=== PATIENT | female | born 1955 | race Caucasian/White ===

== ENCOUNTER 2016-09-02 09:25 | Emergency (ER) | payer BC ==
[2016-09-02] MEDS ORDERED: PANTOPRAZOLE 40MG TAB (PROTONIX) As Ordered ONE (10:04)
[2016-09-02] MEDS ORDERED: ASPIRIN 81 MG CHEW TABLET As Ordered ONE (10:04)
[2016-09-02 10:16] LABS: BASO # 0.1 K/mm3 (0.0-0.2); BASO % 1.8 % (0.0-1.0); EOS # 0.2 K/mm3 (0.0-0.50); EOS % 2.5 % (0.0-3.0); LARGE UNSTAINED CELL # 0.1 K/mm3 (0.0-0.4); LARGE UNSTAINED CELL % 1.6 % (0.0-4.0); LYMPH # 1.9 K/mm3 (1.5-4.5); LYMPH % 27.1 % (24.0-44.0); MEAN CORPUSCULAR HEMOGLOBIN 28.6 pg (27.0-33.0); MEAN CORPUSCULAR HGB CONC 31.9 g/dl (32.0-36.5); MEAN CORPUSCULAR VOLUME 89.7 fl (80.0-96.0); MONO # 0.3 K/mm3 (0.0-0.8); MONO % 4.9 % (0.0-5.0); NEUTROPHILS # 4.2 K/mm3 (1.8-7.7); NEUTROPHILS % 62.1 % (36.0-66.0); PLATELET COUNT, AUTOMATED 304 k/mm3 (150-450); RED CELL DISTRIBUTION WIDTH 13.8 % (11.5-14.5); WHITE BLOOD COUNT 6.7 K/mm3 (4.0-10.0)
[2016-09-02 10:23] LABS: ALBUMIN 3.7 GM/DL (3.2-5.2); ALBUMIN/GLOBULIN RATIO 1.23 (1.00-1.93); ALKALINE PHOSPHATASE 93 U/L (45-117); ALT/SGPT 54 U/L (12-78); ANION GAP 8 MEQ/L (8-16); AST/SGOT 19 U/L (15-37); BILIRUBIN,DIRECT < 0.1 MG/DL (0.0-0.2); BILIRUBIN,TOTAL 0.3 MG/DL (0.2-1.0); BLOOD UREA NITROGEN 13 MG/DL (7-18); CALCIUM LEVEL 8.8 MG/DL (8.8-10.2); CARBON DIOXIDE LEVEL 28 MEQ/L (21-32); CHLORIDE LEVEL 109 MEQ/L (98-107); CREATININE FOR GFR 0.81 MG/DL (0.55-1.02); GLOMERULAR FILTRATION RATE > 60.0 (>45); GLUCOSE, FASTING 229 MG/DL (80-110); POTASSIUM SERUM 4.1 MEQ/L (3.5-5.1); SODIUM LEVEL 145 MEQ/L (136-145); TOTAL PROTEIN 6.7 GM/DL (6.4-8.2)
--- NOTE | 2016-09-02 10:42 | REP ---
Clinical: Chest pain . Comparison: 12/16/2014 . Findings: The mediastinum and cardiac silhouette are stable and within normal limits for portable technique. The lung luna are clear without acute consolidation, effusion, or pneumothorax. Skeletal structures are intact. Impression: Normal portable chest x-ray Signed by Geronimo Palmer MD 09/02/2016 10:34 A
--- NOTE | 2016-09-02 13:00 | EDDOCDS ---
Physician Documentation [facility] Name: Cindy Skinner Age: 61 yrs Sex: Female : 1955 Arrival Date: 09/02/2016 Time: 09:25 Bed 14 Private MD: Amadeo Copeland Disposition: 09/02 12:43 Critical Care: Critical care not applicable. pc Disposition: 09/02/16 12:47 Discharged to Home/Self Care. Impression: Chest pain, unspecified, Gastro-esophageal reflux disease. - Condition is Stable. - Discharge Instructions: Nonspecific Chest Pain. - Prescriptions for Protonix 40 mg Oral Tablet - take 1 tablet by ORAL route once daily; 30 tablet. - Medication Reconciliation, Local Pharmacy Hours form. - Follow up: Amadeo Copeland; When: Call to arrange an appointment; Reason: Continuance of care. Follow up: Ashkan Garcia; When: Call to arrange an appointment; Reason: To establish care. - Problem is new. - Symptoms have improved. HPI: 10:02 This 61 yrs old Female presents to ER via Walkin/Carried/Asstd with pc complaints of Chest Pain. 10:02 The history is obtained from the patient. Symptoms began suddenly 8 days ago. There pc have been multiple episodes, that have been waxing and waning, lasting minutes to an hour. 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 She describes fatigue with walking up stairs but denies any SOB, diaphoresis, palpitations. She has GERD and was on a PPI for many years until 3 months ago, when she stopped in on her own to try apple cider vinegar instead. She had a stress test 3-[address] Copeladn, which was nor,mal per the EMR. At its worst, the symptoms were a 8 out of 10. In the emergency department, the symptoms are a 6 out of 10. The chest pain is described as a pressure, causing indigestion, a burning. It is located primarily in the substernal area. The pain radiates throat. The patient's known risk factors for coronary artery disease include: diabetes, hypertension, a family history of coronary artery disease. The patient has experienced similar episodes in the past, several times. The patient has not recently seen a physician. Historical: - Allergies: no known allergies; - Home Meds: 1. hydrochlorothiazide 12.5 mg Oral tab 1 tab once daily states does not take every day &#13(Last dose: 09/01/2016) 2. metformin 500 mg Oral tab 1 tab daily - PMHx: Hypertension; Diabetes - NIDDM: uncontrolled; - PSHx: Cervical Fusion; Hysterectomy; Tubal ligation; eye surgery x 3; Appendectomy; - The history from nurses notes was reviewed: and I agree with what is documented. - Social history: Smoking status: Patient states was never smoker of tobacco. No barriers to communication noted, The patient speaks fluent [place]isian, Speaks appropriately for age. - Family history: Not pertinent, Pertinent for Father has/had cardiac disorder, Brother has/had cardiac disorder. - : The pt / caregiver states he / she is not on anticoagulants. Home medication list is obtained from the patient. - Hospitalizations: : No recent hospitalization is reported. - Exposure Risk Screening:: None identified. - Immunization history:: All immunizations up-to-date. - Social history:: the patient is a non-smoker, the patient does not drink alcohol. ROS: 10:02 All systems are negative except as listed. The cardiovascular, respiratory, pc gastrointestinal and neurological components are also addressed in the HPI. Exam: 10:02 General Appearance: alert, no acute distress. pc 10:02 ENT: ear, nose and throat normal, pharynx normal. 10:02 Neck: supple, non-tender, no masses are appreciated. 10:02 Respiratory: no respiratory distress, normal breath sounds, chest non-tender. 10:02 Cardiovascular: regular pulse rate, regular heart rhythm, normal heart sounds, equal and full pulses bilaterally. 10:02 Abdomen: soft, non-tender, no organomegaly, normal bowel sounds. 10:02 Skin: skin color is normal, warm, dry. 10:02 Extremities: The extremities have a grossly normal appearance, are non-tender, without acute ROM abnormalities. 10:02 Neuro: alert, oriented to person, place and time, cranial nerves normal as tested, no motor deficits, no sensory deficits. 10:02 Psych: normal mood. Vital Signs: 09:27 BP 183 / 92; Pulse 90; Resp 16; Temp 98.3(O); Pulse Ox 98% on R/A; Weight 90.72 kg / elp 200 lbs (R); Height 5 ft. 2 in. (157.48 cm) (R); Pain 6/10; 09:40 BP 143 / 74 (auto/); pml 09:42 Pulse 76 MON; Pulse Ox 98% ; pml 09:53 Pulse 72 MON; Pulse Ox 98% ; pml 09:53 BP 155 / 75 (auto/); pml 10:08 Pulse 76 MON; Pulse Ox 98% ; pml 10:08 BP 148 / 59 (auto/); pml 10:23 Pulse 66 MON; Pulse Ox 98% ; pml 10:23 BP 160 / 69 (auto/); pml 10:38 Pulse 60 MON; Pulse Ox 98% ; pml 10:38 BP 163 / 74 (auto/); pml 10:53 Pulse 74 MON; Pulse Ox 98% ; pml 10:53 BP 150 / 69 (auto/); pml 11:08 Pulse 60 MON; Pulse Ox 98% ; pml 11:08 BP 146 / 60 (auto/); pml 11:23 Pulse 62 MON; Pulse Ox 98% ; pml 11:23 BP 136 / 63 (auto/); pml 11:38 Pulse 58 MON; Pulse Ox 97% ; pml 11:38 BP 140 / 68 (auto/); pml 11:53 BP 141 / 70 (auto/); bcj 11:53 Pulse 64 MON; Pulse Ox 98% ; bcj 12:08 BP 132 / 64 (auto/); bcj 12:08 Pulse 58 MON; Pulse Ox 98% ; bcj 12:23 BP 137 / 63 (auto/); bcj 12:23 Pulse 64 MON; Pulse Ox 99% ; bcj 12:38 BP 151 / 71 (auto/); bcj 12:38 Pulse 64 MON; Pulse Ox 98% ; bcj 12:53 Pulse 64 MON; Pulse Ox 98% ; ms18 12:53 BP 145 / 71 (auto/); Resp 18; Temp 98; Pulse Ox 99% ; Pain 0/10; ms18 09:27 Body Mass Index 36.58 (90.72 kg, 157.48 cm) elp MDM: 09:32 ECG WITH READING ER PHYS+CARDIAG ordered. EDMS 10:02 Aspirin Chewable Tablet 324 mg PO once ordered. pc 10:02 Registered Medical Transcriptionist/Pulse Ox/q 30 min VS ordered. pc 10:02 IV Saline Lock ordered. pc 10:02 Rhythm Strip to chart ordered. pc 10:02 Pantoprazole 40 mg PO once ordered. pc 10:02 Differential diagnosis: acute myocardial infarction, esophagitis, gastritis, pc gastroesophageal reflux disease (GERD), pancreatitis, unstable angina. Plan: labs, EKG, CXR. The patient was medicated with aspirin in the Emergency Department. Test interpretation: EKG. 10:03 Basic Metabolic Profile Ordered. EDMS 10:03 CBC with Diff Ordered. EDMS 10:03 Cardiac Injury Profile Ordered. EDMS 10:03 Troponin Ordered. EDMS 10:03 Liver Profile Ordered. EDMS 10:03 Lipase Ordered. EDMS 10:03 A1C Ordered. EDMS 10:03 portable chest Ordered. EDMS 10:55 Basic Metabolic Profile Reviewed. pc 10:55 CBC with Diff Reviewed. pc 10:55 A1C Reviewed. pc 10:55 Cardiac Injury Profile Reviewed. pc 10:55 Troponin Reviewed. pc 10:55 Liver Profile Reviewed. pc 10:55 Lipase Reviewed. pc 10:55 portable chest Reviewed. pc 10:56 Redraw CIP &Troponin (put time in details section) ordered. pc 10:56 Repeat EKG (put time details section) ordered. pc 10:58 Redraw CIP &Troponin (put time in details section) complete. deg 10:58 Repeat EKG (put time details section) complete. deg 10:59 CARDIAC MARKER PANEL Ordered. EDMS 11:00 ECG WITH READING ER PHYS ordered. EDMS 11:48 Financial registration complete. mm15 12:13 [facility] Payment Agreement was scanned into [employer] and attached to record. mm15 12:43 CARDIAC MARKER PANEL Reviewed. pc 12:43 Data reviewed: old medical records, vital signs, nurses notes, EKG(s), lab test pc results, all radiology studies and available results. Test interpretation: LAB - all labs as ordered have been reviewed, interpreted and considered in the overall management of the clinical presentation; X-RAY - interpreted by Radiologist and personally reviewed, 1 view chest normal. The patient has been re-examined and re-evaluated. The patient's symptoms have mildly improved after treatment. Disposition: The historical points, examination findings, and any diagnostic results supporting the provided diagnosis, were discussed with the patient or legal guardian. The need for outpatient follow up with the provider listed on their discharge instructions was discussed. They were encouraged to return to [facility], or the nearest ED, if symptoms worsen/persist, or for any other questions/concerns. 12:56 Test interpretation: EKG. EC:02 Rate is 75 beats/min. Rhythm is regular, Normal Sinus Rhythm. QRS [place] is Normal. AR pc interval is normal. QRS interval is normal. QT interval is normal. Q waves are Old in lead III. No ST changes noted. Clinical impression: Normal Sinus Rhythm and Inferior [place] - age indeterminate. No change from previous ECG in April,. 12:56 Rate is 59 beats/min. Rhythm is regular, Sinus bradycardia. QRS [place] is Normal. AR pc interval is normal. QRS interval is normal. QT interval is normal. Q waves are Old in lead III. T waves are Normal. No ST changes noted. Clinical impression: Sinus bradycardia and Inferior [place] - age indeterminate. Administered Medications: 10:06 Drug: Aspirin 324 mg [aspirin 81 mg chewable tablet (4 tabs)] Route: PO; pml 10:06 Drug: Pantoprazole 40 mg [pantoprazole 40 mg tablet,delayed release (1 tabs)] Route: PO;pml Signatures: Dispatcher [employer] EDMS Ketan Contreras MD MD pc Murray, Denise, Immigration Associate Unit deg Caro Tovar RN RN pml Mike Robison mm15 Brenda Guadarrama RN RN [id number] The chart was reviewed and I authenticate all verbal orders and agree with the evaluation and treatment provided.Attachments: 12:13 [facility] Payment Agreement [id number] MTDD
--- NOTE | 2016-09-02 13:00 | EDDOCDS ---
Nurse's Notes [facility] Name: Cindy Skinner Age: 61 yrs Sex: Female : 1955 Arrival Date: 09/02/2016 Time: 09:25 Bed 14 Private MD: Amadeo Copeland Diagnosis: Chest pain, unspecified;Gastro-esophageal reflux disease Presentation: 09/02 09:33 Presenting complaint: Patient states: chest pain all week - worse this AM - states she pml thought it was indigestion. states worsens with exertion. Aspirin was not taken prior to arrival. Adult Sepsis Screening: The patient does not have new or worsening altered mentation. Patient's respiratory rate is less than 22. Systolic blood pressure is greater than 100. Patient has a qSOFA score of 0- Negative Sepsis Screen. Suicide/Homicide risk assessment- the patient denies having any suicidal and/or homicidal ideations and does not present with any other emotional, behavioral or mental health complaints. Status: Patient is not a service engineer or dependent. Transition of care: patient was not received from another setting of care. 09:33 Acuity: KIKI Level 2 pml 09:33 Method Of Arrival: Walkin/Carried/Asstd pml 09:35 Red Flag criteria, patient assessed and taken directly to a bed. dls Triage Assessment: 09:36 General: Appears in no apparent distress, comfortable, Behavior is appropriate for age, pml cooperative. Pain: Location: anterior aspect of left upper chest and left breast Pain currently is 5 out of 10 on a pain scale. Pain began 5 days ago Is continuous. HIV screening NA for this visit Offered previously. The patient is triaged at the bedside. See Assessment in Nurses Notes section of ED record. Neurological: Level of Consciousness is awake, alert, Oriented to person, place, time. Cardiovascular: Capillary refill < 3 seconds Chest pain is described as diffuse, radiates Does not radiate. episodes are continuous began 5 days ago. Respiratory: Airway is patent Respiratory effort is even, unlabored, Respiratory pattern is regular, symmetrical, Reports shortness of breath on exertion. GI: Abdomen is non- distended obese. Derm: Skin is pink, warm & dry. 09:41 Cardiovascular: Rhythm is sinus rhythm No ectopy. pml Historical: - Allergies: no known allergies; - Home Meds: 1. hydrochlorothiazide 12.5 mg Oral tab 1 tab once daily states does not take every day &#13(Last dose: 09/01/2016) 2. metformin 500 mg Oral tab 1 tab daily - PMHx: Hypertension; Diabetes - NIDDM: uncontrolled; - PSHx: Cervical Fusion; Hysterectomy; Tubal ligation; eye surgery x 3; Appendectomy; - The history from nurses notes was reviewed: and I agree with what is documented. - Social history: Smoking status: Patient states was never smoker of tobacco. No barriers to communication noted, The patient speaks fluent Portuguese, Speaks appropriately for age. - Family history: Not pertinent, Pertinent for Father has/had cardiac disorder, Brother has/had cardiac disorder. - : The pt / caregiver states he / she is not on anticoagulants. Home medication list is obtained from the patient. - Hospitalizations: : No recent hospitalization is reported. - Exposure Risk Screening:: None identified. - Immunization history:: All immunizations up-to-date. - Social history:: the patient is a non-smoker, the patient does not drink alcohol. Screenin:47 Screening information is obtained from the patient. Fall risk: No risks identified. pml Assistance ADL's: requires no assistance with activities of daily living. Abuse/DV Screen: The patient / caregiver reports he/she is: not in a situation that causes fear, pain or injury. Nutritional screening: No deficits noted. Advance Directives: Currently, there is no health care proxy. home support is adequate. Assessment: 09:47 General: see triage note. pml 10:44 General: Appears in no apparent distress, comfortable, Behavior is appropriate for age, pml cooperative. Pain: Location: anterior aspect of left upper chest Pain currently is 3 out of 10 on a pain scale. Neurological: Level of Consciousness is awake, alert, Oriented to person, place, time. Cardiovascular: Capillary refill < 3 seconds Rhythm is sinus rhythm No ectopy. Respiratory: Airway is patent Respiratory effort is even, unlabored. Derm: Skin is pink, warm & dry. 11:45 General: resting on stretcher, no complaints, resps easy and unlabored, skin p/w/d. pml reports pain 3/10 in left chest wall. . 12:57 General: Appears in no apparent distress, comfortable, Behavior is appropriate for age, ms18 cooperative, pleasant. Pain: Denies pain. Neurological: No deficits noted. Cardiovascular: Chest pain is denied. Respiratory: Airway is patent Respiratory effort is even, unlabored. GI: Abdomen is obese. Derm: Skin is pink, warm & dry. Vital Signs: 09:27 BP 183 / 92; Pulse 90; Resp 16; Temp 98.3(O); Pulse Ox 98% on R/A; Weight 90.72 kg (R); elp Height 5 ft. 2 in. (157.48 cm) (R); Pain 6/10; 09:40 BP 143 / 74 (auto/); pml 09:42 Pulse 76 MON; Pulse Ox 98% ; pml 09:53 Pulse 72 MON; Pulse Ox 98% ; pml 09:53 BP 155 / 75 (auto/); pml 10:08 Pulse 76 MON; Pulse Ox 98% ; pml 10:08 BP 148 / 59 (auto/); pml 10:23 Pulse 66 MON; Pulse Ox 98% ; pml 10:23 BP 160 / 69 (auto/); pml 10:38 Pulse 60 MON; Pulse Ox 98% ; pml 10:38 BP 163 / 74 (auto/); pml 10:53 Pulse 74 MON; Pulse Ox 98% ; pml 10:53 BP 150 / 69 (auto/); pml 11:08 Pulse 60 MON; Pulse Ox 98% ; pml 11:08 BP 146 / 60 (auto/); pml 11:23 Pulse 62 MON; Pulse Ox 98% ; pml 11:23 BP 136 / 63 (auto/); pml 11:38 Pulse 58 MON; Pulse Ox 97% ; pml 11:38 BP 140 / 68 (auto/); pml 11:53 BP 141 / 70 (auto/); bcj 11:53 Pulse 64 MON; Pulse Ox 98% ; bcj 12:08 BP 132 / 64 (auto/); bcj 12:08 Pulse 58 MON; Pulse Ox 98% ; bcj 12:23 BP 137 / 63 (auto/); bcj 12:23 Pulse 64 MON; Pulse Ox 99% ; bcj 12:38 BP 151 / 71 (auto/); bcj 12:38 Pulse 64 MON; Pulse Ox 98% ; bcj 12:53 Pulse 64 MON; Pulse Ox 98% ; ms18 12:53 BP 145 / 71 (auto/); Resp 18; Temp 98; Pulse Ox 99% ; Pain 0/10; ms18 09:27 Body Mass Index 36.58 (90.72 kg, 157.48 cm) elp Vitals: 09:27 Log In Time: September 02, 2016 at 09:25. RN notified that patient meets Red Flag elp criteria. ED Course: 09:27 Patient visited by Augustina Diaz PCA. elp 09:27 Amadeo Copeland is Private Physician. elp 09:27 Patient moved to Waiting elp 09:28 Patient visited by Augustina Diaz PCA. elp 09:30 Patient moved to 14 dy 09:34 Triage Initiated pml 09:41 Patient visited by Caro Tovar RN. pml 09:41 EKG done. (by ED staff). Reviewed by Ketan Contreras MD. tk 09:43 Patient visited by Aidan Tinsley. tk 09:44 Ketan Contreras MD is Attending Physician. pc 09:47 The patient / caregiver is instructed regarding the plan of care and ED course. Patient pml has correct armband on for positive identification. Placed in gown. Bed in low position. Call light in reach. Side rails up X2. panel monitor on. Pulse ox on. NIBP on. 09:47 Inserted peripheral IV: 18gauge IV in right antecubital area and blood collected. pml Patient tolerated the procedure well. 09:48 Patient visited by Caro Tovar RN. pml 10:09 Patient visited by Ketan Contreras MD. pc 10:45 Patient visited by Caro Tovar RN. pml 10:49 portable chest Returned. EDMS 11:46 Patient visited by Caro Tovar RN. pml 12:02 Patient visited by Aidan Tinsley. tk 12:02 EKG done. (by ED staff). Reviewed by Ketan Contreras MD. tk 12:13 [facility] Payment Agreement was scanned into [employer] vascular solution and attached to record. mm15 12:13 CARDIAC MARKER PANEL Sent. ms18 12:24 Patient name changed from Cindy\S\A\S\Brody\S\ to Cindy\S\Xenia\S\Brody. EDMS 12:46 Amadeo Copeland is Referral Physician. pc 12:46 Ashkan Garcia is Referral Physician. pc 12:53 Property sent home with patient. :Personal belongings accompany Pt. ms18 12:53 Discontinued IV lock intact, bleeding controlled, pressure dressing applied, No ms18 redness/swelling at site. No procedures done that require assistance. 12:57 Patient visited by Brenda Guadarrama RN. ms18 Administered Medications: 10:06 Drug: Aspirin 324 mg [aspirin 81 mg chewable tablet (4 tabs)] Route: PO; pml 10:06 Drug: Pantoprazole 40 mg [pantoprazole 40 mg tablet,delayed release (1 tabs)] Route: PO;pml Order Results: Lab Order: Basic Metabolic Profile; SPEC'M 09/02/16 09:45 Test: GLUCOSE, FASTING; Value: 229; Range: 80-110; Abnormal: Above high normal; Units: MG/DL; Status: F Test: BLOOD UREA NITROGEN; Value: 13; Range: 7-18; Units: MG/DL; Status: F Test: CREATININE FOR GFR; Value: 0.81; Range: 0.55-1.02; Units: MG/DL; Status: F Test: GLOMERULAR FILTRATION RATE; Value: > 60.0; Range: >45; Status: F Test: SODIUM LEVEL; Value: 145; Range: 136-145; Units: MEQ/L; Status: F Test: POTASSIUM SERUM; Value: 4.1; Range: 3.5-5.1; Units: MEQ/L; Status: F Test: CHLORIDE LEVEL; Value: 109; Range: 98-107; Abnormal: Above high normal; Units: MEQ/L; Status: F Test: CARBON DIOXIDE LEVEL; Value: 28; Range: 21-32; Units: MEQ/L; Status: F Test: ANION GAP; Value: 8; Range: 8-16; Units: MEQ/L; Status: F Test: CALCIUM LEVEL; Value: 8.8; Range: 8.8-10.2; Units: MG/DL; Status: F Test Note: ; Units are mL/min/1.73 m2 Chronic Kidney Disease Staging per NKF: Stage I & II GFR >=60 Normal to Mildly Decreased Stage III GFR 30-59 Moderately Decreased Stage IV GFR 15-29 Severely Decreased Stage V GFR <15 Very Little GFR Left ESRD GFR <15 on SECURITY INTERN Lab Order: CBC with Diff; SPEC'M 09/02/16 09:45 Test: WHITE BLOOD COUNT; Value: 6.7; Range: 4.0-10.0; Units: K/mm3; Status: F Test: RED BLOOD COUNT; Value: 5.14; Range: 4.00-5.40; Units: M/mm3; Status: F Test: HEMOGLOBIN; Value: 14.7; Range: 12.0-16.0; Units: g/dl; Status: F Test: HEMATOCRIT; Value: 46.1; Range: 36.0-47.0; Units: %; Status: F Test: MEAN CORPUSCULAR VOLUME; Value: 89.7; Range: 80.0-96.0; Units: fl; Status: F Test: MEAN CORPUSCULAR HEMOGLOBIN; Value: 28.6; Range: 27.0-33.0; Units: pg; Status: F Test: MEAN CORPUSCULAR HGB CONC; Value: 31.9; Range: 32.0-36.5; Abnormal: Below low normal; Units: g/dl; Status: F Test: RED CELL DISTRIBUTION WIDTH; Value: 13.8; Range: 11.5-14.5; Units: %; Status: F Test: PLATELET COUNT, AUTOMATED; Value: 304; Range: 150-450; Units: k/mm3; Status: F Test: NEUTROPHILS %; Value: 62.1; Range: 36.0-66.0; Units: %; Status: F Test: LYMPH %; Value: 27.1; Range: 24.0-44.0; Units: %; Status: F Test: MONO %; Value: 4.9; Range: 0.0-5.0; Units: %; Status: F Test: EOS %; Value: 2.5; Range: 0.0-3.0; Units: %; Status: F Test: BASO %; Value: 1.8; Range: 0.0-1.0; Abnormal: Above high normal; Units: %; Status: F Test: LARGE UNSTAINED CELL %; Value: 1.6; Range: 0.0-4.0; Units: %; Status: F Test: NEUTROPHILS #; Value: 4.2; Range: 1.8-7.7; Units: K/mm3; Status: F Test: LYMPH #; Value: 1.9; Range: 1.5-4.5; Units: K/mm3; Status: F Test: MONO #; Value: 0.3; Range: 0.0-0.8; Units: K/mm3; Status: F Test: EOS #; Value: 0.2; Range: 0.0-0.50; Units: K/mm3; Status: F Test: BASO #; Value: 0.1; Range: 0.0-0.2; Units: K/mm3; Status: F Test: LARGE UNSTAINED CELL #; Value: 0.1; Range: 0.0-0.4; Units: K/mm3; Status: F Lab Order: Cardiac Injury Profile; [facility]' 09/02/16 09:45 Test: CPK CREATINE PHOSPHOKINASE; Value: 131; Range: 26-192; Units: U/L; Status: F Test: CK-MB VALUE MASS; Value: 1.5; Range: 0.0-3.6; Units: NG/ML; Status: F Test: MB/CK RELATIVE INDEX; Value: 1.14; Range: < OR =4; Status: F Test Note: ; DIAGNOSIS CRITERIA MMB ng/ml Relative Index (RI) NON-AMI < or = 5 N/A BAH ZONE > 5 < or = 4 AMI > 5 > 4 Lab Order: Troponin; [facility] 09/02/16 09:45 Test: TROPONIN I; Value: < 0.02; Range: < 0.10; Units: NG/ML; Status: F Test Note: ; Troponin I Reference Interval for [employer] LOCI: 99th Percentile= 0.00-0.045 ng/ml Risk Stratification: <= 0.10 ng/ml Decreased Risk for Adverse Clinical Events. 0.10-1.50 ng/ml Increased Risk for Adverse Clinical Events. Evaluation of additional criterion and/or repeat testing in 2-6 hours is suggested to rule out myocardial damage. >= 1.50 ng/ml Indicative of Myocardial Injury. Lab Order: Liver Profile; SPEC09/02/16 09:45 Test: AST/SGOT; Value: 19; Range: 15-37; Units: U/L; Status: F Test: ALT/SGPT; Value: 54; Range: 12-78; Units: U/L; Status: F Test: ALKALINE PHOSPHATASE; Value: 93; Range: 45-117; Units: U/L; Status: F Test: BILIRUBIN,TOTAL; Value: 0.3; Range: 0.2-1.0; Units: MG/DL; Status: F Test: BILIRUBIN,DIRECT; Value: < 0.1; Range: 0.0-0.2; Units: MG/DL; Status: F Test: TOTAL PROTEIN; Value: 6.7; Range: 6.4-8.2; Units: GM/DL; Status: F Test: ALBUMIN; Value: 3.7; Range: 3.2-5.2; Units: GM/DL; Status: F Test: ALBUMIN/GLOBULIN RATIO; Value: 1.23; Range: 1.00-1.93; Status: F Lab Order: Lipase; SPEC'M 09/02/16 09:45 Test: LIPASE; Value: 165; Range: 73-393; Units: U/L; Status: F Lab Order: A1C; SPEC' 09/02/16 09:45 Test: HEMOGLOBIN A1c; Value: 7.1; Range: 4.5-6.2; Abnormal: Above high normal; Units: %; Status: F Test: ESTIMATED AVERAGE GLUCOSE; Value: 157; Range: 60-110; Abnormal: Above high normal; Units: MG/DL; Status: F Lab Order: CARDIAC MARKER PANEL; SPEC' 09/02/16 12:09 Test: CPK CREATINE PHOSPHOKINASE; Value: 122; Range: 26-192; Units: U/L; Status: F Test: CK-MB VALUE MASS; Value: 1.5; Range: 0.0-3.6; Units: NG/ML; Status: F Test: MB/CK RELATIVE INDEX; Value: 1.22; Range: < OR =4; Status: F Test: TROPONIN I; Value: < 0.02; Range: < 0.10; Units: NG/ML; Status: F Test Note: ; DIAGNOSIS CRITERIA MMB ng/ml Relative Index (RI) NON-AMI < or = 5 N/A BAH ZONE > 5 < or = 4 AMI > 5 > 4 Radiology Order: portable chest Test: portable chest REASON FOR EXAMINATION: Chest Pain; Clinical: Chest pain .; ; Comparison: 12/16/2014 .; ; Findings:; The mediastinum and cardiac silhouette are stable and within normal limits for; portable technique. The lung luna are clear without acute consolidation,; effusion, or pneumothorax. Skeletal structures are intact.; ; Impression:; Normal portable chest x-ray; ; ; Signed by; Geronimo Palmer MD 09/02/2016 10:34 A; Outcome: 12:47 Discharge ordered by Provider. 12:53 Discharge Assessment: Patient awake, alert and oriented x 3. No cognitive and/or ms18 functional deficits noted. Patient verbalized understanding of disposition instructions. patient administered narcotics - no. The following High Risk Discharge criteria are identified: None. Discharged to home ambulatory. Condition: good Condition: stable Condition: improved. Discharge instructions given to patient, Instructed on discharge instructions, follow up and referral plans. medication usage, Demonstrated understanding of instructions, medications, Pt was receptive of discharge instructions/ teaching. Prescriptions given X 1. No special radiology studies were completed. 12:59 Patient left the ED. ms18 Signatures: Dispatcher [employer] EDMS Ketan Contreras MD MD pc Johnson, Bruce, RN RN Karen Juarez, RN RN Zhou Haddad, Caro Yepez RN,Mike Daiz RN mm15 Augustina Diaz, Brenda Johnson RN RN ms18 Aidan Tinsley MTDD
--- NOTE | 2016-09-03 12:48 | ECGEPIP ---
Stationary ECG Study [facility] - ED Test Date: 2016-09-02 Pat Name: FRANCINE AGARWAL Department: Room: - Gender: F Critical Care Physician Assistant: tk : 1955 Requested By: Ketan Salmeron Order Number: [id number] Reading MD: Gayatri Hussein Measurements Intervals [place] Rate: 75 P: 42 [place]: 176 QRS: 35 QRSD: 102 T: 30 QT: 365 QTc: 409 Interpretive Statements SINUS RHYTHM SIMILAR 05/05/12 Electronically Signed On 09-03-2016 12:48:18 EST by Gayatri Hussein
--- NOTE | 2016-09-03 12:51 | ECGEPIP ---
Stationary ECG Study 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
--- NOTE | 2016-09-04 14:00 | EDDOCDS ---
Nurse's Notes [facility] Name: Francine Skinner Age: 61 yrs Sex: Female : 1955 Arrival Date: 09/02/2016 Time: 09:25 Bed 14 Private MD: Amadeo Copeland Diagnosis: Chest pain, unspecified;Gastro-esophageal reflux disease Presentation: 09/02 09:33 Presenting complaint: Patient states: chest pain all week - worse this AM - states she pml thought it was indigestion. states worsens with exertion. Aspirin was not taken prior to arrival. Adult Sepsis Screening: The patient does not have new or worsening altered mentation. Patient's respiratory rate is less than 22. Systolic blood pressure is greater than 100. Patient has a qSOFA score of 0- Negative Sepsis Screen. Suicide/Homicide risk assessment- the patient denies having any suicidal and/or homicidal ideations and does not present with any other emotional, behavioral or mental health complaints. Status: Patient is not a service observer chief or dependent. Transition of care: patient was not received from another setting of care. 09:33 Acuity: KIKI Level 2 pml 09:33 Method Of Arrival: Walkin/Carried/Asstd pml 09:35 Red Flag criteria, patient assessed and taken directly to a bed. dls Triage Assessment: 09:36 General: Appears in no apparent distress, comfortable, Behavior is appropriate for age, pml cooperative. Pain: Location: anterior aspect of left upper chest and left breast Pain currently is 5 out of 10 on a pain scale. Pain began 5 days ago Is continuous. HIV screening NA for this visit Offered previously. The patient is triaged at the bedside. See Assessment in Nurses Notes section of ED record. Neurological: Level of Consciousness is awake, alert, Oriented to person, place, time. Cardiovascular: Capillary refill < 3 seconds Chest pain is described as diffuse, radiates Does not radiate. episodes are continuous began 5 days ago. Respiratory: Airway is patent Respiratory effort is even, unlabored, Respiratory pattern is regular, symmetrical, Reports shortness of breath on exertion. GI: Abdomen is non- distended obese. Derm: Skin is pink, warm & dry. 09:41 Cardiovascular: Rhythm is sinus rhythm No ectopy. pml Historical: - Allergies: no known allergies; - Home Meds: 1. hydrochlorothiazide 12.5 mg Oral tab 1 tab once daily states does not take every day &#13(Last dose: 09/01/2016) 2. metformin 500 mg Oral tab 1 tab daily - PMHx: Hypertension; Diabetes - NIDDM: uncontrolled; - PSHx: Cervical Fusion; Hysterectomy; Tubal ligation; eye surgery x 3; Appendectomy; - The history from nurses notes was reviewed: and I agree with what is documented. - Social history: Smoking status: Patient states was never smoker of tobacco. No barriers to communication noted, The patient speaks fluent Tanzanian, Speaks appropriately for age. - Family history: Not pertinent, Pertinent for Father has/had cardiac disorder, Brother has/had cardiac disorder. - : The pt / caregiver states he / she is not on anticoagulants. Home medication list is obtained from the patient. - Hospitalizations: : No recent hospitalization is reported. - Exposure Risk Screening:: None identified. - Immunization history:: All immunizations up-to-date. - Social history:: the patient is a non-smoker, the patient does not drink alcohol. Screenin:47 Screening information is obtained from the patient. Fall risk: No risks identified. pml Assistance ADL's: requires no assistance with activities of daily living. Abuse/DV Screen: The patient / caregiver reports he/she is: not in a situation that causes fear, pain or injury. Nutritional screening: No deficits noted. Advance Directives: Currently, there is no health care proxy. home support is adequate. Assessment: 09:47 General: see triage note. pml 10:44 General: Appears in no apparent distress, comfortable, Behavior is appropriate for age, pml cooperative. Pain: Location: anterior aspect of left upper chest Pain currently is 3 out of 10 on a pain scale. Neurological: Level of Consciousness is awake, alert, Oriented to person, place, time. Cardiovascular: Capillary refill < 3 seconds Rhythm is sinus rhythm No ectopy. Respiratory: Airway is patent Respiratory effort is even, unlabored. Derm: Skin is pink, warm & dry. 11:45 General: resting on stretcher, no complaints, resps easy and unlabored, skin p/w/d. pml reports pain 3/10 in left chest wall. . 12:57 General: Appears in no apparent distress, comfortable, Behavior is appropriate for age, ms18 cooperative, pleasant. Pain: Denies pain. Neurological: No deficits noted. Cardiovascular: Chest pain is denied. Respiratory: Airway is patent Respiratory effort is even, unlabored. GI: Abdomen is obese. Derm: Skin is pink, warm & dry. Vital Signs: 09:27 BP 183 / 92; Pulse 90; Resp 16; Temp 98.3(O); Pulse Ox 98% on R/A; Weight 90.72 kg (R); elp Height 5 ft. 2 in. (157.48 cm) (R); Pain 6/10; 09:40 BP 143 / 74 (auto/); pml 09:42 Pulse 76 MON; Pulse Ox 98% ; pml 09:53 Pulse 72 MON; Pulse Ox 98% ; pml 09:53 BP 155 / 75 (auto/); pml 10:08 Pulse 76 MON; Pulse Ox 98% ; pml 10:08 BP 148 / 59 (auto/); pml 10:23 Pulse 66 MON; Pulse Ox 98% ; pml 10:23 BP 160 / 69 (auto/); pml 10:38 Pulse 60 MON; Pulse Ox 98% ; pml 10:38 BP 163 / 74 (auto/); pml 10:53 Pulse 74 MON; Pulse Ox 98% ; pml 10:53 BP 150 / 69 (auto/); pml 11:08 Pulse 60 MON; Pulse Ox 98% ; pml 11:08 BP 146 / 60 (auto/); pml 11:23 Pulse 62 MON; Pulse Ox 98% ; pml 11:23 BP 136 / 63 (auto/); pml 11:38 Pulse 58 MON; Pulse Ox 97% ; pml 11:38 BP 140 / 68 (auto/); pml 11:53 BP 141 / 70 (auto/); bcj 11:53 Pulse 64 MON; Pulse Ox 98% ; bcj 12:08 BP 132 / 64 (auto/); bcj 12:08 Pulse 58 MON; Pulse Ox 98% ; bcj 12:23 BP 137 / 63 (auto/); bcj 12:23 Pulse 64 MON; Pulse Ox 99% ; bcj 12:38 BP 151 / 71 (auto/); bcj 12:38 Pulse 64 MON; Pulse Ox 98% ; bcj 12:53 Pulse 64 MON; Pulse Ox 98% ; ms18 12:53 BP 145 / 71 (auto/); Resp 18; Temp 98; Pulse Ox 99% ; Pain 0/10; ms18 09:27 Body Mass Index 36.58 (90.72 kg, 157.48 cm) elp Vitals: 09:27 Log In Time: September 02, 2016 at 09:25. RN notified that patient meets Red Flag elp criteria. ED Course: 09:27 Patient visited by Augustina Diaz PCA. elp 09:27 Amadeo Copeland is Private Physician. elp 09:27 Patient moved to Waiting elp 09:28 Patient visited by Augustina Diaz PCA. elp 09:30 Patient moved to 14 dy 09:34 Triage Initiated pml 09:41 Patient visited by Caro Tovar RN. pml 09:41 EKG done. (by ED staff). Reviewed by Ketan Contreras MD. tk 09:43 Patient visited by Aidan Tinsley. tk 09:44 Ketan Contreras MD is Attending Physician. pc 09:47 The patient / caregiver is instructed regarding the plan of care and ED course. Patient pml has correct armband on for positive identification. Placed in gown. Bed in low position. Call light in reach. Side rails up X2. hospital monitor on. Pulse ox on. NIBP on. 09:47 Inserted peripheral IV: 18gauge IV in right antecubital area and blood collected. pml Patient tolerated the procedure well. 09:48 Patient visited by Caro Tovar RN. pml 10:09 Patient visited by Ketan Contreras MD. pc 10:45 Patient visited by Caro Tovar RN. pml 10:49 portable chest Returned. EDMS 11:46 Patient visited by Caro Tovar RN. pml 12:02 Patient visited by Aidan Tinsley. tk 12:02 EKG done. (by ED staff). Reviewed by Ketan Contreras MD. tk 12:13 [facility] Payment Agreement was scanned into [employer] and attached to record. mm15 12:13 CARDIAC MARKER PANEL Sent. ms18 12:24 Patient name changed from Francine\S\A\S\Brody\S\ to Francine\S\Xenia\S\Brody. EDMS 12:46 Amadeo Copeland is Referral Physician. pc 12:46 Ashkan Garcia is Referral Physician. pc 12:53 Property sent home with patient. :Personal belongings accompany Pt. ms18 12:53 Discontinued IV lock intact, bleeding controlled, pressure dressing applied, No ms18 redness/swelling at site. No procedures done that require assistance. 12:57 Patient visited by Brenda Guadarrama RN. ms18 09/03 12:40 ECG/EKG was scanned into [employer] and attached to record. gb 13:09 EKG-ADULT Returned. EDMS 13:09 ECG WITH READING ER PHYS Returned. EDMS Administered Medications: 09/02 10:06 Drug: Aspirin 324 mg [aspirin 81 mg chewable tablet (4 tabs)] Route: PO; pml 10:06 Drug: Pantoprazole 40 mg [pantoprazole 40 mg tablet,delayed release (1 tabs)] Route: PO;pml Order Results: Lab Order: Basic Metabolic Profile; SPEC'M 09/02/16 09:45 Test: GLUCOSE, FASTING; Value: 229; Range: 80-110; Abnormal: Above high normal; Units: MG/DL; Status: F Test: BLOOD UREA NITROGEN; Value: 13; Range: 7-18; Units: MG/DL; Status: F Test: CREATININE FOR GFR; Value: 0.81; Range: 0.55-1.02; Units: MG/DL; Status: F Test: GLOMERULAR FILTRATION RATE; Value: > 60.0; Range: >45; Status: F Test: SODIUM LEVEL; Value: 145; Range: 136-145; Units: MEQ/L; Status: F Test: POTASSIUM SERUM; Value: 4.1; Range: 3.5-5.1; Units: MEQ/L; Status: F Test: CHLORIDE LEVEL; Value: 109; Range: 98-107; Abnormal: Above high normal; Units: MEQ/L; Status: F Test: CARBON DIOXIDE LEVEL; Value: 28; Range: 21-32; Units: MEQ/L; Status: F Test: ANION GAP; Value: 8; Range: 8-16; Units: MEQ/L; Status: F Test: CALCIUM LEVEL; Value: 8.8; Range: 8.8-10.2; Units: MG/DL; Status: F Test Note: ; Units are mL/min/1.73 m2 Chronic Kidney Disease Staging per NKF: Stage I & II GFR >=60 Normal to Mildly Decreased Stage III GFR 30-59 Moderately Decreased Stage IV GFR 15-29 Severely Decreased Stage V GFR <15 Very Little GFR Left ESRD GFR <15 on AUTOMATIC SERGING MACHINE OPERATOR Lab Order: CBC with Diff; SPEC'M 09/02/16 09:45 Test: WHITE BLOOD COUNT; Value: 6.7; Range: 4.0-10.0; Units: K/mm3; Status: F Test: RED BLOOD COUNT; Value: 5.14; Range: 4.00-5.40; Units: M/mm3; Status: F Test: HEMOGLOBIN; Value: 14.7; Range: 12.0-16.0; Units: g/dl; Status: F Test: HEMATOCRIT; Value: 46.1; Range: 36.0-47.0; Units: %; Status: F Test: MEAN CORPUSCULAR VOLUME; Value: 89.7; Range: 80.0-96.0; Units: fl; Status: F Test: MEAN CORPUSCULAR HEMOGLOBIN; Value: 28.6; Range: 27.0-33.0; Units: pg; Status: F Test: MEAN CORPUSCULAR HGB CONC; Value: 31.9; Range: 32.0-36.5; Abnormal: Below low normal; Units: g/dl; Status: F Test: RED CELL DISTRIBUTION WIDTH; Value: 13.8; Range: 11.5-14.5; Units: %; Status: F Test: PLATELET COUNT, AUTOMATED; Value: 304; Range: 150-450; Units: k/mm3; Status: F Test: NEUTROPHILS %; Value: 62.1; Range: 36.0-66.0; Units: %; Status: F Test: LYMPH %; Value: 27.1; Range: 24.0-44.0; Units: %; Status: F Test: MONO %; Value: 4.9; Range: 0.0-5.0; Units: %; Status: F Test: EOS %; Value: 2.5; Range: 0.0-3.0; Units: %; Status: F Test: BASO %; Value: 1.8; Range: 0.0-1.0; Abnormal: Above high normal; Units: %; Status: F Test: LARGE UNSTAINED CELL %; Value: 1.6; Range: 0.0-4.0; Units: %; Status: F Test: NEUTROPHILS #; Value: 4.2; Range: 1.8-7.7; Units: K/mm3; Status: F Test: LYMPH #; Value: 1.9; Range: 1.5-4.5; Units: K/mm3; Status: F Test: MONO #; Value: 0.3; Range: 0.0-0.8; Units: K/mm3; Status: F Test: EOS #; Value: 0.2; Range: 0.0-0.50; Units: K/mm3; Status: F Test: BASO #; Value: 0.1; Range: 0.0-0.2; Units: K/mm3; Status: F Test: LARGE UNSTAINED CELL #; Value: 0.1; Range: 0.0-0.4; Units: K/mm3; Status: F Lab Order: Cardiac Injury Profile; [facility]' 09/02/16 09:45 Test: CPK CREATINE PHOSPHOKINASE; Value: 131; Range: 26-192; Units: U/L; Status: F Test: CK-MB VALUE MASS; Value: 1.5; Range: 0.0-3.6; Units: NG/ML; Status: F Test: MB/CK RELATIVE INDEX; Value: 1.14; Range: < OR =4; Status: F Test Note: ; DIAGNOSIS CRITERIA MMB ng/ml Relative Index (RI) NON-AMI < or = 5 N/A BAH ZONE > 5 < or = 4 AMI > 5 > 4 Lab Order: Troponin; [facility]' 09/02/16 09:45 Test: TROPONIN I; Value: < 0.02; Range: < 0.10; Units: NG/ML; Status: F Test Note: ; Troponin I Reference Interval for [employer] LOCI: 99th Percentile= 0.00-0.045 ng/ml Risk Stratification: <= 0.10 ng/ml Decreased Risk for Adverse Clinical Events. 0.10-1.50 ng/ml Increased Risk for Adverse Clinical Events. Evaluation of additional criterion and/or repeat testing in 2-6 hours is suggested to rule out myocardial damage. >= 1.50 ng/ml Indicative of Myocardial Injury. Lab Order: Liver Profile; SPEC' 09/02/16 09:45 Test: AST/SGOT; Value: 19; Range: 15-37; Units: U/L; Status: F Test: ALT/SGPT; Value: 54; Range: 12-78; Units: U/L; Status: F Test: ALKALINE PHOSPHATASE; Value: 93; Range: 45-117; Units: U/L; Status: F Test: BILIRUBIN,TOTAL; Value: 0.3; Range: 0.2-1.0; Units: MG/DL; Status: F Test: BILIRUBIN,DIRECT; Value: < 0.1; Range: 0.0-0.2; Units: MG/DL; Status: F Test: TOTAL PROTEIN; Value: 6.7; Range: 6.4-8.2; Units: GM/DL; Status: F Test: ALBUMIN; Value: 3.7; Range: 3.2-5.2; Units: GM/DL; Status: F Test: ALBUMIN/GLOBULIN RATIO; Value: 1.23; Range: 1.00-1.93; Status: F Lab Order: Lipase; SPEC' 09/02/16 09:45 Test: LIPASE; Value: 165; Range: 73-393; Units: U/L; Status: F Lab Order: A1C; SPEC' 09/02/16 09:45 Test: HEMOGLOBIN A1c; Value: 7.1; Range: 4.5-6.2; Abnormal: Above high normal; Units: %; Status: F Test: ESTIMATED AVERAGE GLUCOSE; Value: 157; Range: 60-110; Abnormal: Above high normal; Units: MG/DL; Status: F Lab Order: CARDIAC MARKER PANEL; SPEC' 09/02/16 12:09 Test: CPK CREATINE PHOSPHOKINASE; Value: 122; Range: 26-192; Units: U/L; Status: F Test: CK-MB VALUE MASS; Value: 1.5; Range: 0.0-3.6; Units: NG/ML; Status: F Test: MB/CK RELATIVE INDEX; Value: 1.22; Range: < OR =4; Status: F Test: TROPONIN I; Value: < 0.02; Range: < 0.10; Units: NG/ML; Status: F Test Note: ; DIAGNOSIS CRITERIA MMB ng/ml Relative Index (RI) NON-AMI < or = 5 N/A BAH ZONE > 5 < or = 4 AMI > 5 > 4 Radiology Order: EKG-ADULT Test: EKG-ADULT REASON FOR EXAMINATION: Chest Pain; Stationary ECG Study; [facility] ED; ; Test Date: 2016-09-02; Pat Name: FRANCINE SKINNER Department:; Room: -; Gender: F Dynamic Balancer: tk; : 1955 Requested By: Ketan Salmeron; Order Number: [id number] Reading MD: Gayatri Hussein; Measurements; Intervals [place]; Rate: 75 P: 42; [place]: 176 QRS: 35; QRSD: 102 T: 30; QT: 365; QTc: 409; Interpretive Statements; SINUS RHYTHM; SIMILAR 05/05/12; Electronically Signed On 09-03-2016 12:48:18 EST by Gayatri Hussein; Radiology Order: portable chest Test: portable chest REASON FOR EXAMINATION: Chest Pain; Clinical: Chest pain .; ; Comparison: 12/16/2014 .; ; Findings:; The mediastinum and cardiac silhouette are stable and within normal limits for; portable technique. The lung luna are clear without acute consolidation,; effusion, or pneumothorax. Skeletal structures are intact.; ; Impression:; Normal portable chest x-ray; ; ; Signed by; Geronimo Palmer MD 09/02/2016 10:34 A; Radiology Order: ECG WITH READING ER PHYS Test: ECG WITH READING ER PHYS REASON FOR EXAMINATION: CHEST PAIN; Stationary ECG Study; [facility] ED; ; Test Date: 2016-09-02; Pat Name: FRANCINE SKINNER Department:; Room: -; Gender: F Dynamic Balancer: lizzeth; : 1955 Requested By: Ketan Salmeron; Order Number: [id number] Reading MD: Gayatri Hussein; Measurements; Intervals [place]; Rate: 59 P: 21; [place]: 186 QRS: 37; QRSD: 95 T: 29; QT: 401; QTc: 399; Interpretive Statements; SINUS BRADYCARDIA; DECREASED RATE 09/02/16; Electronically Signed On 09-03-2016 12:50:39 EST by Gayatri Hussein; Outcome: 12:47 Discharge ordered by Provider. 12:53 Discharge Assessment: Patient awake, alert and oriented x 3. No cognitive and/or ms18 functional deficits noted. Patient verbalized understanding of disposition instructions. patient administered narcotics - no. The following High Risk Discharge criteria are identified: None. Discharged to home ambulatory. Condition: good Condition: stable Condition: improved. Discharge instructions given to patient, Instructed on discharge instructions, follow up and referral plans. medication usage, Demonstrated understanding of instructions, medications, Pt was receptive of discharge instructions/ teaching. Prescriptions given X 1. No special radiology studies were completed. 12:59 Patient left the ED. ms18 Signatures: Dispatcher [employer] EDMS Ketan Contreras MD MD pc Johnson, Bruce, RN RN Karen Juarez RN RN dls Jose Antonio, Dian, Reg Reg Zhou Hutchinson, RN RN Caro ShahRN RN Mike Shetty mm15 Augustina Diaz, Brenda Johnson RN RN ms18 Aidan Tinsley Chart Complete [id number]
--- NOTE | 2016-09-04 14:00 | EDDOCDS ---
Physician Documentation [facility] Name: Cindy Skinner Age: 61 yrs Sex: Female : 1955 Arrival Date: 09/02/2016 Time: 09:25 Bed 14 Private MD: Amadeo Copeland Disposition: 09/02 12:43 Critical Care: Critical care not applicable. pc Disposition: 09/02/16 12:47 Discharged to Home/Self Care. Impression: Chest pain, unspecified, Gastro-esophageal reflux disease. - Condition is Stable. - Discharge Instructions: Nonspecific Chest Pain. - Prescriptions for Protonix 40 mg Oral Tablet - take 1 tablet by ORAL route once daily; 30 tablet. - Medication Reconciliation, Local Pharmacy Hours form. - Follow up: Amadeo Copeland; When: Call to arrange an appointment; Reason: Continuance of care. Follow up: Ashkan Garcia; When: Call to arrange an appointment; Reason: To establish care. - Problem is new. - Symptoms have improved. HPI: 10:02 This 61 yrs old Female presents to ER via Walkin/Carried/Asstd with pc complaints of Chest Pain. 10:02 The history is obtained from the patient. Symptoms began suddenly 8 days ago. There pc have been multiple episodes, that have been waxing and waning, lasting minutes to an hour. 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 She describes fatigue with walking up stairs but denies any SOB, diaphoresis, palpitations. She has GERD and was on a PPI for many years until 3 months ago, when she stopped in on her own to try apple cider vinegar instead. She had a stress test 3-[address] Copeland, which was nor,mal per the EMR. At its worst, the symptoms were a 8 out of 10. In the emergency department, the symptoms are a 6 out of 10. The chest pain is described as a pressure, causing indigestion, a burning. It is located primarily in the substernal area. The pain radiates throat. The patient's known risk factors for coronary artery disease include: diabetes, hypertension, a family history of coronary artery disease. The patient has experienced similar episodes in the past, several times. The patient has not recently seen a physician. Historical: - Allergies: no known allergies; - Home Meds: 1. hydrochlorothiazide 12.5 mg Oral tab 1 tab once daily states does not take every day &#13(Last dose: 09/01/2016) 2. metformin 500 mg Oral tab 1 tab daily - PMHx: Hypertension; Diabetes - NIDDM: uncontrolled; - PSHx: Cervical Fusion; Hysterectomy; Tubal ligation; eye surgery x 3; Appendectomy; - The history from nurses notes was reviewed: and I agree with what is documented. - Social history: Smoking status: Patient states was never smoker of tobacco. No barriers to communication noted, The patient speaks fluent Sammarinese, Speaks appropriately for age. - Family history: Not pertinent, Pertinent for Father has/had cardiac disorder, Brother has/had cardiac disorder. - : The pt / caregiver states he / she is not on anticoagulants. Home medication list is obtained from the patient. - Hospitalizations: : No recent hospitalization is reported. - Exposure Risk Screening:: None identified. - Immunization history:: All immunizations up-to-date. - Social history:: the patient is a non-smoker, the patient does not drink alcohol. ROS: 10:02 All systems are negative except as listed. The cardiovascular, respiratory, pc gastrointestinal and neurological components are also addressed in the HPI. Exam: 10:02 General Appearance: alert, no acute distress. pc 10:02 ENT: ear, nose and throat normal, pharynx normal. 10:02 Neck: supple, non-tender, no masses are appreciated. 10:02 Respiratory: no respiratory distress, normal breath sounds, chest non-tender. 10:02 Cardiovascular: regular pulse rate, regular heart rhythm, normal heart sounds, equal and full pulses bilaterally. 10:02 Abdomen: soft, non-tender, no organomegaly, normal bowel sounds. 10:02 Skin: skin color is normal, warm, dry. 10:02 Extremities: The extremities have a grossly normal appearance, are non-tender, without acute ROM abnormalities. 10:02 Neuro: alert, oriented to person, place and time, cranial nerves normal as tested, no motor deficits, no sensory deficits. 10:02 Psych: normal mood. Vital Signs: 09:27 BP 183 / 92; Pulse 90; Resp 16; Temp 98.3(O); Pulse Ox 98% on R/A; Weight 90.72 kg / elp 200 lbs (R); Height 5 ft. 2 in. (157.48 cm) (R); Pain 6/10; 09:40 BP 143 / 74 (auto/); pml 09:42 Pulse 76 MON; Pulse Ox 98% ; pml 09:53 Pulse 72 MON; Pulse Ox 98% ; pml 09:53 BP 155 / 75 (auto/); pml 10:08 Pulse 76 MON; Pulse Ox 98% ; pml 10:08 BP 148 / 59 (auto/); pml 10:23 Pulse 66 MON; Pulse Ox 98% ; pml 10:23 BP 160 / 69 (auto/); pml 10:38 Pulse 60 MON; Pulse Ox 98% ; pml 10:38 BP 163 / 74 (auto/); pml 10:53 Pulse 74 MON; Pulse Ox 98% ; pml 10:53 BP 150 / 69 (auto/); pml 11:08 Pulse 60 MON; Pulse Ox 98% ; pml 11:08 BP 146 / 60 (auto/); pml 11:23 Pulse 62 MON; Pulse Ox 98% ; pml 11:23 BP 136 / 63 (auto/); pml 11:38 Pulse 58 MON; Pulse Ox 97% ; pml 11:38 BP 140 / 68 (auto/); pml 11:53 BP 141 / 70 (auto/); bcj 11:53 Pulse 64 MON; Pulse Ox 98% ; bcj 12:08 BP 132 / 64 (auto/); bcj 12:08 Pulse 58 MON; Pulse Ox 98% ; bcj 12:23 BP 137 / 63 (auto/); bcj 12:23 Pulse 64 MON; Pulse Ox 99% ; bcj 12:38 BP 151 / 71 (auto/); bcj 12:38 Pulse 64 MON; Pulse Ox 98% ; bcj 12:53 Pulse 64 MON; Pulse Ox 98% ; ms18 12:53 BP 145 / 71 (auto/); Resp 18; Temp 98; Pulse Ox 99% ; Pain 0/10; ms18 09:27 Body Mass Index 36.58 (90.72 kg, 157.48 cm) elp MDM: 09:32 ECG WITH READING ER PHYS+CARDIAG ordered. EDMS 10:02 Aspirin Chewable Tablet 324 mg PO once ordered. 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 pc 10:02 IV Saline Lock ordered. pc 10:02 Rhythm Strip to chart ordered. pc 10:02 Pantoprazole 40 mg PO once ordered. pc 10:02 Differential diagnosis: acute myocardial infarction, esophagitis, gastritis, pc gastroesophageal reflux disease (GERD), pancreatitis, unstable angina. Plan: labs, EKG, CXR. The patient was medicated with aspirin in the Emergency Department. Test interpretation: EKG. 10:03 Basic Metabolic Profile Ordered. EDMS 10:03 CBC with Diff Ordered. EDMS 10:03 Cardiac Injury Profile Ordered. EDMS 10:03 Troponin Ordered. EDMS 10:03 Liver Profile Ordered. EDMS 10:03 Lipase Ordered. EDMS 10:03 A1C Ordered. EDMS 10:03 portable chest Ordered. EDMS 10:55 Basic Metabolic Profile Reviewed. pc 10:55 CBC with Diff Reviewed. pc 10:55 A1C Reviewed. pc 10:55 Cardiac Injury Profile Reviewed. pc 10:55 Troponin Reviewed. pc 10:55 Liver Profile Reviewed. pc 10:55 Lipase Reviewed. pc 10:55 portable chest Reviewed. pc 10:56 Redraw CIP &Troponin (put time in details section) ordered. pc 10:56 Repeat EKG (put time details section) ordered. pc 10:58 Redraw CIP &Troponin (put time in details section) complete. deg 10:58 Repeat EKG (put time details section) complete. deg 10:59 CARDIAC MARKER PANEL Ordered. EDMS 11:00 ECG WITH READING ER PHYS ordered. EDMS 11:48 Financial registration complete. mm15 12:13 [facility] Payment Agreement was scanned into [employer] and attached to record. mm15 12:43 CARDIAC MARKER PANEL Reviewed. pc 12:43 Data reviewed: old medical records, vital signs, nurses notes, EKG(s), lab test pc results, all radiology studies and available results. Test interpretation: LAB - all labs as ordered have been reviewed, interpreted and considered in the overall management of the clinical presentation; X-RAY - interpreted by Radiologist and personally reviewed, 1 view chest normal. The patient has been re-examined and re-evaluated. The patient's symptoms have mildly improved after treatment. Disposition: The historical points, examination findings, and any diagnostic results supporting the provided diagnosis, were discussed with the patient or legal guardian. The need for outpatient follow up with the provider listed on their discharge instructions was discussed. They were encouraged to return to [facility], or the nearest ED, if symptoms worsen/persist, or for any other questions/concerns. 12:56 Test interpretation: EKG. 09/03 12:40 ECG/EKG was scanned into [employer] and attached to record. EC/15 10:02 Rate is 75 beats/min. Rhythm is regular, Normal Sinus Rhythm. QRS [place] is Normal. [place] pc interval is normal. QRS interval is normal. QT interval is normal. Q waves are Old in lead III. No ST changes noted. Clinical impression: Normal Sinus Rhythm and Inferior [place] - age indeterminate. No change from previous ECG in April,. 12:56 Rate is 59 beats/min. Rhythm is regular, Sinus bradycardia. QRS [place] is Normal. [place] pc interval is normal. QRS interval is normal. QT interval is normal. Q waves are Old in lead III. T waves are Normal. No ST changes noted. Clinical impression: Sinus bradycardia and Inferior [place] - age indeterminate. Administered Medications: 10:06 Drug: Aspirin 324 mg [aspirin 81 mg chewable tablet (4 tabs)] Route: PO; pml 10:06 Drug: Pantoprazole 40 mg [pantoprazole 40 mg tablet,delayed release (1 tabs)] Route: PO;pml Signatures: Dispatcher [employer] EDMS Ketan Contreras MD MD pc Kimberly Smith, Host/Hostess Ground Unit deg Dian Brady, Reg Reg Caro Tovar RN RN pml Mike Robison mm15 Brenda Guadarrama RN RN [id number] The chart was reviewed and I authenticate all verbal orders and agree with the evaluation and treatment provided.Attachments: 12:13 [facility] Payment Agreement mm15 09/03 12:40 ECG/EKG Chart Complete MTDD
--- NOTE | 2016-09-04 14:00 | EDDOCDS ---
Physician Documentation [facility] Name: Cindy Skinner Age: 61 yrs Sex: Female : 1955 Arrival Date: 09/02/2016 Time: 09:25 Bed 14 Private MD: Amadeo Copeland Disposition: 09/02 12:43 Critical Care: Critical care not applicable. pc Disposition: 09/02/16 12:47 Discharged to Home/Self Care. Impression: Chest pain, unspecified, Gastro-esophageal reflux disease. - Condition is Stable. - Discharge Instructions: Nonspecific Chest Pain. - Prescriptions for Protonix 40 mg Oral Tablet - take 1 tablet by ORAL route once daily; 30 tablet. - Medication Reconciliation, Local Pharmacy Hours form. - Follow up: Amadeo Copeland; When: Call to arrange an appointment; Reason: Continuance of care. Follow up: Ashkan Garcia; When: Call to arrange an appointment; Reason: To establish care. - Problem is new. - Symptoms have improved. HPI: 10:02 This 61 yrs old Female presents to ER via Walkin/Carried/Asstd with pc complaints of Chest Pain. 10:02 The history is obtained from the patient. Symptoms began suddenly 8 days ago. There pc have been multiple episodes, that have been waxing and waning, lasting minutes to an hour. 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 She describes fatigue with walking up stairs but denies any SOB, diaphoresis, palpitations. She has GERD and was on a PPI for many years until 3 months ago, when she stopped in on her own to try apple cider vinegar instead. She had a stress test 3-[address] Copeland, which was nor,mal per the EMR. At its worst, the symptoms were a 8 out of 10. In the emergency department, the symptoms are a 6 out of 10. The chest pain is described as a pressure, causing indigestion, a burning. It is located primarily in the substernal area. The pain radiates throat. The patient's known risk factors for coronary artery disease include: diabetes, hypertension, a family history of coronary artery disease. The patient has experienced similar episodes in the past, several times. The patient has not recently seen a physician. Historical: - Allergies: no known allergies; - Home Meds: 1. hydrochlorothiazide 12.5 mg Oral tab 1 tab once daily states does not take every day &#13(Last dose: 09/01/2016) 2. metformin 500 mg Oral tab 1 tab daily - PMHx: Hypertension; Diabetes - NIDDM: uncontrolled; - PSHx: Cervical Fusion; Hysterectomy; Tubal ligation; eye surgery x 3; Appendectomy; - The history from nurses notes was reviewed: and I agree with what is documented. - Social history: Smoking status: Patient states was never smoker of tobacco. No barriers to communication noted, The patient speaks fluent Mozamb[place], Speaks appropriately for age. - Family history: Not pertinent, Pertinent for Father has/had cardiac disorder, Brother has/had cardiac disorder. - : The pt / caregiver states he / she is not on anticoagulants. Home medication list is obtained from the patient. - Hospitalizations: : No recent hospitalization is reported. - Exposure Risk Screening:: None identified. - Immunization history:: All immunizations up-to-date. - Social history:: the patient is a non-smoker, the patient does not drink alcohol. ROS: 10:02 All systems are negative except as listed. The cardiovascular, respiratory, pc gastrointestinal and neurological components are also addressed in the HPI. Exam: 10:02 General Appearance: alert, no acute distress. pc 10:02 ENT: ear, nose and throat normal, pharynx normal. 10:02 Neck: supple, non-tender, no masses are appreciated. 10:02 Respiratory: no respiratory distress, normal breath sounds, chest non-tender. 10:02 Cardiovascular: regular pulse rate, regular heart rhythm, normal heart sounds, equal and full pulses bilaterally. 10:02 Abdomen: soft, non-tender, no organomegaly, normal bowel sounds. 10:02 Skin: skin color is normal, warm, dry. 10:02 Extremities: The extremities have a grossly normal appearance, are non-tender, without acute ROM abnormalities. 10:02 Neuro: alert, oriented to person, place and time, cranial nerves normal as tested, no motor deficits, no sensory deficits. 10:02 Psych: normal mood. Vital Signs: 09:27 BP 183 / 92; Pulse 90; Resp 16; Temp 98.3(O); Pulse Ox 98% on R/A; Weight 90.72 kg / elp 200 lbs (R); Height 5 ft. 2 in. (157.48 cm) (R); Pain 6/10; 09:40 BP 143 / 74 (auto/); pml 09:42 Pulse 76 MON; Pulse Ox 98% ; pml 09:53 Pulse 72 MON; Pulse Ox 98% ; pml 09:53 BP 155 / 75 (auto/); pml 10:08 Pulse 76 MON; Pulse Ox 98% ; pml 10:08 BP 148 / 59 (auto/); pml 10:23 Pulse 66 MON; Pulse Ox 98% ; pml 10:23 BP 160 / 69 (auto/); pml 10:38 Pulse 60 MON; Pulse Ox 98% ; pml 10:38 BP 163 / 74 (auto/); pml 10:53 Pulse 74 MON; Pulse Ox 98% ; pml 10:53 BP 150 / 69 (auto/); pml 11:08 Pulse 60 MON; Pulse Ox 98% ; pml 11:08 BP 146 / 60 (auto/); pml 11:23 Pulse 62 MON; Pulse Ox 98% ; pml 11:23 BP 136 / 63 (auto/); pml 11:38 Pulse 58 MON; Pulse Ox 97% ; pml 11:38 BP 140 / 68 (auto/); pml 11:53 BP 141 / 70 (auto/); bcj 11:53 Pulse 64 MON; Pulse Ox 98% ; bcj 12:08 BP 132 / 64 (auto/); bcj 12:08 Pulse 58 MON; Pulse Ox 98% ; bcj 12:23 BP 137 / 63 (auto/); bcj 12:23 Pulse 64 MON; Pulse Ox 99% ; bcj 12:38 BP 151 / 71 (auto/); bcj 12:38 Pulse 64 MON; Pulse Ox 98% ; bcj 12:53 Pulse 64 MON; Pulse Ox 98% ; ms18 12:53 BP 145 / 71 (auto/); Resp 18; Temp 98; Pulse Ox 99% ; Pain 0/10; ms18 09:27 Body Mass Index 36.58 (90.72 kg, 157.48 cm) elp MDM: 09:32 ECG WITH READING ER PHYS+CARDIAG ordered. EDMS 10:02 Aspirin Chewable Tablet 324 mg PO once ordered. pc 10:02 Pharmacy Scheduler/Pulse Ox/q 30 min VS ordered. pc 10:02 IV Saline Lock ordered. pc 10:02 Rhythm Strip to chart ordered. pc 10:02 Pantoprazole 40 mg PO once ordered. pc 10:02 Differential diagnosis: acute myocardial infarction, esophagitis, gastritis, pc gastroesophageal reflux disease (GERD), pancreatitis, unstable angina. Plan: labs, EKG, CXR. The patient was medicated with aspirin in the Emergency Department. Test interpretation: EKG. 10:03 Basic Metabolic Profile Ordered. EDMS 10:03 CBC with Diff Ordered. EDMS 10:03 Cardiac Injury Profile Ordered. EDMS 10:03 Troponin Ordered. EDMS 10:03 Liver Profile Ordered. EDMS 10:03 Lipase Ordered. EDMS 10:03 A1C Ordered. EDMS 10:03 portable chest Ordered. EDMS 10:55 Basic Metabolic Profile Reviewed. pc 10:55 CBC with Diff Reviewed. pc 10:55 A1C Reviewed. pc 10:55 Cardiac Injury Profile Reviewed. pc 10:55 Troponin Reviewed. pc 10:55 Liver Profile Reviewed. pc 10:55 Lipase Reviewed. pc 10:55 portable chest Reviewed. pc 10:56 Redraw CIP &Troponin (put time in details section) ordered. pc 10:56 Repeat EKG (put time details section) ordered. pc 10:58 Redraw CIP &Troponin (put time in details section) complete. deg 10:58 Repeat EKG (put time details section) complete. deg 10:59 CARDIAC MARKER PANEL Ordered. EDMS 11:00 ECG WITH READING ER PHYS ordered. EDMS 11:48 Financial registration complete. mm15 12:13 [facility] Payment Agreement was scanned into [employer] and attached to record. mm15 12:43 CARDIAC MARKER PANEL Reviewed. pc 12:43 Data reviewed: old medical records, vital signs, nurses notes, EKG(s), lab test pc results, all radiology studies and available results. Test interpretation: LAB - all labs as ordered have been reviewed, interpreted and considered in the overall management of the clinical presentation; X-RAY - interpreted by Radiologist and personally reviewed, 1 view chest normal. The patient has been re-examined and re-evaluated. The patient's symptoms have mildly improved after treatment. Disposition: The historical points, examination findings, and any diagnostic results supporting the provided diagnosis, were discussed with the patient or legal guardian. The need for outpatient follow up with the provider listed on their discharge instructions was discussed. They were encouraged to return to [facility], or the nearest ED, if symptoms worsen/persist, or for any other questions/concerns. 12:56 Test interpretation: EKG. 09/03 12:40 ECG/EKG was scanned into [employer] and attached to record. EC/15 10:02 Rate is 75 beats/min. Rhythm is regular, Normal Sinus Rhythm. QRS [place] is Normal. [place] pc interval is normal. QRS interval is normal. QT interval is normal. Q waves are Old in lead III. No ST changes noted. Clinical impression: Normal Sinus Rhythm and Inferior [place] - age indeterminate. No change from previous ECG in April,. 12:56 Rate is 59 beats/min. Rhythm is regular, Sinus bradycardia. QRS [place] is Normal. [place] pc interval is normal. QRS interval is normal. QT interval is normal. Q waves are Old in lead III. T waves are Normal. No ST changes noted. Clinical impression: Sinus bradycardia and Inferior [place] - age indeterminate. Administered Medications: 10:06 Drug: Aspirin 324 mg [aspirin 81 mg chewable tablet (4 tabs)] Route: PO; pml 10:06 Drug: Pantoprazole 40 mg [pantoprazole 40 mg tablet,delayed release (1 tabs)] Route: PO;pml Signatures: Dispatcher [employer] EDMS Ketan Contreras MD MD pc Kimberly Smith, Underwater Photographer Unit deg Dian Brady, Reg Reg Caro Tovar RN RN pml Mike Robison mm15 Brenda Guadarrama RN RN [id number] The chart was reviewed and I authenticate all verbal orders and agree with the evaluation and treatment provided.Attachments: 12:13 [facility] Payment Agreement mm15 09/03 12:40 ECG/EKG Chart Complete MTDD
== END 2016-09-02 12:59 | disposition home or self-care (01) ==
LOC: M ED 09:25
DX: R07.9 Chest pain, unspecified (principal); K21.9 Gastro-esophageal reflux disease without esophagitis; I10 Essential (primary) hypertension; E11.65 Type 2 diabetes mellitus with hyperglycemia; Z79.84 Long term (current) use of oral hypoglycemic drugs

== ENCOUNTER → 2016-12-25 | Outpatient (CLI) | payer BC ==
--- NOTE | 2016-12-25 16:31 | REP ---
RIGHT LOWER EXTREMITY DOPPLER VENOUS ULTRASOUND: 12/25/2016. Comparison: None. Clinical history: Right lower extremity pain. Evaluate for DVT and/or Nolasco's cyst. Technique: The deep venous system of the right lower extremity is evaluated with cordova scale imaging, compression ultrasound, color imaging and duplex Doppler interrogation. Examination from the groin through the popliteal fossa into the proximal calf. Findings: There is full compressibility from the common femoral vein in the inguinal region through the popliteal vein. Color imaging confirms patency throughout the course of the deep venous system. There is respiratory variation and augmented flow at all levels. Popliteal fossa shows no evidence of a Nolasco's cyst. Impression: 1. No Doppler venous ultrasound evidence of DVT in the right lower extremity. 2. No Nolasco's cyst in the popliteal fossa. Signed by Daniel Fernandez MD 12/25/2016 04:20 P
== END ==
LOC: M RAD 11:08
PROVIDERS: ATTEND Physician Assistant
DX: M25.561 Pain in right knee (principal)

== ENCOUNTER → 2017-03-23 | Outpatient (REF) | payer BC | LOC: M LAB REF 14:18 | PROVIDERS: ATTEND Physician Assistant | DX: N39.0 Urinary tract infection, site not specified (principal) ==

== ENCOUNTER → 2017-07-30 | Outpatient (CLI) | payer BC ==
[~2017-07-30] MED LIST: ALEV220T26 PO; APPL188C PO; VITA1CAP14 PO
--- NOTE | 2017-07-31 19:49 | ECGEPIP ---
Stationary ECG Study [facility] Test Date: 2017-07-30 Pat Name: FARNCINE AGARWAL Department: Room: - Gender: F Director Erp: MAURI : 1955 Requested By: RANJEET Quintero Order Number: [id number] Reading MD: Zhou Corona Measurements Intervals [place] Rate: 79 P: 44 GA: 179 QRS: 27 QRSD: 96 T: 45 QT: 362 QTc: 416 Interpretive Statements SINUS RHYTHM, Poor R-wave progression. Decreased heart rate compared with 09/02/2016 at 1159 hours. Electronically Signed On 07-31-2017 19:48:48 EST by Zhou Corona
== END ==
LOC: M EKG 13:06
PROVIDERS: ATTEND Anesthesiology
DX: Z01.818 Encounter for other preprocedural examination (principal); I10 Essential (primary) hypertension

== ENCOUNTER → 2017-08-07 | Day surgery (SDC) | payer BC ==
[~2017-08-07] VITALS: Ht 157.5 cm; Wt 92.1 kg
[~2017-08-07] MED LIST changes: +BUPIVACAINE HCL 0.5% 30 ML VIAL As Ordered ONE; +LIDOCAINE 2% INJ 100 MG/5 ML SDV (FOR ANES.) As Ordered ONE; +LR 1,000 ML IV ONE; +LR 1,000 ML IV SCH; +METOCLOPRAMIDE INJ 10MG/2ML VIAL (J2765) As Ordered ONE; +MIDAZOLAM INJ 2 MG/2 ML VIAL (J2250) As Ordered ONE; +ONDANSETRON 4MG/2ML VIAL (J2405) IV PRN; +PERCOCET 5MG/325MG TAB As Ordered ONE; +PERCOCET 5MG/325MG TAB PO PRN; +PHENYLephrine HCL 500 MCG/5 ML (100MCG/ML) SYRINGE (J2370) As Ordered ONE; +PROPOFOL 200 MG/20 ML VIAL As Ordered ONE; +ROPIvacaine 0.5% 30 ML INJECTION (J2795 PER 1MG) As Ordered ONE; +fentaNYL 100 MCG/2 ML INJECTION (J3010) IV PRN; +fentaNYL 250 MCG/5 ML INJECTION (J3010) As Ordered ONE
[2017-08-08 00:15] VITALS: BP 133/68
--- NOTE | 2017-08-13 16:26 | RO ---
DATE OF PROCEDURE: 08/07/2017 PREPROCEDURE DIAGNOSES: 1. Right knee medial and lateral meniscus tears. 2. Right knee osteoarthritis. POSTPROCEDURE DIAGNOSES: 1. Right knee medial and lateral meniscus tears. 2. Right knee osteoarthritis. OPERATIVE PROCEDURE: Right knee arthroscopy with partial medial and lateral meniscectomy and chondroplasty. SURGEON: Nuno Coon MD BRANCH EXAMINER: None. ANESTHESIA: Spinal. IV FLUIDS: Lactated Ringers. ESTIMATED BLOOD LOSS: 5 mL. INDICATIONS: Cindy is a 61-year-old female who came to me with right knee pain localized to the joint lines. She had already failed nonoperative treatment and on exam was found to have Brisa positive for pain in both joint lines. She had mild degenerative changes on x-ray and MRI. MRI showed tears of both the medial and lateral meniscus. After discussing the risks and benefits of arthroscopic partial meniscectomy and chondroplasty including the chance that she would not improve, written informed consent was obtained. DESCRIPTION OF PROCEDURE: The patient was identified in the preoperative holding area and the right leg signed by myself. She was brought to the operating room where spinal anesthesia was induced. She was placed supine on a well-padded OR table with a Venodyne boot on the left lower extremity. She did receive sedation. A well-padded tourniquet was applied to the right thigh. Examination under anesthesia revealed range of motion from 0 to 130 degrees, grossly stable to varus and valgus stress. The right leg was then prepped and draped in a normal sterile fashion. No IV antibiotics indicated. Prior to incision a time out was performed which myself and all OR staff confirmed the patient's name, medical record number, date of and the correct side, site and procedure. The right leg was exsanguinated with Esmarch bandage and the tourniquet inflated to 250 mmHg. The knee was insufflated with 30 mL of lactated Ringers with standard anterior-lateral portals made with #11 blade, and a 30 degrees arthroscope introduced into the joint atraumatically. Diagnostic arthroscopy revealed areas of primary grade 2, but one area of grade 3 chondromalacia of the patella. No loose bodies. Trochlea had grade 1 chondromalacia. Medial compartment was entered where there was grade 1 to 2 chondromalacia in the medial femoral condyle and a complex tear in the posterior horn and body of the medial meniscus. The anterior cruciate ligament (ACL) had some frayed anterior fibers, but overall was intact. The lateral compartment was entered where there was an extensive degenerative free edged tearing of the lateral meniscus with areas of grade 2 chondromalacia. An anteromedial portal was created with an #11 blade and on probing the medial meniscus tear was unstable. I performed a partial medial meniscectomy using a combination of meniscal punches and shaver. The meniscus was trimmed back to a stable rim. I would estimate I removed approximately one-third of the medial meniscus which was the posterior horn and part of the body. On final probing the remainder of the meniscus was stable including almost half of the posterior horn. The tear extended into the root of the medial meniscus. There were a few circumferential fibers attached to the posterior horn at the end of the case. Chondroplasty performed of medial femoral condyle. ACL was probed and under good tension. The knee was brought in a figure four position where I performed a partial lateral meniscectomy with the straight and up angled meniscal punches back to a stable rim. I would estimate that I removed approximately 50% of the lateral meniscus. Chondroplasty was performed with the shaver. All meniscal fragments were removed with the shaver and the knee was irrigated and drained. Portal closed with #3-0 nylon suture and then I injected 0.50% Marcaine without epinephrine for local anesthetic. Bulky sterile dressing was applied. Tourniquet was let down with excellent reperfusion. She was then transferred to the post anesthesia care unit (PACU) in the stable condition. COMPLICATIONS: None. COUNTS: Correct times two.
== END | disposition home or self-care (01) ==
LOC: M SDC 11:23
PROVIDERS: ATTEND Orthopaedic Surgery
DX: M23.221 Derangement of posterior horn of medial meniscus due to old tear or injury, right knee (principal); M23.261 Derangement of other lateral meniscus due to old tear or injury, right knee; M94.261 Chondromalacia, right knee; M17.11 Unilateral primary osteoarthritis, right knee; I10 Essential (primary) hypertension; E11.9 Type 2 diabetes mellitus without complications; M51.26 Other intervertebral disc displacement, lumbar region; K21.9 Gastro-esophageal reflux disease without esophagitis; J45.909 Unspecified asthma, uncomplicated; R06.83 Snoring; Z90.710 Acquired absence of both cervix and uterus; Z98.51 Tubal ligation status
CPT/HCPCS: 29880; J2250; J2370; J2765; J3010

== ENCOUNTER 2017-08-28 09:21 | Outpatient (RCR) | payer BC | END 2017-09-18 | LOC: M PT 09:21 | DX: Z51.89 Encounter for other specified aftercare (principal); M54.31 Sciatica, right side | CPT/HCPCS: 97110 ==

== ENCOUNTER 2017-08-30 13:14 | Inpatient (IN) | payer BC ==
[2017-08-30 14:29] LABS: BASO # 0.1 10^3/uL (0.0-0.2); BASO % 0.4 % (0.0-1.0); EOS # 0.1 10^3/uL (0.0-0.50); EOS % 1.1 % (0.0-3.0); HEMOGLOBIN 15.3 g/dl (12.0-16.0); IMMATURE GRANULOCYTE # 0.1 10^3/uL (0-0); IMMATURE GRANULOCYTE % 0.4 % (0-0); LYMPH # 2.4 10^3/uL (1.5-4.5); LYMPH % 20.8 % (24.0-44.0); MEAN CORPUSCULAR HEMOGLOBIN 28.7 pg (27.0-33.0); MEAN CORPUSCULAR HGB CONC 33.3 g/dl (32.0-36.5); MEAN CORPUSCULAR VOLUME 86.3 fl (80.0-96.0); MONO # 0.7 10^3/uL (0.0-0.8); MONO % 6.4 % (0.0-5.0); NEUTROPHILS # 8.1 10^3/uL (1.8-7.7); NEUTROPHILS % 70.9 % (36.0-66.0); PLATELET COUNT, AUTOMATED 264 10^3/uL (150-450); RED BLOOD COUNT 5.33 10^6/uL (4.00-5.40); RED CELL DISTRIBUTION WIDTH 13.2 % (11.5-14.5); WHITE BLOOD COUNT 11.4 10^3/uL (4.0-10.0)
[2017-08-30 14:32] LABS: PARTIAL THROMBOPLASTIN TIME 24.8 SECONDS (26.8-37.9)
[2017-08-30 14:48] LABS: ALBUMIN 3.7 GM/DL (3.2-5.2); ALKALINE PHOSPHATASE 114 U/L (45-117); ALT/SGPT 32 U/L (12-78); ANION GAP 13 MEQ/L (8-16); AST/SGOT 13 U/L (7-37); BILIRUBIN,DIRECT < 0.1 MG/DL (0.0-0.2); BILIRUBIN,TOTAL 0.4 MG/DL (0.2-1.0); BLOOD UREA NITROGEN 15 MG/DL (7-18); CALCIUM LEVEL 9.2 MG/DL (8.8-10.2); CARBON DIOXIDE LEVEL 23 MEQ/L (21-32); CHLORIDE LEVEL 104 MEQ/L (98-107); CPK CREATINE PHOSPHOKINASE 63 U/L (26-192); CREATININE FOR GFR 0.75 MG/DL (0.55-1.02); GLOMERULAR FILTRATION RATE > 60.0 (>45); GLUCOSE, FASTING 301 MG/DL (80-110); LIPASE 211 U/L (73-393); POTASSIUM SERUM 3.7 MEQ/L (3.5-5.1); SODIUM LEVEL 140 MEQ/L (136-145); TOTAL PROTEIN 7.8 GM/DL (6.4-8.2); TROPONIN I 0.11 NG/ML (< 0.10)
[2017-08-30] MEDS ORDERED: ISOVUE-370 76% 100ML VIAL (Q9967) As Ordered (14:52)
[2017-08-30 14:54] LABS: CK-MB VALUE MASS 2.2 NG/ML (0.0-3.6); MB/CK RELATIVE INDEX 3.49 (< OR =4)
[2017-08-30] MEDS ORDERED: ENOXAPARIN 100MG/1ML SYRINGE (J1650) SC (16:15)
[2017-08-30] MEDS: ENOXAPARIN 100MG/1ML SYRINGE (J1650) SC (17:53)
[2017-08-30 17:54] LABS: NT-PRO BNP 1276 PG/ML (<125)
[2017-08-30 18:04] LABS: INR 1.04; PROTHROMBIN TIME 13.7 SECONDS (12.4-14.5)
[2017-08-30 18:05] LABS: PARTIAL THROMBOPLASTIN TIME 29.2 SECONDS (26.8-37.9)
[2017-08-30] MEDS ORDERED: GLUCAGON FOR INJ 1 MG VIAL (J1610) SC (18:15)
[2017-08-30] MEDS ORDERED: DEXTROSE 50% 50 ML SYRINGE IV (18:15)
[2017-08-30] MEDS ORDERED: GLUCOSE 4 GM CHEW TABLET PO (18:15)
[2017-08-30 18:55] LABS: BEDSIDE GLUCOSE 381 MG/DL (80-115)
[2017-08-30] MEDS: NS 1,000 ML IV (19:35)
[2017-08-30] MEDS: HumaLOG INSULIN (NovoLOG) PER UNIT SC (21:00)
[2017-08-30 22:01] LABS: BEDSIDE GLUCOSE 337 MG/DL (80-115)
[2017-08-31 00:44] LABS: CPK CREATINE PHOSPHOKINASE 58 U/L (26-192); TROPONIN I 0.11 NG/ML (< 0.10)
[2017-08-31 00:45] LABS: CK-MB VALUE MASS 1.7 NG/ML (0.0-3.6); MB/CK RELATIVE INDEX 2.93 (< OR =4)
[2017-08-31] MEDS: ONDANSETRON 4MG/2ML VIAL (J2405) IV (05:22)
[2017-08-31] MEDS: ENOXAPARIN 100MG/1ML SYRINGE (J1650) SC ×2 (05:22→17:07)
[2017-08-31 08:32] LABS: ANION GAP 7 MEQ/L (8-16); BLOOD UREA NITROGEN 13 MG/DL (7-18); CALCIUM LEVEL 8.2 MG/DL (8.8-10.2); CARBON DIOXIDE LEVEL 24 MEQ/L (21-32); CHLORIDE LEVEL 109 MEQ/L (98-107); CK-MB VALUE MASS 1.9 NG/ML (0.0-3.6); CPK CREATINE PHOSPHOKINASE 58 U/L (26-192); CREATININE FOR GFR 0.62 MG/DL (0.55-1.02); GLOMERULAR FILTRATION RATE > 60.0 (>45); GLUCOSE, FASTING 290 MG/DL (80-110); MAGNESIUM LEVEL 1.8 MG/DL (1.8-2.4); MB/CK RELATIVE INDEX 3.27 (< OR =4); POTASSIUM SERUM 4.1 MEQ/L (3.5-5.1); SODIUM LEVEL 140 MEQ/L (136-145); TROPONIN I 0.07 NG/ML (< 0.10)
[2017-08-31 08:53] LABS: BEDSIDE GLUCOSE 264 MG/DL (80-115)
[2017-08-31] MEDS: HumaLOG INSULIN (NovoLOG) PER UNIT SC ×4 (08:58→21:00)
[2017-08-31] MEDS ORDERED: FLEET ENEMA PR (11:00)
[2017-08-31] MEDS: MIRALAX *UNIT DOSE* 17GM PACKET PO (11:10)
[2017-08-31] MEDS: SENOKOT S TAB PO ×2 (11:10→21:34)
[2017-08-31] MEDS: MOM 30ML SUSPENSION UDC PO ×2 (11:10→21:32)
[2017-08-31 13:19] LABS: BEDSIDE GLUCOSE 308 MG/DL (80-115)
[2017-08-31 16:21] LABS: CPK CREATINE PHOSPHOKINASE 63 U/L (26-192); TROPONIN I 0.06 NG/ML (< 0.10)
[2017-08-31 16:22] LABS: CK-MB VALUE MASS 1.6 NG/ML (0.0-3.6); MB/CK RELATIVE INDEX 2.53 (< OR =4)
[2017-08-31] MEDS: WARFARIN SOD 5 MG TAB PO (17:07)
[2017-08-31 17:35] LABS: BEDSIDE GLUCOSE 233 MG/DL (80-115)
[2017-08-31 21:34] LABS: BEDSIDE GLUCOSE 300 MG/DL (80-115)
[2017-08-31] MEDS: ACETAMINOPHEN TAB 650MG DOSE (2X325MG) PO (21:34)
[2017-09-01 04:38] LABS: ANION GAP 7 MEQ/L (8-16); BLOOD UREA NITROGEN 18 MG/DL (7-18); CALCIUM LEVEL 8.9 MG/DL (8.8-10.2); CARBON DIOXIDE LEVEL 26 MEQ/L (21-32); CHLORIDE LEVEL 107 MEQ/L (98-107); CREATININE FOR GFR 0.85 MG/DL (0.55-1.02); GLOMERULAR FILTRATION RATE > 60.0 (>45); GLUCOSE, FASTING 275 MG/DL (80-110); INR 1.02; MAGNESIUM LEVEL 2.2 MG/DL (1.8-2.4); POTASSIUM SERUM 4.1 MEQ/L (3.5-5.1); PROTHROMBIN TIME 13.5 SECONDS (12.4-14.5); SODIUM LEVEL 140 MEQ/L (136-145)
[2017-09-01] MEDS: ONDANSETRON 4MG/2ML VIAL (J2405) IV (05:18)
[2017-09-01] MEDS: ENOXAPARIN 100MG/1ML SYRINGE (J1650) SC (05:21)
[2017-09-01] MEDS: ACETAMINOPHEN TAB 650MG DOSE (2X325MG) PO (05:21)
[2017-09-01] MEDS: LEVEMIR (INSULIN DETEMIR) 1 UNITS/0.01ML SC ×2 (06:33→20:30)
[2017-09-01 06:48] LABS: CHOLESTEROL LEVEL 217 MG/DL (<200); CHOLESTEROL RISK RATIO 5.564 (<5); HDL CHOLESTEROL 39 MG/DL (>40); NON-HDL-C 178 MG/DL; TRIGLYCERIDES LEVEL 190 MG/DL (<150)
[2017-09-01 07:34] LABS: ESTIMATED AVERAGE GLUCOSE 295 MG/DL (60-110); HEMOGLOBIN A1c 11.9 %
[2017-09-01] MEDS: MIRALAX *UNIT DOSE* 17GM PACKET PO (07:49)
[2017-09-01] MEDS: SENOKOT S TAB PO ×2 (07:49→20:30)
[2017-09-01 08:13] LABS: BEDSIDE GLUCOSE 287 MG/DL (80-115)
[2017-09-01] MEDS: HumaLOG INSULIN (NovoLOG) PER UNIT SC ×4 (08:15→20:30)
[2017-09-01] MEDS ORDERED: HEPARIN SOD (PORCINE) 5000 UNITS/ML VIAL IV (08:30)
[2017-09-01 08:38] LABS: BASO # 0.1 10^3/uL (0.0-0.2); BASO % 0.7 % (0.0-1.0); EOS # 0.1 10^3/uL (0.0-0.50); IMMATURE GRANULOCYTE % 0.4 % (0-0); LYMPH # 2.2 10^3/uL (1.5-4.5); LYMPH % 30.3 % (24.0-44.0); MEAN CORPUSCULAR HEMOGLOBIN 28.7 pg (27.0-33.0); MEAN CORPUSCULAR HGB CONC 32.4 g/dl (32.0-36.5); MEAN CORPUSCULAR VOLUME 88.4 fl (80.0-96.0); MONO # 0.5 10^3/uL (0.0-0.8); MONO % 6.3 % (0.0-5.0); NEUTROPHILS # 4.3 10^3/uL (1.8-7.7); NEUTROPHILS % 60.3 % (36.0-66.0); PLATELET COUNT, AUTOMATED 265 10^3/uL (150-450); RED BLOOD COUNT 4.64 10^6/uL (4.00-5.40); RED CELL DISTRIBUTION WIDTH 13.3 % (11.5-14.5); WHITE BLOOD COUNT 7.1 10^3/uL (4.0-10.0)
[2017-09-01 09:03] LABS: PARTIAL THROMBOPLASTIN TIME 41.1 SECONDS (26.8-37.9)
[2017-09-01 09:07] LABS: HEMOGLOBIN 13.3 g/dl (12.0-16.0)
[2017-09-01] MEDS: HEPARIN SOD (PORCINE) 5000 UNITS/ML VIAL IV (09:17)
[2017-09-01] MEDS: HEPARIN DRIP 25,000 UNITS in APPROPRIATE DILUENT 1 EA IV (09:18)
[2017-09-01 12:29] LABS: BEDSIDE GLUCOSE 288 MG/DL (80-115)
[2017-09-01 15:49] LABS: PARTIAL THROMBOPLASTIN TIME 190.4 SECONDS (26.8-37.9)
[2017-09-01] MEDS: WARFARIN SOD 5 MG TAB PO (17:19)
[2017-09-01 17:56] LABS: BEDSIDE GLUCOSE 174 MG/DL (80-115)
[2017-09-01 20:30] LABS: BEDSIDE GLUCOSE 310 MG/DL (80-115)
[2017-09-01 23:59] LABS: PARTIAL THROMBOPLASTIN TIME 105.7 SECONDS (26.8-37.9)
[2017-09-02 05:23] LABS: HEMATOCRIT 38.6 % (36.0-47.0); HEMOGLOBIN 12.7 g/dl (12.0-16.0); MEAN CORPUSCULAR HEMOGLOBIN 28.9 pg (27.0-33.0); MEAN CORPUSCULAR HGB CONC 32.9 g/dl (32.0-36.5); MEAN CORPUSCULAR VOLUME 87.9 fl (80.0-96.0); PLATELET COUNT, AUTOMATED 249 10^3/uL (150-450); RED BLOOD COUNT 4.39 10^6/uL (4.00-5.40); RED CELL DISTRIBUTION WIDTH 13.2 % (11.5-14.5); WHITE BLOOD COUNT 6.9 10^3/uL (4.0-10.0)
[2017-09-02 05:28] LABS: ANION GAP 7 MEQ/L (8-16); BLOOD UREA NITROGEN 13 MG/DL (7-18); CALCIUM LEVEL 8.6 MG/DL (8.8-10.2); CARBON DIOXIDE LEVEL 26 MEQ/L (21-32); CHLORIDE LEVEL 108 MEQ/L (98-107); GLOMERULAR FILTRATION RATE > 60.0 (>45); GLUCOSE, FASTING 234 MG/DL (80-110); POTASSIUM SERUM 3.7 MEQ/L (3.5-5.1); SODIUM LEVEL 141 MEQ/L (136-145)
[2017-09-02 05:31] LABS: INR 2.12; PROTHROMBIN TIME 24.5 SECONDS (12.4-14.5)
[2017-09-02 05:32] LABS: PARTIAL THROMBOPLASTIN TIME 80.9 SECONDS (26.8-37.9)
[2017-09-02] MEDS: SIMETHICONE 80 MG CHEW TAB PO (05:52)
[2017-09-02] MEDS: HEPARIN DRIP 25,000 UNITS in APPROPRIATE DILUENT 1 EA IV (05:53)
[2017-09-02] MEDS: ONDANSETRON 4MG/2ML VIAL (J2405) IV (07:49)
[2017-09-02] MEDS: LEVEMIR (INSULIN DETEMIR) 1 UNITS/0.01ML SC ×2 (07:50→20:21)
[2017-09-02] MEDS: HumaLOG INSULIN (NovoLOG) PER UNIT SC ×4 (07:50→19:48)
[2017-09-02] MEDS: SENOKOT S TAB PO ×2 (09:01→20:21)
[2017-09-02] MEDS: MIRALAX *UNIT DOSE* 17GM PACKET PO (09:01)
[2017-09-02 11:38] LABS: BEDSIDE GLUCOSE 241 MG/DL (80-115)
[2017-09-02 17:12] LABS: BEDSIDE GLUCOSE 211 MG/DL (80-115)
[2017-09-02] MEDS: WARFARIN SOD 7.5 MG TAB PO (17:54)
[2017-09-02 19:57] LABS: BEDSIDE GLUCOSE 237 MG/DL (80-115)
[2017-09-03 06:46] LABS: BEDSIDE GLUCOSE 142 MG/DL (80-115)
[2017-09-03 07:04] LABS: BEDSIDE GLUCOSE 155 MG/DL (80-115)
[2017-09-03 07:27] LABS: HEMATOCRIT 37.2 % (36.0-47.0); MEAN CORPUSCULAR HEMOGLOBIN 28.6 pg (27.0-33.0); MEAN CORPUSCULAR HGB CONC 32.3 g/dl (32.0-36.5); MEAN CORPUSCULAR VOLUME 88.6 fl (80.0-96.0); PLATELET COUNT, AUTOMATED 246 10^3/uL (150-450); RED CELL DISTRIBUTION WIDTH 13.5 % (11.5-14.5); WHITE BLOOD COUNT 5.8 10^3/uL (4.0-10.0)
[2017-09-03 07:40] LABS: INR 3.29; PROTHROMBIN TIME 35.1 SECONDS (12.4-14.5)
[2017-09-03 07:50] LABS: ANION GAP 6 MEQ/L (8-16); BLOOD UREA NITROGEN 13 MG/DL (7-18); CALCIUM LEVEL 8.8 MG/DL (8.8-10.2); CARBON DIOXIDE LEVEL 29 MEQ/L (21-32); CHLORIDE LEVEL 106 MEQ/L (98-107); CREATININE FOR GFR 0.67 MG/DL (0.55-1.02); GLOMERULAR FILTRATION RATE > 60.0 (>45); GLUCOSE, FASTING 157 MG/DL (80-110); MAGNESIUM LEVEL 1.8 MG/DL (1.8-2.4); POTASSIUM SERUM 3.8 MEQ/L (3.5-5.1); SODIUM LEVEL 141 MEQ/L (136-145)
[2017-09-03] MEDS: SENOKOT S TAB PO ×2 (08:37→20:24)
[2017-09-03] MEDS: MIRALAX *UNIT DOSE* 17GM PACKET PO (08:37)
[2017-09-03] MEDS: HumaLOG INSULIN (NovoLOG) PER UNIT SC ×4 (08:37→20:19)
[2017-09-03 11:07] LABS: DRVV SCREEN 50.4 SEC
[2017-09-03 11:19] LABS: PTT LUPUS TYPE ANTICOAG SCREEN 1.2 (0-1.2)
[2017-09-03 11:26] LABS: DRVV CONFIRM 43.4 SEC; LUPUS CONFIRM RATIO 1.2
[2017-09-03 15:21] LABS: BEDSIDE GLUCOSE 243 MG/DL (80-115)
[2017-09-03] MEDS: WARFARIN SOD 4 MG TAB PO (17:45)
[2017-09-03 20:24] LABS: BEDSIDE GLUCOSE 242 MG/DL (80-115)
[2017-09-03] MEDS: LEVEMIR (INSULIN DETEMIR) 1 UNITS/0.01ML SC (20:24)
[2017-09-03] MEDS: ACETAMINOPHEN TAB 650MG DOSE (2X325MG) PO (21:47)
[2017-09-04 06:21] LABS: HEMATOCRIT 38.5 % (36.0-47.0); HEMOGLOBIN 12.3 g/dl (12.0-16.0); MEAN CORPUSCULAR HEMOGLOBIN 28.2 pg (27.0-33.0); MEAN CORPUSCULAR HGB CONC 31.9 g/dl (32.0-36.5); MEAN CORPUSCULAR VOLUME 88.3 fl (80.0-96.0); PLATELET COUNT, AUTOMATED 269 10^3/uL (150-450); RED BLOOD COUNT 4.36 10^6/uL (4.00-5.40); RED CELL DISTRIBUTION WIDTH 13.4 % (11.5-14.5); WHITE BLOOD COUNT 4.8 10^3/uL (4.0-10.0)
[2017-09-04 06:34] LABS: ANION GAP 5 MEQ/L (8-16); BLOOD UREA NITROGEN 13 MG/DL (7-18); CALCIUM LEVEL 8.6 MG/DL (8.8-10.2); CARBON DIOXIDE LEVEL 30 MEQ/L (21-32); CHLORIDE LEVEL 105 MEQ/L (98-107); CREATININE FOR GFR 0.73 MG/DL (0.55-1.02); GLOMERULAR FILTRATION RATE > 60.0 (>45); GLUCOSE, FASTING 251 MG/DL (80-110); MAGNESIUM LEVEL 1.8 MG/DL (1.8-2.4); PROTHROMBIN TIME 38.5 SECONDS (12.4-14.5); SODIUM LEVEL 140 MEQ/L (136-145)
[2017-09-04 08:28] LABS: BEDSIDE GLUCOSE 259 MG/DL (80-115)
[2017-09-04] MEDS: MIRALAX *UNIT DOSE* 17GM PACKET PO (09:00)
[2017-09-04] MEDS: SENOKOT S TAB PO ×2 (09:04→21:35)
[2017-09-04] MEDS: HumaLOG INSULIN (NovoLOG) PER UNIT SC ×4 (09:05→21:00)
[2017-09-04 11:49] LABS: BEDSIDE GLUCOSE 156 MG/DL (80-115)
[2017-09-04 16:53] LABS: BEDSIDE GLUCOSE 256 MG/DL (80-115)
[2017-09-04] MEDS ORDERED: WARFARIN SOD 3 MG TAB PO (17:00)
[2017-09-04] MEDS: LEVEMIR (INSULIN DETEMIR) 1 UNITS/0.01ML SC (21:00)
[2017-09-04 21:02] LABS: BEDSIDE GLUCOSE 177 MG/DL (80-115)
[2017-09-05 06:17] LABS: HEMATOCRIT 37.4 % (36.0-47.0); HEMOGLOBIN 12.2 g/dl (12.0-16.0); MEAN CORPUSCULAR HEMOGLOBIN 28.4 pg (27.0-33.0); MEAN CORPUSCULAR HGB CONC 32.6 g/dl (32.0-36.5); PLATELET COUNT, AUTOMATED 297 10^3/uL (150-450); RED CELL DISTRIBUTION WIDTH 13.4 % (11.5-14.5); WHITE BLOOD COUNT 5.2 10^3/uL (4.0-10.0)
[2017-09-05 06:28] LABS: INR 3.04; PROTHROMBIN TIME 32.9 SECONDS (12.4-14.5)
[2017-09-05 06:37] LABS: ANION GAP 6 MEQ/L (8-16); BLOOD UREA NITROGEN 11 MG/DL (7-18); CALCIUM LEVEL 8.5 MG/DL (8.8-10.2); CARBON DIOXIDE LEVEL 28 MEQ/L (21-32); CHLORIDE LEVEL 107 MEQ/L (98-107); CREATININE FOR GFR 0.61 MG/DL (0.55-1.02); GLOMERULAR FILTRATION RATE > 60.0 (>45); GLUCOSE, FASTING 222 MG/DL (80-110); MAGNESIUM LEVEL 1.6 MG/DL (1.8-2.4); POTASSIUM SERUM 3.7 MEQ/L (3.5-5.1); SODIUM LEVEL 141 MEQ/L (136-145)
[2017-09-05] MEDS: MIRALAX *UNIT DOSE* 17GM PACKET PO (08:18)
[2017-09-05] MEDS: SENOKOT S TAB PO (08:19)
[2017-09-05] MEDS: HumaLOG INSULIN (NovoLOG) PER UNIT SC ×2 (08:19→12:05)
[2017-09-05] MEDS: LEVEMIR (INSULIN DETEMIR) 1 UNITS/0.01ML SC (08:20)
[2017-09-05] MEDS: INFLUENZA QUADRIVALENT PF VACCINE 0.5ML SYRINGE (90686) IM (08:21)
[2017-09-05 13:36] LABS: BEDSIDE GLUCOSE 223 MG/DL (80-115)
[2017-09-06 00:07] LABS: ANTI THROMBIN 3 ANTIGEN IMMUNO 94 % (72-124); ANTI THROMBIN 3 FUNCT ACTIVITY 111 % (75-135); CARDIOLIPIN IGA ANTIBODY <9 APL U/mL (0-11); CARDIOLIPIN IGG ANTIBODY <9 GPL U/mL (0-14); CARDIOLIPIN IGM ANTIBODY 9 MPL U/mL (0-12); PROTEIN C FUNCTIONAL ACTIVITY 159 % (73-180); PROTEIN S FUNCTIONAL ACTIVITY 96 % (63-140)
[2017-09-06 00:07] LABS: PHOSPHOLIPIDS LEVEL 275 mg/dL (150-250)
== END 2017-09-05 13:14 | disposition home or self-care (01) | DRG 134 ==
LOC: M MSPAV 09-02 13:29 → M ED 13:14 → M ED INP 18:03 → M ICU 23:21
DX: I26.99 Other pulmonary embolism without acute cor pulmonale (principal); D68.52 Prothrombin gene mutation; E11.9 Type 2 diabetes mellitus without complications; E66.9 Obesity, unspecified; E78.5 Hyperlipidemia, unspecified; R91.1 Solitary pulmonary nodule; Z79.4 Long term (current) use of insulin; Z79.899 Other long term (current) drug therapy; K59.00 Constipation, unspecified

== ENCOUNTER → 2017-08-30 | Outpatient (CLI) | payer BC ==
[2017-08-30 11:40] LABS: BASO # 0.1 10^3/uL (0.0-0.2); BASO % 0.6 % (0.0-1.0); EOS # 0.1 10^3/uL (0.0-0.50); EOS % 1.7 % (0.0-3.0); HEMATOCRIT 45.4 % (36.0-47.0); HEMOGLOBIN 15.2 g/dl (12.0-16.0); IMMATURE GRANULOCYTE % 0.4 % (0-0); LYMPH % 23.5 % (24.0-44.0); MEAN CORPUSCULAR HGB CONC 33.5 g/dl (32.0-36.5); MEAN CORPUSCULAR VOLUME 86.5 fl (80.0-96.0); MONO # 0.6 10^3/uL (0.0-0.8); NEUTROPHILS # 5.6 10^3/uL (1.8-7.7); NEUTROPHILS % 66.8 % (36.0-66.0); PLATELET COUNT, AUTOMATED 284 10^3/uL (150-450); RED BLOOD COUNT 5.25 10^6/uL (4.00-5.40); RED CELL DISTRIBUTION WIDTH 13.2 % (11.5-14.5); WHITE BLOOD COUNT 8.4 10^3/uL (4.0-10.0)
[2017-08-30 11:53] LABS: D-DIMER QUANT 3162.8 ng/ml (<500)
[2017-08-30 12:23] LABS: ALBUMIN 3.7 GM/DL (3.2-5.2); ALBUMIN/GLOBULIN RATIO 1.16 (1.00-1.93); ALKALINE PHOSPHATASE 110 U/L (45-117); ALT/SGPT 30 U/L (12-78); ANION GAP 10 MEQ/L (8-16); AST/SGOT 12 U/L (7-37); BILIRUBIN,TOTAL 0.4 MG/DL (0.2-1.0); BLOOD UREA NITROGEN 16 MG/DL (7-18); CALCIUM LEVEL 9.2 MG/DL (8.8-10.2); CARBON DIOXIDE LEVEL 25 MEQ/L (21-32); CHLORIDE LEVEL 104 MEQ/L (98-107); CREATININE FOR GFR 0.76 MG/DL (0.55-1.02); FREE T4 1.24 NG/DL (0.76-1.46); GLOMERULAR FILTRATION RATE > 60.0 (>45); GLUCOSE, FASTING 358 MG/DL (80-110); POTASSIUM SERUM 4.3 MEQ/L (3.5-5.1); SODIUM LEVEL 139 MEQ/L (136-145); TOTAL PROTEIN 6.9 GM/DL (6.4-8.2)
== END ==
LOC: M WUC 10:25
DX: R06.02 Shortness of breath (principal)
CPT/HCPCS: 84443

== ENCOUNTER → 2017-09-07 | Outpatient (CLI) | payer BC ==
[2017-09-07 11:49] LABS: INR 2.36; PROTHROMBIN TIME 26.7 SECONDS (12.4-14.5)
== END ==
LOC: M LAB 11:18
DX: Z51.81 Encounter for therapeutic drug level monitoring (principal); Z79.01 Long term (current) use of anticoagulants
CPT/HCPCS: 85610

== ENCOUNTER 2017-10-21 11:41 | Outpatient (RCR) | payer MEDICAID | END 2017-11-16 | LOC: M PT 11:41 | DX: Z51.89 Encounter for other specified aftercare (principal); Z98.890 Other specified postprocedural states ==

== ENCOUNTER → 2017-11-07 | Outpatient (REF) | payer MEDICAID ==
[2017-11-07 12:00] LABS: HEMATOCRIT 43.4 % (36.0-47.0); HEMOGLOBIN 13.9 g/dl (12.0-16.0); MEAN CORPUSCULAR HEMOGLOBIN 28.5 pg (27.0-33.0); MEAN CORPUSCULAR VOLUME 88.9 fl (80.0-96.0); PLATELET COUNT, AUTOMATED 352 10^3/uL (150-450); RED BLOOD COUNT 4.88 10^6/uL (4.00-5.40); RED CELL DISTRIBUTION WIDTH 13.7 % (11.5-14.5); WHITE BLOOD COUNT 5.1 10^3/uL (4.0-10.0)
[2017-11-07 12:18] LABS: INR 1.78; PROTHROMBIN TIME 21.3 SECONDS (12.4-14.5)
[2017-11-07 12:43] LABS: ALBUMIN 3.8 GM/DL (3.2-5.2); ALBUMIN/GLOBULIN RATIO 1.19 (1.00-1.93); ALKALINE PHOSPHATASE 84 U/L (45-117); ALT/SGPT 50 U/L (12-78); ANION GAP 8 MEQ/L (8-16); AST/SGOT 24 U/L (7-37); BILIRUBIN,TOTAL 0.2 MG/DL (0.2-1.0); BLOOD UREA NITROGEN 14 MG/DL (7-18); CALCIUM LEVEL 9.3 MG/DL (8.8-10.2); CARBON DIOXIDE LEVEL 29 MEQ/L (21-32); CHLORIDE LEVEL 105 MEQ/L (98-107); CHOLESTEROL LEVEL 258 MG/DL (<200); CHOLESTEROL RISK RATIO 5.265 (<5); CREATININE FOR GFR 0.76 MG/DL (0.55-1.30); GLOMERULAR FILTRATION RATE > 60.0 (>45); GLUCOSE, FASTING 141 MG/DL (70-100); HDL CHOLESTEROL 49 MG/DL (>40); LDL CHOLESTEROL 184.4 MG/DL (<100); NON-HDL-C 209 MG/DL; POTASSIUM SERUM 4.3 MEQ/L (3.5-5.1); SODIUM LEVEL 142 MEQ/L (136-145); TRIGLYCERIDES LEVEL 123 MG/DL (<150)
[2017-11-07 12:59] LABS: MAU/CREAT RATIO 107.2 MCG/MG (0.0-30.0)
[2017-11-07 14:41] LABS: ESTIMATED AVERAGE GLUCOSE 189 MG/DL (60-110); HEMOGLOBIN A1c 8.2 %
== END ==
LOC: M SFHCPLAZ 09:04
DX: E11.9 Type 2 diabetes mellitus without complications (principal); E78.00 Pure hypercholesterolemia, unspecified; Z86.711 Personal history of pulmonary embolism
CPT/HCPCS: 80053

== ENCOUNTER 2017-11-19 12:12 | Outpatient (RCR) | payer OTHER, MEDICAID | END 2017-12-16 | LOC: M PT 12:12 | DX: Z51.89 Encounter for other specified aftercare (principal); Z98.890 Other specified postprocedural states | CPT/HCPCS: 97110 ==

== ENCOUNTER → 2018-01-16 | Outpatient (CLI) | payer OTHER | LOC: M SLEEP 19:37 | DX: G47.33 Obstructive sleep apnea (adult) (pediatric) (principal); G47.61 Periodic limb movement disorder | CPT/HCPCS: 95810 ==

== ENCOUNTER → 2018-01-29 | Outpatient (REF) | payer OTHER ==
[2018-01-29 12:10] LABS: APPEARANCE, URINE CLOUDY (CLEAR); BACTERIA, URINE AUTO 2+ (NEGATIVE); BILIRUBIN, URINE AUTO NEGATIVE (NEGATIVE); BLOOD, URINE BLOOD 3+ (NEGATIVE); CALCIUM OXALATE CRYSTALS SMALL; COLOR, URINE YELLOW (YELLOW); GLUCOSE, URINE (UA) AUTO NEGATIVE (NEGATIVE); KETONE, URINE AUTO 1+ mg/dL (NEGATIVE); LEUKOCYTE ESTERASE, URINE AUTO 3+ (NEGATIVE); MUCUS, URINE SMALL (NEGATIVE); NITRITE, URINE AUTO NEGATIVE (NEGATIVE); PROTEIN, URINE AUTO 2+ mg/dL (NEGATIVE); RBC, URINE AUTO TNTC /HPF (0-3); SPECIFIC GRAVITY URINE AUTO 1.016 (1.002-1.035); SQUAMOUS EPITHELIAL CELL UR AU 1 /HPF (0-6); UROBILINOGEN, URINE AUTO 0.2 mg/dL (0.0-2.0); WBC, URINE AUTO TNTC /HPF (0-3)
== END ==
LOC: M SFHCPLAZ 08:47
DX: R31.9 Hematuria, unspecified (principal)

== ENCOUNTER → 2018-02-10 | Outpatient (REF) | payer OTHER ==
[2018-02-10 14:11] LABS: APPEARANCE, URINE CLOUDY (CLEAR); BACTERIA, URINE AUTO 1+ (NEGATIVE); BILIRUBIN, URINE AUTO NEGATIVE (NEGATIVE); BLOOD, URINE BLOOD 3+ (NEGATIVE); COLOR, URINE YELLOW (YELLOW); GLUCOSE, URINE (UA) AUTO NEGATIVE (NEGATIVE); KETONE, URINE AUTO TRACE mg/dL (NEGATIVE); LEUKOCYTE ESTERASE, URINE AUTO 3+ (NEGATIVE); MUCUS, URINE SMALL (NEGATIVE); NITRITE, URINE AUTO NEGATIVE (NEGATIVE); PROTEIN, URINE AUTO 1+ mg/dL (NEGATIVE); RBC, URINE AUTO 44 /HPF (0-3); SPECIFIC GRAVITY URINE AUTO 1.014 (1.002-1.035); SQUAMOUS EPITHELIAL CELL UR AU 1 /HPF (0-6); UROBILINOGEN, URINE AUTO 0.2 mg/dL (0.0-2.0); WBC, URINE AUTO TNTC /HPF (0-3)
== END ==
LOC: M SMT 12:48
DX: R31.0 Gross hematuria (principal)
CPT/HCPCS: 81001

== ENCOUNTER → 2018-02-10 | Outpatient (CLI) | payer OTHER | LOC: M RAD 08:07 | DX: N39.0 Urinary tract infection, site not specified (principal); R31.0 Gross hematuria | CPT/HCPCS: 74176 ==

== ENCOUNTER → 2018-02-26 | Outpatient (CLI) | payer OTHER ==
[2018-02-26 10:48] LABS: HEMATOCRIT 43.5 % (36.0-47.0); HEMOGLOBIN 14.2 g/dl (12.0-15.5); MEAN CORPUSCULAR HGB CONC 32.6 g/dl (32.0-36.5); PLATELET COUNT, AUTOMATED 335 10^3/uL (150-450); RED BLOOD COUNT 4.89 10^6/uL (4.00-5.40)
[2018-02-26 11:01] LABS: INR 0.92; PROTHROMBIN TIME 12.4 SECONDS (12.1-14.4)
[2018-02-26 11:02] LABS: PARTIAL THROMBOPLASTIN TIME 29.6 SECONDS (25.4-37.6)
[2018-02-26 11:22] LABS: ANION GAP 7 MEQ/L (8-16); BLOOD UREA NITROGEN 21 MG/DL (7-18); CALCIUM LEVEL 9.9 MG/DL (8.8-10.2); CARBON DIOXIDE LEVEL 29 MEQ/L (21-32); CHLORIDE LEVEL 105 MEQ/L (98-107); CREATININE FOR GFR 0.68 MG/DL (0.55-1.30); GLOMERULAR FILTRATION RATE > 60.0 (>45); GLUCOSE, FASTING 106 MG/DL (70-100); SODIUM LEVEL 141 MEQ/L (136-145)
== END ==
LOC: M LAB 10:10
DX: Z01.818 Encounter for other preprocedural examination (principal); N13.2 Hydronephrosis with renal and ureteral calculous obstruction
CPT/HCPCS: 71046

== ENCOUNTER → 2018-02-28 | Outpatient (REF) | payer OTHER ==
[2018-02-28 12:46] LABS: ALBUMIN 3.8 GM/DL (3.2-5.2); ALBUMIN/GLOBULIN RATIO 1.19 (1.00-1.93); ALKALINE PHOSPHATASE 92 U/L (45-117); ALT/SGPT 42 U/L (12-78); ANION GAP 8 MEQ/L (8-16); AST/SGOT 13 U/L (7-37); BILIRUBIN,TOTAL 0.3 MG/DL (0.2-1.0); BLOOD UREA NITROGEN 19 MG/DL (7-18); CALCIUM LEVEL 8.9 MG/DL (8.8-10.2); CARBON DIOXIDE LEVEL 28 MEQ/L (21-32); CHLORIDE LEVEL 107 MEQ/L (98-107); CHOLESTEROL LEVEL 213 MG/DL (<200); CHOLESTEROL RISK RATIO 4.346 (<5); CREATININE FOR GFR 0.74 MG/DL (0.55-1.30); GLOMERULAR FILTRATION RATE > 60.0 (>45); GLUCOSE, FASTING 124 MG/DL (70-100); HDL CHOLESTEROL 49 MG/DL (>40); NON-HDL-C 164 MG/DL; POTASSIUM SERUM 4.4 MEQ/L (3.5-5.1); SODIUM LEVEL 143 MEQ/L (136-145); TRIGLYCERIDES LEVEL 75 MG/DL (<150)
[2018-02-28 13:07] LABS: ESTIMATED AVERAGE GLUCOSE 131 MG/DL (60-110); HEMOGLOBIN A1c 6.2 %
[2018-02-28 15:24] LABS: CREATININE, URINE 96.8 MG/DL; MAU/CREAT RATIO 134.2 MCG/MG (0.0-30.0)
== END ==
LOC: M SFHCPLAZ 08:38
DX: I10 Essential (primary) hypertension (principal); E11.9 Type 2 diabetes mellitus without complications; E78.00 Pure hypercholesterolemia, unspecified

== ENCOUNTER → 2018-03-04 | Outpatient (REF) | payer OTHER ==
[2018-03-04 18:55] LABS: AMORPHOUS SEDIMENT SMALL (NEGATIVE); APPEARANCE, URINE TURBID (CLEAR); BACTERIA, URINE AUTO 3+ (NEGATIVE); BILIRUBIN, URINE AUTO NEGATIVE (NEGATIVE); BLOOD, URINE BLOOD 3+ (NEGATIVE); COLOR, URINE YELLOW (YELLOW); GLUCOSE, URINE (UA) AUTO NEGATIVE (NEGATIVE); KETONE, URINE AUTO 1+ mg/dL (NEGATIVE); LEUKOCYTE ESTERASE, URINE AUTO 3+ (NEGATIVE); MUCUS, URINE MODERATE (NEGATIVE); NITRITE, URINE AUTO NEGATIVE (NEGATIVE); PROTEIN, URINE AUTO 2+ mg/dL (NEGATIVE); RBC, URINE AUTO 118 /HPF (0-3); SQUAMOUS EPITHELIAL CELL UR AU 2 /HPF (0-6); UROBILINOGEN, URINE AUTO 0.2 mg/dL (0.0-2.0); WBC, URINE AUTO TNTC /HPF (0-3)
== END ==
LOC: M SMT 17:08
DX: N39.0 Urinary tract infection, site not specified (principal)

== ENCOUNTER 2018-03-10 10:31 | Day surgery (SDC) | payer OTHER ==
[~2018-03-10 10:31] MED LIST changes: -ALEV220T26 PO; -APPL188C PO; -BUPIVACAINE HCL 0.5% 30 ML VIAL As Ordered ONE; +LIDOCAINE 1% MDV 20ML VIAL SQ; -LIDOCAINE 2% INJ 100 MG/5 ML SDV (FOR ANES.) As Ordered ONE; +LR 1,000 ML IV; -LR 1,000 ML IV ONE; -LR 1,000 ML IV SCH; -METOCLOPRAMIDE INJ 10MG/2ML VIAL (J2765) As Ordered ONE; -MIDAZOLAM INJ 2 MG/2 ML VIAL (J2250) As Ordered ONE; -ONDANSETRON 4MG/2ML VIAL (J2405) IV PRN; -PERCOCET 5MG/325MG TAB As Ordered ONE; -PERCOCET 5MG/325MG TAB PO PRN; -PHENYLephrine HCL 500 MCG/5 ML (100MCG/ML) SYRINGE (J2370) As Ordered ONE; -PROPOFOL 200 MG/20 ML VIAL As Ordered ONE; -ROPIvacaine 0.5% 30 ML INJECTION (J2795 PER 1MG) As Ordered ONE; -VITA1CAP14 PO; -fentaNYL 100 MCG/2 ML INJECTION (J3010) IV PRN; -fentaNYL 250 MCG/5 ML INJECTION (J3010) As Ordered ONE
[2018-03-10] MEDS ORDERED: PROPOFOL 200 MG/20 ML VIAL As Ordered (11:22)
[2018-03-10] MEDS ORDERED: LIDOCAINE 2% INJ 100 MG/5 ML SDV (FOR ANES.) As Ordered (11:22)
[2018-03-10] MEDS ORDERED: fentaNYL 100 MCG/2 ML INJECTION (J3010) As Ordered ×2 (11:23→15:20)
[2018-03-10] MEDS ORDERED: MIDAZOLAM INJ 2 MG/2 ML VIAL (J2250) As Ordered (11:23)
[2018-03-10 11:36] LABS: BEDSIDE GLUCOSE 110 MG/DL (80-115)
[2018-03-10] MEDS ORDERED: ONDANSETRON 4MG/2ML VIAL (J2405) As Ordered ×2 (11:50→14:10)
[2018-03-10] MEDS: GENTAMICIN 80 MG in APPROPRIATE DILUENT 1 EA IV (13:22)
[2018-03-10] MEDS ORDERED: ePHEDrine SULFATE 25 MG/5 ML(5MG/ML) SYRINGE As Ordered (14:10)
[2018-03-10] MEDS ORDERED: PHENYLephrine HCL 500 MCG/5 ML (100MCG/ML) SYRINGE (J2370) As Ordered (14:10)
[2018-03-10] MEDS ORDERED: dexameTHASONE 4 MG/ML 1ML VIAL (J1100) As Ordered (14:10)
[2018-03-10] MEDS: CONRAY-60 60% 50ML VIAL (Q9961) As Ordered (14:21)
[2018-03-10] MEDS: LR 1,000 ML IV (16:15)
[2018-03-10] MEDS: PERCOCET 5MG/325MG TAB PO (16:45)
[2018-03-10] MEDS ORDERED: PERCOCET 5MG/325MG TAB PO (16:45)
[2018-03-10] MEDS: HYDROMORPHONE HCL 0.5 MG/ 0.5 ML SYRINGE (J1170 PER 1) IV (16:45)
[2018-03-10] MEDS: ONDANSETRON 4MG/2ML VIAL (J2405) IV (16:45)
[2018-03-10] MEDS: fentaNYL 100 MCG/2 ML INJECTION (J3010) IV ×4 (16:55→17:10)
[2018-03-10] MEDS ORDERED: KETOROLAC 30 MG/ML VIAL (J1885) As Ordered ×2 (17:08→21:30)
[2018-03-10] MEDS ORDERED: METOCLOPRAMIDE INJ 10MG/2ML VIAL (J2765) As Ordered (17:08)
[2018-03-10] MEDS: METOCLOPRAMIDE INJ 10MG/2ML VIAL (J2765) IV (17:10)
[2018-03-10] MEDS: KETOROLAC 30 MG/ML VIAL (J1885) IV ×2 (17:10→21:37)
[2018-03-10 17:44] LABS: BEDSIDE GLUCOSE 223 MG/DL (80-115)
[2018-03-10] MEDS: HumaLOG INSULIN (NovoLOG) PER UNIT SC (17:45)
[2018-03-10] MEDS ORDERED: HumaLOG INSULIN (NovoLOG) PER UNIT As Ordered (17:46)
[2018-03-10] MEDS: oxyBUTYnin 5 MG TAB PO ×2 (20:13→20:17)
[2018-03-10] MEDS ORDERED: MORPHINE 4 MG/ML 1ML VIAL/SYRINGE (J2270) IV (21:30)
[2018-03-10] MEDS ORDERED: ceFAZolin 1GM INJ (J0690 PER 500MG) IM (21:30)
[2018-03-11] MEDS ORDERED: ceFAZolin 1GM INJ (J0690 PER 500MG) IM
[2018-03-11] MEDS: PERCOCET 5MG/325MG TAB PO ×2 (00:55→07:54)
[2018-03-11] MEDS: ceFAZolin SOD 1 GM in D5W MINI-BAG PLUS 50 ML IV ×2 (01:40→09:59)
[2018-03-11] MEDS: KETOROLAC 30 MG/ML VIAL (J1885) IV ×2 (03:35→11:00)
[2018-03-11] MEDS: ONDANSETRON 4MG/2ML VIAL (J2405) IV (09:19)
[2018-03-11] MEDS: oxyBUTYnin 5 MG TAB PO (10:09)
[2018-03-11] MEDS: ASPIRIN 81 MG ENTERIC TAB PO (10:09)
[2018-03-11 12:18] LABS: BEDSIDE GLUCOSE 143 MG/DL (80-115)
== END 2018-03-11 14:45 | disposition home or self-care (01) ==
LOC: M SDC 10:31 → M PED 03-11 00:20 → M SDC 03-11 14:45
DX: N20.0 Calculus of kidney (principal); N39.0 Urinary tract infection, site not specified; I10 Essential (primary) hypertension; E11.9 Type 2 diabetes mellitus without complications; G47.30 Sleep apnea, unspecified; Z79.82 Long term (current) use of aspirin; K21.9 Gastro-esophageal reflux disease without esophagitis; Z86.711 Personal history of pulmonary embolism; J45.909 Unspecified asthma, uncomplicated; Z79.899 Other long term (current) drug therapy
CPT/HCPCS: 52356

== ENCOUNTER → 2018-03-14 | Outpatient (CLI) | payer OTHER ==
[2018-03-14 13:21] LABS: HEMATOCRIT 46.9 % (36.0-47.0); HEMOGLOBIN 15.1 g/dl (12.0-15.5); MEAN CORPUSCULAR HEMOGLOBIN 28.7 pg (27.0-33.0); MEAN CORPUSCULAR HGB CONC 32.2 g/dl (32.0-36.5); PLATELET COUNT, AUTOMATED 327 10^3/uL (150-450); RED BLOOD COUNT 5.27 10^6/uL (4.00-5.40); RED CELL DISTRIBUTION WIDTH 13.7 % (11.5-14.5)
[2018-03-14 14:02] LABS: ANION GAP 9 MEQ/L (8-16); BLOOD UREA NITROGEN 19 MG/DL (7-18); CALCIUM LEVEL 9.7 MG/DL (8.8-10.2); CARBON DIOXIDE LEVEL 30 MEQ/L (21-32); CHLORIDE LEVEL 101 MEQ/L (98-107); CREATININE FOR GFR 0.85 MG/DL (0.55-1.30); GLOMERULAR FILTRATION RATE > 60.0 (>45); GLUCOSE, FASTING 124 MG/DL (70-100); POTASSIUM SERUM 4.6 MEQ/L (3.5-5.1); SODIUM LEVEL 140 MEQ/L (136-145)
== END ==
LOC: M SMT 11:39
DX: Z01.818 Encounter for other preprocedural examination (principal); N20.0 Calculus of kidney
CPT/HCPCS: 80048

== ENCOUNTER 2018-03-20 06:20 | Day surgery (SDC) | payer OTHER ==
[2018-03-20 07:30] LABS: BEDSIDE GLUCOSE 117 MG/DL (80-115)
[2018-03-20] MEDS: LR 1,000 ML IV (07:44)
[2018-03-20] MEDS: NS 1,000 ML IV (08:36)
[2018-03-20] MEDS ORDERED: fentaNYL 100 MCG/2 ML INJECTION (J3010) As Ordered (08:42)
[2018-03-20] MEDS ORDERED: MIDAZOLAM INJ 2 MG/2 ML VIAL (J2250) As Ordered (08:42)
[2018-03-20] MEDS ORDERED: NS 1,000 ML IV (08:45)
[2018-03-20] MEDS: GENTAMICIN 80 MG in APPROPRIATE DILUENT 1 EA IV (09:10)
[2018-03-20] MEDS: PIPERACILLIN/TAZOBACTAM SOD 3.375 GM in D5W MINI-BAG PLUS 50 ML IV (09:10)
[2018-03-20] MEDS ORDERED: LIDOCAINE 2% INJ 100 MG/5 ML SDV (FOR ANES.) As Ordered (09:37)
[2018-03-20] MEDS ORDERED: PROPOFOL 200 MG/20 ML VIAL As Ordered (09:37)
[2018-03-20] MEDS ORDERED: PERCOCET 5MG/325MG TAB As Ordered (10:13)
[2018-03-20] MEDS: PERCOCET 5MG/325MG TAB PO (10:18)
== END 2018-03-20 11:45 | disposition home or self-care (01) ==
LOC: M SDC 06:20
DX: N20.0 Calculus of kidney (principal); I10 Essential (primary) hypertension; E11.9 Type 2 diabetes mellitus without complications; K21.9 Gastro-esophageal reflux disease without esophagitis; M12.9 Arthropathy, unspecified; M51.9 Unspecified thoracic, thoracolumbar and lumbosacral intervertebral disc disorder; E78.00 Pure hypercholesterolemia, unspecified; R91.1 Solitary pulmonary nodule; R29.898 Other symptoms and signs involving the musculoskeletal system; H35.30 Unspecified macular degeneration; R51 Headache; J45.909 Unspecified asthma, uncomplicated; R06.09 Other forms of dyspnea; R06.83 Snoring; G47.30 Sleep apnea, unspecified; Z79.899 Other long term (current) drug therapy; Z79.82 Long term (current) use of aspirin; Z90.710 Acquired absence of both cervix and uterus; Z86.711 Personal history of pulmonary embolism; Z96.1 Presence of intraocular lens; Z98.51 Tubal ligation status
CPT/HCPCS: 50590

== ENCOUNTER → 2018-03-26 | Outpatient (CLI) | payer OTHER | LOC: M SMT 15:11 | DX: N20.0 Calculus of kidney (principal); Z96.0 Presence of urogenital implants | CPT/HCPCS: 74018 ==

== ENCOUNTER → 2018-06-03 | Outpatient (CLI) | payer OTHER ==
[~2018-06-03] MED LIST changes: -LIDOCAINE 1% MDV 20ML VIAL SQ; -LR 1,000 ML IV; +METHACHOLINE KIT (J7674) INH
== END ==
LOC: M CARPUL 08:22
DX: R06.00 Dyspnea, unspecified (principal)
CPT/HCPCS: J7674

== ENCOUNTER → 2018-09-04 | Outpatient (REF) | payer OTHER ==
[~2018-09-04] MED LIST changes: +ALEV220T26 PO; +APPL188C PO; +ASPI81TA85 PO; +BACT400T PO; +BAYEKIT XX; +BAYEMIS XX; +BD P31MI3 XX; +CONTMIS XX; +COUM1TAB17 PO; +COUM1TAB19 PO; +COUM2.5T17 PO; +CRES5TAB PO; +D 50CAP PO; +DITR5TAB PO; +GLIP5TAB8 PO; +LEVE1INJ5 SC; +LEVO500T3 PO; +METF500T13 PO; -METHACHOLINE KIT (J7674) INH; +OXYC1TAB23 PO; +PANT40TA3 PO; +VITA1CAP14 PO
[2018-09-04 10:26] LABS: HEMATOCRIT 44.7 % (36.0-47.0); HEMOGLOBIN 14.3 g/dl (12.0-15.5); MEAN CORPUSCULAR HEMOGLOBIN 28.4 pg (27.0-33.0); MEAN CORPUSCULAR VOLUME 88.7 fl (80.0-96.0); PLATELET COUNT, AUTOMATED 317 10^3/uL (150-450); RED BLOOD COUNT 5.04 10^6/uL (4.00-5.40); WHITE BLOOD COUNT 5.3 10^3/uL (4.0-10.0)
[2018-09-04 10:29] LABS: ALT/SGPT 31 U/L (12-78); BILIRUBIN,TOTAL 0.2 MG/DL (0.2-1.0); BLOOD UREA NITROGEN 24 MG/DL (7-18); CALCIUM LEVEL 9.5 MG/DL (8.8-10.2); CARBON DIOXIDE LEVEL 28 MEQ/L (21-32); CHLORIDE LEVEL 105 MEQ/L (98-107); CHOLESTEROL LEVEL 221 MG/DL (<200); CHOLESTEROL RISK RATIO 3.946 (<5); CREATININE FOR GFR 0.79 MG/DL (0.55-1.30); GLOMERULAR FILTRATION RATE > 60.0 (>45); GLUCOSE, FASTING 132 MG/DL (70-100); HDL CHOLESTEROL 56 MG/DL (>40); LDL CHOLESTEROL 151 MG/DL (<100); NON-HDL-C 165 MG/DL; POTASSIUM SERUM 4.7 MEQ/L (3.5-5.1); SODIUM LEVEL 140 MEQ/L (136-145); TOTAL PROTEIN 6.9 GM/DL (6.4-8.2); TRIGLYCERIDES LEVEL 70 MG/DL (<150)
[2018-09-04 10:46] LABS: MALB URINE SIEMENS 9.5 MG/L; MAU/CREAT RATIO 9.1 MCG/MG (0.0-30.0)
[2018-09-04 11:09] LABS: HEMOGLOBIN A1c 6.4 %
== END ==
LOC: M SFHCPLAZ 07:46
PROVIDERS: ATTEND Internal Medicine
DX: R06.09 Other forms of dyspnea (principal); E11.9 Type 2 diabetes mellitus without complications; E78.00 Pure hypercholesterolemia, unspecified

== ENCOUNTER → 2018-10-27 | Outpatient (CLI) | payer OTHER ==
--- NOTE | 2018-10-28 02:31 | REP ---
Clinical: Kidney stones. Technique: Single supine view of the abdomen and pelvis. Comparison: 03/26/2018 Findings: Multiple calcifications overlie the lower pole of the left kidney which seemed to measure up to approximately 11 mm. Further evaluation of the urinary tract system is limited due to technique and bowel gas. No evidence for bowel obstruction. No organomegaly. Skeletal structures are intact. Impression: 1. Multiple left intrarenal calculi suggested similar to prior examination. Electronically Signed by Geronimo Palmer MD 10/28/2018 02:22 A
== END ==
LOC: M SMT 11:05
PROVIDERS: ATTEND Urology
DX: N20.0 Calculus of kidney (principal)

== ENCOUNTER → 2019-05-15 | Outpatient (CLI) | payer OTHER ==
[~2019-05-15] MED LIST changes: +BAYE1MIS XX; -BAYEKIT XX
--- NOTE | 2019-05-15 10:26 | REP ---
KUB ABDOMEN AND PELVIS: KUB film of abdomen and pelvis performed and compared to prior study of 10/27/2018. There are two dominant calcifications overlying the lower pole of the left kidney which were present on the prior study and are unchanged. The larger measures 11 mm in maximum diameter, the other is slightly inferolateral to that and measures 8 mm maximally. On the prior study a calculus just superior to these two calculi was seen, but it is not currently visualized. Two or three vague tiny calculi just lateral to this appears significantly smaller when compared to the prior study. There is a calcification overlying the mid left kidney which measures about 5 mm maximally. No calcifications are seen overlying the right renal shadow. The bowel gas pattern is normal. There are degenerative changes of the spine and hips. IMPRESSION: Left renal calculi as above. Electronically Signed by Davian Arenas MD 05/15/2019 04:39 P
[2019-05-15 13:27] LABS: APPEARANCE, URINE CLOUDY (CLEAR); BACTERIA, URINE AUTO NEGATIVE (NEGATIVE); BILIRUBIN, URINE AUTO NEGATIVE (NEGATIVE); BLOOD, URINE BLOOD 1+ (NEGATIVE); COLOR, URINE YELLOW (YELLOW); GLUCOSE, URINE (UA) AUTO NEGATIVE (NEGATIVE); KETONE, URINE AUTO 1+ mg/dL (NEGATIVE); LEUKOCYTE ESTERASE, URINE AUTO NEGATIVE (NEGATIVE); MUCUS, URINE SMALL (NEGATIVE); NITRITE, URINE AUTO NEGATIVE (NEGATIVE); PROTEIN, URINE AUTO NEGATIVE (NEGATIVE); RBC, URINE AUTO 1 /HPF (0-3); SPECIFIC GRAVITY URINE AUTO 1.025 (1.002-1.035); SQUAMOUS EPITHELIAL CELL UR AU 4 /HPF (0-6); UROBILINOGEN, URINE AUTO 0.2 mg/dL (0.0-2.0); WBC, URINE AUTO 4 /HPF (0-3)
== END ==
LOC: M SMT 09:30
PROVIDERS: ATTEND Nurse Practitioner Women's Health
DX: N20.0 Calculus of kidney (principal)

== ENCOUNTER → 2019-05-20 | Outpatient (REF) | payer OTHER ==
[2019-05-20 19:30] LABS: APPEARANCE, URINE TURBID (CLEAR); BACTERIA, URINE AUTO NEGATIVE (NEGATIVE); BILIRUBIN, URINE AUTO NEGATIVE (NEGATIVE); BLOOD, URINE BLOOD 1+ (NEGATIVE); COLOR, URINE YELLOW (YELLOW); GLUCOSE, URINE (UA) AUTO NEGATIVE (NEGATIVE); KETONE, URINE AUTO NEGATIVE (NEGATIVE); LEUKOCYTE ESTERASE, URINE AUTO NEGATIVE (NEGATIVE); NITRITE, URINE AUTO NEGATIVE (NEGATIVE); PROTEIN, URINE AUTO NEGATIVE (NEGATIVE); RBC, URINE AUTO 0 /HPF (0-3); SPECIFIC GRAVITY URINE AUTO 1.027 (1.002-1.035); SQUAMOUS EPITHELIAL CELL UR AU 0 /HPF (0-6); UROBILINOGEN, URINE AUTO 0.2 mg/dL (0.0-2.0); WBC, URINE AUTO 0 /HPF (0-3)
== END ==
LOC: M SMT 17:07
PROVIDERS: ATTEND Nurse Practitioner Women's Health
DX: R30.0 Dysuria (principal)

== ENCOUNTER → 2019-07-13 | Outpatient (CLI) | payer OTHER ==
--- NOTE | 2019-07-13 10:06 | REPMRS ---
Patient History The patient states she has not had a clinical breast exam in over a year. Patient is postmenopausal. Family history of endometrial cancer under age 50 in maternal grandmother, unknown cancer in father. 3D TOMOSYNTHESIS WAS PERFORMED. The Elaine Arriaza lifetime risk for breast cancer is 4.2%. Digital Mammo Screening Bilat: July 13, 2019 - Exam #: [id number] Bilateral CC and MLO view(s) were taken. Technologist: Leelee Blanchard, Technologist Prior study comparison: May 25, 2007, bilateral screening mammogram performed at [facility]. October 02, 2005, bilateral screening mammogram performed at [facility]. FINDINGS: There are scattered fibroglandular densities. There has been no change in the appearance of the mammogram from the prior studies. There is a mild amount of residual fibroglandular tissue which is fairly symmetric. There is no interval development of dominant mass, architectural distortion, or clustered microcalcification suggestive of malignancy. Assessment: BI-RADS/ACR category 1 mammogram. Negative Mammogram. Recommendation Routine screening mammogram in 1 year (for women over age 40). This mammogram was interpreted with the aid of an FDA-approved computer-aided dectection system. Electronically Signed By: Davian Arenas MD 07/13/19 [id number]
== END ==
LOC: M RAD 08:50
PROVIDERS: ATTEND Internal Medicine
DX: Z12.31 Encounter for screening mammogram for malignant neoplasm of breast (principal); Z78.0 Asymptomatic menopausal state

== ENCOUNTER → 2019-07-15 | Outpatient (REF) | payer OTHER | LOC: M SFHCPLAZ 09:05 | PROVIDERS: ATTEND Internal Medicine | DX: Z53.9 Procedure and treatment not carried out, unspecified reason (principal) ==

== ENCOUNTER → 2019-07-15 | Outpatient (CLI) | payer OTHER ==
[2019-07-15 12:54] LABS: HEMATOCRIT 44.9 % (36.0-47.0); HEMOGLOBIN 14.7 g/dl (12.0-15.5); MEAN CORPUSCULAR HEMOGLOBIN 29.6 pg (27.0-33.0); MEAN CORPUSCULAR HGB CONC 32.7 g/dl (32.0-36.5); MEAN CORPUSCULAR VOLUME 90.3 fl (80.0-96.0); PLATELET COUNT, AUTOMATED 299 10^3/uL (150-450); RED BLOOD COUNT 4.97 10^6/uL (4.00-5.40); WHITE BLOOD COUNT 5.8 10^3/uL (4.0-10.0)
--- NOTE | 2019-07-15 13:01 | REP ---
Right lower extremity Duplex Doppler venous ultrasound: Real time compression and duplex Doppler interrogation of the right lower extremity deep venous system is performed. The right common femoral, superficial femoral and popliteal veins are fully compressible with transducer pressure and demonstrate normal spontaneous and phasic flow, without evidence of deep venous thrombosis. Impression: No evidence of deep venous thrombosis of the right lower extremity femoral popliteal venous system. A somewhat complex popliteal cyst is seen medially, 4.5 x 1.3 x 2.7 cm. Electronically Signed by Davian Arenas MD 07/15/2019 12:52 P
[2019-07-15 13:32] LABS: ALT/SGPT 48 U/L (12-78); BILIRUBIN,TOTAL 0.3 MG/DL (0.2-1.0); BLOOD UREA NITROGEN 14 MG/DL (7-18); CALCIUM LEVEL 9.6 MG/DL (8.8-10.2); CARBON DIOXIDE LEVEL 27 MEQ/L (21-32); CHLORIDE LEVEL 105 MEQ/L (98-107); CHOLESTEROL LEVEL 255 MG/DL (<200); CHOLESTEROL RISK RATIO 4.722 (<5); CREATININE FOR GFR 0.75 MG/DL (0.55-1.30); GLOMERULAR FILTRATION RATE > 60.0 (>45); GLUCOSE, FASTING 175 MG/DL (70-100); HDL CHOLESTEROL 54 MG/DL (>40); LDL CHOLESTEROL 166 MG/DL (<100); MAGNESIUM LEVEL 1.8 MG/DL (1.8-2.4); NON-HDL-C 201 MG/DL; POTASSIUM SERUM 4.4 MEQ/L (3.5-5.1); SODIUM LEVEL 138 MEQ/L (136-145); TOTAL PROTEIN 7.2 GM/DL (6.4-8.2); TRIGLYCERIDES LEVEL 173 MG/DL (<150)
[2019-07-15 13:41] LABS: HEMOGLOBIN A1c 7.6 %
== END ==
LOC: M RAD 11:38
PROVIDERS: ATTEND Internal Medicine
DX: E11.9 Type 2 diabetes mellitus without complications (principal); I10 Essential (primary) hypertension; G47.33 Obstructive sleep apnea (adult) (pediatric); E78.00 Pure hypercholesterolemia, unspecified; M79.89 Other specified soft tissue disorders

== ENCOUNTER → 2019-07-22 | Outpatient (REF) | payer OTHER | LOC: M SFHCPLAZ 16:26 | PROVIDERS: ATTEND Internal Medicine | DX: R30.0 Dysuria (principal) ==

== ENCOUNTER 2019-08-27 17:14 | Inpatient (IN) | payer OTHER ==
[~2019-08-27] VITALS: Ht 157.5 cm; Wt 94.5 kg
[2019-08-27] MEDS ORDERED: TAMS1CAP17 PO (17:41)
[2019-08-27] MEDS ORDERED: ALBU8.5H INH (17:41)
[2019-08-27 18:03] LABS: VENOUS BASE EXCESS -2.7 (-2.0-2.0); VENOUS HCO3 22.8 MEQ/L (23.0-27.0); VENOUS O2 SATURATION 52.6 % (60.0-80.0); VENOUS PARTIAL PRESSURE CO2 42.1 mmHg (38.0-50.0); VENOUS PARTIAL PRESSURE O2 28.9 mmHg (30.0-50.0); VENOUS PH 7.351 UNITS (7.330-7.430); VENOUS STANDARD HCO3 21.1 MEQ/L; VENOUS TOTAL CO2 24.1 MEQ/L (24.0-28.0)
[2019-08-27 18:05] LABS: BASO % 0.6 % (0.0-1.0); EOS # 0.1 10^3/uL (0.0-0.5); EOS % 1.9 % (0.0-3.0); HEMATOCRIT 47.7 % (36.0-47.0); HEMOGLOBIN 15.2 g/dl (12.0-15.5); LYMPH # 2.6 10^3/uL (1.5-5.0); LYMPH % 35.4 % (24.0-44.0); MEAN CORPUSCULAR HEMOGLOBIN 28.7 pg (27.0-33.0); MEAN CORPUSCULAR HGB CONC 31.9 g/dl (32.0-36.5); MEAN CORPUSCULAR VOLUME 90.2 fl (80.0-96.0); MONO # 0.5 10^3/uL (0.0-0.8); MONO % 7.2 % (0.0-5.0); NEUTROPHILS % 54.8 % (36.0-66.0); PLATELET COUNT, AUTOMATED 241 10^3/uL (150-450); RED BLOOD COUNT 5.29 10^6/uL (4.00-5.40); WHITE BLOOD COUNT 7.2 10^3/uL (4.0-10.0)
--- NOTE | 2019-08-27 18:08 | REP ---
Portable chest x-ray: Single view. History: Dyspnea and cough. Comparison study: February 26, 2018. Findings: EKG monitoring electrodes overlie the chest. The heart is not felt to be enlarged. Pulmonary vasculature is not increased. The lungs are well inflated and clear. The pleural angles are sharp. There are degenerative changes in the thoracic spine. Impression: Negative portable chest x-ray. Electronically Signed by Marcio Fleming MD 08/27/2019 05:59 P
[2019-08-27 18:41] LABS: ALT/SGPT 122 U/L (12-78); BILIRUBIN,DIRECT 0.1 MG/DL (0.0-0.2); BILIRUBIN,TOTAL 0.3 MG/DL (0.2-1.0); BLOOD UREA NITROGEN 14 MG/DL (7-18); CALCIUM LEVEL 9.6 MG/DL (8.8-10.2); CARBON DIOXIDE LEVEL 28 MEQ/L (21-32); CHLORIDE LEVEL 106 MEQ/L (98-107); CK-MB VALUE MASS 4.6 NG/ML (<3.6); CPK CREATINE PHOSPHOKINASE 102 U/L (26-192); CREATININE FOR GFR 0.94 MG/DL (0.55-1.30); GLOMERULAR FILTRATION RATE > 60.0 (>45); GLUCOSE, FASTING 248 MG/DL (70-100); MB/CK RELATIVE INDEX 4.51 (< OR =4); NT-PRO BNP 1807 PG/ML (<125); POTASSIUM SERUM 3.9 MEQ/L (3.5-5.1); SODIUM LEVEL 141 MEQ/L (136-145); TOTAL PROTEIN 7.5 GM/DL (6.4-8.2); TROPONIN I 0.06 NG/ML (< 0.10)
[2019-08-27] MEDS ORDERED: ISOVUE-370 76% 100ML VIAL (Q9967) As Ordered ONE (18:48)
--- NOTE | 2019-08-27 19:16 | REPVR ---
PROCEDURE INFORMATION: Exam: CT Angiography Chest With Contrast Exam date and time: 08/27/2019 7:01 PM Age: 64 years old Clinical indication: Shortness of breath; Additional info: SOB h/o pe TECHNIQUE: Imaging protocol: Computed tomographic angiography of the chest with intravenous contrast. 3D rendering: MIP and/or 3D reconstructed images were created by the technologist. Radiation optimization: All CT scans at this facility use at least one of these dose optimization techniques: automated exposure control; mA and/or kV adjustment per patient size (includes targeted exams where dose is matched to clinical indication); or iterative reconstruction. Contrast material: ISOVUE 370; Contrast volume: 100 ml; Contrast route: IV; COMPARISON: CT ANGIO CHEST 11/21/2017 6:35 PM FINDINGS: Pulmonary arteries: Multiple bilateral pulmonary emboli. Aorta: There is no aortic dissection or aneurysm. Lungs: Left upper lobe parenchymal opacity. Differential diagnosis includes pneumonitis or a mass. Follow-up after treatment suggested in order to document resolution and exclude possibility of a mass. Pleural space: Unremarkable. No pneumothorax. No pleural effusion. Heart: Abnormal RV LV ratio consistent with right heart strain. Lymph nodes: Unremarkable. No enlarged lymph nodes. Bones/joints: The spine demonstrates mild degenerative changes. Dextroscoliosis. Soft tissues: Unremarkable. IMPRESSION: 1. Left upper lobe parenchymal opacity. Differential diagnosis includes pneumonitis or a mass. Follow-up after treatment suggested in order to document resolution and exclude possibility of a mass. 2. Multiple bilateral pulmonary emboli. 3. Abnormal RV LV ratio consistent with right heart strain. 4. There is no aortic dissection or aneurysm. A critical call has been made to speak with the ordering physician/practitioner. This report will be amended once consultation has occurred. Electronically signed by: Richar Lima On 08/27/2019 19:15:45 PM
--- NOTE | 2019-08-27 19:25 | HPEPDOC ---
[facility] Medical History & Physical Date of Admission Aug 27, 2019 Date of Service: Aug 27, 2019 Primary Care Physician: Amadeo Copeland Attending Physician: GRACIELA ANNA MD History and Physical TIME OF SERVICE: 8:15 PM CHIEF COMPLAINT: Shortness of breath HISTORY OF PRESENT ILLNESS: This is a 64 old female who presents with shortness of breath since August 14. On Donnell fourth shortness of breath got worse. She went to an urgent care center was diagnosed with otitis media and sent home with antibiotics. Today she presented with complaints of right-sided pleuritic chest pain was worse with exertion, associated with shortness of breath even with just talking. Per discussion with ER provider-based on CT a she was diagnosed with bilateral PEs. The patient is fairly anxious because one of her siblings as a result of PEs. REVIEW OF SYSTEMS: 12 point review of systems negative except as listed in HPI PAST MEDICAL/ SURGICAL HISTORY: History of PE after knee surgery Asthma/methacholine challenge test done in 2017 was positive. Chronic hypertension. Diabetes Dyslipidemia Macular Degeneration History of nephrolithiasis. Status post appendectomy. Status post tubal ligation. Status post cervical disc surgery. Status post total abdominal hysterectomy. Status post knee arthroscopy. Status post uteroscopy with kidney stones extraction. SOCIAL HISTORY: She traveled to [place] in June. She doesn't smoke FAMILY HISTORY: Mother of ME. He also had hypertension, CAD, and Hodgkin's Mother of COPD Brother had an ME. He was also diabetic and hypertensive. One of her sisters has hypertension and diabetes. Another sister had a gastric bypass One of her brothers of a PE at 63. He was also diabetic. Daughter has SLE ALLERGIES: Please see below. HOME MEDICATIONS: Please see below. PHYSICAL EXAMINATION: VITAL SIGNS: Please see below. GEN: well-nourished / well developed/ NAD INTEGUMENT: not flushed/ not jaundice HEENT: NCAT CVS: RRR/NMRG LUNGS: She is not able to speak full sentences without stopping to take a breath /uses accessory muscles/ expiratory wheezing ABDOMEN: Contour ( obese) MSK/EXTREMITIES: range of motion intact in all 4 extremities NEURO: CN 2-12 are grossly intact / speech is not dysarthric PSYCH: alert and oriented to person place and time/ able to understand and follow all commands LABORATORY DATA: See below. IMAGING: Chest x-ray was unremarkable. CTA chest " IMPRESSION: 1. Left upper lobe parenchymal opacity. Differential diagnosis includes pneumonitis or a mass. Follow-up after treatment suggested in order to document resolution and exclude possibility of a mass. 2. Multiple bilateral pulmonary emboli. 3. Abnormal RV LV ratio consistent with right heart strain. 4. There is no aortic dissection or aneurysm. MICROBIOLOGY: Please see below. ASSESSMENT: Ms. Skinner is a 64-year-old female with a history of provoked PE, asthma, hypertension, diabetes, dyslipidemia, was admitted for management of bilateral PEs, Acute Asthma and evaluation of a left upper lobe opacity. PLAN: 1. Acute hypoxemia secondary to bilateral PE It is unlikely that that she has a massive PE because she is not hypotensive and her troponin is not elevated. It is possible that she has a submassive PE because her BNP is elevated and CT of the chest shows right heart strain PLAN: admit to PCU / f/u Echo if RV dysfunction is noted the day time team may consult IR to discuss weather thrombolysis is indicated / continuos pulse oximetry / start xarelto / f/u coag panel ordered by ER Attending 2. Acute Asthma Exacerbation likely 2/2 PE Plan: oxygen / continuos pulse ox / mag sulfate / prednisone w PPI / scheduled d uonebs w levalbuterol PRN 3. Left upper lobe opacity Per CT due to pneumonitis versus mass. It is unlikely that this represents pneumonia because she does not have a fever or elevated WBC count Plan: The daytime team can consult the pulmonary service for additional recommendations 4. Chronic hypertension. Plan: Tamsulosin / add amlodipine 5 Diabetes A1c was 7.6 in June Plan: diabetic diet / f/u accuchecks / hypoglycemia protocol / sliding scale insulin / hold oral anti-glycemic DVT PROPHYLAXIS: Not needed because she is AC for PE DISPOSITION: Home after more than 2 midnight's stay Vital Signs Vital Signs Date Time Temp Pulse Resp B/P (MAP) Pulse Ox O2 Delivery O2 Flow Rate FiO2 08/27/19 18:00 103 153/77 (102) 95 08/27/19 17:41 Room Air 08/27/19 17:14 97.6 20 Laboratory Data Labs 24H Laboratory Tests 2 08/27/19 17:33: Immature Granulocyte % (Auto) 0.1, Neutrophils (%) (Auto) 54.8, Lymphocytes (%) (Auto) 35.4, Monocytes (%) (Auto) 7.2H, Eosinophils (%) (Auto) 1.9, Basophils (%) (Auto) 0.6, Neutrophils # (Auto) 4.0, Lymphocytes # (Auto) 2.6, Monocytes # (Auto) 0.5, Eosinophils # (Auto) 0.1, Basophils # (Auto) 0.0, Nucleated Red Blood Cells % (auto) 0.0, Blood Gas Bicarbonate Standard 21.1, Venous Blood pH 7.351, Venous Blood Partial Pressure CO2 42.1, Venous Blood Partial Pressure O2 28.9L, Venous Blood Total Carbon Dioxide 24.1, Venous Blood HCO3 22.8L, Venous Blood Oxygen Saturation 52.6L, Venous Blood Base Excess -2.7L, Anion Gap 7L, Glomerular Filtration Rate > 60.0, Lactic Acid Level 2.3*H, Calcium Level 9.6, Total Bilirubin 0.3, Direct Bilirubin 0.1, Aspartate Amino Transf (AST/SGOT) 71H, Alanine Aminotransferase (ALT/SGPT) 122H, Alkaline Phosphatase 112, Total Creatine Kinase 102, Creatine Kinase MB 4.6H, Creatine Kinase MB Relative Index 4.51H, Troponin I 0.06, EJ-Nih-T-Type Natriuretic Peptide 1807H, Total Protein 7.5, Albumin 4.0, Albumin/Globulin Ratio 1.14, Thyroid Stimulating Hormone (TSH) 2.480 CBC/BMP Laboratory Tests 08/27/19 17:33 Microbiology Microbiology 08/27/19 Respiratory Virus Panel (PCR) ([place]) - Final, Complete 08/27/19 Blood Culture, Received Pending Home Medications Scheduled Ascorbic Acid (Vitamin C) 500 Mg Tablet, 500 MG PO DAILY Cholecalciferol (Vitamin D3) (Vitamin D3) 1,000 Unit Tablet, 1,000 UNIT PO DAILY Cyanocobalamin (Vitamin B-12) (Vitamin B-12) 1,000 Mcg Tablet, 1,000 MCG PO DAILY Scheduled PRN Acetaminophen (Tylenol Extra Strength) 500 Mg Tablet, 500 MG PO QID PRN for PAIN Albuterol Sulfate (Albuterol Sulfate Hfa) 8.5 Gm Hfa.aer.ad, 2 PUFF INH QID PRN for SHORTNESS OF BREATH Aspirin (Aspirin) 325 Mg Tablet, 325 MG PO DAILY PRN for PAIN STATES SHE TOOK 325MG AND TWO 81MG TABLETS 08/26/18 Oxycodone HCl/Acetaminophen (Oxycodone-Acetaminophen 5-325) 1 Tab Tab, 1 TAB PO Q6H PRN for PAIN TAKES WHEN SHE HAS KIDNEY STONES Tamsulosin Hcl (Tamsulosin HCl) 0.4 Mg Capsule, 0.4 MG PO DAILY PRN for KIDNEY STONES Allergies Coded Allergies: No Known Allergies (Verified , 03/06/18) A-FIB/CHADSVASC A-FIB History Current/History of A-Fib/PAF?: No Current PO Anticoag Therapy: No GRACIELA ANNA MD Aug 27, 2019 19:25
[2019-08-27] MEDS ORDERED: MAALOX 30 ML SUSP *UDC PO PRN (19:30)
[2019-08-27] MEDS ORDERED: RIVAROXABAN 15 MG TAB (XARELTO) PO ONE (19:30)
[2019-08-27] MEDS ORDERED: MOM 30ML SUSPENSION UDC PO PRN (19:30)
[2019-08-27] MEDS ORDERED: CYAN100050 PO (19:38)
[2019-08-27] MEDS ORDERED: ACET-897 PO (19:38)
[2019-08-27] MEDS ORDERED: ASPI325T57 PO (19:38)
[2019-08-27] MEDS ORDERED: C 50TAB PO (19:38)
[2019-08-27] MEDS ORDERED: VITA100066 PO (19:38)
--- NOTE | 2019-08-27 19:39 | ECGEPIP ---
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
[2019-08-27] MEDS ORDERED: GLUCOSE 4 GM CHEW TABLET PO PRN (19:45)
[2019-08-27] MEDS ORDERED: GLUCAGON FOR INJ 1 MG VIAL (J1610) SC PRN (19:45)
[2019-08-27] MEDS ORDERED: DEXTROSE 50% 50 ML SYRINGE IV PRN (19:45)
[2019-08-27 20:00] VITALS: BP 133/95
[2019-08-27 20:48] LABS: INR 1.04; PROTHROMBIN TIME 13.3 SECONDS (11.8-14.0)
[2019-08-27 20:49] LABS: PARTIAL THROMBOPLASTIN TIME 30.4 SECONDS (25.0-38.4)
[2019-08-27] MEDS ORDERED: methylPREDNISolone INJ 125 MG/2 ML VIAL (J2930) IV STA (20:55)
[2019-08-27] MEDS ORDERED: LEVALBUTEROL 1.25 MG/0.5 ML CONCENTRATE NEB INH PRN (21:00)
[2019-08-27] MEDS ORDERED: MAG SULF 1GM/100ML (MAG RUN) 1 GM in IV 1 EA IV ONE (21:00)
[2019-08-27] MEDS: HumaLOG INSULIN (NovoLOG) PER UNIT SC SCH (21:00)
[2019-08-27] MEDS ORDERED: ASPIRIN 325 MG TAB PO PRN (21:00)
[2019-08-27] MEDS ORDERED: TAMSULOSIN 0.4 MG CAP PO PRN (21:00)
[2019-08-27 21:07] LABS: C REACTIVE PROTEIN QUANTITATIV 2.17 MG/DL (0.00-0.30); CK-MB VALUE MASS 4.8 NG/ML (<3.6); MB/CK RELATIVE INDEX 4.66 (< OR =4); TROPONIN I 0.06 NG/ML (< 0.10)
[2019-08-27] MEDS: DOCUSATE SODIUM 100 MG CAP PO SCH (21:24)
[2019-08-27 22:00] VITALS: O2SAT 95
[2019-08-27 23:00] VITALS: O2SAT 93
[2019-08-27] MEDS: ACETAMINOPHEN TAB 650MG DOSE (2X325MG) PO PRN (23:42)
[2019-08-27 23:59] VITALS: BP 132/78
[2019-08-28] VITALS (17 sets, daily range): BP systolic 131–152; BP diastolic 72–98; O2SAT 90–97
[2019-08-28] MEDS: IPRATROPIUM 0.5MG/ALBUTEROL 2.5MG INH SOL UD 3ML (DUONEB)(J7620) NEB SCH ×4 (02:00→20:00)
[2019-08-28] MEDS: PERCOCET 5MG/325MG TAB PO PRN ×2 (02:21→14:27)
[2019-08-28 05:38] LABS: HEMATOCRIT 45.9 % (36.0-47.0); HEMOGLOBIN 14.5 g/dl (12.0-15.5); MEAN CORPUSCULAR HEMOGLOBIN 28.3 pg (27.0-33.0); MEAN CORPUSCULAR HGB CONC 31.6 g/dl (32.0-36.5); MEAN CORPUSCULAR VOLUME 89.6 fl (80.0-96.0); PLATELET COUNT, AUTOMATED 239 10^3/uL (150-450); RED BLOOD COUNT 5.12 10^6/uL (4.00-5.40); WHITE BLOOD COUNT 6.5 10^3/uL (4.0-10.0)
[2019-08-28 06:08] LABS: CALCIUM LEVEL 9.2 MG/DL (8.8-10.2); CREATININE FOR GFR 1.04 MG/DL (0.55-1.30); GLOMERULAR FILTRATION RATE 56.8 (>45); POTASSIUM SERUM 4.7 MEQ/L (3.5-5.1)
[2019-08-28] MEDS: HumaLOG INSULIN (NovoLOG) PER UNIT SC SCH ×4 (07:30→21:02)
[2019-08-28] MEDS ORDERED: HumaLOG INSULIN (NovoLOG) PER UNIT SC ONE (07:45)
[2019-08-28] MEDS ORDERED: LEVEMIR (INSULIN DETEMIR) 1 UNITS/0.01ML SC ONE (08:00)
[2019-08-28] MEDS: predniSONE 20 MG TAB PO SCH (08:24)
[2019-08-28] MEDS: VITAMIN D 1,000 INTERNATIONAL UNITS TABLET PO SCH (08:24)
[2019-08-28] MEDS: DOCUSATE SODIUM 100 MG CAP PO SCH ×2 (08:24→21:02)
[2019-08-28] MEDS: PANTOPRAZOLE 40MG TAB (PROTONIX) PO SCH (08:25)
[2019-08-28] MEDS: RIVAROXABAN 15 MG TAB (XARELTO) PO SCH ×2 (08:25→17:01)
[2019-08-28 08:27] LABS: CK-MB VALUE MASS 4.2 NG/ML (<3.6); MB/CK RELATIVE INDEX 3.72 (< OR =4); TROPONIN I 0.02 NG/ML (< 0.10)
[2019-08-28 10:18] LABS: HEMOGLOBIN A1c 8.7 %
--- NOTE | 2019-08-28 10:49 | REP ---
Duplex extremity venous ultrasound: Bilateral lower extremities. History: Pulmonary emboli. Rule out DVT. Findings: The deep veins are anechoic and fully compressible from the groin to the popliteal fossa in the left and right lower extremity. Color flow imaging is homogeneous. Spectral Doppler interrogation demonstrates intact respiratory variation in flow and normal manual augmentation of flow. There is no evidence of deep vein thrombosis. The previously noted Nolasco's cyst in the right popliteal soft tissues is not visible today. Impression: Negative bilateral lower extremity duplex venous ultrasound. No evidence of deep vein thrombosis. Electronically Signed by Marcio Fleming MD 08/28/2019 10:41 A
--- NOTE | 2019-08-28 11:28 | IPNPDOC ---
Date Seen The patient was seen on 08/28/19. Progress Note SUBJECTIVE: Patient was seen and examined this morning. The patient was admitted last night for shortness of breath that has been progressive since August 14. The patient had stated that her shortness of breath had worsened. The patient was found to have bilateral PEs and was started on Xarelto 15mg PO last night. She currently states that she has shortness of breath with exertion. She is currently on room air but was on 2L NC last night. She states that she has started coughing this morning but denies any hemoptysis. She denies any calve pain. She does admit to right-sided pleuritic type chest pain with deep inspiration. OBJECTIVE PHYSICAL EXAMINATION: VITAL SIGNS: Please see below. GENERAL: Awake, alert, and oriented. Appears to be in no acute distress. Lying comfortably in bed. HEENT: Atraumatic, normocephalic. Eyes are nonicteric. Trachea is midline. CARDIOVASCULAR: Normal S1, S2. Tachycardic rate. Regular rhythm. No clicks, rubs, or murmurs RESPIRATORY: Clear vesicular breath sounds bilaterally with good respiratory effort. No wheezes, rhonchi, or rales. Symmetric chest expansion. ABDOMINAL: Obese. Soft, nondistended. Nontender. No rebound tenderness or guarding. Normoactive bowel sounds throughout EXTREMITIES: No edema. No tenderness of calves. Full and equal pulses in bilaterally upper and lower extremities bilaterally NEUROLOGICAL: No focal neurological deficits PSYCHOLOGICAL: Mood and affect appear appropriate LABORATORY DATA, IMAGING STUDIES, MICROBIOLOGY: Please see below. Echocardiogram: Pending DVT prophylaxis ordered?: Xarelto ASSESSMENT AND PLAN: Patient is a 64 year old female who presented to the [facility] ER with complaint of shortness of breath and right sided pleuritic chest pain and found to have bilateral pulmonary emboli. PROBLEMS: 1. Bilateral Pulmonary Emboli -Patient presented to the [facility] ER with complaint of shortness of breath. She had received a Chest CT Angio in the ER which demonstrated bilateral pulmonary emboli. On presentation to the ER the patient was not hypoxic. She was placed on 2L NC overnight which may have been related to obstructive sleep apnea. Patient is currently on room air -She has received 15mg PO Xarelto. She has a past history of pulmonary embolism in the past. Her previous PE was bilateral. It was considered provoked as the patient had a broken ankle at the time. Currently she states that she had taken a plane ride to [place] but denies any other long travel. -Hypercoagulable workup is pending -Bilateral Lower extremity ultrasound has been ordered to rule out DVT -Patient had CT imaging suggestive of right ventricular heart strain. An echocardiogram has been ordered for the patient to assess Right ventricular function and pulmonary artery pressures. -Pending results of the Echocardiogram patient will be placed on heparin drip or continued on Xarelto. 2. Left lung opacity/mass -Patients CTA demonstrated a left upper lobe opacity. In comparison to previous imaging the patient had in 2018 this is new. The patient did have a nodule in left lower lobe in 2018. Additionally, review of the scan demonstrates a right lung opacity as well making malignancy unlikely in the setting of a non- smoker. Patient will need outpatient follow-up with Pulmonary Medicine with r epeat CT scan in 3-6 months to assess for progression of the nodule. 3. Diabetes Mellitus Type 2 -Patient was hyperglycemic this morning with a BGL of 460. She is reportedly not on diabetic medications at home. Her Hbg A1C is currently 8.7. -Will continue AC/HS fingersticks with sliding scale coverage 4. Asthma Exacerbation -Patient has a history of asthma. On presentation she was reportedly wheezing. She currently has clear lung sounds and no supplemental oxygen demand. She is continued on Prednisone and nebulizers 5. Hypertension -Patient was started on Norvasc. She is normotensive currently will continue -Will continue home tamsulosin 6. History of Nephrolithiasis -Patient is continued on tamsulosin 7. GI prophylaxis -Protonix 8. DVT prophylaxis -Patient on Xarelto VS, I&O, 24H, Fishbone Vital Signs/I&O Vital Signs Date Time Temp Pulse Resp B/P (MAP) Pulse Ox O2 Delivery O2 Flow Rate FiO2 08/28/19 08:24 120 131/72 08/28/19 07:33 97.2 20 92 Room Air 08/28/19 04:00 2.0 I&O- Last 24 Hours up to 6 AM 08/28/19 06:00 Intake Total 0 ml Output Total 0 ml Balance 0 ml Laboratory Data 24H LABS Laboratory Tests 2 08/27/19 17:33: Immature Granulocyte % (Auto) 0.1, Neutrophils (%) (Auto) 54.8, Lymphocytes (%) (Auto) 35.4, Monocytes (%) (Auto) 7.2H, Eosinophils (%) (Auto) 1.9, Basophils ( %) (Auto) 0.6, Neutrophils # (Auto) 4.0, Lymphocytes # (Auto) 2.6, Monocytes # (Auto) 0.5, Eosinophils # (Auto) 0.1, Basophils # (Auto) 0.0, Nucleated Red Blood Cells % (auto) 0.0, Blood Gas Bicarbonate Standard 21.1, Venous Blood pH 7.351, Venous Blood Partial Pressure CO2 42.1, Venous Blood Partial Pressure O2 28.9L, Venous Blood Total Carbon Dioxide 24.1, Venous Blood HCO3 22.8L, Venous Blood Oxygen Saturation 52.6L, Venous Blood Base Excess -2.7L, Anion Gap 7L, Glomerular Filtration Rate > 60.0, Lactic Acid Level 2.3*H, Calcium Level 9.6, Total Bilirubin 0.3, Direct Bilirubin 0.1, Aspartate Amino Transf (AST/SGOT) 71H, Alanine Aminotransferase (ALT/SGPT) 122H, Alkaline Phosphatase 112, Total Creatine Kinase 102, Creatine Kinase MB 4.6H, Creatine Kinase MB Relative Index 4.51H, Troponin I 0.06, DI-Ldl-O-Type Natriuretic Peptide 1807H, Total Protein 7.5, Albumin 4.0, Albumin/Globulin Ratio 1.14, Thyroid Stimulating Hormone (TSH) 2.480 08/27/19 20:16: Lactic Acid Level 1.8, Total Creatine Kinase 103, Creatine Kinase MB 4.8H, Creatine Kinase MB Relative Index 4.66H, Troponin I 0.06, Erythrocyte Sedimentation Rate 4, Prothrombin Time 13.3, Prothromb Time International Ratio 1.04, Activated Partial Thromboplast Time 30.4, C-Reactive Protein, Quantitative 2.17H 08/27/19 21:08: Bedside Glucose (Misc Panel) 208H 08/27/19 22:20: Lactic Acid Followup at 4 Hours 2.2*H 08/28/19 04:59: Estimated Mean Plasma Glucose 203H, Hemoglobin A1c 8.7 08/28/19 05:01: Nucleated Red Blood Cells % (auto) 0.0, Anion Gap 11, Glomerular Filtration Rate 56.8, Calcium Level 9.2, Total Creatine Kinase 113, Creatine Kinase MB 4.2H, Creatine Kinase MB Relative Index 3.72, Troponin I 0.02# 08/28/19 06:17: Bedside Glucose (Misc Panel) 408H 08/28/19 08:59: CBC/BMP Laboratory Tests 08/27/19 17:33 08/28/19 05:01 Microbiology Microbiology 08/27/19 Blood Culture, Received Pending 08/27/19 Respiratory Virus Panel (PCR) ([place]) - Final, Complete 08/27/19 Blood Culture, Received Pending DELIA LI DO Aug 28, 2019 11:28
--- NOTE | 2019-08-28 21:13 | ECHO ---
DATE OF PROCEDURE: 08/28/2019 Date of : 1955 Age: 64 Height: 62 inches Weight: 205 pounds Body surface area: 1.93 meters squared Inpatient: Progressive care unit (PCU), room 3217 REFERRING PHYSICIAN: Karyna Epperson MD INDICATION: Dyspnea. MEASUREMENTS: 2D Measurements: RV: 4.2 cm LV: 4.4 cm Septum: 1.0 cm Posterior wall: 1.0 cm Aortic root: 3.2 cm LA: 3.0 cm LVEF: 65% Doppler Measurements: AV: 1.43 meters per second LVOT: 0.87 meters per second LVOT diameter: 1.9 cm MV - unable to assess Doppler evaluation of LV diastolic function in light of superimposition of early and late diastolic filling patterns. PV: 0.7 meters per second Pulmonary artery acceleration time: 82 milliseconds RVSP: 65 mmHg IVC: 2.1 cm COMMENTS: Sinus tachycardia at 110-120 beats per minute (bpm). No intraventricular conduction disturbance. Normal left ventricular size and wall thickness with flattened septal appearance with hyperkinetic wall motion of other segments in keeping with right ventricular pressure overload, yet preserved global left ventricular systolic function. Normal left atrial size but unable to assess LV diastolic function or mean left atrial pressure, though this is suspected be normal. At least mildly dilated right heart chambers with slightly reduced right ventricular free wall motion and Doppler evidence of severe pulmonary hypertension. At least mildly dilated inferior vena cava with reduced respiratory collapse in keeping with elevated central venous pressure/right heart failure. Normal appearing aortic valve and function. Normal aortic dimensions. Normal appearing mitral valvular apparatus and leaflet excursion with trace insufficiency. Normal appearing tricuspid valve with mild-moderate insufficiency. No apparent intracardiac mass or pericardial effusion. Comparing today's study with the report of August 31, 2017, right ventricular size appears similar but inferior vena cava (IVC) size has increased and does not collapse normally in keeping with higher pulmonary arterial pressure. MTDD
[2019-08-29] MEDS: IPRATROPIUM 0.5MG/ALBUTEROL 2.5MG INH SOL UD 3ML (DUONEB)(J7620) NEB SCH ×4 (02:00→22:04)
[2019-08-29] MEDS: PERCOCET 5MG/325MG TAB PO PRN (07:23)
[2019-08-29] MEDS ORDERED: HEPARIN SOD (PORCINE) 5000 UNITS/ML VIAL IV PRN (07:30)
[2019-08-29] MEDS: HumaLOG INSULIN (NovoLOG) PER UNIT SC SCH ×4 (07:35→21:29)
[2019-08-29] MEDS: DOCUSATE SODIUM 100 MG CAP PO SCH ×2 (08:00→21:28)
[2019-08-29] MEDS: VITAMIN D 1,000 INTERNATIONAL UNITS TABLET PO SCH (08:00)
[2019-08-29] MEDS: predniSONE 20 MG TAB PO SCH (08:00)
[2019-08-29] MEDS: PANTOPRAZOLE 40MG TAB (PROTONIX) PO SCH (08:00)
[2019-08-29] MEDS: HEPARIN DRIP 25,000 UNITS in IV 1 EA IV SCH (08:03)
[2019-08-29 08:04] LABS: HEMOGLOBIN 13.3 g/dl (12.0-15.5); MEAN CORPUSCULAR HEMOGLOBIN 29.6 pg (27.0-33.0); MEAN CORPUSCULAR HGB CONC 33.3 g/dl (32.0-36.5); MEAN CORPUSCULAR VOLUME 88.9 fl (80.0-96.0); PLATELET COUNT, AUTOMATED 251 10^3/uL (150-450); WHITE BLOOD COUNT 13.8 10^3/uL (4.0-10.0)
[2019-08-29 08:33] LABS: BLOOD UREA NITROGEN 25 MG/DL (7-18); CALCIUM LEVEL 9.1 MG/DL (8.8-10.2); CARBON DIOXIDE LEVEL 23 MEQ/L (21-32); CHLORIDE LEVEL 106 MEQ/L (98-107); CREATININE FOR GFR 0.99 MG/DL (0.55-1.30); GLOMERULAR FILTRATION RATE > 60.0 (>45); GLUCOSE, FASTING 270 MG/DL (70-100); POTASSIUM SERUM 4.1 MEQ/L (3.5-5.1); SODIUM LEVEL 140 MEQ/L (136-145)
[2019-08-29 10:00] VITALS: BP 140/73
--- NOTE | 2019-08-29 10:09 | IPNPDOC ---
Date Seen The patient was seen on 08/29/19. Progress Note SUBJECTIVE: Patient was seen and examined this morning. She states that her breathing feels well. She does admit to some increased feelings of anxiety. She states that she does feel a little short of breath with exertion although improved from previously. There have been no adverse events reported overnight. The patient only requires oxygen at night which is likely related to her obstructive sleep apnea OBJECTIVE PHYSICAL EXAMINATION: VITAL SIGNS: Please see below. GENERAL: Awake, alert, and oriented. Appears to be in no acute distress. Lying comfortably in bed. HEENT: Atraumatic, normocephalic. Eyes are nonicteric. Trachea is midline. CARDIOVASCULAR: Normal S1, S2. Tachycardic rate. Regular rhythm. No clicks, rubs, or murmurs RESPIRATORY: Clear vesicular breath sounds bilaterally with good respiratory effort. No wheezes, rhonchi, or rales. Symmetric chest expansion. ABDOMINAL: Obese. Soft, nondistended. Nontender. No rebound tenderness or guarding. Normoactive bowel sounds throughout EXTREMITIES: No edema. No tenderness of calves. Full and equal pulses in bilaterally upper and lower extremities bilaterally NEUROLOGICAL: No focal neurological deficits PSYCHOLOGICAL: Mood and affect appear appropriate LABORATORY DATA, IMAGING STUDIES, MICROBIOLOGY: Please see below. Echocardiogram: DATE OF PROCEDURE: 08/28/2019 Date of : 1955 Age: 64 Height: 62 inches Weight: 205 pounds Body surface area: 1.93 meters squared Inpatient: Progressive care unit (PCU), room 3217 REFERRING PHYSICIAN: Karyna Epperson MD INDICATION: Dyspnea. MEASUREMENTS: 2D Measurements: RV: 4.2 cm LV: 4.4 cm Septum: 1.0 cm Posterior wall: 1.0 cm Aortic root: 3.2 cm LA: 3.0 cm LVEF: 65% Doppler Measurements: AV: 1.43 meters per second LVOT: 0.87 meters per second LVOT diameter: 1.9 cm MV - unable to assess Doppler evaluation of LV diastolic function in light of superimposition of early and late diastolic filling patterns. PV: 0.7 meters per second Pulmonary artery acceleration time: 82 milliseconds RVSP: 65 mmHg IVC: 2.1 cm COMMENTS: Sinus tachycardia at 110-120 beats per minute (bpm). No intraventricular conduction disturbance. Normal left ventricular size and wall thickness with flattened septal appearance with hyperkinetic wall motion of other segments in keeping with right ventricular pressure overload, yet preserved global left ventricular systolic function. Normal left atrial size but unable to assess LV diastolic function or mean left atrial pressure, though this is suspected be normal. At least mildly dilated right heart chambers with slightly reduced right ventricular free wall motion and Doppler evidence of severe pulmonary hypertension. At least mildly dilated inferior vena cava with reduced respiratory collapse in keeping with elevated central venous pressure/right heart failure. Normal appearing aortic valve and function. Normal aortic dimensions. Normal appearing mitral valvular apparatus and leaflet excursion with trace insufficiency. Normal appearing tricuspid valve with mild-moderate insufficiency. No apparent intracardiac mass or pericardial effusion. Comparing today's study with the report of August 31, 2017, right ventricular size appears similar but inferior vena cava (IVC) size has increased and does not collapse normally in keeping with higher pulmonary arterial pressure. DD: Ashkan Garcia MD, [facility] 08/28/192039 DT: VIVIANA 08/28/192099 DS: JOHN 08/28/192205 <Electronically signed by Ashkan Garcia > 08/28/192205 DVT prophylaxis ordered?: On Heparin Drip ASSESSMENT AND PLAN: Patient is a 64 year old female who presented to the [facility] ER with complaint of shortness of breath and right sided pleuritic chest pain and found to have bilateral pulmonary emboli. PROBLEMS: 1. Bilateral Pulmonary Emboli -Patient presented to the [facility] ER with complaint of shortness of breath. She had received a Chest CT Angio in the ER which demonstrated bilateral pulmonary emboli. On presentation to the ER the patient was not hypoxic. She was placed on 2L NC overnight which may have been related to obstructive sleep apnea. Patient is currently on room air -She has received 15mg PO Xarelto. She has a past history of pulmonary embolism in the past. Her previous PE was bilateral. It was considered provoked as the patient had a broken ankle at the time. Currently she states that she had taken a plane ride to [place] but denies any other long travel. -Hypercoagulable workup is pending -Bilateral Lower extremity ultrasound was negative for DVT -Patient had CT imaging suggestive of right ventricular heart strain. An echocardiogram has been ordered for the patient to assess Right ventricular function and pulmonary artery pressures. Echo report above. Patients has elevated right atrial pressures. She likley has elevated pressures at baseline from [facility] however in comparison to her Echo in 2018 her IVC does not collapse normally. The patients PE are likely contributing to the rise in her atrial pressures indicating possible submassive PE -Will start Heparin Drip. Patient will need to be transitioned to Oral anticoagulant on discharge. She will likely need life long anticoagulation as this is her second PE and appears to be unprovoked. 2. Left lung opacity/mass -Patients CTA demonstrated a left upper lobe opacity. In comparison to previous imaging the patient had in 2018 this is new. The patient did have a nodule in left lower lobe in 2018. Additionally, review of the scan demonstrates a right lung opacity as well making malignancy unlikely in the setting of a non- smoker. Patient will need outpatient follow-up with Pulmonary Medicine with repeat CT scan in 3-6 months to assess for progression of the nodule. 3. Diabetes Mellitus Type 2 -Patient was hyperglycemic this morning with a BGL of 460. She is reportedly not on diabetic medications at home. Her Hbg A1C is currently 8.7. -Will continue AC/HS fingersticks with sliding scale coverage -Will add Levemir Insulin 10 units at night for basal coverage -Consider starting metformin for outpatient management 4. Asthma Exacerbation -Patient has a history of asthma. On presentation she was reportedly wheezing. She currently has clear lung sounds and no supplemental oxygen demand. S -Patient is currently not wheezing. Her steroids have been discontinued. Her anxiety today could be from the steroids -Will continue nebulizer prn 5. Leukocytosis -Patient has a leukocytosis this morning. She has been receiving steroids which is likely the cause. Patient currently has no signs of infection. Her steroids have been discontinued today. Will continue to monitor 6. Hypertension -Patient was started on Norvasc. She is normotensive currently will continue -Will continue home tamsulosin 7. History of Nephrolithiasis -Patient is continued on tamsulosin 8. GI prophylaxis -Protonix 9. DVT prophylaxis -Patient on Heparin Drip ATTENDING PHYSICIAN ADDENDUM: I have independently interviewed and examined this patient at the bedside , and agree with the physical findings and management plan as documented above by my resident physician. All of the patient's questions and concerns have been addressed. VS, I&O, 24H, Fishbone Vital Signs/I&O Vital Signs Date Time Temp Pulse Resp B/P (MAP) Pulse Ox O2 Delivery O2 Flow Rate FiO2 08/29/19 08:00 118 131/72 08/29/19 07:53 18 08/28/19 20:20 98.9 95 Nasal Cannula 08/28/19 12:00 2.0 I&O- Last 24 Hours up to 6 AM 08/29/19 06:00 Intake Total 1140 ml Output Total 1100 ml Balance 40 ml Laboratory Data 24H LABS Laboratory Tests 2 08/28/19 11:36: Bedside Glucose (Misc Panel) 391H 08/28/19 16:40: Bedside Glucose (Misc Panel) 460H 08/28/19 20:05: Bedside Glucose (Misc Panel) 391H 08/29/19 05:33: Bedside Glucose (Misc Panel) 202H 08/29/19 07:50: Nucleated Red Blood Cells % (auto) 0.0, Activated Partial Thromboplast Time 33.3, Anion Gap 11, Glomerular Filtration Rate > 60.0, Calcium Level 9.1 CBC/BMP Laboratory Tests 08/29/19 07:50 Microbiology Microbiology 08/27/19 Blood Culture - Preliminary, Resulted No growth after 24 hours . All specim... 08/27/19 Respiratory Virus Panel (PCR) ([place]) - Final, Complete 08/27/19 Blood Culture - Preliminary, Resulted No growth after 24 hours . All specim... DELIA LI DO Aug 29, 2019 10:09 ANJANA DURANT MD Aug 29, 2019 10:31
[2019-08-29 14:00] VITALS: BP 118/64
[2019-08-29 15:07] LABS: ANTI DOUBLE STRAND-DNA AB <1 IU/mL (0-9); ANTINUCLEAR ANTIBODIES DIRECT Positive (Negative); RNP ANTIBODIES 1.4 AI (0.0-0.9); SJOGREN'S ANTI SS-A <0.2 AI (0.0-0.9); SJOGREN'S ANTI SS-B <0.2 AI (0.0-0.9); SMITH ANTIBODIES <0.2 AI (0.0-0.9)
[2019-08-29 18:00] VITALS: BP 120/82
[2019-08-29 20:46] VITALS: BP 123/82
[2019-08-29 21:00] VITALS: O2SAT 97
[2019-08-29] MEDS: LEVEMIR (INSULIN DETEMIR) 1 UNITS/0.01ML SC SCH (21:29)
[2019-08-30] MEDS: IPRATROPIUM 0.5MG/ALBUTEROL 2.5MG INH SOL UD 3ML (DUONEB)(J7620) NEB SCH ×3 (02:00→13:56)
[2019-08-30 02:58] VITALS: BP 135/63
[2019-08-30 03:45] LABS: HEMATOCRIT 37.6 % (36.0-47.0); MEAN CORPUSCULAR HEMOGLOBIN 28.7 pg (27.0-33.0); MEAN CORPUSCULAR HGB CONC 31.9 g/dl (32.0-36.5); PLATELET COUNT, AUTOMATED 231 10^3/uL (150-450); RED BLOOD COUNT 4.18 10^6/uL (4.00-5.40)
[2019-08-30] MEDS: HEPARIN DRIP 25,000 UNITS in IV 1 EA IV SCH ×2 (05:33→10:07)
[2019-08-30 06:27] VITALS: BP 116/96
[2019-08-30 07:40] LABS: BLOOD UREA NITROGEN 24 MG/DL (7-18); CALCIUM LEVEL 8.8 MG/DL (8.8-10.2); CARBON DIOXIDE LEVEL 23 MEQ/L (21-32); CHLORIDE LEVEL 108 MEQ/L (98-107); CREATININE FOR GFR 0.88 MG/DL (0.55-1.30); GLOMERULAR FILTRATION RATE > 60.0 (>45); GLUCOSE, FASTING 219 MG/DL (70-100); POTASSIUM SERUM 4.2 MEQ/L (3.5-5.1); SODIUM LEVEL 142 MEQ/L (136-145)
[2019-08-30] MEDS: VITAMIN D 1,000 INTERNATIONAL UNITS TABLET PO SCH (07:56)
[2019-08-30] MEDS: DOCUSATE SODIUM 100 MG CAP PO SCH ×2 (07:56→20:59)
[2019-08-30] MEDS: PANTOPRAZOLE 40MG TAB (PROTONIX) PO SCH (07:56)
[2019-08-30] MEDS: HumaLOG INSULIN (NovoLOG) PER UNIT SC SCH ×4 (07:57→21:00)
[2019-08-30 14:00] VITALS: BP 121/69
--- NOTE | 2019-08-30 20:24 | IPN ---
DATE: 08/30/2019 The patient was oozing out of the right antecubital IV site this morning. Heparin was discontinued. The patient ambulated without presyncopal episode. The patient was able to perform bed to bathroom without any assistance. She did get slightly dizzy when she walked to her bed yesterday and remains with sinus tachycardia, 118 to 130. When she ambulated outside the room, she remained stable and was not hypoxic at 95 to 97% on room air. PHYSICAL EXAMINATION: VITAL SIGNS: Temperature 98, pulse 82, respiratory rate 18, blood pressure 116/96, 96% on room air. GENERAL: The patient is awake, alert, oriented times three. Answering questions appropriately. No icterus. No jaundice. No thyromegaly. No cervical lymphadenopathy. No jugular venous distention (JVD). LUNGS: Clear to auscultation with no wheezing, rales or rhonchi. HEART: S1, S2. Sinus tachycardia. ABDOMEN: Soft, nontender, nondistended. Positive bowel sounds. Obese abdomen. EXTREMITIES: No cyanosis or clubbing. LABORATORY DATA: White count 13, hemoglobin 12, hematocrit 37, platelet count 381. Sodium 142, potassium 4.2, chloride 108, bicarbonate 23, BUN 24, creatinine 0.88, glucose of 219. IMAGING STUDIES: CT of the chest showed multiple bilateral pulmonary emboli and no artery elevation consistent with right heart strain. Left upper lobe parenchymal opacity, differential diagnosis includes pneumonitis or mass. No aortic dissection or aneurysm. Venous Dopplers of bilateral lower extremities showed negative bilateral lower extremity, no evidence of DVT. Echocardiogram read by Dr. Garcia on 08/28/2019 showed ejection fraction of 65%. Flattened septal with hyperkinetic wall motion in keeping with right ventricular pressure overload. Preserved global left ventricular systolic function. Mildly dilated inferior vena cava with reduced respiratory collapse in keeping with elevated central venous pressure and right heart failure. ASSESSMENT AND PLAN: This is a 64-year-old female with a history of pulmonary embolism after knee surgery, methacholine challenge test was positive, hypertension, diabetes, macular degeneration, nephrolithiasis, who presented on 08/22/2019 for shortness of breath that was worsened and seen in minor treatment in the emergency room with otitis media and sent home with antibiotics, complained of right sided pleuritic chest pain with dyspnea on exertion. Imaging with CT of the chest showed multiple pulmonary embolisms on 08/27/2019 and was subsequently admitted and placed on intravenous heparin drip. Echo shows right ventricular heart strain. THe patient remains tachycardic with ambulation but not hypoxic. ACTIVE ISSUES: 1. Multiple bilateral pulmonary embolism. Venous Doppler of lower extremities negative. The patient is currently on intravenous heparin with bleeding of the right antecubital fossa today. Heparin drip has been discontinued and will be restarted in 6 hours. Since this is a second episode of pulmonary embolism, the patient will need lifelong anticoagulation. She will be transitioned to Eliquis twice a day on hospital discharge. 2. Left lung opacity. CTA shows questionable left upper lobe opacity, which is new compared to previous CT in 2018. The patient will [facility] with [facility] and repeat CT in 3 months to assess for resolution or persistence of left upper lobe opacity. Possible biopsy if increases in size to rule out malignancy. 3. Type 2 diabetes. A1/c is 8.7. Currently on consistent carbohydrate diet. Glucose remains uncontrolled at 324. She is on Levemir 10 units at night. We will increase for better glycemic control. Continue with sliding scale insulin. 4. Hypertension. Currently controlled at 115. Norvasc could be added at 2.5 mg with holding parameters for systolic pressure less than 130. DISPOSITION: Discharge in 2 to 3 days depending on clinical improvement. DISPOSITION: 1 to 2 days pending clinical improvement. MTDD
[2019-08-30] MEDS: ACETAMINOPHEN TAB 650MG DOSE (2X325MG) PO PRN (20:59)
[2019-08-30] MEDS: LEVEMIR (INSULIN DETEMIR) 1 UNITS/0.01ML SC SCH (21:00)
[2019-08-30 22:00] VITALS: BP 139/97
[2019-08-31 02:00] VITALS: BP 130/63
[2019-08-31] MEDS: IPRATROPIUM 0.5MG/ALBUTEROL 2.5MG INH SOL UD 3ML (DUONEB)(J7620) NEB SCH ×4 (03:15→20:00)
[2019-08-31 06:00] VITALS: BP 124/63
[2019-08-31] MEDS: HumaLOG INSULIN (NovoLOG) PER UNIT SC SCH ×4 (08:18→21:00)
[2019-08-31] MEDS: PANTOPRAZOLE 40MG TAB (PROTONIX) PO SCH (08:18)
[2019-08-31] MEDS: DOCUSATE SODIUM 100 MG CAP PO SCH ×2 (08:18→21:15)
[2019-08-31] MEDS: VITAMIN D 1,000 INTERNATIONAL UNITS TABLET PO SCH (08:18)
[2019-08-31] MEDS ORDERED: ELIQ5TAB PO (08:46)
[2019-08-31 08:48] LABS: HEMATOCRIT 39.5 % (36.0-47.0); HEMOGLOBIN 12.5 g/dl (12.0-15.5); MEAN CORPUSCULAR HEMOGLOBIN 28.9 pg (27.0-33.0); MEAN CORPUSCULAR HGB CONC 31.6 g/dl (32.0-36.5); MEAN CORPUSCULAR VOLUME 91.4 fl (80.0-96.0); PLATELET COUNT, AUTOMATED 262 10^3/uL (150-450); RED BLOOD COUNT 4.32 10^6/uL (4.00-5.40); WHITE BLOOD COUNT 9.1 10^3/uL (4.0-10.0)
[2019-08-31 09:09] LABS: BLOOD UREA NITROGEN 21 MG/DL (7-18); CALCIUM LEVEL 8.8 MG/DL (8.8-10.2); CARBON DIOXIDE LEVEL 21 MEQ/L (21-32); CHLORIDE LEVEL 109 MEQ/L (98-107); CREATININE FOR GFR 0.85 MG/DL (0.55-1.30); GLOMERULAR FILTRATION RATE > 60.0 (>45); GLUCOSE, FASTING 165 MG/DL (70-100); POTASSIUM SERUM 4.5 MEQ/L (3.5-5.1); SODIUM LEVEL 141 MEQ/L (136-145)
[2019-08-31 10:00] VITALS: BP 134/65
[2019-08-31 14:00] VITALS: BP 154/77
[2019-08-31] MEDS: HEPARIN DRIP 25,000 UNITS in IV 1 EA IV SCH (16:11)
[2019-08-31 18:00] VITALS: BP 150/67
[2019-08-31 19:52] VITALS: BP 146/67
[2019-08-31] MEDS: LEVEMIR (INSULIN DETEMIR) 1 UNITS/0.01ML SC SCH (21:16)
--- NOTE | 2019-08-31 21:34 | IPNPDOC ---
Date Seen The patient was seen on 08/31/19. Progress Note SUBJECTIVE: Renae was seen and examined this morning while lying upright in bed. She reports no adverse events overnight. This morning physical therapy ambulated patient to the other end of the floor. Patient became short of breath and needed to sit down. She also had accompanying bilateral lower extremity weakness on ambulation. Patient does not have pleuritic chest pain or dyspnea at rest. She is speaking in full sentences, breathing on room air and satting well. Patient had bleeding yesterday from right antecubital IV. She reports no bleeding overnight or this morning. Patient denies fever, chills, night sweats, chest pain, palpitations, abdominal pain, feeling nauseated, vomiting, extremity numbness or paresthesias at this time. OBJECTIVE PHYSICAL EXAMINATION: VITAL SIGNS: Please see below. GENERAL: Pleasant, interactive female who appears stated age. Appears to be in no acute distress. Lying comfortably upright in bed. She is awake, alert and oriented 3. HEENT: Atraumatic, normocephalic. Anicteric sclera. Trachea is midline CARDIOVASCULAR: Regular rate and regular rhythm. Normal S1, S2. No murmurs, clicks or rubs appreciated. RESPIRATORY: Clear to auscultation bilaterally with adequate respiratory effort. No wheezes, crackles or rhonchi appreciated. Symmetric chest expansion. Breathing on room air. ABDOMINAL: Obese; soft, nontender, nondistended. No guarding or rigidity. Normoactive bowel sounds present throughout. EXTREMITIES: 1+ bilateral lower extremity pitting edema. There is no warmth, erythema or calf tenderness bilaterally. 2+ radial and posterior tibial pulses bilaterally. Bandages over right antecubital area is dry and not saturated NEUROLOGICAL: Alert and oriented 3. No focal neurological deficits appreciated. PSYCHOLOGICAL: Mood and affect appear appropriate LABORATORY DATA, IMAGING STUDIES, MICROBIOLOGY: Please see below. ASSESSMENT AND PLAN: This is a 64-year-old female with history of pulmonary embolism after knee surgery, methacholine challenge test positive, type 2 diabetes, hypertension, nephrolithiasis, and macular degeneration, who presented on 08/22/19 for shortness of breath that worsened in the emergency department. Minor treatment waiting. Patient was diagnosed with otitis media and sent home with antibiotics. Patient continued to complain of right-sided pleuritic chest pain and dyspnea on exertion. She subsequently presented back to the ED with CT a of the chest showing multiple pulmonary emboli on 08/27/19. Patient was subsequently admitted and placed on heparin drip. #Multiple bilateral pulmonary emboli -Need for patient to continue with ambulation is paramount. Evidence of sustained improvement in relation to pulse oximetry and heart rate necessary before preparing discharge and switching from IV heparin to oral anticoagulant. -Upon discharge, patient will likely be switched to Eliquis 10 mg bid to start -This lambert a second episode of PE for patient and was unprovoked. Patient will need lifelong anticoagulation #Type 2 diabetes -Serum glucose continues to decrease each day -Continue with sliding scale insulin and long-acting Levemir insulin at night -c/w consistent carb diet #Left lung opacity -CTA showed questionable left upper lobe opacity which is new compared to previous study in 2018 -Patient will [facility] with [facility] and her primary pleater (Dr. Patterson) -Repeat CT in 3 months warranted to assess for persistence of opacity or resolution. #Hypertension -Continue with scheduled Amlodipine -Pressures have been well controlled #History of nephrolithiasis -Continue with tamsulosin #GI prophylaxis: c/w , Protonix #DVT prophylaxis: c/w heparin drip DISPOSITION: 1-2 more days pending continued clinical improvement VS, I&O, 24H, Fishbone Vital Signs/I&O Vital Signs Date Time Temp Pulse Resp B/P (MAP) Pulse Ox O2 Delivery O2 Flow Rate FiO2 08/31/19 18:00 98.1 85 20 150/67 (94) 95 Room Air 08/28/19 12:00 2.0 I&O- Last 24 Hours up to 6 AM 08/31/19 06:00 Intake Total 2600 ml Output Total 0 ml Balance 2600 ml Laboratory Data 24H LABS Laboratory Tests 2 08/30/19 21:44: Activated Partial Thromboplast Time 67.5H 08/31/19 04:45: Bedside Glucose (Misc Panel) 166H 08/31/19 06:07: Activated Partial Thromboplast Time 134.6*H, Nucleated Red Blood Cells % (auto) 0.0, Anion Gap 11, Glomerular Filtration Rate > 60.0, Calcium Level 8.8 08/31/19 12:04: Bedside Glucose (Misc Panel) 157H 08/31/19 14:02: Activated Partial Thromboplast Time 55.7H 08/31/19 16:37: Bedside Glucose (Misc Panel) 137H 08/31/19 19:50: Bedside Glucose (Misc Panel) 194H CBC/BMP Laboratory Tests 08/31/19 06:07 Microbiology Microbiology 08/31/19 Stool Occult Blood ([place]) - Final, Complete 08/30/19 Stool Occult Blood ([place]) - Final, Complete 08/27/19 Blood Culture - Preliminary, Resulted No Growth after 72 hours. All specime... 08/27/19 Respiratory Virus Panel (PCR) ([place]) - Final, Complete 08/27/19 Blood Culture - Preliminary, Resulted No Growth after 72 hours. All specime... AMANDO MCGINNIS D.O. Aug 31, 2019 21:34
[2019-09-01 01:40] VITALS: BP 118/58
[2019-09-01] MEDS: IPRATROPIUM 0.5MG/ALBUTEROL 2.5MG INH SOL UD 3ML (DUONEB)(J7620) NEB SCH ×4 (01:48→20:00)
[2019-09-01 04:31] VITALS: BP 117/60
[2019-09-01] MEDS: PERCOCET 5MG/325MG TAB PO PRN (06:29)
[2019-09-01] MEDS: DOCUSATE SODIUM 100 MG CAP PO SCH ×2 (08:02→21:35)
[2019-09-01] MEDS: HumaLOG INSULIN (NovoLOG) PER UNIT SC SCH ×4 (08:02→21:41)
[2019-09-01] MEDS: PANTOPRAZOLE 40MG TAB (PROTONIX) PO SCH (08:02)
[2019-09-01] MEDS: VITAMIN D 1,000 INTERNATIONAL UNITS TABLET PO SCH (08:03)
[2019-09-01 09:45] LABS: DRVV SCREEN 67.9 SEC; PTT LUPUS TYPE ANTICOAG SCREEN 1.7 (0-1.2)
[2019-09-01 09:52] LABS: LUPUS CONFIRM RATIO 1.3
[2019-09-01 09:53] LABS: NORMALIZED RATIO 1.31 (0.00-1.20)
[2019-09-01] MEDS: ENOXAPARIN 100MG/1ML SYRINGE (J1650) SC SCH ×2 (11:29→22:11)
[2019-09-01 14:00] VITALS: BP 119/60
[2019-09-01] MEDS ORDERED: WARFARIN SOD 5 MG TAB PO ONE (17:00)
--- NOTE | 2019-09-01 17:50 | IPNPDOC ---
Date Seen The patient was seen on 09/01/19. Progress Note SUBJECTIVE: Maren was seen and examined this morning while lying upright in bed. Patient reports no adverse events overnight. She ambulates to and from the bathroom with accompanying mild dizziness, weakness, but no shortness of breath/dyspnea. She uses her IV pole for balance when she ambulates. She reports being especially weak while showering around 5 AM this morning. She is eating and drinking withou t any issues. She endorsed chest pain early this morning which was relieved with regularly scheduled pain medication. She denies fever, chills, night sweats, chest pressure, palpitations shortness of breath, cough, feeling nauseated, or vomiting this time. OBJECTIVE PHYSICAL EXAMINATION: VITAL SIGNS: Please see below. GENERAL: Pleasant, interactive female who appears stated age. Appears to be in no acute distress. Lying comfortably upright in bed. She is awake, alert and oriented 3. HEENT: Atraumatic, normocephalic. Anicteric sclera. Trachea is midline CARDIOVASCULAR: Regular rate and regular rhythm. Normal S1, S2. No murmurs, clicks or rubs appreciated. RESPIRATORY: Clear to auscultation bilaterally with adequate respiratory effort. No wheezes, crackles or rhonchi appreciated. Symmetric chest expansion. Breathing on room air. ABDOMINAL: Obese; soft, nontender, nondistended. No guarding or rigidity. Normoactive bowel sounds present throughout. EXTREMITIES: 1+ bilateral lower extremity pitting edema. There is no warmth, erythema or calf tenderness bilaterally. 2+ radial and posterior tibial pulses bilaterally. NEUROLOGICAL: Alert and oriented 3. No focal neurological deficits appreciated. PSYCHOLOGICAL: Mood and affect appear appropriate LABORATORY DATA, IMAGING STUDIES, MICROBIOLOGY: Please see below. ASSESSMENT AND PLAN: This is a 64-year-old female with history of pulmonary embolism after knee surgery, methacholine challenge test positive, type 2 diabetes, hypertension, nephrolithiasis, and macular degeneration, who presented on 08/22/19 for shortness of breath that worsened in the emergency department. Minor treatment waiting. Patient was diagnosed with otitis media and sent home with antibiotics. Patient continued to complain of right-sided pleuritic chest pain and dyspnea on exertion. She subsequently presented back to the ED with CT a of the chest showing multiple pulmonary emboli on 08/27/19. Patient was subsequently admitted and placed on heparin drip. Heparin drip was discontinued on 09/01 and patient was switched over to subcutaneous Lovenox and oral Coumadin. Lovenox will be dosed at 95 mg bid for 7 days (1mg/kg). Coumadin was started 5 mg on day 1 (09/01), and then will revert to 3 mg daily. Lovenox and Coumadin bridge. We'll continue for 5-7 days until INR goal between 2 and 3 is reached. Once patient's INR is between 2 and 3, Lovenox will be discontinued and Coumadin 3 mg daily will be continued until October. In October, patient's insurance becomes Medicare and she will be able to afford oral Eliquis. At that time, Coumadin will be switched Eliquis. Patient will have INR daily measurements for the first 4 w eeks. At discharge, and then weekly from thereon out. Patient will remain on lifelong anticoagulation due to having two instances of pulmonary embolus, with the second being unprovoked. Also on discharge, patient will be written prescription for 750 mg twice a day, metformin. Patient does not want to be on insulin at this time and has had documented hyperglycemia on this admission #Multiple bilateral pulmonary emboli -Need for patient to continue with ambulation is paramount. Evidence of sustained improvement in relation to pulse oximetry and heart rate necessary before preparing discharge and switching from IV heparin to oral anticoagulant. -Heparin drip was discontinued today and patient was switched over to Lovenox and Coumadin. -Lovenox dosed at 95 mg for 7 days based on 1mg/kg. -Coumadin started today, day 1, at 5 mg. On day 2, Coumadin will revert to 3 mg daily. Patient was discharged in August 2017 on 3 mg oral Coumadin daily after first pulmonary embolism. -Patient will continue Lovenox and Coumadin until INR goal between 2 and 3 is reached (proximal and a 5-7 days). Once INR goal is reached, Lovenox will be DC'd and Coumadin 3 mg daily. We'll continue until October. In October, patient's insurance will revert to Medicare and she'll be able to afford Eliquis. Patient will be on Eliquis permanently as she has had 2 pulmonary embolus events, the second being unprovoked. -INR will be followed daily for the first 4 weeks after discharge and then weekly. -This lambert a second episode of PE for patient and was unprovoked. Patient will need lifelong anticoagulation #Type 2 diabetes -Serum glucose continues to decrease each day -Continue with sliding scale insulin and long-acting Levemir insulin at night -c/w consistent carb diet -Patient will be discharged on 750 mg twice a day, metformin as her diabetes was uncontrolled upon presentation and she does not want to be on insulin #Left lung opacity -CTA showed questionable left upper lobe opacity which is new compared to previous study in 2018 -Patient will follow up with [facility] and her primary lead front desk agent (Dr. Patterson) -Repeat CT in 3 months warranted to assess for persistence of opacity or resolution. #Hypertension -Continue with scheduled Amlodipine -Pressures have been well controlled #History of nephrolithiasis -Continue with tamsulosin #GI prophylaxis: c/w , Protonix #DVT prophylaxis: Lovenox and Coumadin DISPOSITION: Likely discharge tomorrow pending continued ambulatory status improvement. VS, I&O, 24H, Fishbone Vital Signs/I&O Vital Signs Date Time Temp Pulse Resp B/P (MAP) Pulse Ox O2 Delivery O2 Flow Rate FiO2 09/01/19 14:00 97.6 84 17 119/60 (79) 96 Room Air 08/28/19 12:00 2.0 I&O- Last 24 Hours up to 6 AM 09/01/19 06:00 Intake Total 3096 ml Output Total 0 ml Balance 3096 ml Laboratory Data 24H LABS Laboratory Tests 2 08/31/19 19:50: Bedside Glucose (Misc Panel) 194H 08/31/19 22:15: Activated Partial Thromboplast Time 75.2H 09/01/19 06:15: Activated Partial Thromboplast Time 88.3H 09/01/19 06:35: Bedside Glucose (Misc Panel) 138H 09/01/19 11:31: Bedside Glucose (Misc Panel) 159H 09/01/19 16:38: Bedside Glucose (Misc Panel) 120H Microbiology Microbiology 08/31/19 Stool Occult Blood ([place]) - Final, Complete 08/30/19 Stool Occult Blood ([place]) - Final, Complete 08/27/19 Blood Culture - Preliminary, Resulted No Growth after 72 hours. All specime... 08/27/19 Respiratory Virus Panel (PCR) ([place]) - Final, Complete 08/27/19 Blood Culture - Preliminary, Resulted No Growth after 72 hours. All specime... GME ATTESTATION GME ATTESTATION My faculty preceptor for this patient encounter was physically present during the encounter and was fully available. All aspects of the patient interview, examination, medical decision making process, and medical care plan development were reviewed and approved by the faculty preceptor. The faculty preceptor is aware and concurs with the plan as stated in the body of this note and will attest to such by his/her cosignature. ATTENDING NOTE Patient was seen and examined by me this morning with the residents. Agree with the above assessment and plan AMANDO MCGINNIS D.O. Sep 01, 2019 17:50 CA CONNER MD Sep 02, 2019 11:30
[2019-09-01] MEDS: LEVEMIR (INSULIN DETEMIR) 1 UNITS/0.01ML SC SCH (21:36)
[2019-09-01 22:00] VITALS: BP 124/60
[2019-09-02 02:00] VITALS: BP 118/78
[2019-09-02] MEDS: IPRATROPIUM 0.5MG/ALBUTEROL 2.5MG INH SOL UD 3ML (DUONEB)(J7620) NEB SCH ×3 (02:00→14:00)
[2019-09-02 06:00] VITALS: BP 101/64
[2019-09-02] MEDS: HumaLOG INSULIN (NovoLOG) PER UNIT SC SCH ×2 (08:07→13:06)
[2019-09-02 08:08] VITALS: BP 101/64
[2019-09-02] MEDS: PANTOPRAZOLE 40MG TAB (PROTONIX) PO SCH (08:08)
[2019-09-02] MEDS: VITAMIN D 1,000 INTERNATIONAL UNITS TABLET PO SCH (08:08)
[2019-09-02] MEDS: DOCUSATE SODIUM 100 MG CAP PO SCH (08:08)
[2019-09-02 09:24] LABS: INR 1.07; PROTHROMBIN TIME 13.6 SECONDS (11.8-14.0)
[2019-09-02 09:25] LABS: PARTIAL THROMBOPLASTIN TIME 37.3 SECONDS (25.0-38.4)
--- NOTE | 2019-09-02 09:53 | DS.PDOC ---
Discharge Summary General Date of Admission Aug 27, 2019 at 19:17 Date of Discharge 09/02/19 Discharge Summary Chief complaints Shortness of breath Final diagnosis Multiple bilateral pulmonary emboli Type 2 diabetes Left lung opacity Hypertension History of present illness and Hospital course This is a 64-year-old female with history of pulmonary embolism after knee surgery, type 2 diabetes, hypertension, nephrolithiasis, and macular degeneration, who presented on 08/22/19 for shortness of breath that worsened in the emergency department. Patient was diagnosed with otitis media and sent home with antibiotics. Patient continued to complain of right-sided pleuritic chest pain and dyspnea on exertion. She subsequently presented back to the ED with CT a of the chest showing multiple pulmonary emboli on 08/27/19. Patient was subsequently admitted and placed on heparin drip. Heparin drip was discontinued on 09/01 and patient was switched over to subcutaneous Lovenox and oral Coumadin. Lovenox will be dosed at 95 mg bid for 7 days (1mg/kg). Coumadin was started 5 mg on day 1 (09/01), and then will revert to 3 mg daily. Today on discharge. Lovenox and Coumadin bridge will be continued for 5-7 days until INR goal between 2 and 3 is reached. Once patient's INR is between 2 and 3, Lovenox will be discontinued and Coumadin 3 mg daily will be continued until October. In October, patient's insurance becomes Medicare and she will be able to afford oral Eliquis. At that time, Coumadin will be switched Eliquis. Patient will have INR every 4 days for the first 2 weeks and then weekly to maintain an INR between 2- 3 Patient will remain on lifelong anticoagulation due to having two instances of pulmonary embolus, with the second being unprovoked even though the workup is initiated for hypercoagulable states and the patient probably will require to follow up with PCP/rheumatology to evaluate the further course. Patient does not want to be on insulin at this time and has had documented hyperglycemia on this admission. Patient will be discharged on 750 mg twice a day, metformin as her diabetes was uncontrolled upon presentation and she does not want to be on insulin. She has been counseled in detail regarding dietary modifications to go with consistent carb 1800-calorie diet. Has been advised to maintain a longer of her sugars so that she can go and visit her PCP in case her sugars are uncontrolled and she switched to insulin. We'll give her the supplies for that as well. Her CTA showed questionable left upper lobe opacity which is new compared to previous study in 2018 and she will follow up with [facility] and her primary program director substance abuse (Dr. Patterson) . Repeat CT in 3 months warranted to assess for persistence of opacity or resolution. This is especially concerning as patient doesn't pulmonary embolus and occult malignancy needs to be ruled out. Follow-up with pulmonary for that. PHYSICAL EXAMINATION: VITAL SIGNS: Please see below. GENERAL: Pleasant, interactive female who appears stated age. Appears to be in no acute distress. She is awake, alert and oriented 3. HEENT: Atraumatic, normocephalic. Anicteric sclera. Trachea is midline CARDIOVASCULAR: Regular rate and regular rhythm. Normal S1, S2. No murmurs, clicks or rubs appreciated. RESPIRATORY: Clear to auscultation bilaterally with adequate respiratory effort. No wheezes, crackles or rhonchi appreciated. Symmetric chest expansion. ABDOMINAL: Obese; soft, nontender, nondistended. No guarding or rigidity. Normoactive bowel sounds present throughout. EXTREMITIES: 1+ bilateral lower extremity pitting edema. There is no warmth, erythema or calf tenderness bilaterally. 2+ radial and posterior tibial pulses bilaterally. NEUROLOGICAL: Alert and oriented 3. No focal neurological deficits appreciated. PSYCHOLOGICAL: Mood and affect appear appropriate Medications: As per reconciliation medication list. Lovenox, Coumadin and metformin have been added Activity as tolerated Diet. 2 g sodium diet Follow-up appointments. PCP in 4 days with INR, pulmonary in 1 week Condition on discharge. Patient is medically optimized for discharge Discharge disposition: Home Total time spent on this discharge including coordination of care, review of chart documentation and actual contact is around 35 minutes Vital Signs/I&Os Vital Signs Date Time Temp Pulse Resp B/P (MAP) Pulse Ox O2 Delivery O2 Flow Rate FiO2 09/02/19 08:08 79 101/64 09/02/19 06:00 97.7 16 95 Room Air 08/28/19 12:00 2.0 I&O- Last 24 Hours up to 6 AM 09/02/19 06:00 Intake Total 1719 ml Balance 1719 ml Laboratory Data Labs 24H Laboratory Tests 2 09/01/19 11:31: Bedside Glucose (Misc Panel) 159H 09/01/19 16:38: Bedside Glucose (Misc Panel) 120H 09/01/19 20:37: Bedside Glucose (Misc Panel) 255H 09/02/19 05:39: Bedside Glucose (Misc Panel) 144H 09/02/19 07:36: Prothrombin Time 13.6, Prothromb Time International Ratio 1.07, Activated Partial Thromboplast Time 37.3 FSBS Laboratory Tests Test 09/01/19 11:31 09/01/19 16:38 09/01/19 20:37 09/02/19 05:39 Range/Units Bedside Glucose (Misc Panel) 159 120 255 144 80-115 MG/DL Microbiology Microbiology 08/31/19 Stool Occult Blood ([place]) - Final, Complete 08/30/19 Stool Occult Blood ([place]) - Final, Complete 08/27/19 Blood Culture - Final, Complete NO GROWTH AFTER 5 DAYS 08/27/19 Respiratory Virus Panel (PCR) ([place]) - Final, Complete 08/27/19 Blood Culture - Final, Complete NO GROWTH AFTER 5 DAYS Discharge Medications Scheduled Apixaban (Eliquis) 5 Mg Tablet, 10 MG PO ASDIRECTED 10 MG (2 TABS) TWICE PER DAY FOR 7 DAYS THEN 5 MG (1 TAB) TWICE PER DAY Ascorbic Acid (Vitamin C) 500 Mg Tablet, 500 MG PO DAILY, (Reported) Cholecalciferol (Vitamin D3) (Vitamin D3) 1,000 Unit Tablet, 1,000 UNIT PO DAILY, (Reported) Cyanocobalamin (Vitamin B-12) (Vitamin B-12) 1,000 Mcg Tablet, 1,000 MCG PO DAILY, (Reported) Scheduled PRN Acetaminophen (Tylenol Extra Strength) 500 Mg Tablet, 500 MG PO QID PRN for PAIN, (Reported) Albuterol Sulfate (Albuterol Sulfate Hfa) 8.5 Gm Hfa.aer.ad, 2 PUFF INH QID PRN for SHORTNESS OF BREATH, (Reported) Aspirin (Aspirin) 325 Mg Tablet, 325 MG PO DAILY PRN for PAIN, (Reported) STATES SHE TOOK 325MG AND TWO 81MG TABLETS 08/26/18 Oxycodone HCl/Acetaminophen (Oxycodone-Acetaminophen 5-325) 1 Tab Tab, 1 TAB PO Q6H PRN for PAIN, (Reported) TAKES WHEN SHE HAS KIDNEY STONES Tamsulosin Hcl (Tamsulosin HCl) 0.4 Mg Capsule, 0.4 MG PO DAILY PRN for KIDNEY STONES, (Reported) Allergies Coded Allergies: No Known Allergies (Verified , 03/06/18) CA CONNER MD Sep 02, 2019 09:53
[2019-09-02] MEDS ORDERED: LOVE1INJ SC (10:31)
[2019-09-02] MEDS ORDERED: COUM1TAB19 PO (10:37)
[2019-09-02] MEDS ORDERED: METF850T4 PO (11:03)
[2019-09-02] MEDS ORDERED: AMLO25TA PO (11:19)
[2019-09-02] MEDS: ENOXAPARIN 100MG/1ML SYRINGE (J1650) SC SCH (11:44)
[2019-09-02 14:00] VITALS: BP 127/77
[2019-09-03 14:21] LABS: ANCA-ATYPICAL <1:20 titer (Neg:<1:20); ANTI THROMBIN 3 ANTIGEN IMMUNO 96 % (72-124); ANTI THROMBIN 3 FUNCT ACTIVITY 126 % (75-135); CARDIOLIPIN IGA ANTIBODY <9 APL U/mL (0-11); CARDIOLIPIN IGG ANTIBODY <9 GPL U/mL (0-14); CARDIOLIPIN IGM ANTIBODY <9 MPL U/mL (0-12); CYTOPLASMIC NEUTROP AB ANCA-C <1:20 titer (Neg:<1:20); HOMOCYST(E)INE SERUM 6.2 umol/L (0.0-15.0); PERINUCLEAR AB ANCA-P <1:20 titer (Neg:<1:20); PROTEIN C ANTIGEN 179 % (60-150); PROTEIN S ANTIGEN FREE 96 % (57-157); PROTEIN S ANTIGEN TOTAL 141 % (60-150); SSA SJOGRENS A <0.2 AI (0.0-0.9); SSB SJOGRENS B <0.2 AI (0.0-0.9)
[2019-09-04 00:08] LABS: HEXAGONAL PHASE PHOSPHOLIPID 0 sec (0-11)
== END 2019-09-02 16:00 | disposition home or self-care (01) | DRG 134 ==
LOC: M ED 17:14 → M ED INP 19:17 → ENRESERVTM 19:46 → ENRESERVDT 19:46 → M PCU 21:00 → M MS5PR 08-28 15:01
PROVIDERS: ADMIT Internal Medicine; ATTEND Internal Medicine
DX: I26.99 Other pulmonary embolism without acute cor pulmonale (principal); J45.901 Unspecified asthma with (acute) exacerbation; I10 Essential (primary) hypertension; E11.9 Type 2 diabetes mellitus without complications; H35.30 Unspecified macular degeneration; Z79.899 Other long term (current) drug therapy; E78.5 Hyperlipidemia, unspecified; Z79.82 Long term (current) use of aspirin; Z87.442 Personal history of urinary calculi

== ENCOUNTER → 2019-09-07 | Outpatient (CLI) | payer OTHER ==
[~2019-09-07] MED LIST changes: +ACET-897 PO; +ALBU8.5H INH; +AMLO25TA PO; +ASPI325T57 PO; +C 50TAB PO; +CYAN100050 PO; +ELIQ5TAB PO; +LOVE1INJ SC; +METF850T4 PO; +TAMS1CAP17 PO; +VITA100066 PO
[2019-09-07 10:42] LABS: INR 1.96; PROTHROMBIN TIME 22.1 SECONDS (11.8-14.0)
== END ==
LOC: M LAB 09:51
PROVIDERS: ATTEND Internal Medicine
DX: I26.99 Other pulmonary embolism without acute cor pulmonale (principal)

== ENCOUNTER → 2020-01-27 | Outpatient (REF) | payer MEDICARE ==
[2020-01-27 14:25] LABS: ALT/SGPT 38 U/L (12-78); BLOOD UREA NITROGEN 16 MG/DL (7-18); CALCIUM LEVEL 9.5 MG/DL (8.8-10.2); CARBON DIOXIDE LEVEL 28 MEQ/L (21-32); CHLORIDE LEVEL 108 MEQ/L (98-107); CREATININE FOR GFR 0.73 MG/DL (0.55-1.30); GLOMERULAR FILTRATION RATE > 60.0 (>45); GLUCOSE, FASTING 169 MG/DL (70-100); POTASSIUM SERUM 4.2 MEQ/L (3.5-5.1); SODIUM LEVEL 141 MEQ/L (136-145)
[2020-01-27 14:26] LABS: ALBUMIN 3.7 GM/DL (3.2-5.2); BILIRUBIN,TOTAL 0.4 MG/DL (0.2-1.0); CHOLESTEROL LEVEL 252 MG/DL (<200); CHOLESTEROL RISK RATIO 5.727 (<5); HDL CHOLESTEROL 44 MG/DL (>40); LDL CHOLESTEROL 182 MG/DL (<100); MAGNESIUM LEVEL 2.1 MG/DL (1.8-2.4); NON-HDL-C 208 MG/DL; TRIGLYCERIDES LEVEL 129 MG/DL (<150)
[2020-01-27 14:34] LABS: HEMOGLOBIN A1c 7.9 %
[2020-01-27 14:54] LABS: MALB URINE SIEMENS 35.3 MG/L
== END ==
LOC: M PLALAB 11:11
PROVIDERS: ATTEND Internal Medicine
DX: I10 Essential (primary) hypertension (principal); E11.9 Type 2 diabetes mellitus without complications; E78.00 Pure hypercholesterolemia, unspecified

== ENCOUNTER → 2020-02-24 | Outpatient (CLI) | payer MEDICARE ==
[~2020-02-24] MED LIST changes: -ASPI81TA85 PO; +ASPI81TA86 PO; +PANT40TA29 PO; -PANT40TA3 PO
--- NOTE | 2020-02-24 12:42 | REP ---
REASON FOR EXAM: Followup pulmonary nodule. All prior examinations have been reviewed the latest of which is dated 08/27/2019 with the next latest prior being 11/21/2017. The latest prior exam showed the left upper lobe parenchymal opacity. There is no significant change in the appearance of the mediastinum or pulmonary anant. There is no significant change in the appearance of the imaged upper abdomen or imaged osseous structures. The abnormal ground-glass opacity in the left upper lobe seen on the latest prior exam has completely resolved. No abnormal nodules, masses, or opacities have developed. There is a small stable nodule in the left lower lobe which has been stable since 11/21/2017. IMPRESSION: The abnormal opacity seen previously in the left upper lobe has resolved. There is a stable left lower lobe nodule as described above. According to the revised Fleischner Society criteria, that nodule represents a category 2 lesion for which consideration should be made for yearly CT screening provided the patient's risk factors remain high. Electronically Signed by Сергей Denson DO 02/24/2020 05:20 P
== END ==
LOC: M RAD 07:58
PROVIDERS: ATTEND Internal Medicine
DX: R91.1 Solitary pulmonary nodule (principal)

== ENCOUNTER → 2020-07-13 | Outpatient (REF) | payer MEDICARE ==
[2020-07-13 14:13] LABS: ALBUMIN 4.1 GM/DL (3.2-5.2); ALT/SGPT 37 U/L (12-78); BILIRUBIN,TOTAL 0.6 MG/DL (0.2-1.0); BLOOD UREA NITROGEN 15 MG/DL (7-18); CALCIUM LEVEL 9.8 MG/DL (8.8-10.2); CARBON DIOXIDE LEVEL 29 MEQ/L (21-32); CHLORIDE LEVEL 104 MEQ/L (98-107); CHOLESTEROL LEVEL 169 MG/DL (<200); CHOLESTEROL RISK RATIO 3.072 (<5); CREATININE FOR GFR 0.74 MG/DL (0.55-1.30); GLOMERULAR FILTRATION RATE > 60.0 (>45); GLUCOSE, FASTING 125 MG/DL (70-100); HDL CHOLESTEROL 55 MG/DL (>40); LDL CHOLESTEROL 92 MG/DL (<100); NON-HDL-C 114 MG/DL; POTASSIUM SERUM 4.5 MEQ/L (3.5-5.1); SODIUM LEVEL 139 MEQ/L (136-145); TOTAL PROTEIN 7.3 GM/DL (6.4-8.2); TRIGLYCERIDES LEVEL 109 MG/DL (<150)
[2020-07-13 14:57] LABS: HEMOGLOBIN A1c 7.3 %
== END ==
LOC: M PLALAB 09:24
PROVIDERS: ATTEND Internal Medicine
DX: E78.00 Pure hypercholesterolemia, unspecified (principal); I10 Essential (primary) hypertension; E11.9 Type 2 diabetes mellitus without complications

== ENCOUNTER → 2021-01-24 | Outpatient (REF) | payer MEDICARE ==
[2021-01-24 14:09] LABS: HEMATOCRIT 44.1 % (36.0-47.0); HEMOGLOBIN 14.1 g/dl (12.0-15.5); MEAN CORPUSCULAR VOLUME 90.7 fl (80.0-96.0); PLATELET COUNT, AUTOMATED 284 10^3/uL (150-450); RED BLOOD COUNT 4.86 10^6/uL (4.00-5.40); WHITE BLOOD COUNT 6.7 10^3/uL (4.0-10.0)
[2021-01-24 14:56] LABS: MALB URINE SIEMENS 8.4 MG/L; MAU/CREAT RATIO 6.2 MCG/MG (0.0-30.0)
[2021-01-24 15:00] LABS: ALBUMIN 3.7 GM/DL (3.2-5.2); ALT/SGPT 29 U/L (12-78); BILIRUBIN,TOTAL 0.3 MG/DL (0.2-1.0); BLOOD UREA NITROGEN 22 MG/DL (7-18); CALCIUM LEVEL 9.8 MG/DL (8.8-10.2); CARBON DIOXIDE LEVEL 28 MEQ/L (21-32); CHLORIDE LEVEL 107 MEQ/L (98-107); CHOLESTEROL LEVEL 171 MG/DL (<200); CHOLESTEROL RISK RATIO 4.071 (<5); CREATININE FOR GFR 0.73 MG/DL (0.55-1.30); GLOMERULAR FILTRATION RATE > 60.0 (>45); GLUCOSE, FASTING 196 MG/DL (70-100); HDL CHOLESTEROL 42 MG/DL (>40); LDL CHOLESTEROL 94 MG/DL (<100); NON-HDL-C 129 MG/DL; POTASSIUM SERUM 4.2 MEQ/L (3.5-5.1); SODIUM LEVEL 141 MEQ/L (136-145); TOTAL PROTEIN 6.7 GM/DL (6.4-8.2); TRIGLYCERIDES LEVEL 176 MG/DL (<150)
[2021-01-24 16:00] LABS: HEMOGLOBIN A1c 6.9 %
== END ==
LOC: M PLALAB 10:40
PROVIDERS: ATTEND Internal Medicine
DX: G47.33 Obstructive sleep apnea (adult) (pediatric) (principal); I10 Essential (primary) hypertension; E11.9 Type 2 diabetes mellitus without complications; E78.00 Pure hypercholesterolemia, unspecified

== ENCOUNTER → 2021-02-04 | Outpatient (CLI) | payer MEDICARE ==
--- NOTE | 2021-02-04 09:50 | REP ---
INDICATION: PULMONARY NODULE COMPARISON: Multiple the latest 02/24/2020 TECHNIQUE: Standard helical technique without intravenous contrast administration FINDINGS: The mediastinum and pulmonary anant are stable. There is no mass or adenopathy. There is no pleural or pericardial effusion. There is no change in the imaged upper abdomen or imaged osseous structures. Evaluation of the lung luna shows no change in the left lower lobe nodule. There are no new abnormal nodules, masses, or opacities. IMPRESSION: Stable CT examination of the chest. The left lower lobe nodule has been stable for years. There are no new abnormal nodules, masses, or opacities. Follow-up as per the revised Fleischner society criteria. <Electronically signed by Сергей Denson > 02/04/21 0928
== END ==
LOC: M RAD 09:18
PROVIDERS: ATTEND Internal Medicine
DX: R91.1 Solitary pulmonary nodule (principal)

== ENCOUNTER → 2021-03-13 | Outpatient (CLI) | payer MEDICARE ==
--- NOTE | 2021-03-13 14:09 | REP ---
INDICATION: Z87.442 HISTORY OF KIDNEY STONES. COMPARISON: Multiple the latest 05/15/2019 FINDINGS: The large calcifications seen previously in the left upper quadrant superimposed over the left nephric silhouette region is unchanged. Right donaldo pelvic calcifications consistent with phleboliths status quo. No new abnormal calcifications seem to have developed on this limited plain film exam. The osseous structures are unchanged. The intestinal gas pattern is nonspecific. IMPRESSION: Calcifications as described above. <Electronically signed by Сергей Denson > 03/13/21 [id number]
== END ==
LOC: M PLALAB 13:40 → M PLAIMG 13:40
PROVIDERS: ATTEND Nurse Practitioner Women's Health
DX: Z87.442 Personal history of urinary calculi (principal)

== ENCOUNTER → 2021-03-23 | Outpatient (CLI) | payer MEDICARE ==
--- NOTE | 2021-03-23 08:53 | REP ---
INDICATION: Z12.39 SCREENING MAMMO. COMPARISON: 07/13/2019. TECHNIQUE: MLO and CC views bilateral breasts performed with tomosynthesis. FINDINGS: There is mild scattered fibroglandular tissue bilaterally. There is a fairly well-defined, smoothly marginated nodule in the inferomedial left breast measuring 4 x 6 mm. No other mass or nodule is seen bilaterally. Coarse benign type calcifications are present without evidence of clustered microcalcifications. The Volpara volumetric breast density pattern is A. IMPRESSION: BIRADS/ACR category 0, incomplete. New 4 x 6 mm smoothly marginated nodule inferomedial left breast. Recommend spot compression views and ultrasound to further evaluate. This patient's Tyrer-Cuzick lifetime breast cancer risk assessment score is 3.8%. This mammogram was interpreted with the aid of an FDA-approved computer-aided detection system. The patient states she had a clinical breast exam in over 1 year ago. The patient letter being requested is M0. RECOMMENDATION: Recommend spot compression views and ultrasound left breast. <Electronically signed by Davian Arenas > 03/23/21 [id number]
== END ==
LOC: M WHC 06:48
PROVIDERS: ATTEND Internal Medicine
DX: Z12.31 Encounter for screening mammogram for malignant neoplasm of breast (principal); N63.20 Unspecified lump in the left breast, unspecified quadrant; R92.1 Mammographic calcification found on diagnostic imaging of breast

== ENCOUNTER → 2021-04-28 | Outpatient (CLI) | payer MEDICARE ==
--- NOTE | 2021-04-28 15:40 | REP ---
INDICATION: LEFT BREAST ADD VIEWS. COMPARISON: Multiple the latest 03/23/2021 TECHNIQUE: Diagnostic digital spot compression DBT images of the left breast were obtained in the CC and MLO projections over a boo density seen on the prior screening examination at the 6 o'clock position. Additionally, diagnostic ultrasonography was obtained. FINDINGS: The small nodular density seen on the prior screening examination persists on the diagnostic digital DBT spot compression views. Diagnostic ultrasonography of this area shows a tiny 3 mm sized hypoechoic nodule. Shear wave elastography was performed on this showing low KPA values. IMPRESSION: BIRADS/ACR category 4 mammogram. The small lesion seen in the left breast mammographically and ultrasonographically cannot be confirmed as a simple cyst. A small complex cyst is possible, however, my concern is that the finding could represent a tiny neoplasm. A biopsy is recommended at this time. The patient letter being requested is M4. RECOMMENDATION: As above <Electronically signed by Сергей Denson > 04/28/21 [id number]
== END ==
LOC: M WHC 13:41
PROVIDERS: ATTEND Internal Medicine
DX: R92.2 Inconclusive mammogram (principal); N63.25 Unspecified lump in the left breast, overlapping quadrants
CPT/HCPCS: 76642; 77065; G0279

== ENCOUNTER → 2021-05-24 | Outpatient (CLI) | payer MEDICARE ==
[~2021-05-24] MED LIST changes: +FAMO40TA3 PO; +LIPI20TA PO
[2021-05-24 08:36] VITALS: BP 144/88
--- NOTE | 2021-05-24 21:59 | ROOPDOC ---
[facility] Report Of Operation Report of Operation Date of the procedure:05/24/2021 Diagnosis: Left cystic lesion Procedure:Ultrasound guided aspiration of Left breast cystic lesion Proceduralist: Radha Akers D.O. EBL: minimal Lidocaine 1% LOT [id number] Expiration: 11/2023 Sodium Bicarbonate 8.4% LOT [id number] Expiration: 09/2021 Procedure details: Informed consent was obtained. The most common risk and possible complications including bleeding, hematoma, bruising, infection, injury to surrounding structures were explained to the patient and she expressed understanding. Patient was taken to the procedure room and placed on the bed in the supine position. Appropriate time out was done stating patients name, date of , and the procedure to be performed. The left breast was prepped and draped in the usual fashion. The ultrasound was used to confirm the location of the left breast cystic lesion thought to correlate with mammographic target at 6:00 4 centimeters from the nipple. Plain Lidocaine 1% and 8.4% sodium bicarbonate 10:1 mix was used to anesthetize the skin, and tissues along the anticipated aspiration tract. 18 G needle was used to aspirate cyst under ultrasound guidance. Aspirated fluid was serosanguinous and was sent for evaluation. About 0.5 cc was aspirated. The c ystic lesion completely collapsed and images were captured. Manual pressure over the cyst aspiration site and tract was held. No bleeding was noted upon removal of the pressure. Postprocedural mammogram of the left breast was done and showed persistence of mammographic target despite resolution of sonographic target. Patient tolerated procedure well. Discharge instructions were discussed with the patient and she expressed understanding. RADHA AKERS DO May 24, 2021 21:59
== END ==
LOC: M WHCPRO 07:24
PROVIDERS: ATTEND Surgery
DX: R92.8 Other abnormal and inconclusive findings on diagnostic imaging of breast (principal)
CPT/HCPCS: 10005; 77065; 88173; G0279

== ENCOUNTER → 2021-06-01 | Outpatient (CLI) | payer MEDICARE ==
[2021-06-01 14:05] VITALS: BP 132/84
--- NOTE | 2021-06-01 15:04 | REP ---
INDICATION: STEREO BX MASS LEFT BREAST ON MAMMO, MAMMO FOR CLIP PLACEMEN. COMPARISON: 03/23/2021, 04/28/2021. TECHNIQUE: ML, MLO and cc views are obtained following stereotactic biopsy of a subcentimeter nodule in the inferior aspect of the left breast. Cc tomographic sequences also performed. FINDINGS: The immediate post biopsy stereotactic images show good clip placement adjacent to the biopsied nodule. The post stereotactic biopsy images show that the clip is displaced approximately 9 cm superior to the biopsied nodule likely due to accordion affect when releasing mammographic compression. IMPRESSION: The clip is deployed superior to the nodule likely due to accordion affect, following stereotactic biopsy of the subcentimeter nodule in the inferior left breast. RECOMMENDATION: Clinical follow-up. <Electronically signed by Davian Arenas > 06/01/21 6291
--- NOTE | 2021-06-02 16:27 | REP ---
INDICATION: STEREO BX MASS LEFT BREAST ON MAMMO, MAMMO FOR CLIP PLACEMEN. COMPARISON: None. TECHNIQUE: This procedure is performed by Jewels Miller [facility], under the direct supervision of Dr. Arenas. The risks and benefits of the procedure were explained to the patient and informed consent was obtained both verbally and written. Directly prior to the start of the procedure, a formal timeout was done in the procedure room. The cranial caudal inferior to superior approach was utilized on the prone table. The left breast nodule was localized using mammographic guidance. The skin was prepped and draped in a sterile fashion. Three ml of buffered lidocaine was initially used as a local anesthetic. FINDINGS: A 10 gauge mammotome vacuum assisted biopsy device was inserted and advanced into the breast lesion and 6 core biopsy samples were obtained. During the biopsy the patient experienced some pain so another 7 mL of buffered lidocaine was inserted through the biopsy device. A shaped 3 marker clip was placed at the biopsy site. The patient tolerated the procedure well and there were no immediate complications. After the appropriate amount of monitored convalescence the patient was discharged from the department. IMPRESSION: Stereotactic guided left breast biopsy and micro clip placement. <Electronically signed by Jewels Miller > 06/02/21 2558 <Electronically signed by Davian Arenas > 06/02/21 4719
== END ==
LOC: M WHCPRO 07:55
PROVIDERS: ATTEND Surgery
DX: C50.112 Malignant neoplasm of central portion of left female breast (principal); N63.20 Unspecified lump in the left breast, unspecified quadrant

== ENCOUNTER → 2021-06-08 | Outpatient (CLI) | payer MEDICARE ==
[2021-06-08 13:51] LABS: BLOOD UREA NITROGEN 16 MG/DL (7-18); CALCIUM LEVEL 9.4 MG/DL (8.8-10.2); CARBON DIOXIDE LEVEL 31 MEQ/L (21-32); CHLORIDE LEVEL 105 MEQ/L (98-107); CREATININE FOR GFR 0.74 MG/DL (0.55-1.30); GLOMERULAR FILTRATION RATE > 60.0 (>45); GLUCOSE, FASTING 256 MG/DL (70-100); POTASSIUM SERUM 4.6 MEQ/L (3.5-5.1); SODIUM LEVEL 139 MEQ/L (136-145)
== END ==
LOC: M PLALAB 09:52
PROVIDERS: ATTEND Surgery
DX: C50.912 Malignant neoplasm of unspecified site of left female breast (principal)

== ENCOUNTER → 2021-06-23 | Outpatient (CLI) | payer MEDICARE ==
[~2021-06-23] MED LIST changes: +PROHANCE 279.3MG/ML 15ML VIAL As Ordered ONE; +PROHANCE 279.3MG/ML 5ML VIAL As Ordered ONE
--- NOTE | 2021-06-23 17:16 | REP ---
INDICATION: INVASIVE DUCTAL CA OF LT BREAST. COMPARISON: Mammogram 03/23/2021, 04/28/2021 as well as other prior exams. TECHNIQUE: Three Conchita MRI imaging was performed with a dedicated breast coil. Axial, coronal, and sagittal T1 and T2 weighted scans were obtained with and without fat saturation in the usual fashion. The study includes dynamically acquired post gadolinium-enhanced imaging with image subtraction. Maximum intensity projection and multi planar reformation imaging is included as well. This study is interpreted with the aid of JackpocketD, an FDA approved computer aided detection (CAD) software program, on a dedicated breast MRI workstation. The gadolinium enhancement dose is 18 mL of intravenous ProHance. FINDINGS: Mild scattered fibroglandular tissue is present bilaterally. No axillary adenopathy is seen. No significant cystic change is seen in either breast. There is mild background parenchymal enhancement. There is an enhancing nodule in the 6 o'clock position of the left breast measuring 6 mm in diameter. This represents the recently biopsied cancer. The deployed biopsy clip is 6 cm above the nodule. There is no other evidence of suspicious enhancing mass or morphologic abnormality. IMPRESSION: BI-RADS category 6, known left breast cancer. The recently biopsied cancer in the left breast is seen at 6 o'clock as an enhancing nodule, measuring 6 mm in diameter. The biopsy clip is 6 cm superior to the nodule. There is no other evidence of suspicious enhancing mass or morphologic abnormality. <Electronically signed by Davian Arenas > 06/23/21 1955
== END ==
LOC: M RAD 14:20
PROVIDERS: ATTEND Surgery
DX: C50.912 Malignant neoplasm of unspecified site of left female breast (principal)
CPT/HCPCS: A9576; C8908

== ENCOUNTER → 2021-06-27 | Outpatient (CLI) | payer MEDICARE ==
[~2021-06-27] MED LIST changes: +D31000TA2 PO; +LETR2.5T2 PO; -PROHANCE 279.3MG/ML 15ML VIAL As Ordered ONE; -PROHANCE 279.3MG/ML 5ML VIAL As Ordered ONE; +ROXI1TAB2 PO; +WARF-58 PO
[2021-06-27 12:20] VITALS: BP 140/82
--- NOTE | 2021-06-27 13:36 | REP ---
INDICATION: LEFT BREAST STEREO CLIP PLACEMENT OF 4 MM NODULE. COMPARISON: 04/28/2021, multiple prior mammograms, most recently 06/01/2021. TECHNIQUE: Real-time sonographic evaluation of left breast performed. FINDINGS: The biopsied nodule in the inferior left breast is not visualized sonographically. The previously placed biopsy clip is present superior to the small nodule that was biopsied.. IMPRESSION: A HydroMARK clip will be placed at the site of the nodule using stereotactic guidance, since the nodule cannot be visualized sonographically. RECOMMENDATION: None. <Electronically signed by Davian Arenas > 06/27/21 0843
--- NOTE | 2021-06-28 07:52 | REP ---
INDICATION: LEFT BREAST STEREO CLIP PLACEMENT OFO 4 MM NODULE. COMPARISON: 06/01/2021, 04/28/2021, 03/23/2021. TECHNIQUE: ML and CC views left breast. FINDINGS: A HydroMARK clip is placed at the site of the subcentimeter nodule inferomedially in the left breast which was recently biopsied. IMPRESSION: Appropriate HydroMARK clip placement at the site of the subcentimeter nodule that was recently biopsied, located in the inferior medial left breast. RECOMMENDATION: None. <Electronically signed by Davian Arenas > 06/27/21 0587
--- NOTE | 2021-06-28 17:21 | REP ---
INDICATION: LEFT BREAST STEREO CLIP PLACEMENT 4 MM NODULE ON MAMMO. COMPARISON: None. TECHNIQUE: The procedure was performed under the general supervision of Dr. Arenas. The patient has a history of a new density in the 6 o'clock position of the left breast seen on a previous mammogram dated 04/28/2021. This was biopsied stereotactically on 06/01/2021. However, the clip was deployed superior to the nodule which was likely due to accordion affect. The patient is referred for stereotactic marker clip placement at the original nodule site. The risks and benefits of the procedure were explained to the patient and informed consent was obtained. A mediolateral approach was utilized. The nodule was localized using stereotactic mammographic guidance. 10 mL of 1% Xylocaine was used as a local anesthetic. A 10 gauge, suction assisted Mammotome needle was inserted. A marker clip(HydroMARK shape 1) was placed at the site of the nodule. The patient tolerated the procedure well and there were no immediate complications. After the appropriate amount of monitored convalescence, the patient was discharged from the department. EBL: Less than 1 mL FINDINGS: None IMPRESSION: Stereotactic marker clip placement(HydroMARK shape 1) <Electronically signed by Zachery Guadarrama > 06/28/21 1351 <Electronically signed by Davian Arenas > 06/28/21 3070
== END ==
LOC: M WHCPRO 08:13
PROVIDERS: ATTEND Surgery
DX: C50.312 Malignant neoplasm of lower-inner quadrant of left female breast (principal)
CPT/HCPCS: 19283; 76642; 77065; A4648

== ENCOUNTER → 2021-07-04 | Outpatient (CLI) | payer MEDICARE ==
[~2021-07-04] MED LIST changes: -D31000TA2 PO; -LETR2.5T2 PO; -WARF-58 PO
--- NOTE | 2021-07-04 16:01 | REP ---
INDICATION: OBSTRUCTIVE SLEEP APNEA (ADULT) (PEDIATRIC) COMPARISON: 08/27/2019 TECHNIQUE: PA and lateral. FINDINGS: The mediastinum and cardiac silhouette are normal. The lung luna are clear and without acute consolidation, effusion, or pneumothorax. The skeletal structures are intact and normal. IMPRESSION: No acute cardiopulmonary process. <Electronically signed by Geronimo Palmer > 07/04/21 4005
[2021-07-04 17:03] LABS: BASO # 0.1 10^3/uL (0.0-0.2); BASO % 0.4 % (0.0-1.0); EOS # 0.2 10^3/uL (0.0-0.5); EOS % 1.4 % (0.0-3.0); HEMATOCRIT 45.5 % (36.0-47.0); HEMOGLOBIN 14.6 g/dl (12.0-15.5); MEAN CORPUSCULAR HEMOGLOBIN 28.9 pg (27.0-33.0); MEAN CORPUSCULAR HGB CONC 32.1 g/dl (32.0-36.5); MEAN CORPUSCULAR VOLUME 89.9 fl (80.0-96.0); MONO # 0.8 10^3/uL (0.0-0.8); MONO % 6.3 % (2.0-8.0); NEUTROPHILS # 8.8 10^3/uL (1.5-8.5); NEUTROPHILS % 74.5 % (36.0-66.0); PLATELET COUNT, AUTOMATED 342 10^3/uL (150-450); RED BLOOD COUNT 5.06 10^6/uL (4.00-5.40); WHITE BLOOD COUNT 11.8 10^3/uL (4.0-10.0)
[2021-07-04 17:22] LABS: INR 1.9; PROTHROMBIN TIME 22.2 SECONDS (12.7-14.5)
[2021-07-04 17:23] LABS: PARTIAL THROMBOPLASTIN TIME 39.3 SECONDS (25.9-37.0)
[2021-07-04 17:25] LABS: ALBUMIN 3.9 GM/DL (3.2-5.2); ALT/SGPT 46 U/L (12-78); BILIRUBIN,TOTAL 0.3 MG/DL (0.2-1.0); BLOOD UREA NITROGEN 17 MG/DL (7-18); CALCIUM LEVEL 9.5 MG/DL (8.8-10.2); CARBON DIOXIDE LEVEL 28 MEQ/L (21-32); CHLORIDE LEVEL 103 MEQ/L (98-107); CREATININE FOR GFR 0.88 MG/DL (0.55-1.30); GLOMERULAR FILTRATION RATE > 60.0 (>45); GLUCOSE, FASTING 373 MG/DL (70-100); NT-PRO BNP 24 PG/ML (<125); POTASSIUM SERUM 4.1 MEQ/L (3.5-5.1); SODIUM LEVEL 137 MEQ/L (136-145); TOTAL PROTEIN 7.2 GM/DL (6.4-8.2)
[2021-07-04 17:26] LABS: D-DIMER QUANT 336.89 ng/ml (<500)
== END ==
LOC: M PLAIMG 15:19
PROVIDERS: ATTEND Family Medicine
DX: G47.33 Obstructive sleep apnea (adult) (pediatric) (principal); J45.20 Mild intermittent asthma, uncomplicated; R06.00 Dyspnea, unspecified; Z86.711 Personal history of pulmonary embolism

== ENCOUNTER → 2021-07-05 | Outpatient (CLI) | payer MEDICARE ==
[~2021-07-05] MED LIST changes: -ROXI1TAB2 PO
--- NOTE | 2021-07-05 15:17 | REP ---
INDICATION: ZAIRE LEG PAIN SWELLING H/O PE ? DVT COMPARISON: None. TECHNIQUE: Arenas scale and color Doppler evaluation using linear high frequency transducer. FINDINGS: Ultrasound examination of the right and left lower extremity deep venous structures from the common femoral vein through the calf/ankle to include the peroneal, and tibial veins demonstrates normal compressibility flow and wave patterns in response to respiration and augmentation. There is no evidence for deep venous thrombosis. Small 17 x 6 x 18 mm cystic collection with mural calcification in the left popliteal fossa suggests complex Nolasco's cyst. IMPRESSION: No evidence for deep venous thrombosis. Complex Nolasco's cyst left popliteal fossa. <Electronically signed by Geronimo Palmer > 07/05/21 6106
== END ==
LOC: M RAD 14:34
PROVIDERS: ATTEND Family Medicine
DX: M71.22 Synovial cyst of popliteal space [Baker], left knee (principal); Z86.711 Personal history of pulmonary embolism

== ENCOUNTER → 2021-07-15 | Outpatient (CLI) | payer MEDICARE | LOC: M LABSMTC 10:10 | PROVIDERS: ATTEND Anesthesiology | DX: Z01.812 Encounter for preprocedural laboratory examination (principal); Z20.822 Contact with and (suspected) exposure to COVID-19 ==

== ENCOUNTER 2021-07-18 07:01 | Day surgery (SDC) | payer MEDICARE ==
[~2021-07-18] VITALS: Ht 157.5 cm; Wt 92.1 kg
[~2021-07-18 07:01] MED LIST changes: +HEPARIN SOD (PORCINE) 5000UNITS/ML 1ML VIAL/SYRINGE SQ ONE; +LR 1,000 ML IV ONE; +NS 1,000 ML IV SCH; +ceFAZolin SOD 2 GM in IV 1 EA IV ONE
--- OUTSIDE RECORDS SUMMARY | 2021-07-18 07:04 | CCD ---
Author Author [facility] Organization [facility] Address Unknown Phone Unavailable Care Team Providers Care Computer Lab Aide Name Role Phone Mary Mcdaniel Unavailable PROBLEMS Type Condition ICD9-CM Code WHY42-EO Code Onset Dates Condition S tatus W/U Status Risk SNOMED Code Notes Problem Diabetes mellitus E11.9 Active confirmed [id number] She had historically been on metformin at a dose of 500mg once daily and glipizide daily. Her hemoglobin A1c was controlled in the past but probably more elevated 11.9% in August 2017 when she was hospitalized for her pulmonary emboli. She had glipizide added to her regimen in mid August 2017, and her hemoglobin A1c had dropped steadily and with a keto diet her HgbA1c dropped off medication to 6.2 % in 02/2018, 6.4% in August 2018, minna to 7.6% as of June 2019 and 7.9% in January 2020, 7.3% in 06/2020, 6.9% in January 2021 . Urine microalbumin had elevated to 170 mcg/mg of creatinine in October 2017 but she had hematuria at that time, and her urine microalbumin was negative in January 2020 in January 2021. She was transiently on Levemir after her August 2017 hospitalization. She stopped her Levemir in September 2017 and further stopped her glipizide and metformin in Spring-Summer 2017. With her admission for recurrent pulmonary emboli in August 2019, her hemoglobin A1c was up to 8.7% and she was discharged on metformin therapy; home glucoses have been in the 200s and I added glipizide to her regimen again as of late August 2019. She had stopped both medications as of her visit in October 2019 and remains off her medications as of January 2021. Problem Hypertension I10 Active confirmed 1800202 3 She was on hydrochlorothiazide in the past but this was discontinued with her hospital stay in August 2017 and since then her blood pressure had become suboptimally controlled again. She was started on benazepril therapy as of early November 2017 but she ultimately stopped that medication. She was started on amlodipine during her August 2019 hospitalization but she really should be on benazepril due to her diabetes and this was reinitiated to replace amlodipine, as of late August 2019. She has stopped her benazepril because of controlled home blood pressures, as of early 2019. She may need the JENNA inhibitor restarted if she develops microalbuminuria. Problem Macular degeneration H35.30 Active confirmed [id number] She had prior Avastin injections in the left eye but these apparently were ineffective. This may relate to her prior retinal detachment 2011, which is now nearly complete and she has almost no vision in the left eye. This is not a treatable condition apparently. Problem Gastroesophageal reflux K21.9 Active confirmed [id number] She has historically been on omeprazole in the past, and was started on Protonix as of October 2017. She is off that now but takes famotidine daily. Problem lab pack chemist (current) use of anticoagulants Z79.01 Active confirmed [id number] Problem Anticoagulation monitoring, INR range 2-3 Z79.01 Active confirmed 630972315 Adjustments made. Problem Slow transit constipation K59.01 Active confirmed [id number] MiraLAX as prescribed on a scheduled basis, perhaps twice weekly. Problem BANKS (dyspnea on exertion) R06.09 Active confirmed 17022220 She has a history of asthma and dyspnea on exertion. There may have been a contribution from her pulmonary emboli but I did have her start Breo therapy for a month as of October 2017. She is no longer using that and her symptoms are controlled. She is also seeing a enterostomal therapy nurse. Problem Ureteral stone with hydronephrosis N13.2 Activ e confirmed 746013147 Problem Other chest pain R07.89 Active confirmed 298 68587 She probably had nonischemic chest pain in early November 2017 but I believe a stress echocardiogram was negative in Spring 2017--I do not have a report on that study, but she was reassured by the postdoctoral scholar. I do not think this reflects reflux or esophageal disease, and she is on Protonix anyway. She could not take nonsteroidal anti- inflammatory drugs for musculoskeletal pain because she is on warfarin. She was started on benazepril therapy since early November 2017 but has stopped that and her BP is controlled. Problem Obstructive sleep apnea syndrome G47.33 Active conf irmed [id number] She had a sleep study and is seeing a enterostomal therapy nurse. She is using CPAP. Problem History of kidney stones Z87.442 Active confirmed 194454415 She has had prior kidney stones and is being followed by urology. She has 2 left intrarenal stones and still passes a fragment occasionally. It is quite painful when that happens. I have prescribed tramadol. She takes Flomax as needed. Problem Mild intermittent asthma without complication J45. 20 Active confirmed 290106399 She has had a pulmon ology consultation back in Fall 2017 with a methacholine challenge and it is felt that she has mild intermittent asthma likely exacerbated by URIs and cold weather. She was on prednisone during her August 2019 hospital stay but is off that now and any dyspnea she is experiencing probably relates to her most recent pulmonary emboli in August 2019. Problem Kidney stones N20.0 Active confirmed 907518 07 Problem Encounter for therapeutic drug level monitoring Z5 1.81 Active confirmed 324393679 Problem Immunization due Z23 Active confirmed 171 871140 Tdap given 01/30/2021; needs Prevnar in 07/2021. Problem lab pack chemist current use of anticoagulant Z79.01 A ctive confirmed 399818998 Problem Asthma, mild intermittent J45.20 Active confirmed 228115912 Problem History of pulmonary embolism Z86.711 Active confir med 098025152 She had bilateral pulmonary emboli in August 2017, about 3 weeks after she had left knee arthroscopy. No DVT was identified. Her workup for hypercoagulability was not definitely abnormal. No residual pulmonary emboli were identified on CT scan in the emergency department 11/21/2017, and her Coumadin was discontinued the last day of December 2017 and replaced with 81 mg aspirin daily. Unfortunately she had unprovoked pulmonary emboli in August 2019 and was placed on IV heparin, then Lovenox bridging and Coumadin therapy (her insurance would not pay for Eliquis). She is going to be on lifelong anticoagulation. Problem ESTHER (obstructive sleep apnea) G47.33 Active confirm ed 80324540 Problem Hypercholesterolemia E78.00 Active confirmed 73921234 She has hyperlipidemia, last assessed in January 2021. She was prescribed atorvastatin in 05/2013 but she had severe muscle discomforts with that. I represcribed a statin in May 2014 but she did not start it. As of October 2017 I recommended Crestor therapy 5 mg daily. Her insurance will not pay for that but will only cover a less effective statin such as simvastatin or pravastatin. I reluctantly presc ribed pravastatin in the recent past but she is not on that. I have restarted low low dose atorvastatin as of January 2020 and her lipid panel in January 2021 is reasonable. Problem Pulmonary nodule R91.1 Active confirmed [address] of her chest in August 2017 there was a 7 mm noncalcified left lower lobe pulmonary nodule and as of November 2017, she had a CT pulmonary angiogram again in the emergency department on 11/21/2017 and there was no mention of any pulmonary nodule. Her CT pulmonary angiogram in August 2019 demonstrated a left upper lobe density and multiple pulmonary emboli. She had a followup CT in January 2020; the BELÉN density was gone but she had a stable nodule. She is apparently also followed by the pulmonology group now. Repeat CT ordered 01/2021. Problem Abnormal mammogram of left breast R92.8 Active confirmed 157906143 Problem Invasive ductal carcinoma of left breast C50.912 Active confirmed 238263477 Problem BANKS (dyspnea on exertion) R06.00 Active confirmed 00262654 Problem Diabetes mellitus type 2, controlled E11.9 Act stephy confirmed [id number] ALLERGIES No Known Allergies ENCOUNTERS from 1955 to 2021-07-12 Encounter Location Date Provider Diagnosis [facility] [phone] [place] [address] 17 Jun, 2021 Mary Mcdaniel IMMUNIZATIONS Vaccine Route Administration Date Status TDAP 0.5mL Boostrix IM Intramuscular January 30, 2021 Administere d Pneumococcal Adult 0.5mL Pneumovax 23 IM Intramuscular Jul 10, 2 020 Administered TDAP Unknown Aug 19, 2007 Administered Influenza 6mo & up Fluzone Unknown May 19, 2014 Admin istered SOCIAL HISTORY Tobacco Use: Social History Observation Description Date Details (start date - stop date) Never Smoker Sex Assigned At : Social History Observation Description Sex Assigned At Unknown Audit Question Answer Notes Total Score: 0 Interpretation: Alcohol Education Drug and Alcohol Question Answer Notes Total Score: 0 Interpretation: No problems reported Tobacco Use: Question Answer Notes Are you a: never smoker never smoker REASON FOR REFERRAL No Information VITAL SIGNS No information MEDICATIONS Medication SIG (Take, Route, Frequency, Duration) Notes Start Da te End Date Status Cholecalciferol 5000 UNIT 2 tablet Orally Once a day Active CPAP mask as directed G47.33 Daily. H er present mask broke--please replace for 180 days December, Active Lancet Device - as directed DX: E11.9 Daily use, three times a day for 90 day(s) Aug, Active CPAP Machine Active Lidocaine-Prilocaine 2.5-2.5 % apply entire tube to le ft nipple and surrounding tissue 2 hours prior to coming to hospital for surgery. Cover with plastic Externally once for 1 day May, Active Glucometer _ A glucometer her insurance w ill pay for DX: E11.9 Daily for 365 days Aug, Active Famotidine 40 MG TAKE ONE TABLET BY MOUTH AT BEDTIME for 30 Active Coumadin 3 MG TAKE ONE TABLET BY MOUTH EVERY DAY except for saturday Active Blood Glucose Test - To match the machine her ins urance will pay for In Vitro, DX: E11.9 3 times a day for 30 Days Aug, Active Albuterol Sulfate HFA 108 (90 Base) MCG/ACT 2 puffs In halation Every 4 hours as needed for SOB, Wheeze, Cough prn Ac tive Atorvastatin Calcium 20 MG 1 tablet Orally Once a day on Saturday/Saturday/Saturday for 90 Active Lancets - as directed DX: E11.9 Three times a day for 90 days Aug, Active levoFLOXacin 750 MG 1 tablet Orally Once a day for 10 day(s) Active PROCEDURES No Information RESULTS No Results REASON FOR VISIT cancel surgery MEDICAL (GENERAL) HISTORY Type Description Date Medical History Diabetes mellitus Medical History Hypertension Medical History History of pulmonary embolism Medical History Obstructive sleep apnea syndrome Medical History Gastroesophageal reflux Medical History Macular degeneration Medical History Hypercholesterolemia Medical History History of kidney stones Medical History 06/05/2021 - LEFT breast Inv asive Ductal Carcinoma - ER+/[place]+/Her2+ Surgical History Appendectomy 1967 Surgical History Tubal ligation 1983 Surgical History Cervical disc surgery 1990 Surgical History Complete hysterectomy 2002 Surgical History Colonoscopy 11/10/2007 Surgical History Left eye detached retina surgery 2011 Surgical History Left eye cataract extraction 2012? Surgical History Right knee arthroscopy 07/2017 Surgical History Kidney stone extraction-Dr. Tinajero--bilateral ureteroscopy with laser lithotripsy 03/10/2018 Surgical History ESWL with right stent removal 03/20/2018 Surgical History CYSTO WITH LEFT STENT REMOVAL 03/26/2018 Surgical History Left breast stereo bx 06/01/21 Surgical History Left breast ultrasound bx 05/24/21 Hospitalization History [facility] bilateral PE 08/30-09/05/2017 Hospitalization History [facility] ED chest pains 11/21/2017 Hospitalization History [facility]- Multiple bilateral pulmonary em boli 08/27-09/02/2019 Goals Section No Information Health Concerns No Information MEDICAL EQUIPMENT No Information MENTAL STATUS No Information FUNCTIONAL STATUS No Information ASSESSMENTS No Information PLAN OF TREATMENT Medication Medication Name Sig Start Date Stop Date Albuterol Sulfate HFA 108 (90 Base) MCG/ACT 2 puffs In halation Every 4 hours as needed for SOB, Wheeze, Cough levoFLOXacin 750 MG 1 tablet Orally Once a day for 10 day(s) Next Appt Details Provider Name:Mary Mcdaniel, 09-07-30 11:00:00 AM, [address] [place] [phone], [place], [address], Provider Name:Mary Mcdaniel, 08-08-06 11:00:00 AM, [address] [place] [phone], [place], [address], Provider Name:Amadeo Copeland, 2021-07-31 10 :30:00 AM, [address] [place] [address], , [place], [address], Provider Name:Mary Mcdaniel, 09-09-02 10:30:00 AM, [address] [place] [phone], [place], [address], Provider Name:Tanya Romo, 2021-11-17 02:30:00 PM, [address] [place] [phone], [place], [address], Insurance Providers Payer Name Payer Address Payer Phone Insured Name Patient Relati onship to Insured Coverage Start Date Coverage End Date [employer] [facility] CLAIM DIV [address] [facility] [id number] FRANCINE AGARWAL MEDICARE Part A and B [address] [facility] [id number] FRANCINE AGARWAL self
--- OUTSIDE RECORDS SUMMARY | 2021-07-18 07:04 | CCD ---
Author Author [facility] Organization [facility] Address Unknown Phone Unavailable Care Team Providers Care [facility] Administrator Name Role Phone Mayelin Magallon Unavailable PROBLEMS Type Condition ICD9-CM Code [id number] Code Onset Dates Condition S tatus W/U Status Risk SNOMED Code Notes Problem Diabetes mellitus E11.9 Active confirmed 73 [id number] She had historically been on metformin at [...] January 2021. Problem Hypertension I10 Active confirmed 5143969 3 She was on hydrochlorothiazide in the [...] microalbuminuria. Problem Macular degeneration H35.30 Active confirmed 566512892 She had prior Avastin injections in the left eye but these apparently were ineffective. This may relate to her prior retinal detachment 2011, which is now nearly complete and she has almost no vision in the left eye. This is not a treatable condition apparently. Problem Gastroesophageal reflux K21.9 Active confirmed 910808715 She has historically been on omeprazole in the past, and was started on Protonix as of October 2017. She is off that now but takes famotidine daily. 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 Problem Slow transit constipation K59.01 Active confirmed 92528553 MiraLAX as prescribed on a scheduled basis, perhaps twice weekly. Problem BANKS (dyspnea on exertion) R06.09 Active confirmed 66232570 She has a history of asthma and dyspnea on exertion. There may have been a contribution from her pulmonary emboli but I did have her start Breo therapy for a month as of October 2017. She is no longer using that and her symptoms are controlled. She is also seeing a irrigation district manager. Problem Ureteral stone with hydronephrosis N13.2 Activ e confirmed 685369624 Problem Other chest pain R07.89 Active confirmed 298 82960 She probably had nonischemic chest pain in early November 2017 but I believe a stress echocardiogram was negative in Spring 2017--I do not have a report on that study, but she was reassured by the state farm agent. I do not think this reflects reflux or esophageal disease, and she is on Protonix anyway. She could not take nonsteroidal anti- inflammatory drugs for musculoskeletal pain because she is on warfarin. She was started on benazepril therapy since early November 2017 but has stopped that and her BP is controlled. Problem Obstructive sleep apnea syndrome G47.33 Active conf irmed 14892198 She had a sleep study and is seeing a irrigation district manager. She is using CPAP. Problem History of kidney stones Z87.442 Active confirmed 578004556 She has had prior kidney stones and is being followed by urology. She has 2 left intrarenal stones and still passes a fragment occasionally. It is quite painful when that happens. I have prescribed tramadol. She takes Flomax as needed. Problem Mild intermittent asthma without complication J45. 20 Active confirmed 532108650 She has had a pulmon ology consultation [...] 2019. Problem Kidney stones N20.0 Active confirmed 869258 07 Problem Encounter for therapeutic drug level monitoring Z5 1.81 Active confirmed 198645516 Problem Immunization due Z23 Active confirmed 171 582428 Tdap given 01/30/2021; needs Prevnar in 07/2021. Problem nursing home current use of anticoagulant Z79.01 A ctive confirmed 779703120 Problem Asthma, mild intermittent J45.20 Active confirmed 201123679 Problem History of pulmonary embolism Z86.711 Active confir med 715800841 She had bilateral pulmonary emboli in August [...] (obstructive sleep apnea) G47.33 Active confirm ed 26147709 Problem Hypercholesterolemia E78.00 Active confirmed 35836819 She has hyperlipidemia, last assessed in January [...] Problem Pulmonary nodule R91.1 Active confirmed [address] of her chest in August [...] mammogram of left breast R92.8 Active confirmed 217368135 Problem Invasive ductal carcinoma of left breast C50.912 Active confirmed 913261218 Problem BANKS (dyspnea on exertion) R06.00 Active confirmed 50474621 Problem Diabetes mellitus type 2, controlled E11.9 Act stephy confirmed [id number] ALLERGIES No Known Allergies ENCOUNTERS from 1955 to 2021-07-06 Encounter Location Date Provider Diagnosis [place] [id number] [facility] [phone] [place] [address] Jun, Mayelin Magallon IMMUNIZATIONS Vaccine Route Administration Date Status TDAP [...] Notes Start Da te End Date Status CPAP Machine Active Glucometer _ A glucometer her insurance w ill pay for DX: E11.9 Daily for 365 days Aug, Active Atorvastatin Calcium 20 MG 1 tablet Orally Once a day on Saturday/Saturday/Saturday for 90 Active Lancet Device - as directed DX: E11.9 Daily use, three times a day for 90 day(s) Aug, Active Coumadin 3 MG TAKE ONE TABLET BY MOUTH EVERY DAY DIRECTED Active Lidocaine-Prilocaine 2.5-2.5 % apply entire tube to le ft nipple and surrounding tissue 2 hours prior to coming to hospital for surgery. Cover with plastic Externally once for 1 day May, Active Famotidine 40 MG TAKE ONE TABLET BY MOUTH AT BEDTIME for 30 Active Cholecalciferol 5000 UNIT 2 tablet Orally Once a day Active CPAP mask as directed G47.33 Daily. H er present mask broke--please replace for 180 days December, Active Blood Glucose Test - To match the machine her ins urance will pay for In Vitro, DX: E11.9 3 times a day for 30 Days Aug, Active Lancets - as directed DX: E11.9 Three times a day for 90 days Aug, Active Albuterol Sulfate HFA 108 (90 Base) MCG/ACT 2 puffs In halation Every 4 hours as needed for SOB, Wheeze, Cough prn Ac tive levoFLOXacin 750 MG 1 tablet Orally Once a day for 10 day(s) Jun, Active PROCEDURES No Information RESULTS No Results REASON FOR VISIT no show informational letter MEDICAL (GENERAL) HISTORY Type Description Date Medical History Diabetes mellitus Medical History Hypertension Medical History History of pulmonary embolism Medical History Obstructive sleep apnea syndrome Medical History Gastroesophageal reflux Medical History Macular degeneration Medical History Hypercholesterolemia Medical History History of kidney stones Medical History 06/05/2021 - LEFT breast Inv asive Ductal Carcinoma - ER+/NM+/Her2+ Surgical History Appendectomy 1967 Surgical History Tubal [...] Left breast ultrasound bx 05/24/21 Hospitalization History [facility] bilateral PE 08/30-09/05/2017 Hospitalization History [facility] ED chest pains 11/21/2017 Hospitalization History [facility]- Multiple bilateral pulmonary em boli 08/27-09/02/2019 Goals Section No Information Health Concerns No Information MEDICAL EQUIPMENT No Information MENTAL STATUS No Information FUNCTIONAL STATUS No Information ASSESSMENTS No Information PLAN OF TREATMENT Next Appt Details Provider Name:Mary Mcdaniel, 09-07-23 11:45:00 AM, [address] [place] [address], , [place], [address], Provider Name:Mary Mcdaniel, 08-08-03 10:30:00 AM, [address] [place] [address] , [place], [place], [facility], Provider Name:Amaedo Copeland, 2021-07-31 10 :30:00 AM, [address] [place] [address], , [place], [address], Provider Name:Tanya Romo, 2021-11-17 02:30:00 PM, [address] [place] [phone], [place], [place], [facility], Insurance Providers Payer Name Payer Address Payer Phone Insured Name Patient Relati onship to Insured Coverage Start Date Coverage End Date MEDICARE Part A and B [address] [facility] [phone] FRANCINE AGARWAL [facility] OPTIONS [facility] CLAIM DIV [address] [facility] [id number] FRANCINE AGARWAL
--- OUTSIDE RECORDS SUMMARY | 2021-07-18 07:04 | CCD ---
Author Author [facility] Organization [facility] Address Unknown Phone Unavailable Care Team Providers Care Belt Sander Stone Name Role Phone Mayelin Magallon Unavailable PROBLEMS Type Condition ICD9-CM Code [id number] Code Onset Dates Condition S tatus W/U Status Risk SNOMED Code Notes Problem Hypercholesterolemia E78.00 Active confirmed 15048700 She has hyperlipidemia, last assessed in January [...] panel in January 2021 is reasonable. Problem Macular degeneration H35.30 Active confirmed 912590212 She had prior Avastin injections in the left eye but these apparently were ineffective. This may relate to her prior retinal detachment 2011, which is now nearly complete and she has almost no vision in the left eye. This is not a treatable condition apparently. Problem Pulmonary nodule R91.1 Active confirmed [address] of her chest in August [...] group now. Repeat CT ordered 01/2021. Problem History of pulmonary embolism Z86.711 Active confir med 813285703 She had bilateral pulmonary emboli in August [...] going to be on lifelong anticoagulation. Problem Slow transit constipation K59.01 Active confirmed 67133422 MiraLAX as prescribed on a scheduled basis, perhaps twice weekly. Problem BANKS (dyspnea on exertion) R06.09 Active confirmed 17303327 She has a history of asthma and dyspnea on exertion. There may have been a contribution from her pulmonary emboli but I did have her start Breo therapy for a month as of October 2017. She is no longer using that and her symptoms are controlled. She is also seeing a doughnut fryer. Problem Ureteral stone with hydronephrosis N13.2 Activ e confirmed 081068457 Problem Other chest pain R07.89 Active confirmed 298 60527 She probably had nonischemic chest pain in early November 2017 but I believe a stress echocardiogram was negative in Spring 2017--I do not have a report on that study, but she was reassured by the process excellence manager. I do not think this reflects reflux or esophageal disease, and she is on Protonix anyway. She could not take nonsteroidal anti- inflammatory drugs for musculoskeletal pain because she is on warfarin. She was started on benazepril therapy since early November 2017 but has stopped that and her BP is controlled. Problem Kidney stones N20.0 Active confirmed 326752 07 Problem Mild intermittent asthma without complication J45. 20 Active confirmed 886363859 She has had a pulmon ology consultation [...] recent pulmonary emboli in August 2019. Problem Anticoagulation monitoring, INR range 2-3 Z79.01 Active confirmed 933407289 Adjustments made. Problem [facility] current use of anticoagulant Z79.01 A ctive confirmed 774962687 Problem Obstructive sleep apnea syndrome G47.33 Active conf irmed 56811699 She had a sleep study and is seeing a doughnut fryer. She is using CPAP. Problem Gastroesophageal reflux K21.9 Active confirmed 335256410 She has historically been on omeprazole in the past, and was started on Protonix as of October 2017. She is off that now but takes famotidine daily. Problem Invasive ductal carcinoma of left breast C50.912 Active confirmed 457784203 Problem History of kidney stones Z87.442 Active confirmed 625984568 She has had prior kidney stones and is being followed by urology. She has 2 left intrarenal stones and still passes a fragment occasionally. It is quite painful when that happens. I have prescribed tramadol. She takes Flomax as needed. Problem Hypertension I10 Active confirmed 6361077 3 She was on hydrochlorothiazide in the [...] of controlled home blood pressures, as of 2019. She may need the JENNA inhibitor restarted if she develops microalbuminuria. Problem Diabetes mellitus E11.9 Active confirmed 55 406079 She had historically been on metformin at [...] her medications as of January 2021. 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 Problem Abnormal mammogram of left breast R92.8 Active confirmed 813972167 ALLERGIES No Known Allergies ENCOUNTERS from 1955 to 2021-06-16 Encounter Location Date Provider Diagnosis [place] [id number] [facility] [phone] [place] [address] May, Mayelin Magallon Anticoagulation monitoring, INR range 2-3 Z79.01 ; History of pulmonary embolism Z86.711 and ferry terminal supervisor current use of anticoagulant Z79.01 IMMUNIZATIONS Vaccine Route Administration Date Status TDAP 0.5mL Boostrix IM Intramuscular January 30, 2021 Administere d Pneumococcal Adult 0.5mL Pneumovax 23 IM Intramuscular Jul 28 Administered TDAP Unknown Aug 19, 2007 Administered [...] Total Score: 0 Interpretation: No problems reported Alcohol Screening: Question Answer Notes Did you have a drink containing alcohol in the past year? No Points 0 Interpretation Negative Tobacco Use: Question Answer Notes Are you a: never smoker never smoker REASON FOR REFERRAL No Information VITAL SIGNS Weight 205.8 lbs May, Weight-kg 93.35 kg May, Height 62 in May, BMI 37.64 kg/m2 May, Heart Rate 102 /min May, Respiratory Rate 18 /min May, Temperature 97.4 degrees Fahrenheit May, Oximetry 98% May, Blood pressure systolic 130 mm Hg May, Blood pressure diastolic 90 mm Hg May, MEDICATIONS Medication SIG (Take, Route, Frequency, Duration) Notes Start Da te End Date Status Lidocaine-Prilocaine 2.5-2.5 % apply entire tube to le ft nipple and surrounding tissue 2 hours prior to coming to hospital for surgery. Cover with plastic Externally once for 1 day May, Active CPAP mask as directed G47.33 Daily. H er present mask broke--please replace for 180 days December, Active Glucometer _ A glucometer her insurance w ill pay for DX: E11.9 Daily for 365 days Aug, Active Lancet Device - as directed DX: E11.9 Daily use, three times a day for 90 day(s) Aug, Active Lancets - as directed DX: E11.9 Three times a day for 90 days Aug, Active Polyethylene Glycol 3350 17 GM/SCOOP DIRECTED DAILY NEEDED for 30 Not-Taking Blood Glucose Test - To match the machine her ins urance will pay for In Vitro, DX: E11.9 3 times a day for 30 Days Aug, Active Coumadin 3 MG TAKE ONE TABLET BY MOUTH EVERY DAY DIRECTED for 30 Active Albuterol Sulfate HFA 108 (90 Base) MCG/ACT 2 puffs In halation Every 4 hours as needed for SOB, Wheeze, Cough for 30 days prn Active Atorvastatin Calcium 20 MG 1 tablet Orally Once a day on Saturday/Saturday/Saturday for 90 Not-Taking Cholecalciferol 5000 UNIT 2 tablet Orally Once a day Active Famotidine 40 MG 1 tablet at bedtime Orally Once a day for 30 Active Lipitor 20 MG 1 tablet Orally Once a day Active CPAP Machine Not-Taking PROCEDURES No Information RESULTS Component Value Reference Range PT-INR Fingerstick Reviewed date:06/07/2021 11:34:34 Interpretation: Performing Lab:[facility], ,[place] [address] INR 1.3 Verified Patient's Name and yes Current Dose 1 held coumadine for 4 dayss for biopsy Current Dose 2 Tab Strength 3mgtab Indication for Anticoagulation PE Recent Bleeding no Internal QC Acceptable (Y/N) yes Therapeutic Range 2-3 Education Given (Date / Initials) New Dose 1 Extra dose today then continue prior reg imen New Dose 2 Weekly Total Next PT-INR 4 weeks - - REASON FOR VISIT PT/INR MEDICAL (GENERAL) HISTORY Type Description Date Medical History Diabetes mellitus Medical History Hypertension Medical History History of pulmonary embolism Medical History Obstructive sleep apnea syndrome Medical History Gastroesophageal reflux Medical History Macular degeneration Medical History Hypercholesterolemia Medical History History of kidney stones Surgical History Appendectomy 1967 Surgical History Tubal [...] Surgical History Left breast stereo bx 06/01/21 Hospitalization History [facility] bilateral PE 08/30-09/05/2017 Hospitalization History [facility] ED chest pains 11/21/2017 Hospitalization History [facility]- Multiple bilateral pulmonary em boli 08/27-09/02/2019 Goals Section No Information Health Concerns No Information MEDICAL EQUIPMENT No Information MENTAL STATUS No Information FUNCTIONAL STATUS No Information ASSESSMENTS Encounter Date Diagnosis Assessment Notes Treatment Notes Treatm ent Clinical Notes May, Anticoagulation monitoring, INR range 2- 3 (ICD-10 - Z79.01) Adjustments made. 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 This will need to be held prior to bs per Dr Copeland's recommendations. PLAN OF TREATMENT Medication Medication Name Sig Start Date Stop Date Lidocaine-Prilocaine 2.5-2.5 % apply entire tube to le ft nipple and surrounding tissue 2 hours prior to coming to hospital for surgery. 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 This will need to be held prior to bs per Dr Copeland's recommendations. Next Appt Details 4 Weeks Pt/INR Reason: Provider Name:Mayelin Magallon, 2020-08 08:15:00 AM, [address] [place] [address] , [place], [address], Provider Name:Amadeo Copeland, 2021-07-31 10 :30:00 AM, [address] [place] [address] , [place], [address], Provider Name:Tanya Romo, 2021-11-17 02:30:00 PM, [address] [place] [address] , [place], [place], [facility], Insurance Providers Payer Name Payer Address Payer Phone Insured Name Patient Relati onship to Insured Coverage Start Date Coverage End Date MEDICARE Part A and B [address] [facility] [phone] FRANCINE AGARWAL [facility] OPTIONS [facility] CLAIM DIV [address] [facility] [phone] FRANCINE AGARWAL
--- OUTSIDE RECORDS SUMMARY | 2021-07-18 07:04 | CCD ---
Author Author [facility] Organization [facility] Address Unknown Phone Unavailable Care Team Providers Care Materials And Processes Manager Name Role Phone Mary Mcdaniel Unavailable PROBLEMS Type Condition ICD9-CM Code [id number] Code Onset Dates Condition S tatus W/U Status Risk SNOMED Code Notes Problem Hypercholesterolemia E78.00 Active confirmed 58037492 She has hyperlipidemia, last assessed in January [...] reasonable. Problem Macular degeneration H35.30 Active confirmed [id number] She had prior Avastin injections in the left eye but these apparently were ineffective. This may relate to her prior retinal detachment 2011, which is now nearly complete and she has almost no vision in the left eye. This is not a treatable condition apparently. Problem Pulmonary nodule R91.1 Active confirmed [id number] of her chest in August [...] of pulmonary embolism Z86.711 Active confir med [id number] She had bilateral pulmonary emboli in August [...] Problem Slow transit constipation K59.01 Active confirmed [id number] MiraLAX as prescribed on a scheduled basis, perhaps twice weekly. Problem BANKS (dyspnea on exertion) R06.09 Active confirmed 79087366 She has a history of asthma and dyspnea on exertion. There may have been a contribution from her pulmonary emboli but I did have her start Breo therapy for a month as of October 2017. She is no longer using that and her symptoms are controlled. She is also seeing a link machine operator. Problem Ureteral stone with hydronephrosis N13.2 Activ e confirmed 753047286 Problem Other chest pain R07.89 Active confirmed 298 73011 She probably had nonischemic chest pain in early November 2017 but I believe a stress echocardiogram was negative in Spring 2017--I do not have a report on that study, but she was reassured by the facilities clerk. I do not think this reflects reflux or esophageal disease, and she is on Protonix anyway. She could not take nonsteroidal anti- inflammatory drugs for musculoskeletal pain because she is on warfarin. She was started on benazepril therapy since early November 2017 but has stopped that and her BP is controlled. Problem Kidney stones N20.0 Active confirmed 210791 07 Problem Mild intermittent asthma without complication J45. 20 Active confirmed 210167952 She has had a pulmon ology consultation [...] monitoring, INR range 2-3 Z79.01 Active confirmed 504993965 Adjustments made. 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 She is using CPAP. Problem Gastroesophageal reflux K21.9 Active confirmed 832488171 She has historically been on omeprazole in the past, and was started on Protonix as of October 2017. She is off that now but takes famotidine daily. Problem Invasive ductal carcinoma of left breast C50.912 Active confirmed 906557948 Problem History of kidney stones Z87.442 Active confirmed 046079974 She has had prior kidney stones and is being followed by urology. She has 2 left intrarenal stones and still passes a fragment occasionally. It is quite painful when that happens. I have prescribed tramadol. She takes Flomax as needed. Problem Hypertension I10 Active confirmed 1489544 3 She was on hydrochlorothiazide in the [...] microalbuminuria. Problem Diabetes mellitus E11.9 Active confirmed 18 775871 She had historically been on metformin at [...] her medications as of January 2021. Problem senior care (current) use of anticoagulants Z79.01 Active confirmed 937448631 Problem Encounter for therapeutic drug level monitoring Z5 1.81 Active confirmed 874861391 Problem Immunization due Z23 Active confirmed 171 092531 Tdap given 01/30/2021; needs Prevnar in 07/2021. Problem Abnormal mammogram of left breast R92.8 Active confirmed [id number] ALLERGIES No Known Allergies ENCOUNTERS from 1955 to 2021-06-15 Encounter Location Date Provider Diagnosis [facility] [phone] [place] [address] May, Mary Mcdaniel Invasive ductal carcinoma of left breast C50.912 ; Abnormal mammogram of left breast R92.8 ; Family history of cancer Z80.9 ; Genetic screening Z13.79 and termite treater current use of anticoagulant Z79.01 IMMUNIZATIONS Vaccine Route Administration Date Status TDAP 0.5mL Boostrix IM Intramuscular January 30, 2021 Administere d Pneumococcal Adult 0.5mL Pneumovax 23 IM Intramuscular Jul 28 020 Administered TDAP Unknown Aug 19, 2007 [...] never smoker never smoker REASON FOR REFERRAL from 1955 to 2021-06-15 Reason Left breast IDC, grade 2, aw aiting ER/AL/HER2 results. Please evaluate for adjuvant treatment. Diagnosis 1 Invasive ductal carcinoma of left breast (C50.912) Referral Organization [facility] Referring Provider First Name [facility] Referring Provider Last Name [facility] Referring Provider Specialty Surgery Referred Provider Garcia Sampson [place] Referred Provider Specialty Oncology Referral Priority Routine General Notes Adrienne Campos 06/08/2021 09:41:49 AM >Surgery date pending.Adrienne Campos 06/08/2021 09:44:56 AM >referral faxed. Reason Left breast cancer. Pt consi dering lumpectomy. Please evaluate for adjuvant treatment. Diagnosis 1 Invasive ductal carcinoma of left breast (C50.912) Referral Organization [facility] Referring Provider First Name [facility] Referring Provider Last Name [facility] Referring Provider Specialty Surgery Referred Provider Rahul Baires Referred Provider Specialty Radiation Oncology Referral Priority Routine General Notes Adrienne Campos 06/08/2021 09:29:11 AM >surgery date pending.Adrienne Campos 06/08/2021 09:41:29 AM >Referral faxed. VITAL SIGNS Weight 207 lbs May, Weight-kg 93.89 kg May, Height 62 in May, BMI 37.86 kg/m2 May, Heart Rate 87 /min May, Respiratory Rate 18 /min May, Temperature 96.2 degrees Fahrenheit May, Oximetry 99 May, Blood pressure systolic 140 mm Hg May, Blood pressure diastolic 80 mm Hg May, MEDICATIONS Medication SIG (Take, [...] CPAP Machine Not-Taking PROCEDURES No Information RESULTS No Results REASON FOR VISIT Post L Stereo bx with rad MEDICAL (GENERAL) HISTORY Type Description Date Medical [...] Left breast stereo bx 06/01/21 Hospitalization History [facility] bilateral PE 08/30-09/05/2017 Hospitalization History [facility] ED chest pains 11/21/2017 Hospitalization History [facility]- Multiple bilateral pulmonary em boli 08/27-09/02/2019 Goals Section No Information Health Concerns No Information MEDICAL EQUIPMENT No Information MENTAL STATUS No Information FUNCTIONAL STATUS No Information ASSESSMENTS Encounter Date Diagnosis Assessment Notes Treatment Notes Treatm ent Clinical Notes May, Invasive ductal carcinoma of left breast (ICD-10 - C50.912) LEFT BREAST CANCER IDC GRADE 2 ER ? AL ? HER2 ? cT1a (4mm) cN0 cM0 ANATOMICAL STAGE 1 CLINICAL PROGNOSTIC STAGE: pending ER/AL/HER2 PLAN: 1. Awaiting ER/AL/HER2 results 2. Will obtain MRI breast to delineate extent of disease. BMP will be orders to assess kidney function 3. Will need a SECOND STEREO CLIP PLACEMENT PROCEDURE as clip is 7.6cm away from cancer 4. Will defer surgical procedure planning until MRI results are available and after clip placement 5. Preop testing/ medical clearance will need to be obtained prior to surgery 6. Genetic testing, will provide pt with the kit today 7. Oncotype DX postop if invasive cancer meets testing criteria and no NAC done 8. Referral to Medical Oncology 9. Referral to Radiation Oncology post surgery I reviewed the breast imaging and the pathology with Ms. Agarwal. We have reviewed the overall breast cancer evaluation and staging. Based on the current information Ms. Agarwal's was found to have LEFT BREAST INVASIDE DUCTAL CARCINOMA GRADE 2 measuring 4mm on mammogram which puts it in category T1a.We are still waiting for her ER/AL/Her2 receptors. She does not have palpable axillary lymph nodes on exam. Based on this information, her lymph node status is described as N0 I had reviewed the post biopsy mammogram images with the patient as well. We have discussed that the clip placed by Radiology is 7.6cm AWAY FROM CANCER SITE on MLO view. I explained that she will need a repeat clip placement to the appropriate location. This will be a stereotactic clip placement. She will need to hold her Coumadin again prior to the procedure. I will also order MRI of the breast to delineate extent of disease. I have discussed various component of multidisciplinary approach to breast cancer which includes local treatments with surgery and radiation therapy and systemic treatments with antihormonal pill and possible chemotherapy. Regarding surgical component of the treatment, patient is a candidate for both breast conserving surgery (as long as the clip is placed into correct location) and for mastectomy. I explained to her that, surgery carries risks and potential complications, most common of which are risk of bleeding, infection and injury to surrounding structures like skin, nipple, muscle, lung, nerves especially long thoracic nerve and thoracodorsal nerve. Postsurgical complications may include, but are not limited to, numbness of the skin and or nipple, scarring, bruising, hematomas, seromas, flap and/or nipple necrosis, lymphedema, nerve injury causing weakness in motor function of upper extremity or scapula, contour deformity, poor cosmetic outcomes and need for additional surgeries. Those risks were explained to the patient and she expressed understanding. We have discussed that with breast conserving surgery there is a higher risk of locoregional recurrence of tumor because there is more [place] breast tissue left behind. The percentage of locoregional recurrence is lower with mastectomy than with breast conserving surgery but it is not zero as it is impossible to remove 100% of all breast tissue cells during mastectomy. There is also 10-20% chance of positive margins with breast conserving surgery which will warrant additional surgery to clear those margins. I also explained that with breast conserving surgery she may need to have radiation therapy in order to assure equal survival between the breast conservative treatment and mastectomy. Radiation therapy after mastectomy will be warranted only if the final mastectomy margins are positive or if lymph nodes are positive. We have also discussed that if she chooses mastectomy, she is entitled to reconstruction if she wishes to have it. Reconstruction options will be discussed in details with plastic surgeon. I have explained to the patient that reconstruction is considered part of breast cancer treatment and is covered by insurance. I explained that in cases of invasive cancer, we pursue sentinel lymph node biopsy in fit patients in addition to removal of the tumor from the breast. I explained that this is done to test the very first lymph nodes draining the breast for presence of cancer. This will be done with radionucleotide injection and possibly with blue dye tracer. If the lymph nodes contain cancer, depending on what surgery was performed and how many lymph nodes are positive, additional surgery and/ or radiation therapy to axilla may be warranted as well. I will send a prescription for the EMLA cream to be applied to the affected nipple in order to decrease discomfort of injections. Regarding evaluation of contralateral breast, she had a screening mammogram done on 03/23/2021. This did not show any suspicious lesions in the contralateral breast. I am planning to get MRI of the breast to delineate extent of disease. It will also evaluate contralateral breast. Since patient was diagnosed with breast cancer, she qualifies for genetic testing. I provided the genetic testing counseling -see the note below. At this time, patient wishes to pursue genetic testing- the blood kit was provided today. She will let me know if she changes her mind. I discussed with the patient that Oncotype Dx is used to predict the probability of Hormone (+) Her2(-) cancer coming back. I explained that if the test comes back with a high score, chemotherapy may be considered. I will place referral for Medical Oncology. This appointment can be scheduled after surgery. I explained to the patient that she may need to follow up with radiation oncology if she wants to pursue breast conserving surgery or if lymph nodes or mastectomy margins are positive. She can schedule appointment with [facility] after surgery. Finally, I informed patient that an appointment will be made for her with her primary care doctor preopreatively as we will need a surgical clearance, latest labs and imaging (CBC, BMP, CXR,EKG). All questions were answered. Patient agrees with the plan May, Abnormal mammogram of left breast (ICD-10 - R92. 8) s/p L ultrasound guided needle aspiration on 05/24/2021 with me Cytology showed scattered small groups of apocrine cells noted in a background of scattered macrophages, lymphocytes, and blood elements. s/p Left stereotactic biopsy on 06/01/2021 with RADIOLOGY See above May, Family history of cancer (ICD-10 - Z80.9) Patient participated in our cancer screening program and she was identified as a person who may be eligible for genetic testing due to her family history. Her TC score is 4.3% May, Genetic screening (ICD-10 - Z13.79) Patient participated in our cancer screening program and she was identified as a person who may be eligible for genetic testing due to her family history and personal diagnosis of breast cancer. Possible outcomes of genetic testing were discussed with patient with emphasis on the fact that the majority of cancers are not related to germline mutations but are rather due to somatic mutations. I have explained that the genetic testing can come back as positive for specific pathological gene mutation, as negative, or as variant of unknown significance (VUS) which means that there is duration in the gene however we do not have enough information to determine the significance importance of this ulceration. I explained to the patient that we do not asked on VUS and treat them as negative until they are reclassified as pathologically significant mutation or benign alteration. We have discussed that regardless of test outcome patient cannot have her health insurance denied in the future. Patient is interested in proceeding with genetic testing. We will provide her with the blood kit today. We will update her about the results of genetic testing when the test is completed My patient's relatives who have had breast and/or ovarian cancer are not available for genetic testing because: ___They are . ___My patient does not have any contact with affected relatives. ___The affected relatives refused testing. _x_ Pt has a personal history of breast cancer. This patient does not have a known hereditary cancer genetic mutation on either side of the family. This patient does not have known Ashkenazi Nondenominational ancestry on either side of the family. Assessment & Plan: This patient's personal and/or family history of cancer is suggestive of a hereditary cancer syndrome. Patient meets the criteria for genetic testing established by medical society guidelines and I recommended that the patient pursues testing based on these criteria. Today we discussed how genetics may affect cancer susceptibility and the options, alternatives, benefits, limitations and potential outcomes of genetic testing for hereditary cancer syndromes. Patient was also made aware of the limitations of testing an unaffected individual for a cancer predisposition syndrome. The genetic test recommended for patient today is called the Integrated BRACanlysis with ChirpVision. The Integrated ChirpVision analyzes 35 genes including BRCA1, BRCA2, MLH1, MSH2, MSH6, and PMS2 to identify germline genetic mutations that cause an increased risk for eight primary cancers including: breast, ovarian, endometrial, colorectal, gastric, pancreatic, prostate, and melanomas. Due to significant clinical overlap in hereditary cancer susceptibility genes, a molecular diagnosis of a hereditary cancer condition is necessary to clarify the cancer risks patient carries and the screening, management, and treatment options most appropriate for patient. May, senior care current use of anticoagulant (ICD-10 - Z79.01) Patient is on Coumadin. This will need to be held prior to bx per Dr Copeland's recommendations. May, Other TOTAL TIME SPENT FOR CARE OF THIS PATIENT AT THIS ENCOUNTER: 74 min I, Dr. Mcdaniel, reviewed the medical note prepared by the scribe and confirm the findings and the discussed plan. PLAN OF TREATMENT Medication Medication Name Sig Start Date Stop Date Lidocaine-Prilocaine 2.5-2.5 % apply entire tube to le ft nipple and surrounding tissue 2 hours prior to coming to hospital for surgery. Cover with plastic Externally once for 1 day May, Treatment Notes Assessment Notes Clinical Notes Invasive ductal carcinoma of left breast LEFT BREAST C ANCERIDC GRADE 2ER ? AL ? HER2 ?cT1a (4mm) cN0 [id number] STAGE 1CLINICAL PROGNOSTIC STAGE: pending ER/AL/[id number]:1. Awaiting ER/AL/HER2 results2. Will obtain MRI breast to delineate extent of disease. BMP will be orders to assess kidney function3. Will need a SECOND STEREO CLIP PLACEMENT PROCEDURE as clip is 7.6cm away from cancer4. Will defer surgical procedure planning until MRI results are available and after clip placement5. Preop testing/ medical clearance will need to be obtained prior to surgery6. Genetic testing, will provide pt with the kit today7. Oncotype DX postop if invasive cancer meets testing criteria and no NAC done8. Referral to Medical Oncology9. Referral to Radiation Oncology post surgeryI reviewed the breast imaging and the pathology with Ms. Agarwal. We have reviewed the overall breast cancer evaluation and staging.Based on the current information Ms. Agarwal's was found to have LEFT BREAST INVASIDE DUCTAL CARCINOMA GRADE 2 measuring 4mm on mammogram which puts it in category T1a.We are still waiting for her ER/AL/Her2 receptors.She does not have palpable axillary lymph nodes on exam. Based on this information, her lymph node status is described as N0I had reviewed the post biopsy mammogram images with the patient as well. We have discussed that the clip placed by Radiology is 7.6cm AWAY FROM CANCER SITE on MLO view. I explained that she will need a repeat clip placement to the appropriate location. This will be a stereotactic clip placement. She will need to hold her Coumadin again prior to the procedure.I will also order MRI of the breast to delineate extent of disease.I have discussed various component of multidisciplinary approach to breast cancer which includes local treatments with surgery and radiation therapy and systemic treatments with antihormonal pill and possible chemotherapy.Regarding surgical component of the treatment, patient is a candidate for both breast conserving surgery (as long as the clip is placed into correct location) and for mastectomy.I explained to her that, surgery carries risks and potential complications, most common of which are risk of bleeding, infection and injury to surrounding structures like skin, nipple, muscle, lung, nerves especially long thoracic nerve and thoracodorsal nerve. Postsurgical complications may include, but are not limited to, numbness of the skin and or nipple, scarring, bruising, hematomas, seromas, flap and/or nipple necrosis, lymphedema, nerve injury causing weakness in motor function of upper extremity or scapula, contour deformity, poor cosmetic outcomes and need for additional surgeries. Those risks were explained to the patient and she expressed understanding.We have discussed that with breast conserving surgery there is a higher risk of locoregional recurrence of tumor because there is more [place] breast tissue left behind. The percentage of locoregional recurrence is lower with mastectomy than with breast conserving surgery but it is not zero as it is impossible to remove 100% of all breast tissue cells during mastectomy. There is also 10-20% chance of positive margins with breast conserving surgery which will warrant additional surgery to clear those margins. I also explained that with breast conserving surgery she may need to have radiation therapy in order to assure equal survival between the breast conservative treatment and mastectomy. Radiation therapy after mastectomy will be warranted only if the final mastectomy margins are positive or if lymph nodes are positive.We have also discussed that if she chooses mastectomy, she is entitled to reconstruction if she wishes to have it. Reconstruction options will be discussed in details with plastic surgeon. I have explained to the patient that reconstruction is considered part of breast cancer treatment and is covered by insurance.I explained that in cases of invasive cancer, we pursue sentinel lymph node biopsy in fit patients in addition to removal of the tumor from the breast. I explained that this is done to test the very first lymph nodes draining the breast for presence of cancer. This will be done with radionucleotide injection and possibly with blue dye tracer. If the lymph nodes contain cancer, depending on what surgery was performed and how many lymph nodes are positive, additional surgery and/ or radiation therapy to axilla may be warranted as well. I will send a prescription for the EMLA cream to be applied to the affected nipple in order to decrease discomfort of injections.Regarding evaluation of contralateral breast, she had a screening mammogram done on 03/23/2021. This did not show any suspicious lesions in the contralateral breast. I am planning to get MRI of the breast to delineate extent of disease. It will also evaluate contralateral breast.Since patient was diagnosed with breast canc er, she qualifies for genetic testing. I provided the genetic testing counseling -see the note below. At this time, patient wishes to pursue genetic testing- the blood kit was provided today. She will let me know if she changes her mind.I discussed with the patient that Oncotype Dx is used to predict the probability of Hormone (+) Her2(-) cancer coming back. I explained that if the test comes back with a high score, chemotherapy may be considered.I will place referral for Medical Oncology. This appointment can be scheduled after surgery.I explained to the patient that she may need to follow up with radiation oncology if she wants to pursue breast conserving surgery or if lymph nodes or mastectomy margins are positive. She can schedule appointment with [facility] after surgery.Finally, I informed patient that an appointment will be made for her with her primary care doctor preopreatively as we will need a surgical clearance, latest labs and imaging (CBC, BMP, CXR,EKG).All questions were answered. Patient agrees with the plan Abnormal mammogram of left breast s/p L ultrasound kelvin ded needle aspiration on 05/24/2021 with meCytology showed scattered small groups of apocrine cells noted in a background of scattered macrophages, lymphocytes, and blood elements.s/p Left stereotactic biopsy on 06/01/2021 with RADIOLOGYSee above Family history of cancer Patient participated in our cancer screening program and she was identified as a person who may be eligible for genetic testing due to her family history.Her TC score is 4.3% Genetic screening Patient participated in our cancer screening program and she was identified as a person who may be eligible for genetic testing due to her family history and personal diagnosis of breast cancer.Possible outcomes of genetic testing were discussed with patient with emphasis on the fact that the majority of cancers are not related to germline mutations but are rather due to somatic mutations.I have explained that the genetic testing can come back as positive for specific pathological gene mutation, as negative, or as variant of unknown significance (VUS) which means that there is duration in the gene h owever we do not have enough information to determine the significance importance of this ulceration. I explained to the patient that we do not asked on VUS and treat them as negative until they are reclassified as pathologically significant mutation or benign alteration.We have discussed that regardless of test outcome patient cannot have her health insurance denied in the future.Patient is interested in proceeding with genetic testing. We will provide her with the blood kit today. We will update her about the results of genetic testing when the test is completed My patient's relatives who have had nicole st and/or ovarian cancer are not available for genetic testing because:___They are .___My patient does not have any contact with affected relatives.___The affected relatives refused testing._x_ Pt has a personal history of breast cancer.This patient does not have a known hereditary cancer genetic mutation on either side of the family.This patient does not have known Ashkenazi Nondenominational ancestry on either side of the family.Assessment & Plan:This patient's personal and/or family history of cancer is suggestive of a hereditary cancer syndrome. Patient meets the criteria for genetic testing established by medical society guidelines and I recommended that the patient pursues testing based on these criteria.Today we discussed how genetics may affect cancer susceptibility and the options, alternatives, benefits, limitations and potential outcomes of genetic testing for hereditary cancer syndromes. Patient was also made aware of the limitations of testing an unaffected individual for a cancer predisposition syndrome. The genetic test recommended for patient today is called the Integrated [employer] with [employer]ision. The Integrated ChirpVision analyzes 35 genes including BRCA1, BRCA2, MLH1, MSH2, MSH6, and PMS2 to identify germline genetic mutations that cause an increased risk for eight primary cancers including: breast, ovarian, endometrial, colorectal, gastric, pancreatic, prostate, and melanomas. Due to significant clinical overlap in hereditary cancer susceptibility genes, a molecular diagnosis of a hereditary cancer condition is necessary to clarify the cancer risks patient carries and the screening, management, and treatment options most appropriate for patient. senior care current use of anticoagulant Patient is on C oumadin. This will need to be held prior to bx per Dr Copeland's recommendations. Treatment Notes Test Name Order Date MRI BREAST BILAT WITH AND WITHOUT CONTRAST O PLZ or SMC 2021-06-08 [facility] PLACEMENT 2021-06-08 Future Test Test Name Order Date Basic Metabolic Profile (BMP) [id number] Referrals Referral Date Details Left breast IDC, grade 2, aw aiting ER/AL/HER2 results. Please evaluate for adjuvant treatment., Elissa Quintero SMP Left breast cancer. Pt consi dering lumpectomy. Please evaluate for adjuvant treatment., Rahul Baires Next Appt Details Provider Name:Mayelin Magallon, 2020-08 08:15:00 AM, [address] [place] [address], , [place], [address], Provider Name:Amadeo Copeland, 2021-07-31 10 :30:00 AM, [address] [place] [address], , [place], [address], Provider Name:Tanya Romo, 2021-11-17 02:30:00 PM, [address] [place] [address], , [place], [place], [facility] [phone] Insurance Providers Payer Name Payer Address Payer Phone Insured Name Patient Relati onship to Insured Coverage Start Date Coverage End Date [facility] OPTIONS [facility] CLAIM DIV [address] [facility] [phone] FRANCINE AGARWAL MEDICARE Part A and B [address] [facility] [address] [phone] FRANCINE AGARWAL self
--- OUTSIDE RECORDS SUMMARY | 2021-07-18 07:04 | CCD ---
Author Author [facility] [employer] [facility] [employer] Organization [facility] [employer] Address Unknown Phone Unavailable Care Team Providers Care Manager Urology Name Role Phone Jose Gurrola Unavailable PROBLEMS Type Condition ICD9-CM Code [id number] Code Onset Dates Condition S tatus W/U Status Risk SNOMED Code Notes Problem Diabetes mellitus E11.9 Active confirmed 73 353135 She had historically been on metformin at [...] January 2021. Problem Hypertension I10 Active confirmed 9247013 3 She was on hydrochlorothiazide in the [...] microalbuminuria. Problem Macular degeneration H35.30 Active confirmed 841624162 She had prior Avastin injections in the left eye but these apparently were ineffective. This may relate to her prior retinal detachment 2011, which is now nearly complete and she has almost no vision in the left eye. This is not a treatable condition apparently. Problem Gastroesophageal reflux K21.9 Active confirmed 204768404 She has historically been on omeprazole in the past, and was started on Protonix as of October 2017. She is off that now but takes famotidine daily. 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 Problem Slow transit constipation K59.01 Active confirmed 29179884 MiraLAX as prescribed on a scheduled basis, perhaps twice weekly. Problem BANKS (dyspnea on exertion) R06.09 Active confirmed 97236967 She has a history of asthma and dyspnea on exertion. There may have been a contribution from her pulmonary emboli but I did have her start Breo therapy for a month as of October 2017. She is no longer using that and her symptoms are controlled. She is also seeing a child nutrition manager. Problem Ureteral stone with hydronephrosis N13.2 Activ e confirmed 472576948 Problem Other chest pain R07.89 Active confirmed 298 56272 She probably had nonischemic chest pain in early November 2017 but I believe a stress echocardiogram was negative in Spring 2017--I do not have a report on that study, but she was reassured by the oil dispatcher. I do not think this reflects reflux or esophageal disease, and she is on Protonix anyway. She could not take nonsteroidal anti- inflammatory drugs for musculoskeletal pain because she is on warfarin. She was started on benazepril therapy since early November 2017 but has stopped that and her BP is controlled. Problem Obstructive sleep apnea syndrome G47.33 Active conf irmed 34182010 She had a sleep study and is seeing a child nutrition manager. She is using CPAP. Problem History of kidney stones Z87.442 Active confirmed 685716983 She has had prior kidney stones and is being followed by urology. She has 2 left intrarenal stones and still passes a fragment occasionally. It is quite painful when that happens. I have prescribed tramadol. She takes Flomax as needed. Problem Mild intermittent asthma without complication J45. 20 Active confirmed 661904548 She has had a pulmon ology consultation [...] 2019. Problem Kidney stones N20.0 Active confirmed 997732 07 Problem Encounter for therapeutic drug level monitoring Z5 1.81 Active confirmed 430419049 Problem Immunization due Z23 Active confirmed 171 670509 Tdap given 01/30/2021; needs Prevnar in 07/2021. 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 Z79.01 A ctive confirmed 326375308 Problem Asthma, mild intermittent J45.20 Active confirmed 931343311 Problem History of pulmonary embolism Z86.711 Active confir med 101411394 She had bilateral pulmonary emboli in August [...] (obstructive sleep apnea) G47.33 Active confirm ed 20755767 Problem Hypercholesterolemia E78.00 Active confirmed 11087334 She has hyperlipidemia, last assessed in January [...] Problem Pulmonary nodule R91.1 Active confirmed [address] of her chest in August [...] mammogram of left breast R92.8 Active confirmed 917652386 Problem Invasive ductal carcinoma of left breast C50.912 Active confirmed 376968592 Problem BANKS (dyspnea on exertion) R06.00 Active confirmed 27996046 Problem Diabetes mellitus type 2, controlled E11.9 Act stephy confirmed 327724387 ALLERGIES No Known Allergies ENCOUNTERS from 1955 to 2021-07-12 Encounter Location Date Provider Diagnosis [place] [address] [facility] [phone] [place] [address] Jun, Jose Gurrola IMMUNIZATIONS Vaccine Route Administration Date Status TDAP 0.5mL Boostrix IM Intramuscular January 30, 2021 Administere d Pneumococcal Adult 0.5mL Pneumovax 23 IM Intramuscular Jul 28, 2 020 Administered TDAP Unknown Aug 19, [...] Glucometer _ A glucometer her insurance w [employer] pay for DX: E11.9 Daily for 365 [...] Information RESULTS No Results REASON FOR VISIT cleared for sx? MEDICAL (GENERAL) HISTORY Type Description Date Medical History Diabetes mellitus Medical History Hypertension Medical History History of pulmonary embolism Medical History Obstructive sleep apnea syndrome Medical History Gastroesophageal reflux Medical History Macular degeneration Medical History Hypercholesterolemia Medical History History of kidney stones Medical History 06/05/2021 - LEFT breast Inv asive Ductal Carcinoma - ER+/ND+/Her2+ Surgical History Appendectomy 1967 Surgical History Tubal [...] Left breast ultrasound bx 05/24/21 Hospitalization History [facility] bilateral PE 08/30-09/05/2017 Hospitalization History [facility] ED chest pains 11/21/2017 Hospitalization History [facility]- Multiple bilateral pulmonary em boli 08/27-09/02/2019 Goals [...] Details Provider Name:Mary Mcdaniel, 09-07-30 11:00:00 AM, [address] [place] [phone], [place], [address], Provider Name:Mary Mcdaniel, 08-08-06 11:00:00 AM, [address] [place] [address] , [place], [address], Provider Name:Amadeo Copeland, 2021-07-31 10 :30:00 AM, [address] [place] [address] , [place], [address], Provider Name:Mary Mcdaniel, 09-09-02 10:30:00 AM, [address] [place] [address] , [place], [address], Provider Name:Tanya Romo, 2021-11-17 02:30:00 PM, [address] [place] [address] , [place], [address], Insurance Providers Payer Name Payer Address Payer Phone Insured Name Patient Relati onship to Insured Coverage Start Date Coverage End Date MEDICARE Part A and B [address] [facility] [phone] [facility] CLAIM [facility] [address] [facility] [phone] FRANCINE AGARWAL self
--- OUTSIDE RECORDS SUMMARY | 2021-07-18 07:04 | CCD ---
Author Author [facility] [employer] Organization [facility] Address Unknown Phone Unavailable Care Team Providers Care Fancy Needleworker Name Role Phone Hilda Burgos Unavailable PROBLEMS Type Condition ICD9-CM Code [id number] Code Onset Dates Condition S tatus W/U Status Risk SNOMED Code Notes Problem Diabetes mellitus E11.9 Active confirmed 73 261362 She had historically been on metformin at [...] January 2021. Problem Hypertension I10 Active confirmed 9177592 3 She was on hydrochlorothiazide in the [...] microalbuminuria. Problem Macular degeneration H35.30 Active confirmed 759044583 She had prior Avastin injections in the left eye but these apparently were ineffective. This may relate to her prior retinal detachment 2011, which is now nearly complete and she has almost no vision in the left eye. This is not a treatable condition apparently. Problem Gastroesophageal reflux K21.9 Active confirmed 412760021 She has historically been on omeprazole in the past, and was started on Protonix as of October 2017. She is off that now but takes famotidine daily. 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 Problem Slow transit constipation K59.01 Active confirmed 58265677 MiraLAX as prescribed on a scheduled basis, perhaps twice weekly. Problem BANKS (dyspnea on exertion) R06.09 Active confirmed 46321417 She has a history of asthma and dyspnea on exertion. There may have been a contribution from her pulmonary emboli but I did have her start Breo therapy for a month as of October 2017. She is no longer using that and her symptoms are controlled. She is also seeing a mink farmer. Problem Ureteral stone with hydronephrosis N13.2 Activ e confirmed 856053811 Problem Other chest pain R07.89 Active confirmed 298 69772 She probably had nonischemic chest pain in early November 2017 but I believe a stress echocardiogram was negative in Spring 2017--I do not have a report on that study, but she was reassured by the nuclear pharmacist. I do not think this reflects reflux or esophageal disease, and she is on Protonix anyway. She could not take nonsteroidal anti- inflammatory drugs for musculoskeletal pain because she is on warfarin. She was started on benazepril therapy since early November 2017 but has stopped that and her BP is controlled. Problem Obstructive sleep apnea syndrome G47.33 Active conf irmed 72247056 She had a sleep study and is seeing a mink farmer. She is using CPAP. Problem History of kidney stones Z87.442 Active confirmed 384463811 She has had prior kidney stones and is being followed by urology. She has 2 left intrarenal stones and still passes a fragment occasionally. It is quite painful when that happens. I have prescribed tramadol. She takes Flomax as needed. Problem Mild intermittent asthma without complication J45. 20 Active confirmed 588770251 She has had a pulmon ology consultation [...] 2019. Problem Kidney stones N20.0 Active confirmed 543620 07 Problem Encounter for therapeutic drug level monitoring Z5 1.81 Active confirmed 662836543 Problem Immunization due Z23 Active confirmed 171 784770 Tdap given 01/30/2021; needs Prevnar in 07/2021. Problem group home current use of anticoagulant Z79.01 A ctive confirmed 752102461 Problem Asthma, mild intermittent J45.20 Active confirmed 105847376 Problem History of pulmonary embolism Z86.711 Active confir med 686814526 She had bilateral pulmonary emboli in August [...] (obstructive sleep apnea) G47.33 Active confirm ed 86135303 Problem Hypercholesterolemia E78.00 Active confirmed 16348128 She has hyperlipidemia, last assessed in January [...] Problem Pulmonary nodule R91.1 Active confirmed [address] of her chest in August [...] mammogram of left breast R92.8 Active confirmed 697376262 Problem Invasive ductal carcinoma of left breast C50.912 Active confirmed 402245476 Problem BANKS (dyspnea on exertion) R06.00 Active confirmed 11311732 Problem Diabetes mellitus type 2, controlled E11.9 Act stephy confirmed 628689589 ALLERGIES No Known Allergies ENCOUNTERS from 1955 to 2021-07-11 Encounter Location Date Provider Diagnosis [place] [address] [facility] [phone] [place] [address] Jun, Hilda Burgos Anticoagulation monitoring, INR range 2-3 Z79.01 ; Asthma, mild intermittent J45.20 ; BANKS (dyspnea on exertion) R06.00 and Invasive ductal carcinoma of left breast C50.912 IMMUNIZATIONS Vaccine Route Administration Date Status TDAP [...] FOR REFERRAL No Information VITAL SIGNS Weight 201 lbs Jun, Weight-kg 91.17 kg Jun, Height 62 in Jun, BMI 36.76 kg/m2 Jun, Heart Rate 107 /min Jun, Respiratory Rate 18 /min Jun, Temperature 97.1 degrees Fahrenheit Jun, Oximetry 97 Jun, Blood pressure systolic 150 mm Hg Jun, Blood pressure diastolic 90 mm Hg Jun, MEDICATIONS Medication SIG (Take, Route, Frequency, Duration) [...] 10 day(s) Active PROCEDURES No Information RESULTS Component Value Reference Range PT-INR Fingerstick Reviewed date:07/10/2021 15:44:09 Interpretation: Performing Lab:[facility], [place] [address] INR 2.5 Verified Patient's Name and yes ndraper Current Dose 1 3mg daily except for mondays Current Dose 2 Tab Strength 3mg Indication for Anticoagulation PE Recent Bleeding no Internal QC Acceptable (Y/N) yes Therapeutic Range 2-3 Education Given (Date / Initials) New Dose 1 New Dose 2 Weekly Total Next PT-INR - - REASON FOR VISIT recheck inr/ AND status for 07/18 surgery MEDICAL (GENERAL) HISTORY Type Description Date Medical History Diabetes mellitus Medical History Hypertension Medical History History of pulmonary embolism Medical History Obstructive sleep apnea syndrome Medical History Gastroesophageal reflux Medical History Macular degeneration Medical History Hypercholesterolemia Medical History History of kidney stones Medical History 06/05/2021 - LEFT breast Inv asive Ductal Carcinoma - ER+/[place]+/Her2+ Surgical History Appendectomy 1967 Surgical History Tubal [...] Left breast ultrasound bx 05/24/21 Hospitalization History [facility] bilateral PE 08/30-09/05/2017 Hospitalization History [facility] ED chest pains 11/21/2017 Hospitalization History [facility]- Multiple bilateral pulmonary em boli 08/27-09/02/2019 Goals Section No Information Health Concerns No Information MEDICAL EQUIPMENT No Information MENTAL STATUS No Information FUNCTIONAL STATUS No Information ASSESSMENTS Encounter Date Diagnosis Assessment Notes Treatment Notes Treatm ent Clinical Notes Jun, Asthma, mild intermittent (ICD-10 - J45.20) Stable; sxs improved; lungs clear Jun, Anticoagulation monitoring, INR range 2-3 (ICD-1 0 - Z79.01) INR optinal today. Stop Coumadin 3 days prior to surgery or as otherwise directed by surgeon. Jun, BANKS (dyspnea on exertion) (ICD-10 - R06.00) Resolved Jun, Invasive ductal carcinoma of left breast (ICD-10 - C50.912) Pt is medically optimized at this time; may proceed with scheduled procedure Jun, Other Total time abdelrahman ng for the patient on the day of the encounter was 20 min PLAN OF TREATMENT Medication Medication Name Sig Start Date Stop Date Albuterol Sulfate HFA 108 (90 Base) MCG/ACT 2 puffs In halation Every 4 hours as needed for SOB, Wheeze, Cough levoFLOXacin 750 MG 1 tablet Orally Once a day for 10 day(s) Treatment Notes Assessment Notes Clinical Notes Asthma, mild intermittent Stable; sxs im proved; lungs clear Anticoagulation monitoring, INR range 2-3 INR optinal today. Stop Coumadin 3 days prior to surgery or as otherwise directed by surgeon. BANKS (dyspnea on exertion) Resolved Invasive ductal carcinoma of left breast Pt is medically optimized at this time; may proceed with scheduled procedure Next Appt Details Provider Name:Mary Mcdaniel, 09-07-30 11:00:00 AM, [address] [place], [place] [id number], [place], [address], Provider Name:Mary Mcdaniel, 08-08-06 11:00:00 AM, [address] [place], [place] [phone], [place], [address], Provider Name:Amadeo Copeland, 2021-07-31 10 :30:00 AM, [address] [place] [address], , [place], [address], Provider Name:Mary Mcdaniel, 09-09-02 10:30:00 AM, [address] [place], [place] [phone], [place], [address], Provider Name:Tanya Romo, 2021-11-17 02:30:00 PM, [address] [place], [place] [phone], [place], [address], Insurance Providers Payer Name Payer Address Payer Phone Insured Name Patient Relati onship to Insured Coverage Start Date Coverage End Date MEDICARE Part A and B [address] [facility] [id number] [phone] FRANCINE AGARWAL [facility] OPTIONS [facility] CLAIM DIV [address] [facility] [phone] FRANCINE AGARWAL self
--- OUTSIDE RECORDS SUMMARY | 2021-07-18 07:04 | CCD ---
Author Author [facility] Organization [facility] [employer] Address Unknown Phone Unavailable Care Team Providers Care Division Field Inspector Name Role Phone Mary Mcdaniel Unavailable PROBLEMS Type Condition ICD9-CM Code [id number] Code Onset Dates Condition S tatus W/U Status Risk SNOMED Code Notes Problem Hypercholesterolemia E78.00 Active confirmed 56908101 She has hyperlipidemia, last assessed in January [...] reasonable. Problem Macular degeneration H35.30 Active confirmed [id number] She had prior Avastin injections in the left eye but these apparently were ineffective. This may relate to her prior retinal detachment 2011, which is now nearly complete and she has almost no vision in the left eye. This is not a treatable condition apparently. Problem Pulmonary nodule R91.1 Active confirmed [address] of her chest in August [...] of pulmonary embolism Z86.711 Active confir med 385635629 She had bilateral pulmonary emboli in August [...] Problem Slow transit constipation K59.01 Active confirmed 37943488 MiraLAX as prescribed on a scheduled basis, perhaps twice weekly. Problem BANKS (dyspnea on exertion) R06.09 Active confirmed 14873328 She has a history of asthma and dyspnea on exertion. There may have been a contribution from her pulmonary emboli but I did have her start Breo therapy for a month as of October 2017. She is no longer using that and her symptoms are controlled. She is also seeing a photography and prints curator. Problem Ureteral stone with hydronephrosis N13.2 Activ e confirmed 367700370 Problem Other chest pain R07.89 Active confirmed 298 21153 She probably had nonischemic chest pain in early November 2017 but I believe a stress echocardiogram was negative in Spring 2017--I do not have a report on that study, but she was reassured by the shank tapper. I do not think this reflects reflux or esophageal disease, and she is on Protonix anyway. She could not take nonsteroidal anti- inflammatory drugs for musculoskeletal pain because she is on warfarin. She was started on benazepril therapy since early November 2017 but has stopped that and her BP is controlled. Problem Kidney stones N20.0 Active confirmed 928867 07 Problem Mild intermittent asthma without complication J45. 20 Active confirmed 099693831 She has had a pulmon ology consultation [...] monitoring, INR range 2-3 Z79.01 Active confirmed 581953562 Adjustments made. 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 She is using CPAP. Problem Gastroesophageal reflux K21.9 Active confirmed 656746741 She has historically been on omeprazole in the past, and was started on Protonix as of October 2017. She is off that now but takes famotidine daily. Problem Invasive ductal carcinoma of left breast C50.912 Active confirmed 426852767 Problem History of kidney stones Z87.442 Active confirmed 844622725 She has had prior kidney stones and is being followed by urology. She has 2 left intrarenal stones and still passes a fragment occasionally. It is quite painful when that happens. I have prescribed tramadol. She takes Flomax as needed. Problem Hypertension I10 Active confirmed 9473021 3 She was on hydrochlorothiazide in the [...] microalbuminuria. Problem Diabetes mellitus E11.9 Active confirmed 10 316910 She had historically been on metformin at [...] her medications as of January 2021. Problem alf (current) use of anticoagulants Z79.01 Active confirmed 068274324 Problem Encounter for therapeutic drug level monitoring Z5 1.81 Active confirmed 514326147 Problem Immunization due Z23 Active confirmed 171 537352 Tdap given 01/30/2021; needs Prevnar in 07/2021. Problem Abnormal mammogram of left breast R92.8 Active confirmed 009297812 ALLERGIES No Known Allergies ENCOUNTERS from 1955 to 2021-07-03 Encounter Location Date Provider Diagnosis [facility] [address] [facility] [phone] [place] [address] Jun, Mary Mcdaniel IMMUNIZATIONS Vaccine Route Administration Date Status TDAP 0.5mL Boostrix IM Intramuscular January 30, 2021 Administere d Pneumococcal Adult 0.5mL Pneumovax 23 IM Intramuscular Jul 28, 020 Administered TDAP Unknown Aug 19, 2007 [...] Notes Start Da te End Date Status Glucometer _ A glucometer her insurance w ill pay for DX: E11.9 Daily for 365 days Aug, Active CPAP Machine Not-Taking Famotidine 40 MG TAKE ONE TABLET BY MOUTH AT BEDTIME for 30 Active Lidocaine-Prilocaine 2.5-2.5 % apply entire tube to le ft nipple and surrounding tissue 2 hours prior to coming to hospital for surgery. Cover with plastic Externally once for 1 day May, Active Atorvastatin Calcium 20 MG 1 tablet Orally Once a day on Saturday/Saturday/Saturday for 90 Not-Taking CPAP mask as directed G47.33 Daily. H er present mask broke--please replace for 180 days December, Active Cholecalciferol 5000 UNIT 2 tablet Orally Once a day Active Albuterol Sulfate HFA 108 (90 Base) MCG/ACT 2 puffs In halation Every 4 hours as needed for SOB, Wheeze, Cough for 30 days prn Active Blood Glucose Test - To match the machine her ins urance will pay for In Vitro, DX: E11.9 3 times a day for 30 Days Aug, Active Lancets - as directed DX: E11.9 Three times a day for 90 days Aug, Active Lancet Device - as directed DX: E11.9 Daily use, three times a day for 90 day(s) Aug, Active Polyethylene Glycol 3350 17 GM/SCOOP DIRECTED DAILY NEEDED for 30 Not-Taking Coumadin 3 MG TAKE ONE TABLET BY MOUTH EVERY DAY DIRECTED for 30 Active Lipitor 20 MG 1 tablet Orally Once a day Active PROCEDURES No Information RESULTS No Results REASON FOR VISIT 07/11/21 SURG AUTH MEDICAL (GENERAL) HISTORY Type Description Date Medical History Diabetes mellitus Medical History Hypertension Medical History History of pulmonary embolism Medical History Obstructive sleep apnea syndrome Medical History Gastroesophageal reflux Medical History Macular degeneration Medical History Hypercholesterolemia Medical History History of kidney stones Medical History 06/05/2021 - LEFT breast Inv asive Ductal Carcinoma - ER+/MA+/Her2+ Surgical History Appendectomy 1967 Surgical History Tubal ligation 1983 Surgical History Cervical disc surgery 1990 Surgical History Complete hysterectomy 2002 Surgical History Colonoscopy 11/10/2007 Surgical History Left eye detached retina surgery 2011 Surgical History Left eye cataract extraction 2012? Surgical History Right knee arthroscopy 07/2017 Surgical History Kidney stone extraction-Dr. Lior--bilateral ureteroscopy with laser lithotripsy 03/10/2018 Surgical History ESWL with right stent removal 03/20/2018 Surgical History CYSTO WITH LEFT STENT REMOVAL 03/26/2018 Surgical History Left breast stereo bx 06/01/21 Surgical History Left breast ultrasound bx 05/24/21 Hospitalization History [facility] bilateral PE 08/30-09/05/2017 Hospitalization History [facility] ED chest pains 11/21/2017 Hospitalization History [facility]- Multiple bilateral pulmonary em boli 08/27-09/02/2019 Goals Section No Information Health Concerns No Information MEDICAL EQUIPMENT No Information MENTAL STATUS No Information FUNCTIONAL STATUS No Information ASSESSMENTS No Information PLAN OF TREATMENT Next Appt Details Provider Name:Jose Gurrola, 2021-07-04 0 2:00:00 PM, [address] [place], [place] [phone], [place], [address], Provider Name:Mayelin Magallon, 2020-08 08:15:00 AM, [address] [place], [place] [phone], [place], [address], Provider Name:Mary Mcdaniel, 09-07-23 11:45:00 AM, [address] [place] [phone], [place], [place], [address] [place] [address], Provider Name:Mary Mcdaniel, 08-08-03 10:30:00 AM, [address] [place], [place] [address], [place], [place], [facility], Provider Name:Amadeo Copeland, 2021-07-31 10 :30:00 AM, [address] [place] [phone], [place], [address], Provider Name:Tanya Romo, 2021-11-17 02:30:00 PM, [address] [place] [address], [place], [address], Insurance Providers Payer Name Payer Address Payer Phone Insured Name Patient Relati onship to Insured Coverage Start Date Coverage End Date [facility] [employer] CLAIM DIV [address] [facility] [address] FRANCINE AGARWAL MEDICARE Part A and B [address] [facility] [phone] FRANCINE AGARWAL self
--- OUTSIDE RECORDS SUMMARY | 2021-07-18 07:04 | CCD ---
Author Author [facility] Organization [facility] Address Unknown Phone Unavailable Care Team Providers Care [employer] Name Role Phone Mayelin Magallon Unavailable PROBLEMS Type Condition ICD9-CM Code [id number] Code Onset Dates Condition S tatus W/U Status Risk SNOMED Code Notes Problem Diabetes mellitus E11.9 Active confirmed 73 957534 She had historically been on metformin at [...] January 2021. Problem Hypertension I10 Active confirmed 3163441 3 She was on hydrochlorothiazide in the [...] microalbuminuria. Problem Macular degeneration H35.30 Active confirmed 860902409 She had prior Avastin injections in the left eye but these apparently were ineffective. This may relate to her prior retinal detachment 2011, which is now nearly complete and she has almost no vision in the left eye. This is not a treatable condition apparently. Problem Gastroesophageal reflux K21.9 Active confirmed 798879498 She has historically been on omeprazole in the past, and was started on Protonix as of October 2017. She is off that now but takes famotidine daily. 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 Problem Slow transit constipation K59.01 Active confirmed 71617988 MiraLAX as prescribed on a scheduled basis, perhaps twice weekly. Problem BANKS (dyspnea on exertion) R06.09 Active confirmed 59012351 She has a history of asthma and dyspnea on exertion. There may have been a contribution from her pulmonary emboli but I did have her start Breo therapy for a month as of October 2017. She is no longer using that and her symptoms are controlled. She is also seeing a multimedia artist. Problem Ureteral stone with hydronephrosis N13.2 Activ e confirmed 376389864 Problem Other chest pain R07.89 Active confirmed 298 14378 She probably had nonischemic chest pain in early November 2017 but I believe a stress echocardiogram was negative in Spring 2017--I do not have a report on that study, but she was reassured by the high climber. I do not think this reflects reflux or esophageal disease, and she is on Protonix anyway. She could not take nonsteroidal anti- inflammatory drugs for musculoskeletal pain because she is on warfarin. She was started on benazepril therapy since early November 2017 but has stopped that and her BP is controlled. Problem Obstructive sleep apnea syndrome G47.33 Active conf irmed 85556368 She had a sleep study and is seeing a multimedia artist. She is using CPAP. Problem History of kidney stones Z87.442 Active confirmed 980478535 She has had prior kidney stones and is being followed by urology. She has 2 left intrarenal stones and still passes a fragment occasionally. It is quite painful when that happens. I have prescribed tramadol. She takes Flomax as needed. Problem Mild intermittent asthma without complication J45. 20 Active confirmed 864040578 She has had a pulmon ology consultation [...] 2019. Problem Kidney stones N20.0 Active confirmed 788003 07 Problem Encounter for therapeutic drug level monitoring Z5 1.81 Active confirmed 745262129 Problem Immunization due Z23 Active confirmed 171 666818 Tdap given 01/30/2021; needs Prevnar in 07/2021. Problem group home current use of anticoagulant Z79.01 A ctive confirmed 716798478 Problem Asthma, mild intermittent J45.20 Active confirmed 469669155 Problem History of pulmonary embolism Z86.711 Active confir med 150039584 She had bilateral pulmonary emboli in August [...] (obstructive sleep apnea) G47.33 Active confirm ed 66484603 Problem Hypercholesterolemia E78.00 Active confirmed 53951329 She has hyperlipidemia, last assessed in January [...] Problem Pulmonary nodule R91.1 Active confirmed [address] of her chest in August [...] mammogram of left breast R92.8 Active confirmed 709473103 Problem Invasive ductal carcinoma of left breast C50.912 Active confirmed 609347034 Problem BANKS (dyspnea on exertion) R06.00 Active confirmed 49086090 Problem Diabetes mellitus type 2, controlled E11.9 Act stephy confirmed 946480939 ALLERGIES No Known Allergies ENCOUNTERS from 1955 to 2021-07-10 Encounter Location Date Provider Diagnosis [place] [id number] [facility] [phone] [place] [address] Jun, Mayelin Magallon IMMUNIZATIONS Vaccine Route Administration [...] Information RESULTS No Results REASON FOR VISIT PT/INR MEDICAL (GENERAL) HISTORY Type Description Date Medical History Diabetes mellitus Medical History Hypertension Medical History History of pulmonary embolism Medical History Obstructive sleep apnea syndrome Medical History Gastroesophageal reflux Medical History Macular degeneration Medical History Hypercholesterolemia Medical History History of kidney stones Medical History 06/05/2021 - LEFT breast Inv asive Ductal Carcinoma - ER+/GA+/Her2+ Surgical History Appendectomy 1967 Surgical History Tubal [...] Left breast ultrasound bx 05/24/21 Hospitalization History [facility] bilateral PE 08/30-09/05/2017 Hospitalization History [facility] ED chest pains 11/21/2017 Hospitalization History [facility]- Multiple bilateral pulmonary em boli 08/27-09/02/2019 [...] Details Provider Name:Mary Mcdaniel, 09-07-30 11:00:00 AM, [address] [place] [address] , [place], [address], Provider Name:Mary Mcdaniel, 08-08-06 11:00:00 AM, [address] [place] [phone], [place], [address], Provider Name:Amadeo Copeland, 2021-07-31 10 :30:00 AM, [address] [place] [address], , [place], [address], Provider Name:Mary Mcdaniel, 09-09-02 10:30:00 AM, [address] [place] [phone], [place], [address], Provider Name:Tanya Romo, 2021-11-17 02:30:00 PM, [address] [place] [phone], [place], [address], Insurance Providers Payer Name Payer Address Payer Phone Insured Name Patient Relati onship to Insured Coverage Start Date Coverage End Date MEDICARE Part A and B [address] [facility] [id number] [phone] FRANCINE AGARWAL [facility] OPTIONS [facility] CLAIM [facility] [address] [facility] [phone] FRANCINE AGARWAL self
--- OUTSIDE RECORDS SUMMARY | 2021-07-18 07:04 | CCD ---
Author Author [facility] Organization [facility] Address Unknown Phone Unavailable Care Team Providers Care Paper And Pulp Mill Operator Name Role Phone Mary Mcdaniel Unavailable PROBLEMS Type Condition ICD9-CM Code [id number] Code Onset Dates Condition S tatus W/U Status Risk SNOMED Code Notes Problem Diabetes mellitus E11.9 Active confirmed 73 [id number] She had historically been on metformin at [...] January 2021. Problem Hypertension I10 Active confirmed 6747932 3 She was on hydrochlorothiazide in the [...] microalbuminuria. Problem Macular degeneration H35.30 Active confirmed 034287407 She had prior Avastin injections in the left eye but these apparently were ineffective. This may relate to her prior retinal detachment 2011, which is now nearly complete and she has almost no vision in the left eye. This is not a treatable condition apparently. Problem Gastroesophageal reflux K21.9 Active confirmed 298083616 She has historically been on omeprazole in the past, and was started on Protonix as of October 2017. She is off that now but takes famotidine daily. 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 Problem Slow transit constipation K59.01 Active confirmed 41841986 MiraLAX as prescribed on a scheduled basis, perhaps twice weekly. Problem BANKS (dyspnea on exertion) R06.09 Active confirmed 53061974 She has a history of asthma and dyspnea on exertion. There may have been a contribution from her pulmonary emboli but I did have her start Breo therapy for a month as of October 2017. She is no longer using that and her symptoms are controlled. She is also seeing a asphalt paver operator. Problem Ureteral stone with hydronephrosis N13.2 Activ e confirmed 206486008 Problem Other chest pain R07.89 Active confirmed 298 44836 She probably had nonischemic chest pain in early November 2017 but I believe a stress echocardiogram was negative in Spring 2017--I do not have a report on that study, but she was reassured by the office clerk routine. I do not think this reflects reflux or esophageal disease, and she is on Protonix anyway. She could not take nonsteroidal anti- inflammatory drugs for musculoskeletal pain because she is on warfarin. She was started on benazepril therapy since early November 2017 but has stopped that and her BP is controlled. Problem Obstructive sleep apnea syndrome G47.33 Active conf irmed [id number] She had a sleep study and is seeing a asphalt paver operator. She is using CPAP. Problem History of kidney stones Z87.442 Active confirmed 824850803 She has had prior kidney stones and is being followed by urology. She has 2 left intrarenal stones and still passes a fragment occasionally. It is quite painful when that happens. I have prescribed tramadol. She takes Flomax as needed. Problem Mild intermittent asthma without complication J45. 20 Active confirmed 961640124 She has had a pulmon ology consultation [...] 2019. Problem Kidney stones N20.0 Active confirmed 556247 07 Problem Encounter for therapeutic drug level monitoring Z5 1.81 Active confirmed 747251619 Problem Immunization due Z23 Active confirmed 171 468852 Tdap given 01/30/2021; needs Prevnar in 07/2021. Problem termite control representative current use of anticoagulant Z79.01 A ctive confirmed 562483700 Problem Asthma, mild intermittent J45.20 Active confirmed 166001865 Problem History of pulmonary embolism Z86.711 Active confir med 991206550 She had bilateral pulmonary emboli in August [...] (obstructive sleep apnea) G47.33 Active confirm ed 26620418 Problem Hypercholesterolemia E78.00 Active confirmed 93880891 She has hyperlipidemia, last assessed in January [...] Problem Pulmonary nodule R91.1 Active confirmed [address] of her chest in August [...] mammogram of left breast R92.8 Active confirmed 552283787 Problem Invasive ductal carcinoma of left breast C50.912 Active confirmed 147569421 Problem BANKS (dyspnea on exertion) R06.00 Active confirmed 70339965 Problem Diabetes mellitus type 2, controlled E11.9 Act stephy confirmed 950073947 ALLERGIES No Known Allergies ENCOUNTERS from 1955 to 2021-07-12 Encounter Location Date Provider Diagnosis [facility] [address] [facility] [phone] [place] [address] 12 Jun, 2021 Mary Mcdaniel Invasive ductal carcinoma of left breast C50.912 ; Abnormal mammogram of left breast R92.8 ; Family history of cancer Z80.9 ; Genetic screening Z13.79 and termite control representative current use of anticoagulant Z79.01 IMMUNIZATIONS Vaccine [...] FOR REFERRAL No Information VITAL SIGNS Weight 203 lbs Jun, Weight-kg 92.08 kg Jun, Height 62 in Jun, BMI 37.13 kg/m2 Jun, Heart Rate 85 /min Jun, Respiratory Rate 18 /min Jun, Temperature 98.0 degrees Fahrenheit Jun, Oximetry 99 Jun, Blood pressure systolic 146 mm Hg Jun, Blood pressure diastolic 90 [...] Information RESULTS No Results REASON FOR VISIT clip placement check MEDICAL (GENERAL) HISTORY Type Description Date Medical History Diabetes mellitus Medical History Hypertension Medical History History of pulmonary embolism Medical History Obstructive sleep apnea syndrome Medical History Gastroesophageal reflux Medical History Macular degeneration Medical History Hypercholesterolemia Medical History History of kidney stones Medical History 06/05/2021 - LEFT breast Inv asive Ductal Carcinoma - ER+/UT+/Her2+ Surgical History Appendectomy 1967 Surgical History Tubal [...] Left breast ultrasound bx 05/24/21 Hospitalization History [facility] bilateral PE 08/30-09/05/2017 Hospitalization History [facility] ED chest pains 11/21/2017 Hospitalization History [facility]- Multiple bilateral pulmonary em boli 08/27-09/02/2019 Goals Section No Information Health Concerns No Information MEDICAL EQUIPMENT No Information MENTAL STATUS No Information FUNCTIONAL STATUS No Information ASSESSMENTS Encounter Date Diagnosis Assessment Notes Treatment Notes Treatm ent Clinical Notes Jun, Invasive ductal carcinoma of left breast (ICD-10 - C50.912) LEFT BREAST CANCER IDC GRADE 2 ER 100% UT 80% HER2 positive cT1a (6mm) cN0 cM0 ANATOMICAL STAGE 1 CLINICAL PROGNOSTIC STAGE: 1 PLAN: 1. Planning for lumpectomy and SLNBx 07/11 2. Will discuss case at tumor board to determine NAC vs surgery first since Ca is Her2+ 3. Preop testing/ medical clearance will need to be obtained prior to surgery 4. Referral sent to Medical Oncology, will need chemotherapy due to triple positive cancer 5. Referral to Radiation Oncology post surgery We discussed her surgical options again. I explained again that regardless of the breast surgical procedure, she will need her lymph nodes evaluated as well. I reminded patient that her cancer is 6mm which makes her a great candidate for a lumpectomy, though a mastectomy may be pursued if that is her wish. I advised again that this is her decision to make. Patient would like to proceed with Left breast lumpectomy and Left sentinel lymph node biopsy. . We discussed that because her cancer is triple positive, she will need chemotherapy at [place]. I will present her case at tumor board next week to determine if chemotherapy shoudl be done in neoadjuvant vs adjuvant fashion. I informed patient that likely we will proceed with surgery first due to small size of the tumor but I still would like multidisciplinary input into her case. I will call her with the results of the discussion. If chemotherapy can wait until after surgery, we will plan for her lumpectomy and SLNBx on 07/11. If not, we will connect her with [facility] and cancel the surgery on 07/11/21. We discussed again the need for radiation. We discussed that she will need therapy if she proceeds with a lumpectomy or if her mastectomy margins are positive. She would also need radiation to the axilla if her lymph nodes are positive on sentinel biopsy. We reviewed again with her lumpectomy and SLNBx procedure. I explained the risks and possible complications including bleeding, infection, and injury to surrounding structures like skin, nipple, muscle, lung, nerves , numbness to the skin and/or nipple, scarring, bruising, hematoma, seroma, nipple necrosis, lymphedema, contour deformity, poor cosmetic outcomes, and need for additional surgeries. She will need preop clearance with her PCP with the latest labs and imaging (CBC, BMP, CXR, EKG). All questions were answered. Patient agrees with the plan Jun, Abnormal mammogram of left breast (ICD-10 - R92. 8) s/p L ultrasound guided needle aspiration on 05/24/2021 with me Cytology showed scattered small groups of apocrine cells noted in a background of scattered macrophages, lymphocytes, and blood elements. s/p Left stereotactic biopsy on 06/01/2021 with RADIOLOGY - DISPLACED CLIP! s/p left stereotactic clip placement on 06/27/2021 with RADIOLOGY - clip in correct location See above Jun, Family history of cancer (ICD-10 - Z80.9) Patient participated in our cancer screening program and she was identified as a person who may be eligible for genetic testing due to her family history. Her TC score is 4.3% Jun, Genetic screening (ICD-10 - Z13.79) Full panel testing done, copy given today 06/30. Negative for clinically significant mutations, no VUS Jun, [facility] current use of anticoagulant (ICD-10 - Z79.01) Patient is on Coumadin. This will need to be held prior to bx per Dr Copeland's recommendations. Jun, Other I, Dr. Sammy small, reviewed the medical note prepared by the [...] day(s) Treatment Notes Assessment Notes Clinical Notes Invasive ductal carcinoma of left breast LEFT BREAST C ANCERIDC GRADE 2ER 100% UT 80% HER2 [id number] (6mm) cN0 [id number] STAGE 1CLINICAL PROGNOSTIC STAGE: 1PLAN:1. Planning for lumpectomy and SLNBx . Will discuss case at tumor b oard to determine NAC vs surgery first since Ca is Her2+3. Preop testing/ medical clearance will need to be obtained prior to surgery4. Referral sent to Medical Oncology, will need chemotherapy due to triple positive cancer5. Referral to Radiation Oncology post surgeryWe discussed her surgical options again. I explained again that regardless of the breast surgical procedure, she will need her lymph nodes evaluated as well.I reminded patient that her cancer is 6mm which makes her a great candidate for a lumpectomy, though a mastectomy may be pursued if that is her wish. I advised again that this is her decision to make. Patient would like to proceed with Left breast lumpectomy and Left sentinel lymph node biopsy. .We discussed that because her cancer is triple positive, she will need chemotherapy at [place]. I will present her case at tumor board next week to determine if chemotherapy shoudl be done in neoadjuvant vs adjuvant fashion. I informed patient that likely we will proceed with surgery first due to small size of the tumor but I still would like multidisciplinary input into her case. I will call her with the results of the discussion. If chemotherapy can wait until after surgery, we will plan for her lumpectomy and SLNBx on 07/11. If not, we will connect her with [facility] and cancel the surgery on 07/11/21.We discussed again the need for radiation. We discussed that she will need therapy if she proceeds with a lumpectomy or if her mastectomy margins are positive. She would also need radiation to the axilla if her lymph nodes are positive on sentinel biopsy.We reviewed again with her lumpectomy and SLNBx procedure. I explained the risks and possible complications including bleeding, infection, and injury to surrounding structures like skin, nipple, muscle, lung, nerves , numbness to the skin and/or nipple, scarring, bruising, hematoma, seroma, nipple necrosis, lymphedema, contour deformity, poor cosmetic outcomes, and need for additional surgeries.She will need preop clearance with her PCP with the latest labs and imaging (CBC, BMP, CXR, EKG).All questions were answered. Patient agrees with the plan Abnormal mammogram of left breast s/p L ultrasound kelvin ded needle aspiration on 05/24/2021 with meCytology showed scattered small groups of apocrine cells noted in a background of scattered macrophages, lymphocytes, and blood elements.s/p Left stereotactic biopsy on 06/01/2021 with RADIOLOGY - DISPLACED CLIP!s/p left stereotactic clip placement on 06/27/2021 with RADIOLOGY - clip in correct locationSee above Family history of cancer Patient participated in our cancer screening program and she was identified as a person who may be eligible for genetic testing due to her family history.Her TC score is 4.3% Genetic screening Full panel testing done, copper plate lithographer y given today 06/30.Negative for clinically significant mutations, no VUS termite control representative current use of anticoagulant Patient is on C oumadin. This will need to be held prior to bx per Dr Copeland's recommendations. Next Appt Details Provider Name:Mary Mcdaniel, 09-07-30 11:00:00 AM, [address] [place] [address], , [place], [address], Provider Name:Mary Mcdaniel, 08-08-06 11:00:00 AM, [address] [place] [address], , [place], [address], Provider Name:Amadeo Copeland, 2021-07-31 10 :30:00 AM, [address] [place] [address], , [place], [address], Provider Name:Mary Mcdaniel, 09-09[birth year]02 10:30:00 AM, [address] [place] [address] , [place], [place], [facility], Provider Name:Tanya Romo, 2021-11-17 02:30:00 PM, [address] [place] [address], , [place], [place], [facility], Insurance Providers Payer Name Payer Address Payer Phone Insured Name Patient Relati onship to Insured Coverage Start Date Coverage End Date [employer] [facility] CLAIM DIV [address] [facility] [phone] FRANCINE AGARWAL MEDICARE Part A and B [address] [facility] [phone] FRANCINE AGARWAL self
--- OUTSIDE RECORDS SUMMARY | 2021-07-18 07:04 | CCD ---
Author Author [facility] [employer] [facility] Organization [facility] [employer] Address Unknown Phone Unavailable Care Team Providers Care Smalltalk Developer Name Role Phone Jose Gurrola Unavailable PROBLEMS Type Condition ICD9-CM Code [id number] Code Onset Dates Condition S tatus W/U Status Risk SNOMED Code Notes Problem Diabetes mellitus E11.9 Active confirmed 73 081458 She had historically been on metformin at [...] January 2021. Problem Hypertension I10 Active confirmed 9373097 3 She was on hydrochlorothiazide in the [...] microalbuminuria. Problem Macular degeneration H35.30 Active confirmed 510425483 She had prior Avastin injections in the left eye but these apparently were ineffective. This may relate to her prior retinal detachment 2011, which is now nearly complete and she has almost no vision in the left eye. This is not a treatable condition apparently. Problem Gastroesophageal reflux K21.9 Active confirmed 468510332 She has historically been on omeprazole in the past, and was started on Protonix as of October 2017. She is off that now but takes famotidine daily. 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 Problem Slow transit constipation K59.01 Active confirmed 03258444 MiraLAX as prescribed on a scheduled basis, perhaps twice weekly. Problem BANKS (dyspnea on exertion) R06.09 Active confirmed 14707180 She has a history of asthma and dyspnea on exertion. There may have been a contribution from her pulmonary emboli but I did have her start Breo therapy for a month as of October 2017. She is no longer using that and her symptoms are controlled. She is also seeing a retail product demo specialist. Problem Ureteral stone with hydronephrosis N13.2 Activ e confirmed 219898151 Problem Other chest pain R07.89 Active confirmed 298 95582 She probably had nonischemic chest pain in early November 2017 but I believe a stress echocardiogram was negative in Spring 2017--I do not have a report on that study, but she was reassured by the manpower development manager. I do not think this reflects reflux or esophageal disease, and she is on Protonix anyway. She could not take nonsteroidal anti- inflammatory drugs for musculoskeletal pain because she is on warfarin. She was started on benazepril therapy since early November 2017 but has stopped that and her BP is controlled. Problem Obstructive sleep apnea syndrome G47.33 Active conf irmed [id number] She had a sleep study and is seeing a retail product demo specialist. She is using CPAP. Problem History of kidney stones Z87.442 Active confirmed 149698978 She has had prior kidney stones and is being followed by urology. She has 2 left intrarenal stones and still passes a fragment occasionally. It is quite painful when that happens. I have prescribed tramadol. She takes Flomax as needed. Problem Mild intermittent asthma without complication J45. 20 Active confirmed 765131244 She has had a pulmon ology consultation [...] 2019. Problem Kidney stones N20.0 Active confirmed 415111 07 Problem Encounter for therapeutic drug level monitoring Z5 1.81 Active confirmed 358168875 Problem Immunization due Z23 Active confirmed 171 844496 Tdap given 01/30/2021; needs Prevnar in 07/2021. 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 A ctive confirmed 207138767 Problem Asthma, mild intermittent J45.20 Active confirmed 649804050 Problem History of pulmonary embolism Z86.711 Active confir med 798113349 She had bilateral pulmonary emboli in August [...] (obstructive sleep apnea) G47.33 Active confirm ed 43654075 Problem Hypercholesterolemia E78.00 Active confirmed 40139013 She has hyperlipidemia, last assessed in January [...] Problem Pulmonary nodule R91.1 Active confirmed [address] of her chest in August [...] mammogram of left breast R92.8 Active confirmed 484503486 Problem Invasive ductal carcinoma of left breast C50.912 Active confirmed 947796885 Problem BANKS (dyspnea on exertion) R06.00 Active confirmed 57144411 Problem Diabetes mellitus type 2, controlled E11.9 Act stephy confirmed 769257542 ALLERGIES No Known Allergies ENCOUNTERS from 1955 to 2021-07-10 Encounter Location Date Provider Diagnosis [place] [address] [facility] [phone] [place] [address] Jun, Jose Gurrola IMMUNIZATIONS Vaccine Route Administration [...] Glucometer _ A glucometer her insurance w [employer] pay for DX: E11.9 Daily for 365 [...] Information RESULTS No Results REASON FOR VISIT No Information MEDICAL (GENERAL) HISTORY Type Description Date Medical History Diabetes mellitus Medical History Hypertension Medical History History of pulmonary embolism Medical History Obstructive sleep apnea syndrome Medical History Gastroesophageal reflux Medical History Macular degeneration Medical History Hypercholesterolemia Medical History History of kidney stones Medical History 06/05/2021 - LEFT breast Inv asive Ductal Carcinoma - ER+/[place]+/Her2+ Surgical History Appendectomy 1967 Surgical History Tubal [...] Left breast ultrasound bx 05/24/21 Hospitalization History [facility] bilateral PE 08/30-09/05/2017 Hospitalization History [facility] ED chest pains 11/21/2017 Hospitalization History [facility]- Multiple bilateral pulmonary em boli 08/27-09/02/2019 [...] Details Provider Name:Mary Mcdaniel, 09-07-30 11:00:00 AM, [address] [place] [phone], [place], [address], Provider Name:Mary Mcdaniel, 08-08-06 11:00:00 AM, [address] [place] [address] , [place], [address], Provider Name:Amadeo Copeland, 2021-07-31 10 :30:00 AM, [address] [place] [address] , [place], [address], Provider Name:Mary Mcdaniel, 09-09-02 10:30:00 AM, [address] [place] [phone], [place], [address], Provider Name:Tanya Romo, 2021-11-17 02:30:00 PM, [address] [place] [address] , [place], [address], Insurance Providers Payer Name Payer Address Payer Phone Insured Name Patient Relati onship to Insured Coverage Start Date Coverage End Date MEDICARE Part A and B [address] [facility] [id number] FRANCINE AGARWAL [facility] CLAIM [facility] [address] [facility] [id number] FRANCINE AGARWAL self
--- OUTSIDE RECORDS SUMMARY | 2021-07-18 07:04 | CCD ---
Author Author [facility] [employer] Organization [facility] [employer] Address Unknown Phone Unavailable Care Team Providers Care Field Aide Name Role Phone Jose Gurrola Unavailable PROBLEMS Type Condition ICD9-CM Code NJO73-TM Code Onset Dates Condition S tatus W/U Status Risk SNOMED Code Notes Problem Diabetes mellitus E11.9 Active confirmed 73 235969 She had historically been on metformin at [...] January 2021. Problem Hypertension I10 Active confirmed 6529946 3 She was on hydrochlorothiazide in the [...] microalbuminuria. Problem Macular degeneration H35.30 Active confirmed 659019455 She had prior Avastin injections in the left eye but these apparently were ineffective. This may relate to her prior retinal detachment 2011, which is now nearly complete and she has almost no vision in the left eye. This is not a treatable condition apparently. Problem Gastroesophageal reflux K21.9 Active confirmed 476155308 She has historically been on omeprazole in the past, and was started on Protonix as of October 2017. She is off that now but takes famotidine daily. 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 Problem Slow transit constipation K59.01 Active confirmed 88279588 MiraLAX as prescribed on a scheduled basis, perhaps twice weekly. Problem BANKS (dyspnea on exertion) R06.09 Active confirmed 67658667 She has a history of asthma and dyspnea on exertion. There may have been a contribution from her pulmonary emboli but I did have her start Breo therapy for a month as of October 2017. She is no longer using that and her symptoms are controlled. She is also seeing a slitter cut off operator. Problem Ureteral stone with hydronephrosis N13.2 Activ e confirmed 946806101 Problem Other chest pain R07.89 Active confirmed 298 78552 She probably had nonischemic chest pain in early November 2017 but I believe a stress echocardiogram was negative in Spring 2017--I do not have a report on that study, but she was reassured by the senior android software engineer. I do not think this reflects reflux or esophageal disease, and she is on Protonix anyway. She could not take nonsteroidal anti- inflammatory drugs for musculoskeletal pain because she is on warfarin. She was started on benazepril therapy since early November 2017 but has stopped that and her BP is controlled. Problem Obstructive sleep apnea syndrome G47.33 Active conf irmed 16022173 She had a sleep study and is seeing a slitter cut off operator. She is using CPAP. Problem History of kidney stones Z87.442 Active confirmed 369628259 She has had prior kidney stones and is being followed by urology. She has 2 left intrarenal stones and still passes a fragment occasionally. It is quite painful when that happens. I have prescribed tramadol. She takes Flomax as needed. Problem Mild intermittent asthma without complication J45. 20 Active confirmed 491786671 She has had a pulmon ology consultation [...] 2019. Problem Kidney stones N20.0 Active confirmed 493742 07 Problem Encounter for therapeutic drug level monitoring Z5 1.81 Active confirmed 298185828 Problem Immunization due Z23 Active confirmed 171 812666 Tdap given 01/30/2021; needs Prevnar in 07/2021. Problem assistant terminal manager current use of anticoagulant Z79.01 A ctive confirmed 413333458 Problem Asthma, mild intermittent J45.20 Active confirmed 054501149 Problem History of pulmonary embolism Z86.711 Active confir med 080114152 She had bilateral pulmonary emboli in August [...] (obstructive sleep apnea) G47.33 Active confirm ed 25672455 Problem Hypercholesterolemia E78.00 Active confirmed 44190686 She has hyperlipidemia, last assessed in January [...] Problem Pulmonary nodule R91.1 Active confirmed [address] of her chest in August [...] mammogram of left breast R92.8 Active confirmed 693150049 Problem Invasive ductal carcinoma of left breast C50.912 Active confirmed 757647883 Problem BANKS (dyspnea on exertion) R06.00 Active confirmed 64856652 Problem Diabetes mellitus type 2, controlled E11.9 Act stephy confirmed 481219420 ALLERGIES No Known Allergies ENCOUNTERS from 1955 to 2021-07-06 Encounter Location Date Provider Diagnosis [place] [address] [facility] [phone] [place] [address] Jun, Jose Gurrola IMMUNIZATIONS Vaccine Route Administration [...] LEFT breast Inv asive Ductal Carcinoma - ER+/MS+/Her2+ Surgical History Appendectomy 1967 Surgical History Tubal [...] Left breast ultrasound bx 05/24/21 Hospitalization History [facility] bilateral PE 08/30-09/05/2017 Hospitalization History [facility] ED chest pains 11/21/2017 Hospitalization History [facility]- Multiple bilateral pulmonary em boli 08/27-09/02/2019 Goals Section No Information Health Concerns No Information MEDICAL EQUIPMENT No Information MENTAL STATUS No Information FUNCTIONAL STATUS No Information ASSESSMENTS No Information PLAN OF TREATMENT Next Appt Details Provider Name:Mayelin Magallon, 2020-08 08:30:00 AM, [address] [place] [address] , [place], [address], Provider Name:Mary Mcdaniel, 09-07-30 11:00:00 AM, [address] [place] [phone], [place], [address], Provider Name:Mary Mcdaniel, 08-08-06 11:00:00 AM, [address] [place], [place] [phone], [place], [place], [facility] [phone] Provider Name:Amadeo Copeland, 2021-07-31 10 :30:00 AM, [address] [place] [address] , [place], [address], Provider Name:Tanya Romo, 2021-11-17 02:30:00 PM, [address] [place], [place] [id number], [place], [place], [address] [place], [place] [phone] Insurance Providers Payer Name Payer Address Payer Phone Insured Name Patient Relati onship to Insured Coverage Start Date Coverage End Date [employer] OPTIONS [facility] CLAIM DIV [address] [facility] [phone] FRANCINE AGARWAL MEDICARE Part A and B [address] [facility] [id number] [phone] FRANCINE AGARWAL self
--- OUTSIDE RECORDS SUMMARY | 2021-07-18 07:04 | CCD ---
Author Author [facility] [facility] Organization [facility] [facility] Address Unknown Phone Unavailable Care Team Providers Care Chief Cardiopulmonary Technologist Name Role Phone Mary Mcdaniel Unavailable PROBLEMS Type Condition ICD9-CM Code SHG00-ZP Code Onset Dates Condition S tatus W/U Status Risk SNOMED Code Notes Problem Hypercholesterolemia E78.00 Active confirmed 97444768 She has hyperlipidemia, last assessed in January [...] reasonable. Problem Macular degeneration H35.30 Active confirmed 088241905 She had prior Avastin injections in the left eye but these apparently were ineffective. This may relate to her prior retinal detachment 2011, which is now nearly complete and she has almost no vision in the left eye. This is not a treatable condition apparently. Problem Pulmonary nodule R91.1 Active confirmed [address] of her chest in August [...] of pulmonary embolism Z86.711 Active confir med 308455073 She had bilateral pulmonary emboli in August [...] Problem Slow transit constipation K59.01 Active confirmed 89032535 MiraLAX as prescribed on a scheduled basis, perhaps twice weekly. Problem BANKS (dyspnea on exertion) R06.09 Active confirmed 52540749 She has a history of asthma and dyspnea on exertion. There may have been a contribution from her pulmonary emboli but I did have her start Breo therapy for a month as of October 2017. She is no longer using that and her symptoms are controlled. She is also seeing a zig zag spring machine operator. Problem Ureteral stone with hydronephrosis N13.2 Activ e confirmed 996869160 Problem Other chest pain R07.89 Active confirmed 298 15387 She probably had nonischemic chest pain in early November 2017 but I believe a stress echocardiogram was negative in Spring 2017--I do not have a report on that study, but she was reassured by the yarn texture machine operator. I do not think this reflects reflux or esophageal disease, and she is on Protonix anyway. She could not take nonsteroidal anti- inflammatory drugs for musculoskeletal pain because she is on warfarin. She was started on benazepril therapy since early November 2017 but has stopped that and her BP is controlled. Problem Kidney stones N20.0 Active confirmed 862757 07 Problem Mild intermittent asthma without complication J45. 20 Active confirmed 524037891 She has had a pulmon ology consultation [...] monitoring, INR range 2-3 Z79.01 Active confirmed 884035636 Adjustments made. 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 She is using CPAP. Problem Gastroesophageal reflux K21.9 Active confirmed 813681733 She has historically been on omeprazole in the past, and was started on Protonix as of October 2017. She is off that now but takes famotidine daily. Problem Invasive ductal carcinoma of left breast C50.912 Active confirmed 002224085 Problem History of kidney stones Z87.442 Active confirmed 832023180 She has had prior kidney stones and is being followed by urology. She has 2 left intrarenal stones and still passes a fragment occasionally. It is quite painful when that happens. I have prescribed tramadol. She takes Flomax as needed. Problem Hypertension I10 Active confirmed 1802800 3 She was on hydrochlorothiazide in the [...] microalbuminuria. Problem Diabetes mellitus E11.9 Active confirmed 27 992478 She had historically been on metformin at [...] her medications as of January 2021. Problem USP (current) use of anticoagulants Z79.01 Active confirmed 128060926 Problem Encounter for therapeutic drug level monitoring Z5 1.81 Active confirmed 872944890 Problem Immunization due Z23 Active confirmed 171 228204 Tdap given 01/30/2021; needs Prevnar in 07/2021. Problem Abnormal mammogram of left breast R92.8 Active confirmed 481895056 ALLERGIES No Known Allergies ENCOUNTERS from 1955 to 2021-07-01 Encounter Location Date Provider Diagnosis [facility] [address] [facility] [phone] [place] [address] 12 Jun, 2021 Mary Mcdaniel IMMUNIZATIONS Vaccine Route [...] Information RESULTS No Results REASON FOR VISIT emla approval MEDICAL (GENERAL) HISTORY Type Description Date Medical History Diabetes mellitus Medical History Hypertension Medical History History of pulmonary embolism Medical History Obstructive sleep apnea syndrome Medical History Gastroesophageal reflux Medical History Macular degeneration Medical History Hypercholesterolemia Medical History History of kidney stones Medical History 06/05/2021 - LEFT breast Inv asive Ductal Carcinoma - ER+/VA+/Her2+ Surgical History Appendectomy 1967 Surgical History Tubal [...] Left breast ultrasound bx 05/24/21 Hospitalization History [facility] bilateral PE 08/30-09/05/2017 Hospitalization History [facility] ED chest pains 11/21/2017 Hospitalization History [facility]- Multiple bilateral pulmonary em boli 08/27-09/02/2019 Goals Section No Information Health Concerns No Information MEDICAL EQUIPMENT No Information MENTAL STATUS No Information FUNCTIONAL STATUS No Information ASSESSMENTS No Information PLAN OF TREATMENT Next Appt Details Provider Name:Jose Gurrola, 2021-07-04 0 2:00:00 PM, [address] [place] [address] , [place], [address], Provider Name:Mayelin Magallno, 2020-08 08:15:00 AM, [address] [place] [address] , [place], [address], Provider Name:Amadeo Copeland, 2021-07-31 10 :30:00 AM, [address] [place] [address] , [place], [address], Provider Name:Tanya Foxjac, 2021-11-17 02:30:00 PM, [address] [place] [address], , [place], [address], Insurance Providers Payer Name Payer Address Payer Phone Insured Name Patient Relati onship to Insured Coverage Start Date Coverage End Date [employer] HE[employer] C[employer] OPTIONS [facility] CLAIM DIV [address] [facility] [phone] FRANCINE AGARWAL MEDICARE Part A and B [address] [facility] [phone] FRANCINE AGARWAL self
--- OUTSIDE RECORDS SUMMARY | 2021-07-18 07:04 | CCD ---
Author Author [facility] Organization [facility] Address Unknown Phone Unavailable Care Team Providers Care Talent Scout Name Role Phone Mayelin Magallon Unavailable PROBLEMS Type Condition ICD9-CM Code AKI46-HS Code Onset Dates Condition S tatus W/U Status Risk SNOMED Code Notes Problem Diabetes mellitus E11.9 Active confirmed 73 023570 She had historically been on metformin at [...] January 2021. Problem Hypertension I10 Active confirmed 0311813 3 She was on hydrochlorothiazide in the [...] microalbuminuria. Problem Macular degeneration H35.30 Active confirmed 258693976 She had prior Avastin injections in the left eye but these apparently were ineffective. This may relate to her prior retinal detachment 2011, which is now nearly complete and she has almost no vision in the left eye. This is not a treatable condition apparently. Problem Gastroesophageal reflux K21.9 Active confirmed 279338416 She has historically been on omeprazole in the past, and was started on Protonix as of October 2017. She is off that now but takes famotidine daily. 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 Problem Slow transit constipation K59.01 Active confirmed 52595876 MiraLAX as prescribed on a scheduled basis, perhaps twice weekly. Problem BANKS (dyspnea on exertion) R06.09 Active confirmed 03228982 She has a history of asthma and dyspnea on exertion. There may have been a contribution from her pulmonary emboli but I did have her start Breo therapy for a month as of October 2017. She is no longer using that and her symptoms are controlled. She is also seeing a pallet stone inserter. Problem Ureteral stone with hydronephrosis N13.2 Activ e confirmed 047085722 Problem Other chest pain R07.89 Active confirmed 298 36001 She probably had nonischemic chest pain in early November 2017 but I believe a stress echocardiogram was negative in Spring 2017--I do not have a report on that study, but she was reassured by the loom overhauler. I do not think this reflects reflux or esophageal disease, and she is on Protonix anyway. She could not take nonsteroidal anti- inflammatory drugs for musculoskeletal pain because she is on warfarin. She was started on benazepril therapy since early November 2017 but has stopped that and her BP is controlled. Problem Obstructive sleep apnea syndrome G47.33 Active conf irmed 24344988 She had a sleep study and is seeing a pallet stone inserter. She is using CPAP. Problem History of kidney stones Z87.442 Active confirmed 598903832 She has had prior kidney stones and is being followed by urology. She has 2 left intrarenal stones and still passes a fragment occasionally. It is quite painful when that happens. I have prescribed tramadol. She takes Flomax as needed. Problem Mild intermittent asthma without complication J45. 20 Active confirmed 258546235 She has had a pulmon ology consultation [...] 2019. Problem Kidney stones N20.0 Active confirmed 400603 07 Problem Encounter for therapeutic drug level monitoring Z5 1.81 Active confirmed 187952371 Problem Immunization due Z23 Active confirmed 171 357250 Tdap given 01/30/2021; needs Prevnar in 07/2021. Problem jail current use of anticoagulant Z79.01 A ctive confirmed 584930886 Problem Asthma, mild intermittent J45.20 Active confirmed 169928829 Problem History of pulmonary embolism Z86.711 Active confir med 642455325 She had bilateral pulmonary emboli in August [...] (obstructive sleep apnea) G47.33 Active confirm ed 89702652 Problem Hypercholesterolemia E78.00 Active confirmed 97440780 She has hyperlipidemia, last assessed in January [...] Problem Pulmonary nodule R91.1 Active confirmed [address] of her chest in August [...] mammogram of left breast R92.8 Active confirmed 869839903 Problem Invasive ductal carcinoma of left breast C50.912 Active confirmed 012853882 Problem BANKS (dyspnea on exertion) R06.00 Active confirmed 94320977 Problem Diabetes mellitus type 2, controlled E11.9 Act stephy confirmed 901180780 ALLERGIES No Known Allergies ENCOUNTERS from 1955 to 2021-07-12 Encounter Location Date Provider Diagnosis [place] [address] [facility] [phone] [place] [address] Jun, Mayelin Magallon Asthma, mild intermittent J4 5.20 ; BANKS (dyspnea on exertion) R06.00 ; History of pulmonary embolism Z86.711 and jail (current) use of anticoagulants Z79.01 IMMUNIZATIONS Vaccine Route Administration Date Status [...] Information VITAL SIGNS Weight 203 lbs Jun, Height 62 in Jun, BMI 37.13 kg/m2 Jun, Heart Rate 82 /min Jun, Respiratory Rate 20 /min Jun, Temperature 97.3 degrees Fahrenheit Jun, Oximetry 99 Jun, Blood pressure systolic 130 mm Hg Jun, Blood pressure diastolic 70 mm Hg Jun, MEDICATIONS Medication SIG (Take, [...] Component Value Reference Range PT-INR Fingerstick Reviewed date:07/07/2021 10:36:45 Interpretation: Performing Lab:[facility], [facility], [place] [id number] INR 3.9 Verified Patient's Name and yes Current Dose 1 3mg daily/ 6mg 07/04/2021 Current Dose 2 Tab Strength 3mg Indication for Anticoagulation PE Recent Bleeding no Internal QC Acceptable (Y/N) yes Therapeutic Range 2-3 Education Given (Date / Initials) New Dose 1 New Dose 2 Weekly Total Next PT-INR - - REASON FOR VISIT fu per asiya, inr, PT/IR done. 3.9 MEDICAL (GENERAL) HISTORY Type Description Date Medical [...] Left breast ultrasound bx 05/24/21 Hospitalization History [facility] bilateral PE 08/30-09/05/2017 Hospitalization History [facility] ED chest pains 11/21/2017 Hospitalization History [facility]- Multiple bilateral pulmonary em boli 08/27-09/02/2019 Goals Section No Information Health Concerns No Information MEDICAL EQUIPMENT No Information MENTAL STATUS No Information FUNCTIONAL STATUS No Information ASSESSMENTS Encounter Date Diagnosis Assessment Notes Treatment Notes Treatm ent Clinical Notes Jun, Asthma, mild intermittent (ICD-10 - J45.20) as per BANKS Jun, BANKS (dyspnea on exertion) (ICD-10 - R06.00) 07/07/2021 complete po abx. tolerating med lung sounds clear. overall cough, dyspena remains same. Advised to check back on pre-op clearance. INR 3.9 no change to regimen given 6mg x1 on 07/04/2021 06/30/21 UC -COVID rapid test (not vaccinated, but h/o confirmed COVID infection in 08/2020) Jun, History of pulmonary embolism (ICD-10 - Z86.711) on lifelong VKA (baseline 3 QD x 0 on Mon) secondary to 2 episodes of PE (first post-op, second idiopathic in 2018) 07/07/2021 INR 3.9 no change to current regimen 07/04/21 INR 1.9; ergo, advised 6 today, then base dose c recheck on 07/07Jun, buttermaker helper (current) use of anticoagulants (ICD-1 0 - Z79.01) PLAN OF TREATMENT Medication Medication Name Sig Start Date Stop Date Albuterol Sulfate HFA 108 (90 Base) MCG/ACT 2 puffs In halation Every 4 hours as needed for SOB, Wheeze, Cough levoFLOXacin 750 MG 1 tablet Orally Once a day for 10 day(s) Treatment Notes Assessment Notes Clinical Notes Asthma, mild intermittent as per BANKS BANKS (dyspnea on exertion) 07/07/2021 com plete po abx. tolerating medlung sounds clear. overall cough, dyspena remains same.Advised to check back on pre- op clearance.INR 3.9 no change to regimen given 6mg x1 on UC -COVID rapid test (not vaccinated, but h/o confirmed COVID infection in 08/2020) History of pulmonary embolism on lifelon g VKA (baseline 3 QD x 0 on Mon) secondary to 2 episodes of PE (first post-op, second idiopathic in 2018)07/07/2021 INR 3.9 no change to current nlziypw26/16/21 INR 1.9; ergo, advised 6 today, then base dose c recheck on 07/07 Next Appt Details f/u with PCP Reason: Provider Name:Mary Mcdaniel, 09-07-30 11:00:00 AM, [address] [facility], , [place], [address], Provider Name:Mary Mcdaniel, 08-08-06 11:00:00 AM, [address] [place] [address], , [place], [address], Provider Name:Amadeo Copeland, 2021-07-31 10 :30:00 AM, [address] [place] [address], , [place], [address], Provider Name:Mary Mcdaniel, 09-09-02 10:30:00 AM, [address] [place] [address], , [place], [address], Provider Name:Tanya Romo, 2021-11-17 02:30:00 PM, [address] [place] [address], , [place], [address], Insurance Providers Payer Name Payer Address Payer Phone Insured Name Patient Relati onship to Insured Coverage Start Date Coverage End Date MEDICARE Part A and B [address] [facility] [id number] [phone] FRANCINE AGARWAL [facility] HEALTH CARE OPTIONS [facility] CLAIM [facility] [address] [facility] [id number] FRANCINE AGARWAL
--- OUTSIDE RECORDS SUMMARY | 2021-07-18 07:04 | CCD ---
Author Author [facility] Organization [facility] Address Unknown Phone Unavailable Care Team Providers Care Literacy Education Professor Name Role Phone Amadeo Copeland Unavailable PROBLEMS Type Condition ICD9-CM Code [id number] Code Onset Dates Condition S tatus W/U Status Risk SNOMED Code Notes Problem Diabetes mellitus E11.9 Active confirmed 73 072958 She had historically been on metformin at [...] January 2021. Problem Hypertension I10 Active confirmed [id number] 3 She was on hydrochlorothiazide in the [...] microalbuminuria. Problem Macular degeneration H35.30 Active confirmed 602421722 She had prior Avastin injections in the left eye but these apparently were ineffective. This may relate to her prior retinal detachment 2011, which is now nearly complete and she has almost no vision in the left eye. This is not a treatable condition apparently. Problem Gastroesophageal reflux K21.9 Active confirmed 334314941 She has historically been on omeprazole in the past, and was started on Protonix as of October 2017. She is off that now but takes famotidine daily. 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 Problem Slow transit constipation K59.01 Active confirmed 51312671 MiraLAX as prescribed on a scheduled basis, perhaps twice weekly. Problem BANKS (dyspnea on exertion) R06.09 Active confirmed 63232019 She has a history of asthma and dyspnea on exertion. There may have been a contribution from her pulmonary emboli but I did have her start Breo therapy for a month as of October 2017. She is no longer using that and her symptoms are controlled. She is also seeing a lead clinical research coordinator. Problem Ureteral stone with hydronephrosis N13.2 Activ e confirmed 406773546 Problem Other chest pain R07.89 Active confirmed 298 87911 She probably had nonischemic chest pain in early November 2017 but I believe a stress echocardiogram was negative in Spring 2017--I do not have a report on that study, but she was reassured by the benzol still operator. I do not think this reflects reflux or esophageal disease, and she is on Protonix anyway. She could not take nonsteroidal anti- inflammatory drugs for musculoskeletal pain because she is on warfarin. She was started on benazepril therapy since early November 2017 but has stopped that and her BP is controlled. Problem Obstructive sleep apnea syndrome G47.33 Active conf irmed 11895331 She had a sleep study and is seeing a lead clinical research coordinator. She is using CPAP. Problem History of kidney stones Z87.442 Active confirmed 614993453 She has had prior kidney stones and is being followed by urology. She has 2 left intrarenal stones and still passes a fragment occasionally. It is quite painful when that happens. I have prescribed tramadol. She takes Flomax as needed. Problem Mild intermittent asthma without complication J45. 20 Active confirmed 256818336 She has had a pulmon ology consultation [...] 2019. Problem Kidney stones N20.0 Active confirmed 530203 07 Problem Encounter for therapeutic drug level monitoring Z5 1.81 Active confirmed 147052213 Problem Immunization due Z23 Active confirmed 171 006704 Tdap given 01/30/2021; needs Prevnar in 07/2021. Problem custodial current use of anticoagulant Z79.01 A ctive confirmed 816824385 Problem Asthma, mild intermittent J45.20 Active confirmed 320025873 Problem History of pulmonary embolism Z86.711 Active confir med 626652018 She had bilateral pulmonary emboli in August [...] (obstructive sleep apnea) G47.33 Active confirm ed 78796344 Problem Hypercholesterolemia E78.00 Active confirmed 22457765 She has hyperlipidemia, last assessed in January [...] Problem Pulmonary nodule R91.1 Active confirmed [address] of her chest in August [...] mammogram of left breast R92.8 Active confirmed 598982966 Problem Invasive ductal carcinoma of left breast C50.912 Active confirmed 114721045 Problem BANKS (dyspnea on exertion) R06.00 Active confirmed 56507456 Problem Diabetes mellitus type 2, controlled E11.9 Act stephy confirmed [id number] ALLERGIES No Known Allergies ENCOUNTERS from 1955 to 2021-07-05 Encounter Location Date Provider Diagnosis [place] [id number] [facility] [phone] [place] [address] [facility] Vacc[facility] Route Administration Date Status TDAP 0.5mL [...] Information RESULTS No Results REASON FOR VISIT PTINR MEDICAL (GENERAL) HISTORY Type Description Date Medical [...] Left breast ultrasound bx 05/24/21 Hospitalization History [facility] bilateral PE 08/30-09/05/2017 Hospitalization History [facility] ED chest pains 11/21/2017 Hospitalization History [facility]- Multiple bilateral pulmonary em boli 08/27-09/02/2019 Goals Section No Information Health Concerns No Information MEDICAL EQUIPMENT No Information MENTAL STATUS No Information FUNCTIONAL STATUS No Information ASSESSMENTS No Information PLAN OF TREATMENT Next Appt Details Provider Name:Mary Mcdaniel, 09-07-23 11:45:00 AM, [address] [place] [address], , [place], [address], Provider Name:Mary Mcdaniel, 08-08-03 10:30:00 AM, [address] [place] [phone], [place], [place], [facility] [phone] Provider Name:Amadeo Copeland, 2021-07-31 10 :30:00 AM, [address] [place] [address], , [place], [address], Provider Name:Tnaya Romo, 2021-11-17 02:30:00 PM, [address] [place] [phone], [place], [place], [facility] [phone] Insurance Providers Payer Name Payer Address Payer Phone Insured Name Patient Relati onship to Insured Coverage Start Date Coverage End Date MEDICARE Part A and B [address] [facility] [phone] FRANCINE AGARWAL [facility] CARE OPTIONS [facility] CLAIM DIV [address] [facility] [id number] FRANCINE AGARWAL
--- OUTSIDE RECORDS SUMMARY | 2021-07-18 07:04 | CCD ---
Author Author [facility] [employer] [facility] Organization [facility] Address Unknown Phone Unavailable Care Team Providers Care Apple Thinner Name Role Phone Jose Gurrola Unavailable PROBLEMS Type Condition ICD9-CM Code FCM10-YY Code Onset Dates Condition S tatus W/U Status Risk SNOMED Code Notes Problem Diabetes mellitus E11.9 Active confirmed 73 416767 She had historically been on metformin at [...] January 2021. Problem Hypertension I10 Active confirmed 7643721 3 She was on hydrochlorothiazide in the [...] microalbuminuria. Problem Macular degeneration H35.30 Active confirmed 398390918 She had prior Avastin injections in the left eye but these apparently were ineffective. This may relate to her prior retinal detachment 2011, which is now nearly complete and she has almost no vision in the left eye. This is not a treatable condition apparently. Problem Gastroesophageal reflux K21.9 Active confirmed 478631701 She has historically been on omeprazole in the past, and was started on Protonix as of October 2017. She is off that now but takes famotidine daily. 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 Problem Slow transit constipation K59.01 Active confirmed 07077009 MiraLAX as prescribed on a scheduled basis, perhaps twice weekly. Problem BANKS (dyspnea on exertion) R06.09 Active confirmed 27737243 She has a history of asthma and dyspnea on exertion. There may have been a contribution from her pulmonary emboli but I did have her start Breo therapy for a month as of October 2017. She is no longer using that and her symptoms are controlled. She is also seeing a well service pump equipment operator. Problem Ureteral stone with hydronephrosis N13.2 Activ e confirmed 805565024 Problem Other chest pain R07.89 Active confirmed 298 36546 She probably had nonischemic chest pain in early November 2017 but I believe a stress echocardiogram was negative in Spring 2017--I do not have a report on that study, but she was reassured by the meat loiner. I do not think this reflects reflux or esophageal disease, and she is on Protonix anyway. She could not take nonsteroidal anti- inflammatory drugs for musculoskeletal pain because she is on warfarin. She was started on benazepril therapy since early November 2017 but has stopped that and her BP is controlled. Problem Obstructive sleep apnea syndrome G47.33 Active conf irmed 71636692 She had a sleep study and is seeing a well service pump equipment operator. She is using CPAP. Problem History of kidney stones Z87.442 Active confirmed 446516217 She has had prior kidney stones and is being followed by urology. She has 2 left intrarenal stones and still passes a fragment occasionally. It is quite painful when that happens. I have prescribed tramadol. She takes Flomax as needed. Problem Mild intermittent asthma without complication J45. 20 Active confirmed 877882582 She has had a pulmon ology consultation [...] 2019. Problem Kidney stones N20.0 Active confirmed 189860 07 Problem Encounter for therapeutic drug level monitoring Z5 1.81 Active confirmed 464479283 Problem Immunization due Z23 Active confirmed 171 391720 Tdap given 01/30/2021; needs Prevnar in 07/2021. Problem intermission coordinator current use of anticoagulant Z79.01 A ctive confirmed 657459028 Problem Asthma, mild intermittent J45.20 Active confirmed 776804511 Problem History of pulmonary embolism Z86.711 Active confir med 607362077 She had bilateral pulmonary emboli in August [...] (obstructive sleep apnea) G47.33 Active confirm ed 45043288 Problem Hypercholesterolemia E78.00 Active confirmed 50292703 She has hyperlipidemia, last assessed in January [...] Problem Pulmonary nodule R91.1 Active confirmed [address] of her chest in August [...] mammogram of left breast R92.8 Active confirmed 040222174 Problem Invasive ductal carcinoma of left breast C50.912 Active confirmed 889965421 Problem BANKS (dyspnea on exertion) R06.00 Active confirmed 66583339 Problem Diabetes mellitus type 2, controlled E11.9 Act stephy confirmed 470677696 ALLERGIES No Known Allergies ENCOUNTERS from 1955 to 2021-07-06 Encounter Location Date Provider Diagnosis [facility] [address] [facility] [phone] [place] [address] Jun, Jose Gurrola Asthma, mild intermittent J4 5.20 ; BANKS (dyspnea on exertion) R06.00 ; History of pulmonary embolism Z86.711 ; ESTHER (obstructive sleep apnea) G47.33 and Diabetes mellitus type 2, controlled E11.9 IMMUNIZATIONS Vaccine Route Administration Date Status TDAP [...] FOR REFERRAL No Information VITAL SIGNS Weight 204.2 lbs Jun, Weight-kg 92.62 kg Jun, Height 62 in Jun, BMI 37.34 kg/m2 Jun, Heart Rate 124 /min Jun, Respiratory Rate 18 /min Jun, Temperature 98.1 degrees Fahrenheit Jun, Oximetry 95% Jun, Blood pressure systolic 142 mm Hg Jun, Blood pressure diastolic 98 mm Hg Jun, MEDICATIONS Medication SIG (Take, [...] day for 10 day(s) Jun, Active PROCEDURES from 1955 to 2021-07-06 Procedure Date Ordered Result Body Site ELECTROCARDIOGRAM, COMPLETE EKG 2021-07-04 N/A RESULTS Component Value Reference Range NT-PRO BNP Reviewed date:07/04/2021 17:50:37 Interpretation: Performing Lab:[facility] [address] [place] [id number] , ,[place] [address] NT-PRO BNP 24 <125 CBC with Differential Reviewed date:07/04/2021 17:50:32 Interpretation: Performing Lab:[facility] [address] [facility] [address] , ,[facility]01 WHITE BLOOD COUNT 11.8 4.0-10.0 RED BLOOD COUNT 5.06 4.00-5.40 HEMOGLOBIN 14.6 12.0-15.5 HEMATOCRIT 45.5 36.0-47.0 MEAN CORPUSCULAR VOLUME 89.9 80.0-96.0 MEAN CORPUSCULAR HEMOGLOBIN 28.9 27.0-33.0 MEAN CORPUSCULAR HGB CONC 32.1 32.0-36.5 RED CELL DISTRIBUTION WIDTH 13.3 11.5-14.5 PLATELET COUNT, AUTOMATED 342 150-450 NEUTROPHILS % 74.5 36.0-66.0 LYMPH % 17.0 24.0-44.0 MONO % 6.3 2.0-8.0 EOS % 1.4 0.0-3.0 BASO % 0.4 0.0-1.0 NEUTROPHILS # 8.8 1.5-8.5 LYMPH # 2.0 1.5-5.0 MONO # 0.8 0.0-0.8 EOS # 0.2 0.0-0.5 BASO # 0.1 0.0-0.2 Comprehensive Metabolic Profile (CMP) Reviewed date:07/04/2021 17:50:26 Interpretation: Performing Lab:[facility] [address] [facility] [id number] , ,[facility]01 GLUCOSE, FASTING 373 70-100 BLOOD UREA NITROGEN 17 7-18 CREATININE FOR GFR 0.88 0.55-1.30 GLOMERULAR FILTRATION RATE > 60.0 >45 SODIUM LEVEL 137 136-145 POTASSIUM SERUM 4.1 3.5-5.1 CHLORIDE LEVEL 103 98-107 CARBON DIOXIDE LEVEL 28 21-32 CALCIUM LEVEL 9.5 8.8-10.2 AST/SGOT 15 7-37 ALT/SGPT 46 12-78 ALKALINE PHOSPHATASE 126 45-117 BILIRUBIN,TOTAL 0.3 0.2-1.0 TOTAL PROTEIN 7.2 6.4-8.2 ALBUMIN 3.9 3.2-5.2 ALBUMIN/GLOBULIN RATIO 1.2 1.2-2.2 DDIMER QUANT Reviewed date:07/04/2021 17:51:23 Interpretation: Performing Lab:[facility] [address] [place] [address] , ,[facility]01 D-DIMER QUANT 336.89 <500 PT & APTT Reviewed date:07/04/2021 17:50:33 Interpretation: Performing Lab:[facility] [address] [place] [id number] , ,[facility]01 PROTHROMBIN TIME 22.2 12.7-14.5 INR 1.90 PARTIAL THROMBOPLASTIN TIME 39.3 25.9-37.0 TROPONIN I Reviewed date:07/04/2021 17:51:27 Interpretation: Performing Lab:[facility] [address] [facility] [id number] , ,[facility]01 TROPONIN I < 0.02 < 0.10 US DUPLEX EXT LOWER VEINS BILAT US.DEVB [facility] or [facility] Reviewed date:07/06/2021 08:44:14 Interpretation: Performing Lab:[facility] [address]], ,[place] [address] REASON FOR VISIT pre op clearance for lumpectomy of the left w/ wgpzos-Scozainhkl-69/23/21-[facility]-Adrienne Morris @[phone] fax # [phone] DX: [id number] MEDICAL (GENERAL) HISTORY Type Description Date Medical History Diabetes mellitus Medical History Hypertension Medical History History of pulmonary embolism Medical History Obstructive sleep apnea syndrome Medical History Gastroesophageal reflux Medical History Macular degeneration Medical History Hypercholesterolemia Medical History History of kidney stones Medical History 06/05/2021 - LEFT breast Inv asive Ductal Carcinoma - ER+/FL+/Her2+ Surgical History Appendectomy 1967 Surgical History Tubal [...] Left breast ultrasound bx 05/24/21 Hospitalization History [facility] bilateral PE 08/30-09/05/2017 Hospitalization History [facility] ED chest pains 11/21/2017 Hospitalization History [facility]- Multiple bilateral pulmonary em boli 08/27-09/02/2019 Goals Section No Information Health Concerns No Information MEDICAL EQUIPMENT No Information MENTAL STATUS No Information FUNCTIONAL STATUS No Information ASSESSMENTS Encounter Date Diagnosis Assessment Notes Treatment Notes Treatm ent Clinical Notes Jun, Asthma, mild intermittent (ICD-10 - J45.20) as per BANKS Jun, BANKS (dyspnea on exertion) (ICD-10 - R06.00) 07/04/21 moderate pre-test probability for PE: has been off VKA for 06/01/21 and then 06/27/[address] to and back from [place] 4W and 2W prior respectively and now invasive breast cancer with sx of increased BANKS, R pleurtic pain, tachycardia worse since ~06/30/21. Also with R PN c mild asthma flare (for which patient REFUSES po steroids AND LABA/ICS-states cannot tolerate either); ergo, + levo 750 10D (INR now and in 3D) c alb MDI q4H prn 06/30/21 UC -COVID rapid test (not vaccinated, but h/o confirmed COVID infection in 08/2020) obviously need to postpone lumpectomy until at baseline respiratory status; 3M if recurrent PE. Jun, History of pulmonary embolism (ICD-10 - Z86.711) on lifelong VKA (baseline 3 QD x 0 on Mon) secondary to 2 episodes of PE (first post-op, second idiopathic in 2018) 07/04/21 INR 1.9; ergo, advised 6 today, then base dose c recheck on 07/07Jun, ESTHER (obstructive sleep apnea) (ICD-10 - G47.33) Jun, Diabetes mellitus type 2, controlled (ICD-10 - E 11.9) PLAN OF TREATMENT Treatment Notes Assessment Notes Clinical Notes Asthma, mild intermittent as per BANKS BANKS (dyspnea on exertion) 07/04/21 moder ate pre-test probability for PE: has been off VKA for 06/01/21 and then 06/27/[address] to and back from [place] 4W and 2W prior respectively and now invasive breast cancer with sx of increased BANKS, R pleurtic pain, tachycardia worse since ~06/30/21. Also with R PN c mild asthma flare (for which patient REFUSES po steroids AND LABA/ICS- states cannot tolerate either); ergo, + levo 750 10D (INR now and in 3D) c alb MDI q4H prn108/30/20 UC -COVID rapid test (not vaccinated, but h/o confirmed COVID infection in 08/2020)obviously need to postpone lumpectomy until at baseline respiratory status; 3M if recurrent PE. History of pulmonary embolism on lifelon g VKA (baseline 3 QD x 0 on Mon) secondary to 2 episodes of PE (first post-op, second idiopathic in 2018)07/04/21 INR 1.9; ergo, advised 6 today, then base dose c recheck on 07/07 Pending Tests Test Name Order Date PLZ CHEST 2 VIEW 2021-07-04 Next Appt Details 07/06 vs 07/07 recheck by PCP, ERICKA Isaac ason: Provider Name:Mayelin Matossara, 2020-08 08:30:00 AM, [address] [facility], , [place], [address], Provider Name:Mary Mcdaniel, 09-07-30 11:00:00 AM, [address] [place] [address], , [place], [address], Provider Name:Mary Mcdaniel, 08-08-06 11:00:00 AM, [address] [place] [address], , [place], [place], [facility], Provider Name:Amadeo Copeland, 2021-07-31 10 :30:00 AM, [address] [place] [address], , [place], [address], Provider Name:Tanya Romo, 2021-11-17 02:30:00 PM, [address] [place] [address], , [place], [place], [facility], Insurance Providers Payer Name Payer Address Payer Phone Insured Name Patient Relati onship to Insured Coverage Start Date Coverage End Date [employer] OPTIONS [facility] CLAIM DIV [address] [facility] [id number] FRANCINE AGARWAL MEDICARE Part A and B [address] [facility] [phone] FRANCINE AGARWAL
--- OUTSIDE RECORDS SUMMARY | 2021-07-18 07:05 | CCD ---
Author Author [facility] Organization [facility] Address Unknown Phone Unavailable Care Team Providers Care Mixing Tank Operator Name Role Phone Mary Mcdaniel Unavailable PROBLEMS Type Condition ICD9-CM Code [id number] Code Onset Dates Condition S tatus W/U Status Risk SNOMED Code Notes Problem Macular degeneration H35.30 Active confirmed [id number] She had prior Avastin injections in the left eye but these apparently were ineffective. This may relate to her prior retinal detachment 2011, which is now nearly complete and she has almost no vision in the left eye. This is not a treatable condition apparently. Problem Diabetes mellitus E11.9 Active confirmed 73 958871 She had historically been on metformin at [...] her medications as of January 2021. Problem History of pulmonary embolism Z86.711 Active confir med [id number] She had bilateral pulmonary emboli in August [...] going to be on lifelong anticoagulation. Problem Hypercholesterolemia E78.00 Active confirmed 63883197 She has hyperlipidemia, last assessed in January [...] panel in January 2021 is reasonable. Problem BANKS (dyspnea on exertion) R06.09 Active confirmed 55700132 She has a history of asthma and dyspnea on exertion. There may have been a contribution from her pulmonary emboli but I did have her start Breo therapy for a month as of October 2017. She is no longer using that and her symptoms are controlled. She is also seeing a food mixer repairer. Problem Pulmonary nodule R91.1 Active confirmed [address] of her chest in August [...] group now. Repeat CT ordered 01/2021. Problem Other chest pain R07.89 Active confirmed 298 63350 She probably had nonischemic chest pain in early November 2017 but I believe a stress echocardiogram was negative in Spring 2017--I do not have a report on that study, but she was reassured by the appellate court judge. I do not think this reflects reflux or esophageal disease, and she is on Protonix anyway. She could not take nonsteroidal anti- inflammatory drugs for musculoskeletal pain because she is on warfarin. She was started on benazepril therapy since early November 2017 but has stopped that and her BP is controlled. Problem Slow transit constipation K59.01 Active confirmed 19952008 MiraLAX as prescribed on a scheduled basis, perhaps twice weekly. Problem Obstructive sleep apnea syndrome G47.33 Active conf irmed 99509704 She had a sleep study and is seeing a food mixer repairer. She is using CPAP. Problem Kidney stones N20.0 Active confirmed 303951 07 Problem Mild intermittent asthma without complication J45. 20 Active confirmed 354165516 She has had a pulmon ology consultation [...] recent pulmonary emboli in August 2019. Problem Abnormal mammogram of left breast R92.8 Active confirmed 708395718 Problem History of kidney stones Z87.442 Active confirmed 781799327 She has had prior kidney stones and is being followed by urology. She has 2 left intrarenal stones and still passes a fragment occasionally. It is quite painful when that happens. I have prescribed tramadol. She takes Flomax as needed. Problem Hypertension I10 Active confirmed 4678851 3 She was on hydrochlorothiazide in the [...] inhibitor restarted if she develops microalbuminuria. Problem [facility] current use of anticoagulant Z79.01 A ctive confirmed 891195484 Problem Ureteral stone with hydronephrosis N13.2 Activ e confirmed 224346336 Problem Gastroesophageal reflux K21.9 Active confirmed 949632355 She has historically been on omeprazole in the past, and was started on Protonix as of October 2017. She is off that now but takes famotidine daily. Problem Anticoagulation monitoring, INR range 2-3 Z79.01 Active confirmed 668218190 Adjustments made. Problem [facility] (current) use of anticoagulants Z79.01 Active confirmed 754332443 Problem Encounter for therapeutic drug level monitoring Z5 1.81 Active confirmed 745936889 Problem Immunization due Z23 Active confirmed 171 356864 Tdap given 01/30/2021; needs Prevnar in 07/2021. ALLERGIES No Known Allergies ENCOUNTERS from 1955 to 2021-05-25 Encounter Location Date Provider Diagnosis [facility] [address] [place] [address] [place] [address] 06 May, 2021 Mary Mcdaniel IMMUNIZATIONS Vaccine Route Administration [...] Notes Start Da te End Date Status Albuterol Sulfate HFA 108 (90 Base) MCG/ACT 2 puffs In halation Every 4 hours as needed for SOB, Wheeze, Cough for 30 days prn Active Lancets - as directed DX: E11.9 Three times a day for 90 days Aug, Active Polyethylene Glycol 3350 17 GM/SCOOP DIRECTED DAILY NEEDED for 30 Not-Taking Blood Glucose Test - To match the machine her ins urance will pay for In Vitro, DX: E11.9 3 times a day for 30 Days Aug, Active Lipitor 20 MG 1 tablet Orally Once a day Active Famotidine 40 MG 1 tablet at bedtime Orally Once a day for 30 Active Coumadin 3 MG TAKE ONE TABLET BY MOUTH EVERY DAY DIRECTED for 30 Active Glucometer _ A glucometer her insurance w ill pay for DX: E11.9 Daily for 365 days Aug, Active Atorvastatin Calcium 20 MG 1 tablet Orally Once a day on Saturday/Saturday/Saturday for 90 Not-Taking CPAP Machine Not-Taking CPAP mask as directed G47.33 Daily. H er present mask broke--please replace for 180 days December, Active Cholecalciferol 5000 UNIT 2 tablet Orally Once a day Active Lancet Device - as directed DX: E11.9 Daily use, three times a day for 90 day(s) Aug, Active PROCEDURES No Information RESULTS No Results REASON FOR VISIT stereo bx appt MEDICAL (GENERAL) HISTORY Type Description Date Medical [...] History CYSTO WITH LEFT STENT REMOVAL 03/26/2018 Hospitalization History [facility] bilateral PE 08/30-09/05/2017 Hospitalization History [facility] ED chest pains 11/21/2017 Hospitalization History [facility]- Multiple bilateral pulmonary em boli 08/27-09/02/2019 Goals Section No Information Health Concerns No Information MEDICAL EQUIPMENT No Information MENTAL STATUS No Information FUNCTIONAL STATUS No Information ASSESSMENTS No Information PLAN OF TREATMENT Next Appt Details Provider Name:Mary Mcdaniel, 08-06-11 02:30:00 PM, [address] [place] [address], , [place], [address], Provider Name:Mayelinaubree Magallon, 2020-08 0- 01:30:00 PM, [address] [place] [address], , [place], [address], Provider Name:Mary Mcdaniel, 08-06-18 01:30:00 PM, [address] [place] [address], , [place], [address], Provider Name:Amadeo Copeland, 2021-07-31 10 :30:00 AM, [address] [place] [address], , [place], [address], Insurance Providers Payer Name Payer Address Payer Phone Insured Name Patient Relati onship to Insured Coverage Start Date Coverage End Date MEDICARE Part A and B [address] [facility] [phone] FRANCINE AGARWAL [facility] C[facility] OPTIONS [facility] CLAIM DIV [address] [facility] [phone] FRANCINE AGARWAL
--- OUTSIDE RECORDS SUMMARY | 2021-07-18 07:05 | CCD ---
Author Author [facility] Organization [facility] Address Unknown Phone Unavailable Care Team Providers Care Ear Flap Binder Name Role Phone Amadeo Copeland Unavailable PROBLEMS Type Condition ICD9-CM Code [id number] Code Onset Dates Condition S tatus W/U Status Risk SNOMED Code Notes Problem Macular degeneration H35.30 Active confirmed [id number] She had prior Avastin injections in the left eye but these apparently were ineffective. This may relate to her prior retinal detachment 2011, which is now nearly complete and she has almost no vision in the left eye. This is not a treatable condition apparently. Problem Diabetes mellitus E11.9 Active confirmed 73 376720 She had historically been on metformin at [...] of pulmonary embolism Z86.711 Active confir med 778386526 She had bilateral pulmonary emboli in August [...] lifelong anticoagulation. Problem Hypercholesterolemia E78.00 Active confirmed 62117108 She has hyperlipidemia, last assessed in January [...] BANKS (dyspnea on exertion) R06.09 Active confirmed 08601232 She has a history of asthma and dyspnea on exertion. There may have been a contribution from her pulmonary emboli but I did have her start Breo therapy for a month as of October 2017. She is no longer using that and her symptoms are controlled. She is also seeing a ssrs developer. Problem Pulmonary nodule R91.1 Active confirmed [address] of her chest in August [...] Other chest pain R07.89 Active confirmed 298 36296 She probably had nonischemic chest pain in early November 2017 but I believe a stress echocardiogram was negative in Spring 2017--I do not have a report on that study, but she was reassured by the grocery stock clerk. I do not think this reflects reflux or esophageal disease, and she is on Protonix anyway. She could not take nonsteroidal anti- inflammatory drugs for musculoskeletal pain because she is on warfarin. She was started on benazepril therapy since early November 2017 but has stopped that and her BP is controlled. Problem Slow transit constipation K59.01 Active confirmed 89991504 MiraLAX as prescribed on a scheduled basis, perhaps twice weekly. Problem Obstructive sleep apnea syndrome G47.33 Active conf irmed 88223222 She had a sleep study and is seeing a ssrs developer. She is using CPAP. Problem Kidney stones N20.0 Active confirmed 959059 07 Problem Mild intermittent asthma without complication J45. 20 Active confirmed 339096620 She has had a pulmon ology consultation [...] mammogram of left breast R92.8 Active confirmed 725999561 Problem History of kidney stones Z87.442 Active confirmed 081363311 She has had prior kidney stones and is being followed by urology. She has 2 left intrarenal stones and still passes a fragment occasionally. It is quite painful when that happens. I have prescribed tramadol. She takes Flomax as needed. Problem Hypertension I10 Active confirmed 2249139 3 She was on hydrochlorothiazide in the [...] inhibitor restarted if she develops microalbuminuria. Problem [facility] current use of anticoagulant Z79.01 A ctive confirmed 830532794 Problem Ureteral stone with hydronephrosis N13.2 Activ e confirmed 196732136 Problem Gastroesophageal reflux K21.9 Active confirmed 896622023 She has historically been on omeprazole in the past, and was started on Protonix as of October 2017. She is off that now but takes famotidine daily. Problem Anticoagulation monitoring, INR range 2-3 Z79.01 Active confirmed 505517894 Adjustments made. 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 ALLERGIES No Known Allergies ENCOUNTERS from 1955 to 2021-05-29 Encounter Location Date Provider Diagnosis [place] [id number] [facility] [phone] [place] [address] 07 May, 2021 [facility] [place] Vaccine Route Administration Date Status TDAP 0.5mL [...] Notes Start Da te End Date Status Atorvastatin Calcium 20 MG 1 tablet Orally Once a day on Saturday/Saturday/Saturday for 90 Not-Taking Lancet Device - as directed DX: E11.9 Daily use, three times a day for 90 day(s) Aug, Active Coumadin 3 MG TAKE ONE TABLET BY MOUTH EVERY DAY DIRECTED for 30 Active Glucometer _ A glucometer her insurance w ill pay for DX: E11.9 Daily for 365 days Aug, Active CPAP mask as directed G47.33 Daily. H er present mask broke--please replace for 180 days December, Active Polyethylene Glycol 3350 17 GM/SCOOP DIRECTED DAILY NEEDED for 30 Not-Taking Blood Glucose Test - To match the machine her ins urance will pay for In Vitro, DX: E11.9 3 times a day for 30 Days Aug, Active Cholecalciferol 5000 UNIT 2 tablet Orally Once a day Active CPAP Machine Not-Taking Lipitor 20 MG 1 tablet Orally Once a day Active Lancets - as directed DX: E11.9 Three times a day for 90 days Aug, Active Famotidine 40 MG 1 tablet at bedtime Orally Once a day for 30 Active Albuterol Sulfate HFA 108 (90 Base) MCG/ACT 2 puffs In halation Every 4 hours as needed for SOB, Wheeze, Cough for 30 days prn Active PROCEDURES No Information RESULTS No Results REASON FOR VISIT warfarin MEDICAL (GENERAL) HISTORY Type Description Date Medical History Diabetes mellitus Medical History Hypertension Medical History History of pulmonary embolism Medical History Obstructive sleep apnea syndrome Medical History Gastroesophageal reflux Medical History Macular degeneration Medical History Hypercholesterolemia Medical History History of kidney stones Surgical History Appendectomy 1968 Surgical History Tubal ligation 1983 Surgical History [...] WITH LEFT STENT REMOVAL 03/26/2018 Hospitalization History [facility] bilateral PE 08/30-09/05/2017 Hospitalization History [facility] ED chest pains 11/21/2017 Hospitalization History [facility]- Multiple bilateral pulmonary em boli 08/27-09/02/2019 Goals Section No Information Health Concerns No Information MEDICAL EQUIPMENT No Information MENTAL STATUS No Information FUNCTIONAL STATUS No Information ASSESSMENTS No Information PLAN OF TREATMENT Next Appt Details Provider Name:Mary K Violeta, 08-06-18 01:30:00 PM, [address] [place] [address], , [place], [address], Provider Name:Mayelin Magallon, 2020-08 08:15:00 AM, [address] [place] [address], , [place], [address], Provider Name:Amadeo Copeland, 2021-07-31 10 :30:00 AM, [address] [place] [address], , [place], [address], Provider Name:Tanya Romo, 2021-11-17 02:30:00 PM, [address] [place] [address], , [place], [address], Insurance Providers Payer Name Payer Address Payer Phone Insured Name Patient Relati onship to Insured Coverage Start Date Coverage End Date [employer] OPTIONS [facility] CLAIM DIV [address] [facility] [address] FRANCINE AGARWAL MEDICARE Part A and B [address] [facility] [address] [phone] FRANCINE AGARWAL self
--- OUTSIDE RECORDS SUMMARY | 2021-07-18 07:05 | CCD ---
Author Author [facility] Organization [facility] Address Unknown Phone Unavailable Care Team Providers Care Edge Burnisher Uppers Name Role Phone Mary Mcdaniel Unavailable PROBLEMS Type Condition ICD9-CM Code [id number] Code Onset Dates Condition S tatus W/U Status Risk SNOMED Code Notes Problem Hypercholesterolemia E78.00 Active confirmed 05621086 She has hyperlipidemia, last assessed in January [...] reasonable. Problem Macular degeneration H35.30 Active confirmed 512064752 She had prior Avastin injections in the left eye but these apparently were ineffective. This may relate to her prior retinal detachment 2011, which is now nearly complete and she has almost no vision in the left eye. This is not a treatable condition apparently. Problem Pulmonary nodule R91.1 Active confirmed [address] of her chest in August [...] of pulmonary embolism Z86.711 Active confir med 265881407 She had bilateral pulmonary emboli in August [...] Problem Slow transit constipation K59.01 Active confirmed 13670631 MiraLAX as prescribed on a scheduled basis, perhaps twice weekly. Problem BANKS (dyspnea on exertion) R06.09 Active confirmed 37883909 She has a history of asthma and dyspnea on exertion. There may have been a contribution from her pulmonary emboli but I did have her start Breo therapy for a month as of October 2017. She is no longer using that and her symptoms are controlled. She is also seeing a insurance adjustor. Problem Ureteral stone with hydronephrosis N13.2 Activ e confirmed 651235838 Problem Other chest pain R07.89 Active confirmed 298 26449 She probably had nonischemic chest pain in early November 2017 but I believe a stress echocardiogram was negative in Spring 2017--I do not have a report on that study, but she was reassured by the search engine marketing manager. I do not think this reflects reflux or esophageal disease, and she is on Protonix anyway. She could not take nonsteroidal anti- inflammatory drugs for musculoskeletal pain because she is on warfarin. She was started on benazepril therapy since early November 2017 but has stopped that and her BP is controlled. Problem Kidney stones N20.0 Active confirmed 620465 07 Problem Mild intermittent asthma without complication J45. 20 Active confirmed 595725137 She has had a pulmon ology consultation [...] monitoring, INR range 2-3 Z79.01 Active confirmed 282037413 Adjustments made. 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 She is using CPAP. Problem Gastroesophageal reflux K21.9 Active confirmed 346264541 She has historically been on omeprazole in the past, and was started on Protonix as of October 2017. She is off that now but takes famotidine daily. Problem Invasive ductal carcinoma of left breast C50.912 Active confirmed 945738016 Problem History of kidney stones Z87.442 Active confirmed 865023811 She has had prior kidney stones and is being followed by urology. She has 2 left intrarenal stones and still passes a fragment occasionally. It is quite painful when that happens. I have prescribed tramadol. She takes Flomax as needed. Problem Hypertension I10 Active confirmed 9948673 3 She was on hydrochlorothiazide in the [...] microalbuminuria. Problem Diabetes mellitus E11.9 Active confirmed 84 465181 She had historically been on metformin at [...] her medications as of January 2021. Problem [facility] (current) use of anticoagulants Z79.01 Active confirmed 368154006 Problem Encounter for therapeutic drug level monitoring Z5 1.81 Active confirmed 714372084 Problem Immunization due Z23 Active confirmed 171 043141 Tdap given 01/30/2021; needs Prevnar in 07/2021. Problem Abnormal mammogram of left breast R92.8 Active confirmed 109735702 ALLERGIES No Known Allergies ENCOUNTERS from 1955 to 2021-06-08 Encounter Location Date Provider Diagnosis [facility] [address] [facility] [phone] [place] [address] May, Mary Mcdaniel IMMUNIZATIONS Vaccine Route Administration Date [...] Notes Start Da te End Date Status Blood Glucose Test - To match the machine her ins urance will pay for In Vitro, DX: E11.9 3 times a day for 30 Days Aug, Active CPAP mask as directed G47.33 [...] a day for 90 days Aug, Active Cholecalciferol 5000 UNIT 2 tablet Orally Once a day Active Polyethylene Glycol 3350 17 GM/SCOOP DIRECTED DAILY NEEDED for 30 Not-Taking Coumadin 3 MG TAKE ONE TABLET BY MOUTH EVERY DAY DIRECTED for 30 Active CPAP Machine Not-Taking Atorvastatin Calcium 20 MG 1 tablet Orally Once a day on Saturday/Saturday/Saturday for 90 Not-Taking Albuterol Sulfate HFA 108 (90 Base) MCG/ACT 2 puffs In halation Every 4 hours as needed for SOB, Wheeze, Cough for 30 days prn Active Famotidine 40 MG 1 tablet at bedtime Orally Once a day for 30 Active Lipitor 20 MG 1 tablet Orally Once a day Active PROCEDURES No Information RESULTS No Results REASON FOR VISIT hold warfarin request MEDICAL (GENERAL) HISTORY Type Description Date Medical [...] Left breast stereo bx 06/01/21 Hospitalization History [facility] bilateral PE 08/30-09/05/2017 Hospitalization History [facility] ED chest pains 11/21/2017 Hospitalization History [facility]- Multiple bilateral pulmonary em boli 08/27-09/02/2019 Goals Section No Information Health Concerns No Information MEDICAL EQUIPMENT No Information MENTAL STATUS No Information FUNCTIONAL STATUS No Information ASSESSMENTS No Information PLAN OF TREATMENT Next Appt Details Provider Name:Mayelin Magallon, 2020-08 08:15:00 AM, [address] [place] [address] , [place], [address], Provider Name:Amadeo Copeland, 2021-07-31 10 :30:00 AM, [address] [place] [address] , [place], [address], Provider Name:Tanya Romo, 2021-11-17 02:30:00 PM, [address] [place] [address], , [place], [place], [facility] [phone] Insurance Providers Payer Name Payer Address Payer Phone Insured Name Patient Relati onship to Insured Coverage Start Date Coverage End Date [employer] HE[employer] C[employer] OPTIONS [facility] CLAIM DIV [address] [facility] [phone] FRANCINE AGARWAL MEDICARE Part A and B [address] [facility] [id number] FRANCINE AGARWAL
--- OUTSIDE RECORDS SUMMARY | 2021-07-18 07:05 | CCD ---
Author Author [facility] Organization [facility] Address Unknown Phone Unavailable Care Team Providers Care Cost Control Supervisor Name Role Phone Mary Mcdaniel Unavailable PROBLEMS Type Condition ICD9-CM Code [id number] Code Onset Dates Condition S tatus W/U Status Risk SNOMED Code Notes Problem Macular degeneration H35.30 Active confirmed [id number] She had prior Avastin injections in the left eye but these apparently were ineffective. This may relate to her prior retinal detachment 2011, which is now nearly complete and she has almost no vision in the left eye. This is not a treatable condition apparently. Problem Diabetes mellitus E11.9 Active confirmed 73 115582 She had historically been on metformin at [...] of pulmonary embolism Z86.711 Active confir med 235358477 She had bilateral pulmonary emboli in August [...] lifelong anticoagulation. Problem Hypercholesterolemia E78.00 Active confirmed 66736901 She has hyperlipidemia, last assessed in January [...] BANKS (dyspnea on exertion) R06.09 Active confirmed 75814058 She has a history of asthma and dyspnea on exertion. There may have been a contribution from her pulmonary emboli but I did have her start Breo therapy for a month as of October 2017. She is no longer using that and her symptoms are controlled. She is also seeing a small products i assembler. Problem Pulmonary nodule R91.1 Active confirmed [address] of her chest in August [...] Other chest pain R07.89 Active confirmed 298 40676 She probably had nonischemic chest pain in early November 2017 but I believe a stress echocardiogram was negative in Spring 2017--I do not have a report on that study, but she was reassured by the director of reimbursement. I do not think this reflects reflux or esophageal disease, and she is on Protonix anyway. She could not take nonsteroidal anti- inflammatory drugs for musculoskeletal pain because she is on warfarin. She was started on benazepril therapy since early November 2017 but has stopped that and her BP is controlled. Problem Slow transit constipation K59.01 Active confirmed 47960722 MiraLAX as prescribed on a scheduled basis, perhaps twice weekly. Problem Obstructive sleep apnea syndrome G47.33 Active conf irmed 57171407 She had a sleep study and is seeing a small products i assembler. She is using CPAP. Problem Kidney stones N20.0 Active confirmed 172807 07 Problem Mild intermittent asthma without complication J45. 20 Active confirmed 844414527 She has had a pulmon ology consultation [...] mammogram of left breast R92.8 Active confirmed 341077342 Problem History of kidney stones Z87.442 Active confirmed 686475626 She has had prior kidney stones and is being followed by urology. She has 2 left intrarenal stones and still passes a fragment occasionally. It is quite painful when that happens. I have prescribed tramadol. She takes Flomax as needed. Problem Hypertension I10 Active confirmed 0386140 3 She was on hydrochlorothiazide in the [...] inhibitor restarted if she develops microalbuminuria. Problem alf current use of anticoagulant Z79.01 A ctive confirmed 170730916 Problem Ureteral stone with hydronephrosis N13.2 Activ e confirmed 059414401 Problem Gastroesophageal reflux K21.9 Active confirmed 189509787 She has historically been on omeprazole in the past, and was started on Protonix as of October 2017. She is off that now but takes famotidine daily. Problem Anticoagulation monitoring, INR range 2-3 Z79.01 Active confirmed 344681505 Adjustments made. Problem alf (current) use of anticoagulants Z79.01 Active confirmed 038269714 Problem Encounter for therapeutic drug level monitoring Z5 1.81 Active confirmed 954698812 Problem Immunization due Z23 Active confirmed 171 327180 Tdap given 01/30/2021; needs Prevnar in 07/2021. ALLERGIES No Known Allergies ENCOUNTERS from 1955 to 2021-05-29 Encounter Location Date Provider Diagnosis [facility] Breast Care [address] [place] [address] [place] [address] 11 May, 2021 Mary Mcdaniel IMMUNIZATIONS Vaccine Route [...] Information RESULTS No Results REASON FOR VISIT L stereotactic biopsy/discussion MEDICAL (GENERAL) HISTORY Type Description Date Medical [...] WITH LEFT STENT REMOVAL 03/26/2018 Hospitalization History [facility] bilateral PE 08/30-09/05/2017 Hospitalization History [facility] ED chest pains 11/21/2017 Hospitalization History [facility]- Multiple bilateral pulmonary em boli 08/27-09/02/2019 Goals Section No Information Health Concerns No Information MEDICAL EQUIPMENT No Information MENTAL STATUS No Information FUNCTIONAL STATUS No Information ASSESSMENTS No Information PLAN OF TREATMENT Next Appt Details Provider Name:Mary Jaquan Vikashdrewdaniella, 08-06-18 01:30:00 PM, [address] [place] [address], , [place], [address], Provider Name:Mayelin Magallon, 2020-08 0 08:15:00 AM, [address] [place] [address], , [place], [address], Provider Name:Amadeo Copeland, 2021-07-31 10 :30:00 AM, [address] [place] [address], , [place], [address], Provider Name:Tanya Romo, 2021-11-17 02:30:00 PM, [address] [place] [address], , [place], [place], [facility], Insurance Providers Payer Name Payer Address Payer Phone Insured Name Patient Relati onship to Insured Coverage Start Date Coverage End Date MEDICARE Part A and B [address] [facility] [phone] FRANCINE AGARWAL [facility] HEALTH CARE OPTIONS [facility] CLAIM DIV [address] [facility] [address] FRANCINE AGARWAL
--- OUTSIDE RECORDS SUMMARY | 2021-07-18 07:05 | CCD ---
Author Author [facility] Organization [facility] Address Unknown Phone Unavailable Care Team Providers Care Home Economist Name Role Phone Mary Mcdaniel Unavailable PROBLEMS Type Condition ICD9-CM Code NSI68-SM Code Onset Dates Condition S tatus W/U Status Risk SNOMED Code Notes Problem Macular degeneration H35.30 Active confirmed [id number] She had prior Avastin injections in the left eye but these apparently were ineffective. This may relate to her prior retinal detachment 2011, which is now nearly complete and she has almost no vision in the left eye. This is not a treatable condition apparently. Problem Diabetes mellitus E11.9 Active confirmed 73 342651 She had historically been on metformin at [...] of pulmonary embolism Z86.711 Active confir med 399534447 She had bilateral pulmonary emboli in August [...] lifelong anticoagulation. Problem Hypercholesterolemia E78.00 Active confirmed 91804429 She has hyperlipidemia, last assessed in January [...] BANKS (dyspnea on exertion) R06.09 Active confirmed 59135910 She has a history of asthma and dyspnea on exertion. There may have been a contribution from her pulmonary emboli but I did have her start Breo therapy for a month as of October 2017. She is no longer using that and her symptoms are controlled. She is also seeing a formstone fitter. Problem Pulmonary nodule R91.1 Active confirmed [address] of her chest in August [...] Other chest pain R07.89 Active confirmed 298 92530 She probably had nonischemic chest pain in early November 2017 but I believe a stress echocardiogram was negative in Spring 2017--I do not have a report on that study, but she was reassured by the transmission inspector. I do not think this reflects reflux or esophageal disease, and she is on Protonix anyway. She could not take nonsteroidal anti- inflammatory drugs for musculoskeletal pain because she is on warfarin. She was started on benazepril therapy since early November 2017 but has stopped that and her BP is controlled. Problem Slow transit constipation K59.01 Active confirmed 77171424 MiraLAX as prescribed on a scheduled basis, perhaps twice weekly. Problem Obstructive sleep apnea syndrome G47.33 Active conf irmed 13861399 She had a sleep study and is seeing a formstone fitter. She is using CPAP. Problem Kidney stones N20.0 Active confirmed 987765 07 Problem Mild intermittent asthma without complication J45. 20 Active confirmed 724126976 She has had a pulmon ology consultation [...] mammogram of left breast R92.8 Active confirmed 812249696 Problem History of kidney stones Z87.442 Active confirmed 233314617 She has had prior kidney stones and is being followed by urology. She has 2 left intrarenal stones and still passes a fragment occasionally. It is quite painful when that happens. I have prescribed tramadol. She takes Flomax as needed. Problem Hypertension I10 Active confirmed 4032358 3 She was on hydrochlorothiazide in the [...] inhibitor restarted if she develops microalbuminuria. Problem long-term current use of anticoagulant Z79.01 A ctive confirmed 624298585 Problem Ureteral stone with hydronephrosis N13.2 Activ e confirmed 289557573 Problem Gastroesophageal reflux K21.9 Active confirmed 343074678 She has historically been on omeprazole in the past, and was started on Protonix as of October 2017. She is off that now but takes famotidine daily. Problem Anticoagulation monitoring, INR range 2-3 Z79.01 Active confirmed 661655508 Adjustments made. Problem long-term (current) use of anticoagulants Z79.01 Active confirmed 862996557 Problem Encounter for therapeutic drug level monitoring Z5 1.81 Active confirmed 256717978 Problem Immunization due Z23 Active confirmed 171 363857 Tdap given 01/30/2021; needs Prevnar in 07/2021. ALLERGIES No Known Allergies ENCOUNTERS from 1955 to 2021-06-05 Encounter Location Date Provider Diagnosis [facility] Breast Care [address] [place] [address] [place] [address] 18 May, 2021 Mary Mcdaniel IMMUNIZATIONS Vaccine Route [...] Information RESULTS No Results REASON FOR VISIT R/S POST BX APPT MEDICAL (GENERAL) HISTORY Type Description Date Medical [...] WITH LEFT STENT REMOVAL 03/26/2018 Hospitalization History [facility] bilateral PE 08/30-09/05/2017 Hospitalization History [facility] ED chest pains 11/21/2017 Hospitalization History [facility]- Multiple bilateral pulmonary em boli 08/27-09/02/2019 Goals Section No Information Health Concerns No Information MEDICAL EQUIPMENT No Information MENTAL STATUS No Information FUNCTIONAL STATUS No Information ASSESSMENTS No Information PLAN OF TREATMENT Next Appt Details Provider Name:Mayeiln Magallon, 2020-08 08:15:00 AM, [address] [place] [address], , [place], [address], Provider Name:Mary Mcdaniel, 08-06-21 08:00:00 AM, [address] [place] [address], , [place], [place], [facility], Provider Name:Amadeo Copeland, 2021-07-31 10 :30:00 AM, [address] [place] [address], , [place], [address], Provider Name:Tanya Romo, 2021-11-17 02:30:00 PM, [address] [place] [address], , [place], [place], [facility], Insurance Providers Payer Name Payer Address Payer Phone Insured Name Patient Relati onship to Insured Coverage Start Date Coverage End Date [employer] OPTIONS [facility] CLAIM DIV [address] [facility] [phone] FRANCINE AGARWAL MEDICARE Part A and B [address] [facility] [phone] FRANCINE AGARWAL
--- OUTSIDE RECORDS SUMMARY | 2021-07-18 07:05 | CCD ---
Author Author [email or web address] Organization [email or web address] Address Unknown Phone Unavailable Care Team Providers Care Node Js Developer Name Role Phone Mary Mcdaniel Unavailable PROBLEMS Type Condition ICD9-CM Code [id number] Code Onset Dates Condition S tatus W/U Status Risk SNOMED Code Notes Problem Hypercholesterolemia E78.00 Active confirmed 62366205 She has hyperlipidemia, last assessed in January [...] reasonable. Problem Macular degeneration H35.30 Active confirmed 005620424 She had prior Avastin injections in the left eye but these apparently were ineffective. This may relate to her prior retinal detachment 2011, which is now nearly complete and she has almost no vision in the left eye. This is not a treatable condition apparently. Problem Pulmonary nodule R91.1 Active confirmed [address] of her chest in August [...] of pulmonary embolism Z86.711 Active confir med 319489585 She had bilateral pulmonary emboli in August [...] Problem Slow transit constipation K59.01 Active confirmed 64656910 MiraLAX as prescribed on a scheduled basis, perhaps twice weekly. Problem BANKS (dyspnea on exertion) R06.09 Active confirmed 74804445 She has a history of asthma and dyspnea on exertion. There may have been a contribution from her pulmonary emboli but I did have her start Breo therapy for a month as of October 2017. She is no longer using that and her symptoms are controlled. She is also seeing a business systems administrator. Problem Ureteral stone with hydronephrosis N13.2 Activ e confirmed 546756957 Problem Other chest pain R07.89 Active confirmed 298 49633 She probably had nonischemic chest pain in early November 2017 but I believe a stress echocardiogram was negative in Spring 2017--I do not have a report on that study, but she was reassured by the web software engineer. I do not think this reflects reflux or esophageal disease, and she is on Protonix anyway. She could not take nonsteroidal anti- inflammatory drugs for musculoskeletal pain because she is on warfarin. She was started on benazepril therapy since early November 2017 but has stopped that and her BP is controlled. Problem Kidney stones N20.0 Active confirmed 576015 07 Problem Mild intermittent asthma without complication J45. 20 Active confirmed 989680329 She has had a pulmon ology consultation [...] monitoring, INR range 2-3 Z79.01 Active confirmed 007760839 Adjustments made. Problem ferry terminal agent current use of anticoagulant Z79.01 A ctive confirmed 466406397 Problem Obstructive sleep apnea syndrome G47.33 Active conf irmed 61630569 She had a sleep study and is seeing a business systems administrator. She is using CPAP. Problem Gastroesophageal reflux K21.9 Active confirmed 562719655 She has historically been on omeprazole in the past, and was started on Protonix as of October 2017. She is off that now but takes famotidine daily. Problem Invasive ductal carcinoma of left breast C50.912 Active confirmed 939436601 Problem History of kidney stones Z87.442 Active confirmed 757695373 She has had prior kidney stones and is being followed by urology. She has 2 left intrarenal stones and still passes a fragment occasionally. It is quite painful when that happens. I have prescribed tramadol. She takes Flomax as needed. Problem Hypertension I10 Active confirmed 7117770 3 She was on hydrochlorothiazide in the [...] microalbuminuria. Problem Diabetes mellitus E11.9 Active confirmed 86 720470 She had historically been on metformin at [...] her medications as of January 2021. Problem penitentiary (current) use of anticoagulants Z79.01 Active confirmed 723435314 Problem Encounter for therapeutic drug level monitoring Z5 1.81 Active confirmed 382355351 Problem Immunization due Z23 Active confirmed 171 214851 Tdap given 01/30/2021; needs Prevnar in 07/2021. Problem Abnormal mammogram of left breast R92.8 Active confirmed 512084648 ALLERGIES No Known Allergies ENCOUNTERS from 1955 to 2021-06-09 Encounter Location Date Provider Diagnosis [facility] Breast Care [address] [facility] [phone] [place] [address] May, Mary Mcdaniel IMMUNIZATIONS Vaccine Route Administration [...] Information RESULTS No Results REASON FOR VISIT Stereo clip placement MEDICAL (GENERAL) HISTORY Type Description Date Medical [...] Left breast stereo bx 06/01/21 Hospitalization History [facility] bilateral PE 08/30-09/05/2017 Hospitalization History [facility] ED chest pains 11/21/2017 Hospitalization History [facility]- Multiple bilateral pulmonary em boli 08/27-09/02/2019 Goals Section No Information Health Concerns No Information MEDICAL EQUIPMENT No Information MENTAL STATUS No Information FUNCTIONAL STATUS No Information ASSESSMENTS No Information PLAN OF TREATMENT Next Appt Details Provider Name:Mayelin Magallon, 2020-08 08:15:00 AM, [address] [place] [address] , [place], [address], Provider Name:Amadeo Copeland, 2021-07-31 10 :30:00 AM, [address] [place] [address] , [place], [address], Provider Name:Tanya Romo, 2021-11-17 02:30:00 PM, [address] [place] [address], , [place], [place], [facility] [phone] Insurance Providers Payer Name Payer Address Payer Phone Insured Name Patient Relati onship to Insured Coverage Start Date Coverage End Date [employer] HE[employer] C[employer] OPTIONS [facility] CLAIM DIV [address] [facility] [phone] FRANCINE AGARWAL MEDICARE Part A and B [address] [facility] [phone] FRANCINE AGARWAL
--- OUTSIDE RECORDS SUMMARY | 2021-07-18 07:05 | CCD ---
Author Author [facility] Organization [facility] Address Unknown Phone Unavailable Care Team Providers Care Bilingual Social Worker Name Role Phone Mary Mcdaniel Unavailable PROBLEMS Type Condition ICD9-CM Code [id number] Code Onset Dates Condition S tatus W/U Status Risk SNOMED Code Notes Problem Macular degeneration H35.30 Active confirmed 916377419 She had prior Avastin injections in the left eye but these apparently were ineffective. This may relate to her prior retinal detachment 2011, which is now nearly complete and she has almost no vision in the left eye. This is not a treatable condition apparently. Problem Diabetes mellitus E11.9 Active confirmed 73 282952 She had historically been on metformin at [...] of pulmonary embolism Z86.711 Active confir med 188401469 She had bilateral pulmonary emboli in August [...] lifelong anticoagulation. Problem Hypercholesterolemia E78.00 Active confirmed 29293492 She has hyperlipidemia, last assessed in January [...] BANKS (dyspnea on exertion) R06.09 Active confirmed 47689529 She has a history of asthma and dyspnea on exertion. There may have been a contribution from her pulmonary emboli but I did have her start Breo therapy for a month as of October 2017. She is no longer using that and her symptoms are controlled. She is also seeing a ultrasound manager. Problem Pulmonary nodule R91.1 Active confirmed [address] of her chest in August [...] Other chest pain R07.89 Active confirmed 298 71736 She probably had nonischemic chest pain in early November 2017 but I believe a stress echocardiogram was negative in Spring 2017--I do not have a report on that study, but she was reassured by the ve teacher. I do not think this reflects reflux or esophageal disease, and she is on Protonix anyway. She could not take nonsteroidal anti- inflammatory drugs for musculoskeletal pain because she is on warfarin. She was started on benazepril therapy since early November 2017 but has stopped that and her BP is controlled. Problem Slow transit constipation K59.01 Active confirmed 62968871 MiraLAX as prescribed on a scheduled basis, perhaps twice weekly. Problem Obstructive sleep apnea syndrome G47.33 Active conf irmed 18309172 She had a sleep study and is seeing a ultrasound manager. She is using CPAP. Problem Kidney stones N20.0 Active confirmed 430998 07 Problem Mild intermittent asthma without complication J45. 20 Active confirmed 502617469 She has had a pulmon ology consultation [...] mammogram of left breast R92.8 Active confirmed 772852850 Problem History of kidney stones Z87.442 Active confirmed 104002167 She has had prior kidney stones and is being followed by urology. She has 2 left intrarenal stones and still passes a fragment occasionally. It is quite painful when that happens. I have prescribed tramadol. She takes Flomax as needed. Problem Hypertension I10 Active confirmed 9042109 3 She was on hydrochlorothiazide in the [...] inhibitor restarted if she develops microalbuminuria. Problem nursing home current use of anticoagulant Z79.01 A ctive confirmed 603169914 Problem Ureteral stone with hydronephrosis N13.2 Activ e confirmed 588479252 Problem Gastroesophageal reflux K21.9 Active confirmed 414337482 She has historically been on omeprazole in the past, and was started on Protonix as of October 2017. She is off that now but takes famotidine daily. Problem Anticoagulation monitoring, INR range 2-3 Z79.01 Active confirmed 262776997 Adjustments made. Problem nursing home (current) use of anticoagulants Z79.01 Active confirmed 925895277 Problem Encounter for therapeutic drug level monitoring Z5 1.81 Active confirmed 189023977 Problem Immunization due Z23 Active confirmed 171 349945 Tdap given 01/30/2021; needs Prevnar in 07/2021. ALLERGIES No Known Allergies ENCOUNTERS from 1955 to 2021-05-25 Encounter Location Date Provider Diagnosis [facility] Breast Care [address] [place] [address] [place] [address] 07 May, 2021 Mary Mcdaniel IMMUNIZATIONS Vaccine Route [...] Information RESULTS No Results REASON FOR VISIT 1d post bx MEDICAL (GENERAL) HISTORY Type Description Date Medical [...] WITH LEFT STENT REMOVAL 03/26/2018 Hospitalization History [facility] bilateral PE 08/30-09/05/2017 Hospitalization History [facility] ED chest pains 11/21/2017 Hospitalization History [facility]- Multiple bilateral pulmonary em boli 08/27-09/02/2019 Goals Section No Information Health Concerns No Information MEDICAL EQUIPMENT No Information MENTAL STATUS No Information FUNCTIONAL STATUS No Information ASSESSMENTS No Information PLAN OF TREATMENT Next Appt Details Provider Name:Mary Mcdaniel, 08-06-11 02:30:00 PM, [address] [place] [address], , [place], [address], Provider Name:Mayelinaubree Magallon, 2020-08 0- 01:30:00 PM, [address] [place] [address], , [place], [address], Provider Name:Mary Mcdaniel, 08-06-18 01:30:00 PM, [address] [place] [address], , [place], [address], Provider Name:Amadeo Copeland, 2021-07-31 10 :30:00 AM, [address] [place] [address], , [place], [address], Insurance Providers Payer Name Payer Address Payer Phone Insured Name Patient Relati onship to Insured Coverage Start Date Coverage End Date [employer] HE[employer] OPTIONS [facility] CLAIM DIV [address] [facility] [phone] FRANCINE AGARWAL MEDICARE Part A and B [address] [facility] [phone] FRANCINE AGARWAL
--- OUTSIDE RECORDS SUMMARY | 2021-07-18 07:05 | CCD ---
Author Author [facility] Organization [facility] Address Unknown Phone Unavailable Care Team Providers Care Food And Beverage Cashier Name Role Phone Tanya Romo Unavailable PROBLEMS Type Condition ICD9-CM Code [id number] Code Onset Dates Condition S tatus W/U Status Risk SNOMED Code Notes Problem Hypercholesterolemia E78.00 Active confirmed 35237356 She has hyperlipidemia, last assessed in January [...] reasonable. Problem Macular degeneration H35.30 Active confirmed 721565911 She had prior Avastin injections in the left eye but these apparently were ineffective. This may relate to her prior retinal detachment 2011, which is now nearly complete and she has almost no vision in the left eye. This is not a treatable condition apparently. Problem Pulmonary nodule R91.1 Active confirmed [address] of her chest in August [...] of pulmonary embolism Z86.711 Active confir med 922740763 She had bilateral pulmonary emboli in August [...] Problem Slow transit constipation K59.01 Active confirmed 95808595 MiraLAX as prescribed on a scheduled basis, perhaps twice weekly. Problem BANKS (dyspnea on exertion) R06.09 Active confirmed 14334785 She has a history of asthma and dyspnea on exertion. There may have been a contribution from her pulmonary emboli but I did have her start Breo therapy for a month as of October 2017. She is no longer using that and her symptoms are controlled. She is also seeing a automatic cigar wrapper tender. Problem Ureteral stone with hydronephrosis N13.2 Activ e confirmed 966349688 Problem Other chest pain R07.89 Active confirmed 298 23159 She probably had nonischemic chest pain in early November 2017 but I believe a stress echocardiogram was negative in Spring 2017--I do not have a report on that study, but she was reassured by the corpsman. I do not think this reflects reflux or esophageal disease, and she is on Protonix anyway. She could not take nonsteroidal anti- inflammatory drugs for musculoskeletal pain because she is on warfarin. She was started on benazepril therapy since early November 2017 but has stopped that and her BP is controlled. Problem Kidney stones N20.0 Active confirmed 369552 07 Problem Mild intermittent asthma without complication J45. 20 Active confirmed 672489804 She has had a pulmon ology consultation [...] monitoring, INR range 2-3 Z79.01 Active confirmed 353312951 Adjustments made. Problem intermediate current use of anticoagulant Z79.01 A ctive confirmed 967669226 Problem Obstructive sleep apnea syndrome G47.33 Active conf irmed 76830419 She had a sleep study and is seeing a automatic cigar wrapper tender. She is using CPAP. Problem Gastroesophageal reflux K21.9 Active confirmed 646778699 She has historically been on omeprazole in the past, and was started on Protonix as of October 2017. She is off that now but takes famotidine daily. Problem Invasive ductal carcinoma of left breast C50.912 Active confirmed 978694927 Problem History of kidney stones Z87.442 Active confirmed 238546275 She has had prior kidney stones and is being followed by urology. She has 2 left intrarenal stones and still passes a fragment occasionally. It is quite painful when that happens. I have prescribed tramadol. She takes Flomax as needed. Problem Hypertension I10 Active confirmed 3079326 3 She was on hydrochlorothiazide in the [...] microalbuminuria. Problem Diabetes mellitus E11.9 Active confirmed 05 385865 She had historically been on metformin at [...] her medications as of January 2021. Problem intermediate (current) use of anticoagulants Z79.01 Active confirmed 202793427 Problem Encounter for therapeutic drug level monitoring Z5 1.81 Active confirmed 951575222 Problem Immunization due Z23 Active confirmed 171 053083 Tdap given 01/30/2021; needs Prevnar in 07/2021. 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 Z79.01 IMMUNIZATIONS Vaccine [...] FOR REFERRAL No Information VITAL SIGNS Weight 206 lbs May, Weight-kg 93.44 kg May, Height 62 in May, BMI 37.67 kg/m2 May, Temperature 97.4 degrees Fahrenheit May, MEDICATIONS Medication SIG (Take, Route, Frequency, Duration) Notes Start Da te End Date Status Lancet Device - as directed DX: E11.9 Daily use, three times a day for 90 day(s) Aug, Active Lancets - as directed DX: E11.9 Three times a day for 90 days Aug, Active Cholecalciferol 5000 UNIT 2 tablet Orally Once a day Active Atorvastatin Calcium 20 MG 1 tablet Orally Once a day on Saturday/Saturday/Saturday for 90 Not-Taking Polyethylene Glycol 3350 17 GM/SCOOP DIRECTED DAILY NEEDED for 30 Not-Taking Albuterol Sulfate HFA 108 (90 Base) MCG/ACT 2 puffs In halation Every 4 hours as needed for SOB, Wheeze, Cough for 30 days prn Active CPAP mask as directed G47.33 Daily. H er present mask broke--please replace for 180 days December, Active CPAP Machine Not-Taking Lipitor 20 MG 1 tablet Orally Once a day Active Famotidine 40 MG 1 tablet at bedtime Orally Once a day for 30 Active Glucometer _ A glucometer her insurance w ill pay for DX: E11.9 Daily for 365 days Aug, Active Blood Glucose Test - To match the machine her ins urance will pay for In Vitro, DX: E11.9 3 times a day for 30 Days Aug, Active Coumadin 3 MG TAKE ONE TABLET BY MOUTH EVERY DAY DIRECTED for 30 Active PROCEDURES No Information RESULTS No Results REASON FOR VISIT post L bx/aspiration MEDICAL (GENERAL) HISTORY Type Description Date Medical [...] WITH LEFT STENT REMOVAL 03/26/2018 Hospitalization History [facility] bilateral PE 08/30-09/05/2017 Hospitalization History [facility] ED chest pains 11/21/2017 Hospitalization History [facility]- Multiple bilateral pulmonary em boli 08/27-09/02/2019 Goals Section No Information Health Concerns No Information MEDICAL EQUIPMENT No Information MENTAL STATUS No Information FUNCTIONAL STATUS No Information ASSESSMENTS Encounter Date Diagnosis Assessment Notes Treatment Notes Treatm ent Clinical Notes May, Abnormal mammogram of left breast (ICD-10 - R92. 8) s/p L ultrasound guided needle aspiration on 05/24/[address] Mcdaniel I reviewed the cytology report with Ms. Agarwal and explained that no malignancy was identified in the specimen. Cytology showed scattered small groups of apocrine cells noted in a background of scattered macrophages, lymphocytes, and blood elements. I informed patient that no surgical intervention is warranted at this time, however, I would like to get Left breast mammogram and Ultrasound in 6 month to assure stability of the lesion. If no changes are seen at 6 month post biopsy, then patient will be able to go back to her regular screening mammography. All questions were answered. Patient agrees with the plan May, Family history of cancer (ICD-10 - Z80.9) Patient participated in our cancer screening program and she was identified as a person who may be eligible for genetic testing due to her family history. Her TC score is 4.3% May, Genetic testing (ICD-10 - Z13.79) Patient participated in our cancer screening program and she was identified as a person who may be eligible for genetic testing due to her family history. Possible outcomes of genetic testing were discussed [...] health insurance denied in the future. Patient declined genetic testing today. She would like to consider testing at this time. She will let us know if she would like to pursue it at a later time May, intermediate current use of anticoagulant (ICD-10 - Z79.01) Patient is on Coumadin. This will need to be held prior to bs per Dr Copeland's recommendations. PLAN OF TREATMENT Treatment Notes Assessment Notes Clinical Notes Abnormal mammogram of left breast s/p L ultrasound kelvin ded needle aspiration on 05/24/[address] Gallagher reviewed the cytology report with Ms. Agarwal and explained that no malignancy was identified in the specimen. Cytology showed scattered small groups of apocrine cells noted in a background of scattered macrophages, lymphocytes, and blood elements.I informed patient that no surgical intervention is warranted at this time, however, I would like to get Left breast mammogram and Ultrasound in 6 month to assure stability of the lesion. If no changes are seen at 6 month post biopsy, then patient will be able to go back to her regular screening mammography.All questions were answered. Patient agrees with the plan Family history of cancer Patient participated in our cancer screening program and she was identified as a person who may be eligible for genetic testing due to her family history.Her TC score is 4.3% Genetic testing Patient participated in our cancer screening program and she was identified as a person who may be eligible for genetic testing due to her family history.Possible outcomes of genetic testing were discussed with [...] her health insurance denied in the future.Patient declined genetic testing today. She would like to consider testing at this time. She will let us know if she would like to pursue it at a later time intermediate current use of anticoagulant Patient is on C oumadin. This will need to be held prior to bs per Dr Copeland's recommendations. Future Test Test Name Order Date WMM DIAGNOSTIC UNILAT MAMMO (Ultrasound if indicated) [facility] [id number] Next Appt Details 6 Months Reason:six-month post bx, needs imaging first Provider Name:Mary Mcdaniel, 08-06-21 08:00:00 AM, [address] [place] [address] , [place], [place], [facility] [phone] Provider Name:Mayelin Magallon, 2020-08 08:15:00 AM, [address] [place] [address]86-7300, [place], [address], Provider Name:Amadeo Copeland, 2021-07-31 10 :30:00 AM, [address] [place] [address], [place], [address], Provider Name:Tanya Romo, 2021-11-17 02:30:00 PM, [address] [place] [address] , [place], [place], [facility] [phone] Follow Up:6 Monthssix-month post bx, needs imaging first Insurance Providers Payer Name Payer Address Payer Phone Insured Name Patient Relati onship to Insured Coverage Start Date Coverage End Date MEDICARE Part A and B [address] [facility] [phone] FRANCINE AGARWAL [facility] C[facility] OPTIONS [facility] CLAIM DIV [address] [facility] [address] FRANCINE AGARWAL
--- OUTSIDE RECORDS SUMMARY | 2021-07-18 07:05 | CCD ---
Author Author [facility] Organization [facility] Address Unknown Phone Unavailable Care Team Providers Care Employment Service Specialist Name Role Phone Mary Mcdaniel Unavailable PROBLEMS Type Condition ICD9-CM Code [id number] Code Onset Dates Condition S tatus W/U Status Risk SNOMED Code Notes Problem Hypercholesterolemia E78.00 Active confirmed 69796897 She has hyperlipidemia, last assessed in January [...] reasonable. Problem Macular degeneration H35.30 Active confirmed 778263402 She had prior Avastin injections in the left eye but these apparently were ineffective. This may relate to her prior retinal detachment 2011, which is now nearly complete and she has almost no vision in the left eye. This is not a treatable condition apparently. Problem Pulmonary nodule R91.1 Active confirmed [address] of her chest in August [...] of pulmonary embolism Z86.711 Active confir med 134728175 She had bilateral pulmonary emboli in August [...] Problem Slow transit constipation K59.01 Active confirmed 41516191 MiraLAX as prescribed on a scheduled basis, perhaps twice weekly. Problem BANKS (dyspnea on exertion) R06.09 Active confirmed 44217630 She has a history of asthma and dyspnea on exertion. There may have been a contribution from her pulmonary emboli but I did have her start Breo therapy for a month as of October 2017. She is no longer using that and her symptoms are controlled. She is also seeing a gallery or museum guide. Problem Ureteral stone with hydronephrosis N13.2 Activ e confirmed 222097781 Problem Other chest pain R07.89 Active confirmed 298 27161 She probably had nonischemic chest pain in early November 2017 but I believe a stress echocardiogram was negative in Spring 2017--I do not have a report on that study, but she was reassured by the insurance sales manager. I do not think this reflects reflux or esophageal disease, and she is on Protonix anyway. She could not take nonsteroidal anti- inflammatory drugs for musculoskeletal pain because she is on warfarin. She was started on benazepril therapy since early November 2017 but has stopped that and her BP is controlled. Problem Kidney stones N20.0 Active confirmed 602431 07 Problem Mild intermittent asthma without complication J45. 20 Active confirmed 578349706 She has had a pulmon ology consultation [...] monitoring, INR range 2-3 Z79.01 Active confirmed 195861453 Adjustments made. 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 She is using CPAP. Problem Gastroesophageal reflux K21.9 Active confirmed 920057675 She has historically been on omeprazole in the past, and was started on Protonix as of October 2017. She is off that now but takes famotidine daily. Problem Invasive ductal carcinoma of left breast C50.912 Active confirmed 835946868 Problem History of kidney stones Z87.442 Active confirmed 976462738 She has had prior kidney stones and is being followed by urology. She has 2 left intrarenal stones and still passes a fragment occasionally. It is quite painful when that happens. I have prescribed tramadol. She takes Flomax as needed. Problem Hypertension I10 Active confirmed 4311199 3 She was on hydrochlorothiazide in the [...] microalbuminuria. Problem Diabetes mellitus E11.9 Active confirmed 16 293945 She had historically been on metformin at [...] her medications as of January 2021. Problem skilled nursing (current) use of anticoagulants Z79.01 Active confirmed 416881819 Problem Encounter for therapeutic drug level monitoring Z5 1.81 Active confirmed 749262705 Problem Immunization due Z23 Active confirmed 171 984188 Tdap given 01/30/2021; needs Prevnar in 07/2021. Problem Abnormal mammogram of left breast R92.8 Active confirmed 614788626 ALLERGIES No Known Allergies ENCOUNTERS from 1955 to 2021-06-08 Encounter Location Date Provider Diagnosis [facility] [address] [facility] [phone] [place] [address] May, Mary Mcdaniel IMMUNIZATIONS Vaccine Route Administration [...] Information RESULTS No Results REASON FOR VISIT meeting with pt after dx MEDICAL (GENERAL) HISTORY Type Description Date Medical [...] Left breast stereo bx 06/01/21 Hospitalization History [facility] bilateral PE 08/30-09/05/2017 Hospitalization History [facility] ED chest pains 11/21/2017 Hospitalization History [facility]- Multiple bilateral pulmonary em boli 08/27-09/02/2019 Goals Section No Information Health Concerns No Information MEDICAL EQUIPMENT No Information MENTAL STATUS No Information FUNCTIONAL STATUS No Information ASSESSMENTS No Information PLAN OF TREATMENT Next Appt Details Provider Name:Mayelin Magallon, 2020-08 08:15:00 AM, [address] [place] [address], , [place], [address], Provider Name:Amadeo Copeland, 2021-07-31 10 :30:00 AM, [address] [place] [address], , [place], [address], Provider Name:Tanya Romo, 2021-11-17 02:30:00 PM, [address] [place] [address], , [place], [address], Insurance Providers Payer Name Payer Address Payer Phone Insured Name Patient Relati onship to Insured Coverage Start Date Coverage End Date MEDICARE Part A and B [address] [facility] [phone] FRANCINE AGARWAL [facility] C[facility] OPTIONS [facility] CLAIM [facility] [address] [facility] [id number] FRANCINE AGARWAL
--- OUTSIDE RECORDS SUMMARY | 2021-07-18 07:05 | CCD ---
Author Author [facility] Organization [facility] Address Unknown Phone Unavailable Care Team Providers Care Transformer Assembler Name Role Phone Mary Mcdaniel Unavailable PROBLEMS Type Condition ICD9-CM Code IXZ47-MS Code Onset Dates Condition S tatus W/U Status Risk SNOMED Code Notes Problem Macular degeneration H35.30 Active confirmed 745798775 She had prior Avastin injections in the left eye but these apparently were ineffective. This may relate to her prior retinal detachment 2011, which is now nearly complete and she has almost no vision in the left eye. This is not a treatable condition apparently. Problem Diabetes mellitus E11.9 Active confirmed 73 978523 She had historically been on metformin at [...] of pulmonary embolism Z86.711 Active confir med 353833723 She had bilateral pulmonary emboli in August [...] lifelong anticoagulation. Problem Hypercholesterolemia E78.00 Active confirmed 11378221 She has hyperlipidemia, last assessed in January [...] BANKS (dyspnea on exertion) R06.09 Active confirmed 51063824 She has a history of asthma and dyspnea on exertion. There may have been a contribution from her pulmonary emboli but I did have her start Breo therapy for a month as of October 2017. She is no longer using that and her symptoms are controlled. She is also seeing a sandal parts assembler. Problem Pulmonary nodule R91.1 Active confirmed [address] of her chest in August [...] Other chest pain R07.89 Active confirmed 298 29425 She probably had nonischemic chest pain in early November 2017 but I believe a stress echocardiogram was negative in Spring 2017--I do not have a report on that study, but she was reassured by the pick up attendant. I do not think this reflects reflux or esophageal disease, and she is on Protonix anyway. She could not take nonsteroidal anti- inflammatory drugs for musculoskeletal pain because she is on warfarin. She was started on benazepril therapy since early November 2017 but has stopped that and her BP is controlled. Problem Slow transit constipation K59.01 Active confirmed 16895449 MiraLAX as prescribed on a scheduled basis, perhaps twice weekly. Problem Obstructive sleep apnea syndrome G47.33 Active conf irmed 35160224 She had a sleep study and is seeing a sandal parts assembler. She is using CPAP. Problem Kidney stones N20.0 Active confirmed 298260 07 Problem Mild intermittent asthma without complication J45. 20 Active confirmed 951284742 She has had a pulmon ology consultation [...] mammogram of left breast R92.8 Active confirmed 083221652 Problem History of kidney stones Z87.442 Active confirmed 666034917 She has had prior kidney stones and is being followed by urology. She has 2 left intrarenal stones and still passes a fragment occasionally. It is quite painful when that happens. I have prescribed tramadol. She takes Flomax as needed. Problem Hypertension I10 Active confirmed 9542749 3 She was on hydrochlorothiazide in the [...] inhibitor restarted if she develops microalbuminuria. Problem custodial current use of anticoagulant Z79.01 A ctive confirmed 160755770 Problem Ureteral stone with hydronephrosis N13.2 Activ e confirmed 289597999 Problem Gastroesophageal reflux K21.9 Active confirmed 309113537 She has historically been on omeprazole in the past, and was started on Protonix as of October 2017. She is off that now but takes famotidine daily. Problem Anticoagulation monitoring, INR range 2-3 Z79.01 Active confirmed 916119582 Adjustments made. Problem custodial (current) use of anticoagulants Z79.01 Active confirmed 115375711 Problem Encounter for therapeutic drug level monitoring Z5 1.81 Active confirmed 066573233 Problem Immunization due Z23 Active confirmed 171 668735 Tdap given 01/30/2021; needs Prevnar in 07/2021. ALLERGIES No Known Allergies ENCOUNTERS from 1955 to 2021-06-02 Encounter Location Date Provider Diagnosis [facility] [address] [place] [address] [place] [address] 15 May, 2021 Mary Mcdaniel IMMUNIZATIONS Vaccine Route [...] Results REASON FOR VISIT 1d post bx with radiology team MEDICAL (GENERAL) HISTORY Type Description Date Medical [...] WITH LEFT STENT REMOVAL 03/26/2018 Hospitalization History [facility] bilateral PE 08/30-09/05/2017 Hospitalization History [facility] ED chest pains 11/21/2017 Hospitalization History [facility]- Multiple bilateral pulmonary em boli 08/27-09/02/2019 Goals Section No Information Health Concerns No Information MEDICAL EQUIPMENT No Information MENTAL STATUS No Information FUNCTIONAL STATUS No Information ASSESSMENTS No Information PLAN OF TREATMENT Next Appt Details Provider Name:Mary Jaquan Vikashtatijaved, 08-06-18 01:30:00 PM, [address] [place] [address], , [place], [address], Provider Name:Mayelin Magallon, 2020-08 08:15:00 AM, [address] [place] [address], , [place], [address], Provider Name:Amadeo Copeland, 2021-07-31 10 :30:00 AM, [address] [place] [address], , [place], [address], Provider Name:Tanya Romo, 2021-11-17 02:30:00 PM, [address] [place] [address], , [place], [facility], Insurance Providers Payer Name Payer Address Payer Phone Insured Name Patient Relati onship to Insured Coverage Start Date Coverage End Date MEDICARE Part A and B [address] [facility] [phone] [phone] FRANCINE AGARWAL [facility] HEALTH CARE OPTIONS [facility] CLAIM DIV [address] [facility] [phone] FRANCINE AGARWAL
--- OUTSIDE RECORDS SUMMARY | 2021-07-18 07:06 | CCD ---
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 Name Role Phone DOMBROWSKA, K RADHA DO Unavailable Unavailable DOMBROWSKA, K RADHA DO Unavailable Unavailable DOMBROWSKA, K RADHA DO Unavailable Unavailable DOMBROWSKA, K RADHA DO Unavailable Unavailable DOMBROWSKA, K RADHA DO Unavailable Unavailable DOMBROWSKA, K RADHA DO Unavailable Unavailable DOMBROWSKA, K RADHA DO Unavailable Unavailable DOMBROWSKA, K RADHA DO Unavailable Unavailable DOMBROWSKA, K RADHA DO Unavailable Unavailable DOMBROWSKA, K RADHA DO Unavailable Unavailable DOMBROWSKA, K RADHA DO Unavailable Unavailable DOMBROWSKA, K RADHA DO Unavailable Unavailable DOMBROWSKA, K RADHA DO Unavailable Unavailable DOMBROWSKA, K RADHA DO Unavailable Unavailable DOMBROWSKA, K RADHA DO Unavailable Unavailable DOMBROWSKA, K RADHA DO Unavailable Unavailable DOMBROWSKA, K RADHA DO Unavailable Unavailable DOMBROWSKA, K RADHA DO Unavailable Unavailable DOMBROWSKA, K RADHA DO Unavailable Unavailable DOMBROWSKA, K RADHA DO Unavailable Unavailable DOMBROWSKA, K RADHA DO Unavailable Unavailable DOMBROWSKA, K RADHA DO Unavailable Unavailable DOMBROWSKA, K RADHA DO Unavailable Unavailable Lee Trevino, Ehsan Epperson MD, FACS Unavailable Unavailable Lee Trevino, Ehsan Epperson MD, FACS Unavailable Unavailable Lee Trevino, Ehsan Epperson MD, FACS Unavailable Unavailable Lee Trevino, Ehsan Epperson MD, FACS Unavailable Unavailable Lee Trevino, Ehsan Epperson MD, FACS Unavailable Unavailable Lee Trevino, Ehsan Epperson MD, FACS Unavailable Unavailable Lee Trevino, Ehsan Epperson MD, FACS Unavailable Unavailable Lee Trevino, Ehsan Epperson MD, FACS Unavailable Unavailable Lee Trevino, Ehsan Epperson MD, FACS Unavailable Unavailable Lee Trevino, Ehsan Epperson MD, FACS Unavailable Unavailable Lee Trevino, Ehsan Epperson MD, FACS Unavailable Unavailable Lee Trevino, Ehsan Epperson MD, FACS Unavailable Unavailable Lee Trevino, Ehsan Epperson MD, FACS Unavailable Unavailable Lee Trevino, Ehsan Epperson MD, FACS Unavailable Unavailable Lee Trevino, Ehsan Epperson MD, FACS Unavailable Unavailable Lee Trevino, Ehsan Epperson MD, FACS Unavailable Unavailable Lee Trevino, Ehsan Epperson MD, FACS Unavailable Unavailable Lee Trevino, Ehsan Epperson MD, FACS Unavailable Unavailable Lee Trevino, Ehsan Epperson MD, FACS Unavailable Unavailable Lee Trevino, Ehsan Epperson MD, FACS Unavailable Unavailable Lee Trevino, Ehsan Epperson MD, FACS Unavailable Unavailable Lee Trevino, Ehsan Epperson MD, FACS Unavailable Unavailable Lee Trevino, Ehsan Epperson MD, FACS Unavailable Unavailable Lee Trevino, Ehsan Epperson MD, FACS Unavailable Unavailable Lee Trevino, Ehsan Epperson MD, FACS Unavailable Unavailable Lee Trevino, Ehsan Epperson MD, FACS Unavailable Unavailable Lee Trevino, Ehsan Epperson MD, FACS Unavailable Unavailable Lee Trevino, Ehsan Epperson MD, FACS Unavailable Unavailable Lee Trevino, Ehsan Epperson MD, FACS Unavailable Unavailable Lee Trevino, Ehsan Epperson MD, FACS Unavailable Unavailable Lee Trevino, Ehsan Epperson MD, FACS Unavailable Unavailable Lee Trevino, Ehsan Epperson MD, FACS Unavailable Unavailable Lee Trevino, Ehsan Epperson MD, FACS Unavailable Unavailable Lee Trevino, Ehsan Epperson MD, FACS Unavailable Unavailable Lee Trevino, Ehsan Epperson MD, FACS Unavailable Unavailable Lee Trevino, Ehsan Epperson MD, FACS Unavailable Unavailable Lee Trevino, Ehsan Epperson MD, FACS Unavailable Unavailable Lee Trevino, Ehsan Epperson MD, FACS Unavailable Unavailable Lee Trevino, Ehsan Epperson MD, FACS Unavailable Unavailable Re-disclosure Warning The records that you are about to access may contain information from federally-assisted alcohol or drug abuse programs. If such information is present, then the following federally mandated warning applies: This information has been disclosed to you from records protected by federal confidentiality rules (42 CFR part 2). The federal rules prohibit you from making any further disclosure of this information unless further disclosure is expressly permitted by the written consent of the person to whom it pertains or as otherwise permitted by 42 CFR part 2. A general authorization for the release of medical or other information is NOT sufficient for this purpose. The Federal rules restrict any use of the information to criminally investigate or prosecute any alcohol or drug abuse patient.The records that you are about to access may contain highly sensitive health information, the redisclosure of which is protected by Article 27-F of the [facility] Public Health law. If you continue you may have access to information: Regarding HIV / AIDS; Provided by facilities licensed or operated by the [facility] Office of Mental Health; or Provided by the [facility] Office for People With Developmental Disabilities. If such information is present, then the following [facility] mandated warning applies: This information has been disclosed to you from confidential records which are protected by state law. State law prohibits you from making any further disclosure of this information without the specific written consent of the person to whom it pertains, or as otherwise permitted by law. Any unauthorized further disclosure in violation of state law may result in a fine or chcf sentence or both. A general authorization for the release of medical or other information is NOT sufficient authorization for further disc losure. Allergies and Adverse Reactions Type Description Substance Reaction Status Data Source(s ) Allergy to substance No Known Allergies No known allergies (situation ) MCDANIELS (Zhou Trevino MD [facility]) Family History Family Member Name Family Member Gender Family Member Status Date o f Status Description Data Source(s) Unknown Male Problem MEDENT ([facility]) () Unknown Female Problem MEDENT ([facility]) Unknown Female Problem MEDENT ([facility]) Unknown Female Problem MEDENT ([facility]) Unknown Unknown Problem MEDENT ([facility] Unknown Unknown Problem MEDENT ([facility] Unknown Unknown Problem MEDENT ([facility] Unknown Unknown Problem MEDENT ([facility] Unknown Unknown Problem MEDENT ([facility]) Unknown Unknown Problem MEDENT ([facility]) father, brother Encounters Encounter Providers Location Date Indications Data Source(s ) [place] [address] [facility] [address] 07/10/2021 12:00:00 AM EST eCW1 ([facility]) Office Visit, Est Pt., Level 3 PC [address] [place] [address] 07/07/2021 12:00:00 AM EST eCW1 ([facility]) Unknown [address] [facility] [address] 07/07/2021 12:00:00 AM EST eCW1 ([facility]) Unknown [address] [facility] [place] [address] 07/07/2021 12:00:00 AM EST eCW1 ([facility]) Unknown [address] [facility] [place] [address] 07/07/2021 12:00:00 AM EST eCW1 [facility] [place] [address] [facility] [address] 07/05/2021 12:00:00 AM EST eCW1 ([facility]) [place] [address] [facility] [address] 07/05/2021 12:00:00 AM EST eCW1 ([facility]) Unknown [address] [facility] [place] [address] 07/05/2021 12:00:00 AM EST eCW1 ([facility]) Unknown [address] [facility] [place] [address] 07/04/2021 12:00:00 AM EST eCW1 ([facility]) Office Visit, Est Pt., Level 5 PC [address] [place] [address] 07/04/2021 12:00:00 AM EST eCW1 ([facility]) Unknown [address] [facility] [place] [address] 07/03/2021 12:00:00 AM EST [facility]CW1 [facility]) Outpatient 07/01/2021 09:21:53 AM EST - 021 09:51:21 AM EST DocuTap ([facility]) [place] [address] [facility] [address] 06/30/2021 12:00:00 AM EST eCW1 ([facility]) [place] [address] [facility] [address] 06/30/2021 12:00:00 AM EST eCW1 ([facility]) [place] [address] [facility] [address] 06/21/2021 12:00:00 AM EDT eCW1 ([facility]) [place] [address] [facility] [address] 06/08/2021 12:00:00 AM EDT eCW1 ([facility]) [place] [address] [facility] [address] 06/08/2021 12:00:00 AM EDT eCW1 ([facility]) [place] [address] [facility] [address] 06/08/2021 12:00:00 AM EDT eCW1 ([facility]) [place] [address] [facility] [address] 06/08/2021 12:00:00 AM EDT eCW1 ([facility]) Outpatient Admitter: RADHA Ariaser: ROSANNA AKERS DO 06/07/2021 12:00:00 AM EDT Malignant neoplasm of unspecified site o f unspecified female [facility] Malignant neoplasm of unspecified site o f unspecified female breast Office Visit, Est Pt., Level 2 PC [address] [place] [address] 06/07/2021 12:00:00 AM EDT eCW1 ([facility]) [place] [address] [facility] [address] 06/05/2021 12:00:00 AM EDT eCW1 ([facility]) [place] [address] [facility] [address] 06/02/2021 12:00:00 AM EDT eCW1 ([facility]) [place] [address] [facility] [address] 05/29/2021 12:00:00 AM EDT eCW1 ([facility]) [place] [address] [facility] [address] 05/26/2021 12:00:00 AM EDT eCW1 ([facility]) [place] [address] [facility] [address] 05/25/2021 12:00:00 AM EDT eCW1 ([facility]) [place] [address] [facility] [address] 05/25/2021 12:00:00 AM EDT eCW1 ([facility]) [place] [address] [facility] [address] 05/24/2021 12:00:00 AM EDT eCW1 ([facility]) (BC Biopsy) Breast Center Biopsy [address] [place] [address] 05/24/2021 12:00:00 AM EDT eCW1 ([facility]) [place] [address] [facility] [address] 05/23/2021 12:00:00 AM EDT eCW1 ([facility]) [place] [address] [facility] [address] 05/11/2021 12:00:00 AM EDT eCW1 ([facility]) Unknown [address] [facility] [place] [address] 05/11/2021 12:00:00 AM EDT eCW1 ([facility]) Office Visit, Est Pt., Level 2 PC [address] [place] [address] 04/26/2021 12:00:00 AM EDT eCW1 ([facility]) [place] [address] [facility] [address] 03/13/2021 12:00:00 AM EDT eCW1 ([facility]) Outpatient [address] [facility] [address] 01/30/2021 12:00:00 AM EDT eCW1 ([facility]) Office Visit, Est Pt., Level 2 PC [address] [place] [address] 01/02/2021 12:00:00 AM EDT eCW1 ([facility]) Outpatient<td ID="encounterTypeDescripti onID0">NEW PATIENT WITH REFERRAL</td><td>Zhou Potter MD, FACS</td><td>Zhou Potter MD [facility]</td><td>12/16/2020</td><td>8:54AM</td><td>9:44AM</td><td><content ID="encounterDiagnosisID0-0">Dry Eye Syndrome Both Eyes</content>, <content ID="encounterDiagnosisID0-1">Cataract Senile Nuclear</content>, <content ID="encounterDiagnosisID0-2">Pseudophakic - Left Eye</content>, <content ID="encounterDiagnosisID0-3">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</content>, <content ID="encounterDiagnosisID0-4">Chorioretinal Scar</cont ent>, <content ID="encounterDiagnosisID0-5">Diabetes Mellitus Type 2 Without Complication</content></td> Attender: Zhou Trevino MD, FACS Zhou Potter MD [facility] 12/16/2020 08:54:00 AM EDT - 12/16/2020 09:44:00 AM ED T Diabetes Mellitus Type 2 Without ComplicationChorioretinal Scar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Pseudophakic - Left EyeCataract Senile NuclearDry Eye Syndrome Both Eyes [facility] ([facility] Diabetes Mellitus Type 2 Without Complic ation Chorioretinal Scar Cataract Senile Posterior Subcapsular Po lar Right Eye 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 Dry Eye Syndrome Both Eyes Office Visit, Est Pt., Level 2 PC [address] [place] [address] 12/12/2020 12:00:00 AM EDT eCW1 ([facility]) Unknown [address] [facility] [address] 12/02/2020 12:00:00 AM EDT eCW1 ([facility]) Office Visit, Est Pt., Level 2 PC [address] [place] [address] 11/14/2020 12:00:00 AM EDT eCW1 ([facility]) Office Visit, Est Pt., Level 2 PC [address] [place] [address] 10/31/2020 12:00:00 AM EDT eCW1 ([facility]) Office Visit, Est Pt., Level 2 PC [address] [place] [address] 10/03/2020 12:00:00 AM EST eCW1 ([facility]) Unknown [address] [facility] [address] 09/29/2020 12:00:00 AM EST eCW1 ([facility]) Outpatient [address] [facility] [place] [address] 09/06/2020 12:00:00 AM EST eCW1 ([facility]) Unknown [address] [facility] [place] [address] 08/25/2020 12:00:00 AM EST eCW1 ([facility]) Unknown [address] [facility] [place] [address] 08/16/2020 12:00:00 AM EST eCW1 ([facility]) Office Visit, Est Pt., Level 3 FC [address] [place] [address] 07/28/2020 12:00:00 AM EST eCW1 ([facility]) Office Visit, Est Pt., Level 2 PC [address] [place] [address] 06/20/2020 12:00:00 AM EST eCW1 ([facility]) [place] [address] [facility] [address] 05/23/2020 12:00:00 AM EDT eCW1 ([facility]) Immunizations Vaccine Date Status Description Data Source(s) Tdap 01/30/2021 11:03:00 AM EDT completed e CW1 ([facility]) Tdap 01/30/2021 11:03:00 AM EDT completed e CW1 ([facility]) Tdap 01/30/2021 11:03:00 AM EDT completed e CW1 ([facility]) Tdap 01/30/2021 11:03:00 AM EDT completed e CW1 ([facility]) Tdap 01/30/2021 11:03:00 AM EDT completed e CW1 ([facility]) Tdap 01/30/2021 11:03:00 AM EDT completed e CW1 ([facility]) Tdap 01/30/2021 11:03:00 AM EDT completed e CW1 ([facility]) Tdap 01/30/2021 11:03:00 AM EDT completed e CW1 ([facility]) Tdap 01/30/2021 11:03:00 AM EDT completed e CW1 ([facility]) Tdap 01/30/2021 11:03:00 AM EDT completed e CW1 ([facility]) Tdap 01/30/2021 11:03:00 AM EDT completed e CW1 ([facility]) Tdap 01/30/2021 11:03:00 AM EDT completed e CW1 ([facility]) Tdap 01/30/2021 11:03:00 AM EDT completed e CW1 ([facility]) Tdap 01/30/2021 11:03:00 AM EDT completed e CW1 ([facility]) Tdap 01/30/2021 11:03:00 AM EDT completed e CW1 ([facility]) Tdap 01/30/2021 11:03:00 AM EDT completed e CW1 ([facility]) Tdap 01/30/2021 11:03:00 AM EDT completed e CW1 ([facility]) Tdap 01/30/2021 11:03:00 AM EDT completed e CW1 ([facility]) Tdap 01/30/2021 11:03:00 AM EDT completed e CW1 ([facility]) Tdap 01/30/2021 11:03:00 AM EDT completed e CW1 ([facility]) Tdap 01/30/2021 11:03:00 AM EDT completed e CW1 ([facility]) Tdap 01/30/2021 11:03:00 AM EDT completed e CW1 ([facility]) Tdap 01/30/2021 11:03:00 AM EDT completed e CW1 ([facility]) Tdap 01/30/2021 11:03:00 AM EDT completed e CW1 ([facility]) Tdap 01/30/2021 11:03:00 AM EDT completed e CW1 ([facility]) Tdap 01/30/2021 11:03:00 AM EDT completed e CW1 ([facility]) Tdap 01/30/2021 11:03:00 AM EDT completed e CW1 ([facility]) Tdap 01/30/2021 11:03:00 AM EDT completed e CW1 ([facility]) Tdap 01/30/2021 11:03:00 AM EDT completed e CW1 ([facility]) Tdap 01/30/2021 11:03:00 AM EDT completed e CW1 ([facility]) Tdap 01/30/2021 11:03:00 AM EDT completed e CW1 ([facility]) Tdap 01/30/2021 11:03:00 AM EDT completed e CW1 ([facility]) Tdap 01/30/2021 11:03:00 AM EDT completed e CW1 ([facility]) pneumococcal polysaccharide PPV23 07/28/2020 05:06:00 PM EST comple mary eCW1 ([facility]) pneumococcal polysaccharide PPV23 07/28/2020 05:06:00 PM EST comple mary eCW1 ([facility]) pneumococcal polysaccharide PPV23 07/28/2020 05:06:00 PM EST comple mary eCW1 ([facility]) pneumococcal polysaccharide PPV23 07/28/2020 05:06:00 PM EST comple mary eCW1 ([facility]) pneumococcal polysaccharide PPV23 07/28/2020 05:06:00 PM EST comple mary eCW1 ([facility]) pneumococcal polysaccharide PPV23 07/28/2020 05:06:00 PM EST comple mary eCW1 ([facility]) pneumococcal polysaccharide PPV23 07/28/2020 05:06:00 PM EST comple mary eCW1 ([facility]) pneumococcal polysaccharide PPV23 07/28/2020 05:06:00 PM EST comple mary eCW1 ([facility]) pneumococcal polysaccharide PPV23 07/28/2020 05:06:00 PM EST comple mary eCW1 ([facility]) pneumococcal polysaccharide PPV23 07/28/2020 05:06:00 PM EST comple mary eCW1 ([facility]) pneumococcal polysaccharide PPV23 07/28/2020 05:06:00 PM EST comple mary eCW1 ([facility]) pneumococcal polysaccharide PPV23 07/28/2020 05:06:00 PM EST comple mary eCW1 ([facility]) pneumococcal polysaccharide PPV23 07/28/2020 05:06:00 PM EST comple mary eCW1 ([facility]) pneumococcal polysaccharide PPV23 07/28/2020 05:06:00 PM EST comple mary eCW1 ([facility]) pneumococcal polysaccharide PPV23 07/28/2020 05:06:00 PM EST comple mary eCW1 ([facility]) pneumococcal polysaccharide PPV23 07/28/2020 05:06:00 PM EST comple mary eCW1 ([facility]) pneumococcal polysaccharide PPV23 07/28/2020 05:06:00 PM EST comple mary eCW1 ([facility]) pneumococcal polysaccharide PPV23 07/28/2020 05:06:00 PM EST comple mary eCW1 ([facility]) pneumococcal polysaccharide PPV23 07/28/2020 05:06:00 PM EST comple mary eCW1 ([facility]) pneumococcal polysaccharide PPV23 07/28/2020 05:06:00 PM EST comple mayr eCW1 ([facility]) pneumococcal polysaccharide PPV23 07/28/2020 05:06:00 PM EST comple mary eCW1 ([facility]) pneumococcal polysaccharide PPV23 07/28/2020 05:06:00 PM EST comple mary eCW1 ([facility]) pneumococcal polysaccharide PPV23 07/28/2020 05:06:00 PM EST comple mary eCW1 ([facility]) pneumococcal polysaccharide PPV23 07/28/2020 05:06:00 PM EST comple mary eCW1 ([facility]) pneumococcal polysaccharide PPV23 07/28/2020 05:06:00 PM EST comple mary eCW1 ([facility]) pneumococcal polysaccharide PPV23 07/28/2020 05:06:00 PM EST comple mary eCW1 ([facility]) pneumococcal polysaccharide PPV23 07/28/2020 05:06:00 PM EST comple mary eCW1 ([facility]) pneumococcal polysaccharide PPV23 07/28/2020 05:06:00 PM EST comple mary eCW1 ([facility]) pneumococcal polysaccharide PPV23 07/28/2020 05:06:00 PM EST comple mary eCW1 ([facility]) pneumococcal polysaccharide PPV23 07/28/2020 05:06:00 PM EST comple mary eCW1 ([facility]) pneumococcal polysaccharide PPV23 07/28/2020 05:06:00 PM EST comple mary eCW1 ([facility]) pneumococcal polysaccharide PPV23 07/28/2020 05:06:00 PM EST comple mary eCW1 ([facility]) pneumococcal polysaccharide PPV23 07/28/2020 05:06:00 PM EST comple mary eCW1 ([facility]) pneumococcal polysaccharide PPV23 07/28/2020 05:06:00 PM EST comple mary eCW1 ([facility]) pneumococcal polysaccharide PPV23 07/28/2020 05:06:00 PM EST comple mary eCW1 ([facility]) pneumococcal polysaccharide PPV23 07/28/2020 05:06:00 PM EST comple mary eCW1 ([facility]) pneumococcal polysaccharide PPV23 07/28/2020 05:06:00 PM EST comple mary eCW1 ([facility]) pneumococcal polysaccharide PPV23 07/28/2020 05:06:00 PM EST comple mary eCW1 ([facility]) pneumococcal polysaccharide PPV23 07/28/2020 05:06:00 PM EST comple mary eCW1 ([facility]) pneumococcal polysaccharide PPV23 07/28/2020 05:06:00 PM EST comple mary eCW1 ([facility]) pneumococcal polysaccharide PPV23 07/28/2020 05:06:00 PM EST comple mary eCW1 ([facility]) pneumococcal polysaccharide PPV23 07/28/2020 05:06:00 PM EST comple mary eCW1 ([facility]) pneumococcal polysaccharide PPV23 07/28/2020 05:06:00 PM EST comple mary eCW1 ([facility]) pneumococcal polysaccharide PPV23 07/28/2020 05:06:00 PM EST comple mary eCW1 ([facility]) Medications Medication Brand Name Start Date Product Form Dose Route Admi nistrative Instructions Pharmacy Instructions Status Indications Reaction Description Data Source(s) Levofloxacin 750 MG Oral Tablet levoFLOXacin 750 MG levoFLOX acin 750 MG 07/04/2021 12:00:00 AM EST 1.0 {tablet} active levoFLOXacin 750 MG eCW1 ([facility]) Levofloxacin 750 MG Oral Tablet levoFLOXacin 750 MG levoFLOX acin 750 MG 07/04/2021 12:00:00 AM EST 1.0 {tablet} active levoFLOXacin 750 MG eCW1 ([facility]) Levofloxacin 750 MG Oral Tablet levoFLOXacin 750 MG levoFLOX acin 750 MG 07/04/2021 12:00:00 AM EST 1.0 {tablet} active levoFLOXacin 750 MG eCW1 ([facility]) Levofloxacin 750 MG Oral Tablet levoFLOXacin 750 MG levoFLOX acin 750 MG 07/04/2021 12:00:00 AM EST 1.0 {tablet} active levoFLOXacin 750 MG eCW1 ([facility]) 2.5-2.5 % 06/30/2021 12:00:00 AM EST cream 30 APPLY ENTIRE TUBE TO LEFT NIPPLE 2 HOURS BEFORE SURGERY COVER WITH PLASTIC WRAP APPLY ENTIRE TUBE TO LEFT NIPPLE 2 HOURS BEFORE SURGERY COVER WITH PLASTIC WRAP SOLD: 07/01/2021 [facility] 90 mcg/actuation 06/30/2021 12:00:00 AM EST HFA aerosol inha ler 18 INHALE TWO PUFFS BY MOUTH EVERY 4 HOURS NEEDED FOR SHORTNESS OF BREATH WHEEZE OR COUGH INHALE TWO PUFFS BY MOUTH EVERY 4 HOURS NEEDED FOR SHORTNESS OF BREATH WHEEZE OR COUGH SOLD: 07/01/2021 [facility] Famotidine 40 MG Oral Tablet FAMOTIDINE 06/28/2021 12:00:00 AM EST tab let 30 TAKE ONE TABLET BY MOUTH AT BEDTIME TAKE ONE TABLET BY MOUTH AT BEDTIME SOLD: 07/01/2021 [facility] Lidocaine 25 MG/ML / Prilocaine 25 MG/ML Topical Cream Lidocaine-Prilocaine 2.5- 2.5 % Lidocaine-Prilocaine 2.5-2.5 % 06/15/2021 12:00:00 AM EDT active Lidocaine-Prilocaine 2.5-2.5 % e 1 ([facility]) Lidocaine 25 MG/ML / Prilocaine 25 MG/ML Topical Cream Lidocaine-Prilocaine 2.5- 2.5 % Lidocaine-Prilocaine 2.5-2.5 % 06/15/2021 12:00:00 AM EDT active Lidocaine-Prilocaine 2.5-2.5 % e CW1 ([facility]) Lidocaine 25 MG/ML / Prilocaine 25 MG/ML Topical Cream Lidocaine-Prilocaine 2.5- 2.5 % Lidocaine-Prilocaine 2.5-2.5 % 06/15/2021 12:00:00 AM EDT active Lidocaine-Prilocaine 2.5-2.5 % e 1 ([facility]) Lidocaine 25 MG/ML / Prilocaine 25 MG/ML Topical Cream Lidocaine-Prilocaine 2.5- 2.5 % Lidocaine-Prilocaine 2.5-2.5 % 06/15/2021 12:00:00 AM EDT active Lidocaine-Prilocaine 2.5-2.5 % e CW1 ([facility]) Lidocaine 25 MG/ML / Prilocaine 25 MG/ML Topical Cream Lidocaine-Prilocaine 2.5- 2.5 % Lidocaine-Prilocaine 2.5-2.5 % 06/15/2021 12:00:00 AM EDT active Lidocaine-Prilocaine 2.5-2.5 % e CW1 ([facility]) Lidocaine 25 MG/ML / Prilocaine 25 MG/ML Topical Cream Lidocaine-Prilocaine 2.5- 2.5 % Lidocaine-Prilocaine 2.5-2.5 % 06/15/2021 12:00:00 AM EDT active Lidocaine-Prilocaine 2.5-2.5 % e CW1 ([facility]) Lidocaine 25 MG/ML / Prilocaine 25 MG/ML Topical Cream Lidocaine-Prilocaine 2.5- 2.5 % Lidocaine-Prilocaine 2.5-2.5 % 06/15/2021 12:00:00 AM EDT active Lidocaine-Prilocaine 2.5-2.5 % e CW1 ([facility]) Lidocaine 25 MG/ML / Prilocaine 25 MG/ML Topical Cream Lidocaine-Prilocaine 2.5- 2.5 % Lidocaine-Prilocaine 2.5-2.5 % 06/15/2021 12:00:00 AM EDT active Lidocaine-Prilocaine 2.5-2.5 % e CW1 ([facility]) Lidocaine 25 MG/ML / Prilocaine 25 MG/ML Topical Cream Lidocaine-Prilocaine 2.5- 2.5 % Lidocaine-Prilocaine 2.5-2.5 % 06/15/2021 12:00:00 AM EDT active Lidocaine-Prilocaine 2.5-2.5 % e CW1 ([facility]) Lidocaine 25 MG/ML / Prilocaine 25 MG/ML Topical Cream Lidocaine-Prilocaine 2.5- 2.5 % Lidocaine-Prilocaine 2.5-2.5 % 06/15/2021 12:00:00 AM EDT active Lidocaine-Prilocaine 2.5-2.5 % e CW1 ([facility]) Lidocaine 25 MG/ML / Prilocaine 25 MG/ML Topical Cream Lidocaine-Prilocaine 2.5- 2.5 % Lidocaine-Prilocaine 2.5-2.5 % 06/15/2021 12:00:00 AM EDT active Lidocaine-Prilocaine 2.5-2.5 % e CW1 ([facility]) Lidocaine 25 MG/ML / Prilocaine 25 MG/ML Topical Cream Lidocaine-Prilocaine 2.5- 2.5 % Lidocaine-Prilocaine 2.5-2.5 % 06/15/2021 12:00:00 AM EDT active Lidocaine-Prilocaine 2.5-2.5 % e CW1 ([facility]) Lidocaine 25 MG/ML / Prilocaine 25 MG/ML Topical Cream Lidocaine-Prilocaine 2.5- 2.5 % Lidocaine-Prilocaine 2.5-2.5 % 06/15/2021 12:00:00 AM EDT active Lidocaine-Prilocaine 2.5-2.5 % e CW1 ([facility]) Lidocaine 25 MG/ML / Prilocaine 25 MG/ML Topical Cream Lidocaine-Prilocaine 2.5- 2.5 % Lidocaine-Prilocaine 2.5-2.5 % 06/15/2021 12:00:00 AM EDT active Lidocaine-Prilocaine 2.5-2.5 % e CW1 ([facility]) Lidocaine 25 MG/ML / Prilocaine 25 MG/ML Topical Cream Lidocaine-Prilocaine 2.5- 2.5 % Lidocaine-Prilocaine 2.5-2.5 % 06/15/2021 12:00:00 AM EDT active Lidocaine-Prilocaine 2.5-2.5 % e CW1 ([facility]) Lidocaine 25 MG/ML / Prilocaine 25 MG/ML Topical Cream Lidocaine-Prilocaine 2.5- 2.5 % Lidocaine-Prilocaine 2.5-2.5 % 06/15/2021 12:00:00 AM EDT active Lidocaine-Prilocaine 2.5-2.5 % e CW1 ([facility]) atorvastatin 20 MG Oral Tablet ATORVASTATIN CALCIUM 04/07/2021 1 2:00:00 AM EDT tablet 40 TAKE 1 TABLET BY MOUTH ON Saturday AND SATURDAY TAKE 1 TABLET BY MOUTH ON Saturday AND SATURDAY SOLD: 04/15/2021 [facility] Famotidine 40 MG Oral Tablet FAMOTIDINE 02/24/2021 12:00:00 AM EDT tab let 30 TAKE ONE TABLET BY MOUTH AT BEDTIME TAKE ONE TABLET BY MOUTH AT BEDTIME SOLD: 03/30/2021 [facility] Famotidine 40 MG Oral Tablet FAMOTIDINE 02/24/2021 12:00:00 AM EDT tab let 30 TAKE ONE TABLET BY MOUTH AT BEDTIME TAKE ONE TABLET BY MOUTH AT BEDTIME SOLD: 06/03/2021 [facility] Famotidine 40 MG Oral Tablet FAMOTIDINE 02/24/2021 12:00:00 AM EDT tab let 30 TAKE ONE TABLET BY MOUTH AT BEDTIME TAKE ONE TABLET BY MOUTH AT BEDTIME SOLD: 02/28/2021 [facility] Famotidine 40 MG Oral Tablet FAMOTIDINE 02/24/2021 12:00:00 AM EDT tab let 30 TAKE ONE TABLET BY MOUTH AT BEDTIME TAKE ONE TABLET BY MOUTH AT BEDTIME SOLD: 05/02/2021 [facility] Famotidine 40 MG Oral Tablet FAMOTIDINE 01/31/2021 12:00:00 AM EDT tab let 30 TAKE ONE TABLET BY MOUTH AT BEDTIME TAKE ONE TABLET BY MOUTH AT BEDTIME SOLD: 02/01/2021 [facility] 3 mg 01/30/2021 12:00:00 AM EDT tablet 90 TAKE ONE TABLET BY MOUTH EVERY DAY TAKE ONE TABLET BY MOUTH EVERY DAY SOLD: 05/20/2021 [facility] atorvastatin 20 MG Oral Tablet ATORVASTATIN CALCIUM 01/30/2021 1 2:00:00 AM EDT tablet 36 TAKE ONE TABLET BY MOUTH ON , SATURDAY AND SATURDAY TAKE ONE TABLET BY MOUTH ON SATURDAY, SATURDAY AND SATURDAY SOLD: 02/01/2021 [facility] 3 mg 01/30/2021 12:00:00 AM EDT tablet 87 TAKE ONE TABLET BY MOUTH EVERY DAY TAKE ONE TABLET BY MOUTH EVERY DAY SOLD: 02/08/2021 [facility] Pepcid 10 mg Oral Tablet Pepcid 10 mg Oral Tablet 12/16/2020 12:00: 00 AM EDT 1 active Pepcid 10 mg THO (Guru Trevino MD [facility]) Warfarin Sodium 3 MG Oral Tablet Warfarin Sodium 3 MG Oral T ablet 12/16/2020 12:00:00 AM EDT 1 active warfarin sodium 3 MG Oral Tablet THO (Zhou Trevino MD [facility]) 40 mg 10/04/2020 12:00:00 AM EST tablet 30 TAKE ONE TABLET BY MOUTH AT BEDTIME TAKE ONE TABLET BY MOUTH AT BEDTIME SOLD: 10/05/2020 [facility] 3 mg 10/04/2020 12:00:00 AM EST tablet 30 TAKE ONE TABLET BY MOUTH EVERY DAY DIRECTED TAKE ONE TABLET BY MOUTH EVERY DAY DIRECTED SOLD: 11/09/2020 [facility] Famotidine 40 MG Oral Tablet FAMOTIDINE 10/04/2020 12:00:00 AM EST tab let 30 TAKE ONE TABLET BY MOUTH AT BEDTIME TAKE ONE TABLET BY MOUTH AT BEDTIME SOLD: 11/09/2020 [facility] Famotidine 40 MG Oral Tablet FAMOTIDINE 10/04/2020 12:00:00 AM EST tab let 30 TAKE ONE TABLET BY MOUTH AT BEDTIME TAKE ONE TABLET BY MOUTH AT BEDTIME SOLD: 01/07/2021 [facility] Famotidine 40 MG Oral Tablet FAMOTIDINE 10/04/2020 12:00:00 AM EST tab let 30 TAKE ONE TABLET BY MOUTH AT BEDTIME TAKE ONE TABLET BY MOUTH AT BEDTIME SOLD: 12/10/2020 [facility] 3 mg 10/04/2020 12:00:00 AM EST tablet 30 TAKE ONE TABLET BY MOUTH EVERY DAY DIRECTED TAKE ONE TABLET BY MOUTH EVERY DAY DIRECTED SOLD: 10/05/2020 [facility] Famotidine 40 MG Oral Tablet FAMOTIDINE 05/23/2020 12:00:00 AM EDT tab let 30 TAKE ONE TABLET BY MOUTH AT BEDTIME TAKE ONE TABLET BY MOUTH AT BEDTIME SOLD: 09/06/2020 [facility] 5 mg 05/23/2020 12:00:00 AM EDT tablet 30 TAKE ONE TABLET BY MOUTH EVERY DAY IF GLUCOSE IS VERY ELEVATED TAKE ONE TABLET BY MOUTH EVERY DAY IF GL UCOSE IS VERY ELEVATED SOLD: 05/28/2020 [facility] Famotidine 40 MG Oral Tablet FAMOTIDINE 05/23/2020 12:00:00 AM EDT tab let 30 TAKE ONE TABLET BY MOUTH AT BEDTIME TAKE ONE TABLET BY MOUTH AT BEDTIME SOLD: 08/08/2020 [facility] 40 mg 05/23/2020 12:00:00 AM EDT tablet 30 TAKE ONE TABLET BY MOUTH AT BEDTIME TAKE ONE TABLET BY MOUTH AT BEDTIME SOLD: 05/28/2020 [facility] 40 mg 05/23/2020 12:00:00 AM EDT tablet 30 TAKE ONE TABLET BY MOUTH AT BEDTIME TAKE ONE TABLET BY MOUTH AT BEDTIME SOLD: 07/09/2020 [facility] atorvastatin 20 MG Oral Tablet ATORVASTATIN CALCIUM 02/01/2020 1 2:00:00 AM EDT tablet 40 TAKE 1 TABLET BY MOUTH ON Saturday AND SATURDAY TAKE 1 TABLET BY MOUTH ON Saturday AND SATURDAY SOLD: 08/08/2020 [facility] atorvastatin 20 MG Oral Tablet ATORVASTATIN CALCIUM 02/01/2020 1 2:00:00 AM EDT tablet 40 TAKE 1 TABLET BY MOUTH ON Saturday AND SATURDAY TAKE 1 TABLET BY MOUTH ON Saturday AND SATURDAY SOLD: 11/09/2020 [facility] 17 gram/dose 12/20/2019 12:00:00 AM EDT powder 510 DIRECTED DAILY NEEDED DIRECTED DAILY NEEDED SOLD: 02/28/2021 [facility] 3 mg 11/21/2019 12:00:00 AM EDT tablet 90 TAKE ONE TABLET BY MOUTH EVERY DAY DIRECTED TAKE ONE TABLET BY MOUTH EVERY DAY DIRECTED SOLD: 07/09/2020 [facility] Insurance Providers Payer name Policy type / Coverage type Policy ID Covered constitution party ID Covered constitution party's relationship to stevens Policy [place] Plan Information [place] 302/307 [id number] SP [id number] [place] PPO 302/307 [id number] SP [id number] [place] [employer] [id number] Self [id number] [place] [employer] [id number] Self [id number] [place] [employer] [id number] Self [id number] [place] [employer] [id number] Self [id number] [place] [employer] [id number] Self [id number] BS [place] [employer] [id number] Self [id number] BS [place] [employer] [id number] Self BS [place] [employer] [id number] Self [id number] [place] [employer] [id number] Self [id number] [place] [employer] [id number] Self [id number] [place] [employer] [id number] Self [id number] MEDICAID [id number] SP [id number] [facility] Plan Medigap Part B [id number] Self [id number] [facility] Plan Medigap Part B [id number] Self [id number] [facility] Plan Medigap Part B [id number] Self [id number] [facility] Plan Medigap Part B [id number] Self [id number] [facility] Plan Medigap Part B [id number] Self [id number] [facility] PLAN [facility] [id number] SP [id number] [employer] [id number] Self [id number] MEDICARE A [id number] Self [id number] [place] [id number]. 0 Self [id number] [place] [id number]. 0 Self [id number] [facility] [id number] SP [id number] ANSI-Medicaid [id number] ANSI-Medicaid [id number] ANSI-Not a Secondary Insurance [id number] ANSI-Medicaid [id number] ANSI-Not a Secondary Insurance [id number] ANSI-Medicaid [id number] ANSI-Not a Secondary Insurance [id number] ANSI-Medicaid [id number] ANSI-Medicaid [id number] [facility]LY [facility] PLAN [facility] [id number] SP [id number] [facility] O [id number] S [id number] ANSI-Medicaid [id number] ANSI-Not a Secondary Insurance [id number] ANSI-Medicaid [id number] MEDICAID [id number] SP [id number] Medicaid [place] [id number]. 0 Self [id number] [facility] Health Maintenance Organization (HMO) [id number] Self [id number] Medicaid [place] Medicaid [id number]9.991.657315. 0 Self [id number] SELF PAY ONLY OTHER1 [employer] O 302/307 [id number] SP [id number] [employer] BCBS B [id number] S [id number] [id number] [employer] Commercial [id number]9. [id number] Self [id number] [employer] [id number]9. [id number] Self [id number] [employer] [id number]9. [id number] Self [id number] [employer] [id number]. [id number] Self [id number] [place] PPO 302/307 [id number] SP [id number] [employer] [id number]9. [id number] Self [id number] [place] 306/806 [id number] SP [id number] [employer] [place] 306/806 [id number] SP [id number] [employer] Commercial [id number] Self BS/W/Id#Prefix/W ALL #'S Commercial [id number] Self PMA MANAGEMENT [facility] [place] [id number] SP [id number] [employer] P [id number] S [id number] [employer] BCBS P [id number] S [id number] [facility] P [id number] S [id number] BC/[place] P [id number] S [id number] BC[employer] [place] 306/806 [id number] SP [id number] [facility] OPTIONS [id number] SP [id number] MEDICARE [id number] SP [id number] Medicare Part B [facility] Other 0 [id number] Self 0 [place] [id number] SP [id number] GRETA [id number] SP [id number] 200 GRETA [facility] O [id number] S [id number] [facility] PLAN [facility] [id number] SP [id number] [facility] O [id number] S [id number] ANSI-Medicaid [id number] ANSI-Not a Secondary Insurance [id number] ANSI-Commercial [id number] ANSI-Medicaid [id number] ANSI-Commercial [id number] ANSI-Not a Secondary Insurance [id number] ANSI-Medicaid [id number] ANSI-Not a Secondary Insurance [id number] ANSI-Commercial [id number] ANSI-Not a Secondary Insurance [id number] ANSI-Medicaid [id number] ANSI-Medicaid [id number] [place] [id number]. 0 Self [id number] [facility] Health Maintenance Organization (HMO) [id number] Self [id number] Problems, Conditions, and Diagnoses Code Display Name Description Problem Type Effective Dates Data Source(s) C50.919 Malignant neoplasm of unspecified site o f unspecified female breast Malignant neoplasm of unspecified site of unspecified female breast Diagnosis 06/07/2021 10:19:00 AM EDT [facility] E11.9 Type II diabetes mellitus well controlle d Diabetes mellitus type 2, controlled Problem 07/04/2021 12:00:00 AM EST eCW1 ([facility]) R06.00 43097974 BANKS (dyspnea on exertion) Problem 07/04/2021 12:00:00 AM EST eCW1 ([facility]) G47.33 03483025 ESTHER (obstructive sleep apnea) Problem 07/04/2021 12:00:00 AM EST eCW1 ([facility]) J45.20 Mild intermittent asthma Asthma, mild intermittent Pro blem 07/04/2021 12:00:00 AM EST eCW1 ([facility]) C50.912 [id number] Invasive ductal carcinoma of left breast Problem 06/07/2021 12:00:00 AM EDT eCW1 ([facility]) R92.8 714306615 Abnormal mammogram of left breast Problem 05/11/2021 12:00:00 AM EDT eCW1 ([facility]) Z79.01 177079906 long-term current use of anticoagulant Pr oblem 05/11/2021 12:00:00 AM EDT eCW1 ([facility]) Z23 [id number] Immunization due Problem 01/30/2021 12:00:00 AM EDT eCW1 ([facility]) 01119668 Dry Eye Syndrome Both Eyes Dry Eye Syndrome Both Eyes Problem 12/16/2020 12:00:00 AM EDT THO (Zhou Trevino MD [facility]) 366.16 Cataract Senile Nuclear Cataract Senile Nuclear Proble m 12/16/2020 12:00:00 AM EDT THO (Zhou Trevino MD [facility]) 366.14 Cataract Senile Posterior Subcapsular Po lar Right Eye 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 Problem 12/16/2020 12:00:00 AM EDT [facility]O (Zhou Trevino MD [facility]) 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 Scar Problem 12:00:00 AM EDT [facility]O (Zhou Trevino MD [facility]) [id number] Old total retinal detachment (disorder) Old Total Retinal Detachment Left Eye Problem 12/16/2020 12:00:00 AM EDT [facility]O (Jay Trevino MD [facility]) 6450451 Pseudophakic - Left Eye Pseudophakic - Left Eye Proble m 12/16/2020 12:00:00 AM EDT THO (Zhou Trevino MD [facility]) 250.00 Diabetes Mellitus Type 2 Without Complic ation Diabetes Mellitus Type 2 Without Complication Problem 12/16/2020 12:00:00 AM EDT THO (Dmitriy Trevino MD [facility]) Z51.81 [id number] Encounter for therapeutic drug level ekaterina toring Problem 08/25/2020 12:00:00 AM EST eCW1 ([facility]) Z79.01 081144274 long-term (current) use of anticoagulants Problem 06/20/2020 12:00:00 AM EST eCW1 ([facility]) Surgeries/Procedures Procedure Description Date Indications Data Source(s) ECG ROUTINE ECG W/LEAST 12 LDS W/I&R 07/04/2021 12:00: 00 AM EST eCW1 ([facility]) TDAP VACCINE 7/> YR IM 01/30/2021 12:00:00 AM EDT eCW1 ([facility]) Surgical / procedural history Total Hysterectomy 1989 ', knee surgery 2016 Surgical / procedural history Total Hysterectomy 1989's, knee surgery 2017 12/16/2020 12:00:00 AM EDT THO (Zhou vu MD [facility]) Repair of retina for retinal detachment (procedure) Hi story of repair of retinal detachment of the left eye x2 2012 & 2017 by RVS 12/16/2020 12:00:00 AM EDT THO (Zhou Trevino MD [facility]) Extracapsular extraction of lens (procedure) History o f extracapsular cataract extraction PCIOL OS by Dr. Castillo 201212/16/2020 12:00:00 AM EDT THO (Zhou Trevino MD [facility]) Discission of membranous cataract, secondary (procedur e) History of discission of secondary membranous cataract of left eye by laser by Dr. Castillo 12/16/2020 12:00:00 AM EDT THO (Zhou Trevino MD [facility]) Medical Eye Exam Medical Eye Exam 12/16/2020 12:00:00 AM EDT THO (Zhou Trevino MD [facility]) PNEUMOCOCCAL POLYSAC VACCINE 23-V 2 />YR SUBQ/IM 07/28 12:00:00 AM EST eCW1 ([facility]) Results ID Date Data Source [id number] 07/15/2021 10:15:00 AM EST [facility] Name Value Range Interpretation Code Description Data María rce(s) Supporting Document(s) SARS coronavirus 2 RNA [Presence] in Res piratory specimen by SU with probe detection NEGATIVE [facility] This lab was ordered by [facility] a nd reported by [facility]. ID Date Data Source US DUPLEX EXT LOWER VEINS BILAT US.DEVB PLZ or [facility] 12:00:00 AM EST eCW1 ([facility]) Name Value Range Interpretation Code Description Data María rce(s) Supporting Document(s) US DUPLEX EXT LOWER VEINS BILAT US.DEVB PLZ or [facility] eCW1 ([facility]) ID Date Data Source TROPONIN I 07/04/2021 12:00:00 AM EST eCW1 ([facility]) Name Value Range Interpretation Code Description Data María rce(s) Supporting Document(s) < 0.02 < 0.10 TROPONIN I eCW1 ([facility]) ID Date Data Source PT & APTT 07/04/2021 12:00:00 AM EST eCW1 ([facility]) Name Value Range Interpretation Code Description Data María rce(s) Supporting Document(s) 1.90 INR eCW1 ([facility]) 22.2 12.7-14.5 PROTHROMBIN TIME eCW1 ([facility]) 39.3 25.9-37.0 PARTIAL THROMBOPLASTIN TI ME eCW1 ([facility]) ID Date Data Source DDIMER QUANT 07/04/2021 12:00:00 AM EST eCW1 ([facility]) Name Value Range Interpretation Code Description Data María rce(s) Supporting Document(s) 336.89 <500 D-DIMER QUANT eCW1 ([facility]) ID Date Data Source Comprehensive Metabolic Profile (CMP) 07/04/2021 12:00:00 AM EST eCW1 ([facility]) Name Value Range Interpretation Code Description Data María rce(s) Supporting Document(s) 373 70-100 GLUCOSE, FASTING eCW1 ([facility]) 17 7-18 BLOOD UREA NITROGEN eCW1 (Formerly [facility]) 0.88 0.55-1.30 CREATININE FOR GFR eCW1 (Replaced by [facility]) > 60.0 >45 GLOMERULAR FILTRATION RATE eCW 1 ([facility]) 28 21-32 CARBON DIOXIDE LEVEL eCW1 ([facility]) 4.1 3.5-5.1 POTASSIUM SERUM eCW1 (Formerly [facility]) 137 136-145 SODIUM LEVEL eCW1 ([facility]) 103 98-107 CHLORIDE LEVEL eCW1 ([facility]) 15 7-37 AST/SGOT eCW1 (Formerly [facility]) 46 12-78 ALT/SGPT eCW1 ([facility]ly [facility]) 9.5 8.8-10.2 CALCIUM LEVEL eCW1 ([facility]) 126 45-117 ALKALINE PHOSPHATASE eCW1 ([facility]) 0.3 0.2-1.0 BILIRUBIN,TOTAL eCW1 ([facility]ly [facility]) 7.2 6.4-8.2 TOTAL PROTEIN eCW1 ([facility]) 3.9 3.2-5.2 ALBUMIN eCW1 ([facility]ly [facility]) 1.2 1.2-2.2 ALBUMIN/GLOBULIN RATIO eCW1 ([facility]) ID Date Data Source CBC with Differential 07/04/2021 12:00:00 AM EST eCW1 (Replaced by [facility]) Name Value Range Interpretation Code Description Data María rce(s) Supporting Document(s) 5.06 4.00-5.40 RED BLOOD COUNT eCW1 ([facility]ly [facility]) 14.6 12.0-15.5 HEMOGLOBIN eCW1 ([facility]) 11.8 4.0-10.0 WHITE BLOOD COUNT eCW1 ([facility]) 45.5 36.0-47.0 HEMATOCRIT eCW1 ([facility]) 89.9 80.0-96.0 MEAN CORPUSCULAR VOLUME e CW1 ([facility]) 28.9 27.0-33.0 MEAN CORPUSCULAR HEMOGLOB IN eCW1 ([facility]) 32.1 32.0-36.5 MEAN CORPUSCULAR HGB CONC eCW1 ([facility]) 342 150-450 PLATELET COUNT, AUTOMATED eCW1 ([facility]) 13.3 11.5-14.5 RED CELL DISTRIBUTION WID TH eCW1 ([facility]) 17.0 24.0-44.0 LYMPH % eCW1 ([facility]) 74.5 36.0-66.0 NEUTROPHILS % eCW1 ([facility]) 1.4 0.0-3.0 EOS % eCW1 ([facility]) 6.3 2.0-8.0 MONO % eCW1 ([facility]) 0.4 0.0-1.0 BASO % eCW1 ([facility]) 2.0 1.5-5.0 LYMPH # eCW1 ([facility]) 8.8 1.5-8.5 NEUTROPHILS # eCW1 ([facility]) 0.8 0.0-0.8 MONO # eCW1 ([facility]) 0.2 0.0-0.5 EOS # eCW1 ([facility]) 0.1 0.0-0.2 BASO # eCW1 ([facility]) ID Date Data Source NT-PRO BNP 07/04/2021 12:00:00 AM EST eCW1 ([facility]) Name Value Range Interpretation Code Description Data María rce(s) Supporting Document(s) 24 <125 NT-PRO BNP W1 ([facility]) ID Date Data Source [id number] 07/01/2021 09:30:00 AM EST ANA Name Value Range Interpretation Code Description Data María rce(s) Supporting Document(s) SARS-CoV-2 RNA Resp Ql SU+probe NOT DETECTED [facility] This lab was ordered by JOHNATHAN liu and reported by JOHNATHAN Saldana. ID Date Data Source [id number] 06/14/2021 09:34:00 AM [facility] Anatomic Molecular Pathology ReportName: FRANCINE SKINNERMRN: [id number] Number: [id number] Date: 06/07/2021 00:00Received Date: 06/09/2021 09:10Physician(s): RADHA AKERS DO VYAS,ROSCOE Irvin,MDSpecimen(s) ReceivedA: Left breast, [facility] in [place], [place] [id number],Formalin Block, [id number] by FISHDiagnosisTEST:HER2 (ERBB2) by FISH (Fluorescence in situ Hybridization).RESULT:RATIO of HER2 (ERBB2) to CEP17 (D17Z1) is 4.0Average HER2 (ERBB2) copy number per cell is 12.1International System for Cytogenetic Nomenclature: nucish(D17Z1,HER2)x2~20 [40]INTERPRETATION: POSITIVE FOR HER2 (ERBB2) GENE AMPLIFICATION.The average of HER2 and CEP17 copies per cell in breast cancer is 12.1 and2.9 respectively, which makes a ratio of HER2 to CEP17 4.0. Based oncurrent ASCO/CAP guideline recommendations for HER2 testing in breastcancer, dual-probe in situ hybridization (MELIA) results indicating aHER2/centromere ratio d2.0 and an average HER2 copy numberd4.0 signals percell is interpreted as MELIA positive (Group 1). This result is an adjunctto other clinical and pathologic information for prediction of therapeuticresponse.reed/cecilia Electronically Signed By Austyn Herndon ttending Pathologist 06/14/2021 09:34:28Reported at [facility] Clinical Pathology [address] [place] [address]. Gross DescriptionMETHODOLOGY:Interphase FISH is performed on paraffin embedded breast cancer utilizingthe [employer] HER2 DNA Probe Kit. This is a combination, direct label,dual color detection system utilizing 2 probes: 1) HER2 (17q11.2 - q12,190 kb, encompassing the gene) with SpectrumOrange label, and 2) CEP 17(17p11.1- q11.1, chromosome 17 centromere) with SpectrumGreen label. Tumorcells with no HER2 amplification have, on average, 2 orange and 2 greensignals. Amplification will result in multiple copies of the HER2 gene,expressed as multiple orange signals. Hybridization is carried out as perthe stated protocol with no significant background or random probehybridization detected. Cells are counterstained with DAPI. A total of 40interphase nuclei from a region of invasive or metastatic tumor areexamined by two different scorers. If the ratio of HER2 /D17Z1 is 1.8-2.2,40 more nuclei are evaluated. Also, if the HER2 gene copy number is4.0-6.0, 40 more nuclei are evaluated. Depending on the initial ISHgroup, the case may be reflexed to HER2 immunohistochemistry (IHC) forIHC-guided FISH scoring. This FISH Probe Kit was approved by the FDA for this application and hasbeen validated in the Special Procedures Laboratory in the Department ofPathology, [facility]. REFERENCES 1. Anoop Godinez, et al. "Human epidermal growth factor receptor 2testing in breast cancer: [place] Society of Clinical Oncology/College ofAmerican Pathologists clinical practice guideline focused update."Archives of pathology & laboratory medicine 142.11 (2018): 1364- 1382.This report may include one or more immunohistochemical stain results thatuse analyte specific reagents. All positive and negative controls havebeen reviewed by the attending pathologist and are satisfactory. The testswere developed and their performance characteristics determined by [facility] Pathology department. They have not been cleared or approved by the USFood and Drug Administration. The FDA has determined that such clearanceor approval is not necessary. Name Value Range Interpretation Code Description Data María rce(s) Supporting Document(s) ID Date Data Source [id number] 06/07/2021 04:25:00 PM [facility] Surgical Pathology ReportName: FRANCINE SKINNERMRN: [id number] Number: [id number] Date: 06/07/2021 00:00Received Date: 06/07/2021 11:06Physician(s): RADHA AKERS DO VYAS, SHIKHAR G, MDSpecimen(s) ReceivedA: Material received for consultation, [facility], [id number] HistoryInvasive ductal carcinoma. Please do ER, [place], HER2.DiagnosisIMMUNOHISTOCHEMISTRY, LEFT BREAST BIOPSY ([id number], 06/02/21):ESTROGEN RECEPTORS: POSITIVE (STRONG, 100%)PROGESTERONE RECEPTORS: POSITIVE (MODERATE, 80%).HER2: EQUIVOCAL (2+), FISH PENDING (ADDENDUM REPORT WILL FOLLOW). Electronically Signed By Marcus Denis M.D., Attending Pmadafpcpsb11/20/2021 16:25:02 Unless 'gross-only' is specified, the final diagnosis is based on amicroscopic examination of open claims representative sections of tissue.Gross DescriptionReceived from [facility] in [place], [place] is 1 paraffinblock, labeled [id number], with the corresponding pathology report. This report may include one or more immunohistochemical stain results thatuse analyte specific reagents. All positive and negative controls havebeen reviewed by the attending pathologist and are satisfactory. The testswere developed and t heir performance characteristics determined by [facility] Pathology department. They have not been cleared or approved by the USFood and Drug Administration. The FDA has determined that such clearanceor approval is not necessary. Name Value Range Interpretation Code Description Data María rce(s) Supporting Document(s) ID Date Data Source [id number] 08/27/2020 12:00:00 AM EST [place] Name Value Range Interpretation Code Description Data María rce(s) Supporting Document(s) SARS-CoV2 Rapid Antigen Positive [facility] This lab was ordered by [facility] and reported by [facility]. ID Date Data Source PT-INR Fingerstick 05/26/2020 05:57:17 AM EDT eCW1 ([facility]) Name Value Range Interpretation Code Description Data María rce(s) Supporting Document(s) 3.0 INR eCW1 ([facility]) yes, Brooke Mahmood LPN Verified Patien t's Name and eCW1 ([facility]) None on Saturday Current Dose 1 eCW1 ([facility]) 3mg tabs Tab Strength eCW1 ([facility]) 3mg ROW Current Dose 2 eCW1 ([facility]) BL PE Indication for Anticoagul ation eCW1 ([facility]) no Recent Bleeding eCW1 ([facility]) 2-3 Therapeutic Range eCW1 ([facility]) yes Internal QC Acceptable (Y/N) e CW1 ([facility]) Weekly Total eCW1 ([facility]) no change New Dose 1 eCW1 ([facility]) Education Given (Date / Initia ls) eCW1 ([facility]) New Dose 2 eCW1 ([facility]) 4 weeks Next PT-INR eCW1 ([facility]) CAM - eCW1 ([facility]) Procedure Social History Code Duration Value Status Description Data Source(s ) Smoking 07/10/2021 12:00:00 AM EST Never Smoker completed Never S moker eCW1 ([facility]) Smoking 07/10/2021 12:00:00 AM EST Never Smoker completed Never S moker eCW1 ([facility]) Smoking 07/10/2021 12:00:00 AM EST Never Smoker completed Never S moker eCW1 ([facility]) Smoking 07/10/2021 12:00:00 AM EST Never Smoker completed Never S moker eCW1 ([facility]) Smoking 07/10/2021 12:00:00 AM EST Never Smoker completed Never S moker eCW1 ([facility]) Smoking 07/10/2021 12:00:00 AM EST Never Smoker completed Never S moker eCW1 ([facility]) Smoking 07/10/2021 12:00:00 AM EST Never Smoker completed Never S moker eCW1 ([facility]) Smoking 07/05/2021 12:00:00 AM EST Never Smoker completed Never S moker eCW1 ([facility]) Smoking 07/05/2021 12:00:00 AM EST Never Smoker completed Never S moker eCW1 ([facility]) Smoking 07/05/2021 12:00:00 AM EST Never Smoker completed Never S moker eCW1 ([facility]) Smoking 07/05/2021 12:00:00 AM EST Never Smoker completed Never S moker eCW1 ([facility]) Smoking 06/30/2021 12:00:00 AM EST Never Smoker completed Never S moker eCW1 ([facility]) Smoking 06/30/2021 12:00:00 AM EST Never Smoker completed Never S moker eCW1 ([facility]) Smoking 06/08/2021 12:00:00 AM EDT Never Smoker completed Never S moker eCW1 ([facility]) Smoking 06/08/2021 12:00:00 AM EDT Never Smoker completed Never S moker eCW1 ([facility]) Smoking 06/08/2021 12:00:00 AM EDT Never Smoker completed Never S moker eCW1 ([facility]) Smoking 06/08/2021 12:00:00 AM EDT Never Smoker completed Never S moker eCW1 ([facility]) Smoking 06/08/2021 12:00:00 AM EDT Never Smoker completed Never S moker eCW1 ([facility]) Smoking 06/08/2021 12:00:00 AM EDT Never Smoker completed Never S moker eCW1 ([facility]) Smoking 06/07/2021 12:00:00 AM EDT Never Smoker completed Never S moker eCW1 ([facility]) Smoking 05/26/2021 12:00:00 AM EDT Never Smoker completed Never S moker eCW1 ([facility]) Smoking 05/26/2021 12:00:00 AM EDT Never Smoker completed Never S moker eCW1 ([facility]) Smoking 05/26/2021 12:00:00 AM EDT Never Smoker completed Never S moker eCW1 ([facility]) Smoking 05/26/2021 12:00:00 AM EDT Never Smoker completed Never S moker eCW1 ([facility]) Smoking 05/11/2021 12:00:00 AM EDT Never Smoker completed Never S moker eCW1 ([facility]) Smoking 05/11/2021 12:00:00 AM EDT Never Smoker completed Never S moker eCW1 ([facility]) Smoking 05/11/2021 12:00:00 AM EDT Never Smoker completed Never S moker eCW1 ([facility]) Smoking 05/11/2021 12:00:00 AM EDT Never Smoker completed Never S moker eCW1 ([facility]) Smoking 05/11/2021 12:00:00 AM EDT Never Smoker completed Never S moker eCW1 ([facility]) Smoking 05/11/2021 12:00:00 AM EDT Never Smoker completed Never S moker eCW1 ([facility]) Smoking 04/26/2021 12:00:00 AM EDT Never Smoker completed Never S moker eCW1 ([facility]) Smoking 03/13/2021 12:00:00 AM EDT Never Smoker completed Never S moker eCW1 ([facility]) Smoking 01/30/2021 12:00:00 AM EDT Never Smoker completed Never S moker eCW1 ([facility]) Smoking 01/02/2021 12:00:00 AM EDT Never Smoker completed Never S moker eCW1 ([facility]) Smoking 12/16/2020 09:48:14 AM EDT Never smoked tobacco (findi ng) completed Never smoked tobacco (finding) THO (Zhou Trevino MD [facility]) Smoking 12/12/2020 12:00:00 AM EDT Never Smoker completed Never S moker eCW1 ([facility]) Smoking 11/14/2020 12:00:00 AM EDT Never Smoker completed Never S moker eCW1 ([facility]) Smoking 11/14/2020 12:00:00 AM EDT Never Smoker completed Never S moker eCW1 ([facility]) Smoking 10/31/2020 12:00:00 AM EDT Never Smoker completed Never S moker eCW1 ([facility]) Smoking 10/03/2020 12:00:00 AM EST Never Smoker completed Never S moker eCW1 ([facility]) Smoking 09/06/2020 12:00:00 AM EST Never Smoker completed Never S moker eCW1 ([facility]) Smoking 09/06/2020 12:00:00 AM EST Never Smoker completed Never S moker eCW1 ([facility]) Smoking 08/25/2020 12:00:00 AM EST Never Smoker completed Never S moker eCW1 ([facility]) Smoking 07/28/2020 12:00:00 AM EST Never Smoker completed Never S moker eCW1 ([facility]) Smoking 07/28/2020 12:00:00 AM EST Never Smoker completed Never S moker eCW1 ([facility]) Smoking 06/20/2020 12:00:00 AM EST Never Smoker completed Never S moker eCW1 ([facility]) Smoking 05/23/2020 12:00:00 AM EDT Never Smoker completed Never S moker eCW1 ([facility]) Smoking 05/23/2020 12:00:00 AM EDT Never Smoker completed Never S moker eCW1 ([facility]) Vital Signs ID Date Data Source UNK Name Value Range Interpretation Code Description Data Source(s) Body weight 201 [lb_av] 201 [lb_av] eCW1 (Replaced by [facility]) Body weight 91.17 kg 91.17 kg eCW1 ([facility]) Body height 62 [in_i] 62 [in_i] eCW1 ([facility]) Body mass index (BMI) [Ratio] 36.76 kg/m2 36.76 kg/m2 W1 ([facility]) Heart rate 107 /min 107 /min eCW1 (Formerly [facility]) Respiratory rate 18 /min 18 /min eCW1 ([facility]) Body temperature 97.1 [degF] 97.1 [degF] eCW1 ( [facility]) Systolic blood pressure 150 mm[Hg] 150 mm[Hg] e CW1 ([facility]) Diastolic blood pressure 90 mm[Hg] 90 mm[Hg] eCW1 ([facility]) Body weight 203 [lb_av] 203 [lb_av] eCW1 (Replaced by [facility]) Body height 62 [in_i] 62 [in_i] eCW1 ([facility]) Body mass index (BMI) [Ratio] 37.13 kg/m2 37.13 kg/m2 eCW1 ([facility]) Heart rate 82 /min 82 /min eCW1 ([facility]) Respiratory rate 20 /min 20 /min eCW1 ([facility]) Body temperature 97.3 [degF] 97.3 [degF] eCW1 ( [facility]) Systolic blood pressure 130 mm[Hg] 130 mm[Hg] e CW1 ([facility]) Diastolic blood pressure 70 mm[Hg] 70 mm[Hg] eCW1 ([facility]) Body weight 204.2 [lb_av] 204.2 [lb_av] eCW1 ([facility]) Body weight 92.62 kg 92.62 kg eCW1 ([facility]) Body height 62 [in_i] 62 [in_i] eCW1 ([facility]) Body mass index (BMI) [Ratio] 37.34 kg/m2 37.34 kg/m2 eCW1 ([facility]) Heart rate 124 /min 124 /min eCW1 ([facility]) Respiratory rate 18 /min 18 /min eCW1 ([facility]) Body temperature 98.1 [degF] 98.1 [degF] eCW1 ( [facility]) Systolic blood pressure 142 mm[Hg] 142 mm[Hg] e CW1 ([facility]) Diastolic blood pressure 98 mm[Hg] 98 mm[Hg] eCW1 ([facility]) Body weight 203 [lb_av] 203 [lb_av] eCW1 (Replaced by [facility]) Body weight 92.08 kg 92.08 kg eCW1 ([facility]) Body height 62 [in_i] 62 [in_i] eCW1 ([facility]) Body mass index (BMI) [Ratio] 37.13 kg/m2 37.13 kg/m2 eCW1 ([facility]) Heart rate 85 /min 85 /min eCW1 ([facility]) Respiratory rate 18 /min 18 /min eCW1 ([facility]) Body temperature 98.0 [degF] 98.0 [degF] eCW1 ( [facility]) Systolic blood pressure 146 mm[Hg] 146 mm[Hg] e CW1 ([facility]) Diastolic blood pressure 90 mm[Hg] 90 mm[Hg] eCW1 ([facility]) Body weight 207 [lb_av] 207 [lb_av] eCW1 (Replaced by [facility]) Body weight 93.89 kg 93.89 kg eCW1 ([facility]) Body height 62 [in_i] 62 [in_i] eCW1 ([facility]) Body mass index (BMI) [Ratio] 37.86 kg/m2 37.86 kg/m2 eCW1 ([facility]) Heart rate 87 /min 87 /min eCW1 ([facility]) Respiratory rate 18 /min 18 /min eCW1 ([facility]) Body temperature 96.2 [degF] 96.2 [degF] eCW1 ( [facility]) Systolic blood pressure 140 mm[Hg] 140 mm[Hg] e CW1 ([facility]) Diastolic blood pressure 80 mm[Hg] 80 mm[Hg] eCW1 ([facility]) Body weight 205.8 [lb_av] 205.8 [lb_av] eCW1 ([facility]) Body weight 93.35 kg 93.35 kg eCW1 ([facility]) Body height 62 [in_i] 62 [in_i] eCW1 ([facility]) Body mass index (BMI) [Ratio] 37.64 kg/m2 37.64 kg/m2 eCW1 ([facility]) Heart rate 102 /min 102 /min eCW1 ([facility]) Respiratory rate 18 /min 18 /min eCW1 ([facility]) Body temperature 97.4 [degF] 97.4 [degF] eCW1 ( [facility]) Systolic blood pressure 130 mm[Hg] 130 mm[Hg] e CW1 ([facility]) Diastolic blood pressure 90 mm[Hg] 90 mm[Hg] eCW1 ([facility]) Body weight 206 [lb_av] 206 [lb_av] eCW1 (Replaced by [facility]) Body weight 93.44 kg 93.44 kg eCW1 ([facility]) Body height 62 [in_i] 62 [in_i] eCW1 ([facility]) Body mass index (BMI) [Ratio] 37.67 kg/m2 37.67 kg/m2 eCW1 ([facility]) Body temperature 97.4 [degF] 97.4 [degF] eCW1 ( [facility]) Body weight 206 [lb_av] 206 [lb_av] eCW1 (Replaced by [facility]) Body weight 93.44 kg 93.44 kg eCW1 ([facility]) Body height 62 [in_i] 62 [in_i] eCW1 ([facility]) Body mass index (BMI) [Ratio] 37.67 kg/m2 37.67 kg/m2 eCW1 ([facility]) Heart rate 69 /min 69 /min eCW1 ([facility]) Respiratory rate 18 /min 18 /min eCW1 ([facility]) Body temperature 96.3 [degF] 96.3 [degF] eCW1 ( [facility]) Systolic blood pressure 132 mm[Hg] 132 mm[Hg] e CW1 ([facility]) Diastolic blood pressure 80 mm[Hg] 80 mm[Hg] eCW1 ([facility]) Heart rate 88 /min 88 /min eCW1 ([facility]) Body weight 203.12 [lb_av] 203.12 [lb_av] eCW1 ([facility]) Respiratory rate 18 /min 18 /min eCW1 ([facility]) Body weight 92.13 kg 92.13 kg eCW1 ([facility]) Body height 62 [in_i] 62 [in_i] eCW1 ([facility]) Body mass index (BMI) [Ratio] 37.15 kg/m2 37.15 kg/m2 eCW1 ([facility]) Body temperature 97.8 [degF] 97.8 [degF] eCW1 ( [facility]) Systolic blood pressure 120 mm[Hg] 120 mm[Hg] e CW1 ([facility]) Diastolic blood pressure 82 mm[Hg] 82 mm[Hg] eCW1 ([facility]) Body weight 205.4 [lb_av] 205.4 [lb_av] eCW1 ([facility]) Body height 62 [in_i] 62 [in_i] eCW1 ([facility]) Body mass index (BMI) [Ratio] 37.56 kg/m2 37.56 kg/m2 W1 ([facility]) Systolic blood pressure 120 mm[Hg] 120 mm[Hg] e CW1 ([facility]) Diastolic blood pressure 86 mm[Hg] 86 mm[Hg] eCW1 ([facility]) Body weight 204.6 [lb_av] 204.6 [lb_av] eCW1 ([facility]) Body height 62 [in_i] 62 [in_i] eCW1 ([facility]) Body mass index (BMI) [Ratio] 37.42 kg/m2 37.42 kg/m2 W1 ([facility]) Heart rate 89 /min 89 /min eCW1 ([facility]) Respiratory rate 18 /min 18 /min eCW1 ([facility]) Body temperature 98.0 [degF] 98.0 [degF] eCW1 ( [facility]) Systolic blood pressure 136 mm[Hg] 136 mm[Hg] e CW1 ([facility]) Diastolic blood pressure 84 mm[Hg] 84 mm[Hg] eCW1 ([facility]) Body weight 204 [lb_av] 204 [lb_av] eCW1 (Replaced by [facility]) Body height 62 [in_i] 62 [in_i] eCW1 ([facility]) Body mass index (BMI) [Ratio] 37.31 kg/m2 37.31 kg/m2 eCW1 ([facility]) Heart rate 97 /min 97 /min eCW1 ([facility]) Respiratory rate 18 /min 18 /min eCW1 ([facility]) Body temperature 98 [degF] 98 [degF] eCW1 ([facility]) Systolic blood pressure 122 mm[Hg] 122 mm[Hg] e CW1 ([facility]) Diastolic blood pressure 80 mm[Hg] 80 mm[Hg] eCW1 ([facility]) Body weight 204 [lb_av] 204 [lb_av] eCW1 (Replaced by [facility]) Body height 62 [in_i] 62 [in_i] eCW1 ([facility]) Body mass index (BMI) [Ratio] 37.31 kg/m2 37.31 kg/m2 eCW1 ([facility]) Heart rate 86 /min 86 /min eCW1 ([facility]) Respiratory rate 18 /min 18 /min eCW1 ([facility]) Body temperature 97.7 [degF] 97.7 [degF] eCW1 ( [facility]) Systolic blood pressure 128 mm[Hg] 128 mm[Hg] e CW1 ([facility]) Diastolic blood pressure 82 mm[Hg] 82 mm[Hg] eCW1 ([facility]) Body weight 206.8 [lb_av] 206.8 [lb_av] eCW1 ([facility]) Body height 62 [in_i] 62 [in_i] eCW1 ([facility]) Body mass index (BMI) [Ratio] 37.82 kg/m2 37.82 kg/m2 eCW1 ([facility]) Heart rate 86 /min 86 /min eCW1 ([facility]) Respiratory rate 18 /min 18 /min eCW1 ([facility]) Body temperature 98 [degF] 98 [degF] eCW1 ([facility]) Systolic blood pressure 130 mm[Hg] 130 mm[Hg] e CW1 ([facility]) Diastolic blood pressure 84 mm[Hg] 84 mm[Hg] eCW1 ([facility]) Body weight 209 [lb_av] 209 [lb_av] eCW1 (Replaced by [facility]) Body height 62 [in_i] 62 [in_i] eCW1 ([facility]) Body mass index (BMI) [Ratio] 38.22 kg/m2 38.22 kg/m2 eCW1 ([facility]) Heart rate 84 /min 84 /min eCW1 ([facility]ly [facility]) Respiratory rate 18 /min 18 /min eCW1 ([facility]) Body temperature 97.7 [degF] 97.7 [degF] eCW1 ( [facility]) Systolic blood pressure 118 mm[Hg] 118 mm[Hg] e CW1 ([facility]) Diastolic blood pressure 78 mm[Hg] 78 mm[Hg] eCW1 ([facility]) Body mass index (BMI) [Ratio] 37.49 kg/m2 37.49 kg/m2 eCW1 ([facility]) Heart rate 96 /min 96 /min eCW1 ([facility]ly [facility]) Body weight 205 [lb_av] 205 [lb_av] eCW1 (Replaced by [facility]) Respiratory rate 18 /min 18 /min eCW1 ([facility]) Body temperature 98.1 [degF] 98.1 [degF] eCW1 ( [facility]) Systolic blood pressure 122 mm[Hg] 122 mm[Hg] e CW1 ([facility]) Diastolic blood pressure 84 mm[Hg] 84 mm[Hg] eCW1 ([facility]) Body height 62 [in_i] 62 [in_i] eCW1 ([facility]) Body weight 207.6 [lb_av] 207.6 [lb_av] eCW1 ([facility]) Body height 62 [in_i] 62 [in_i] eCW1 ([facility]) Body mass index (BMI) [Ratio] 37.97 kg/m2 37.97 kg/m2 eCW1 ([facility]) Heart rate 99 /min 99 /min eCW1 ([facility]ly [facility]) Respiratory rate 18 /min 18 /min eCW1 ([facility]) Body temperature 98.4 [degF] 98.4 [degF] eCW1 ( [facility]) Systolic blood pressure 134 mm[Hg] 134 mm[Hg] e CW1 ([facility]) Diastolic blood pressure 86 mm[Hg] 86 mm[Hg] eCW1 ([facility]) Body weight 200.2 [lb_av] 200.2 [lb_av] eCW1 ([facility]) Body height 62 [in_i] 62 [in_i] eCW1 ([facility]) Body mass index (BMI) [Ratio] 36.61 kg/m2 36.61 kg/m2 eCW1 ([facility]) Heart rate 86 /min 86 /min eCW1 ([facility]ly [facility]) Respiratory rate 18 /min 18 /min eCW1 ([facility]) Body temperature 97.8 [degF] 97.8 [degF] eCW1 ( [facility]) Systolic blood pressure 140 mm[Hg] 140 mm[Hg] e CW1 ([facility]) Diastolic blood pressure 80 mm[Hg] 80 mm[Hg] eCW1 ([facility]) Body weight 206 [lb_av] 206 [lb_av] eCW1 (Replaced by [facility]) Body height 62 [in_i] 62 [in_i] eCW1 ([facility]) Body mass index (BMI) [Ratio] 37.67 kg/m2 37.67 kg/m2 eCW1 ([facility]) Heart rate 102 /min 102 /min eCW1 (Formerly [facility]) Respiratory rate 18 /min 18 /min eCW1 ([facility]) Body temperature 97 [degF] 97 [degF] eCW1 ([facility]) Systolic blood pressure 138 mm[Hg] 138 mm[Hg] e CW1 ([facility]) Diastolic blood pressure 80 mm[Hg] 80 mm[Hg] eCW1 ([facility]) Body weight 213 [lb_av] 213 [lb_av] eCW1 (Replaced by [facility]) Body height 62 [in_i] 62 [in_i] eCW1 ([facility]) Body mass index (BMI) [Ratio] 38.95 kg/m2 38.95 kg/m2 eCW1 ([facility]) Heart rate 100 /min 100 /min eCW1 (Formerly [facility]) Respiratory rate 18 /min 18 /min eCW1 ([facility]) Body temperature 97.4 [degF] 97.4 [degF] eCW1 ( [facility]) Systolic blood pressure 130 mm[Hg] 130 mm[Hg] e CW1 ([facility]) Diastolic blood pressure 78 mm[Hg] 78 mm[Hg] eCW1 ([facility]) Patient Treatment Plan of Care Planned Activity Planned Date Details Description Data Source (s) Lidocaine 25 MG/ML / Prilocaine 25 MG/ML Topical Cream 06/15/2021 12:00:00 AM EDT eCW1 (Formerly [facility]) Lidocaine 25 MG/ML / Prilocaine 25 MG/ML Topical Cream 06/15/2021 12:00:00 AM EDT eCW1 (Formerly [facility]) Lidocaine 25 MG/ML / Prilocaine 25 MG/ML Topical Cream 06/15/2021 12:00:00 AM EDT eCW1 (Formerly [facility])
[2021-07-18 07:48] LABS: INR 1.39; PROTHROMBIN TIME 17.5 SECONDS (12.7-14.5)
[2021-07-18] MEDS ORDERED: dexameTHASONE 4 MG/ML 1ML VIAL (J1100 PER 1MG) As Ordered ONE (09:37)
[2021-07-18] MEDS ORDERED: SUGAMMADEX SODIUM 500 MG/5 ML VIAL (BRIDION) As Ordered ONE (09:37)
[2021-07-18] MEDS ORDERED: LIDOCAINE 2% 100MG/5ML SDV (FOR ANES.) As Ordered ONE (09:37)
[2021-07-18] MEDS ORDERED: ROCURONIUM BROMIDE 50 MG/5 ML VIAL As Ordered ONE (09:37)
[2021-07-18] MEDS ORDERED: propofoL 200 MG/20 ML VIAL As Ordered ONE (09:37)
[2021-07-18] MEDS ORDERED: ONDANSETRON 4MG/2ML VIAL As Ordered ONE (09:37)
[2021-07-18] MEDS ORDERED: fentaNYL 250 MCG/5 ML INJECTION (J3010) As Ordered ONE (09:38)
[2021-07-18] MEDS ORDERED: MIDAZOLAM INJ 2MG/2ML VIAL (J2250 PER 1MG) As Ordered ONE (09:38)
[2021-07-18] MEDS ORDERED: BUPIVACAINE HCL 0.5% 30 ML VIAL As Ordered ONE (11:45)
[2021-07-18] MEDS ORDERED: LIDOCAINE 1% SDV 30ML VIAL As Ordered ONE (11:45)
[2021-07-18] MEDS ORDERED: METHYLENE BLUE 0.5% (5MG/ML) 10 ML AMP (PROVAYBLUE) As Ordered ONE (11:45)
[2021-07-18] MEDS ORDERED: LACRILUBE (AKWA TEARS) OPHTH OINT 3.5 GM As Ordered ONE (11:53)
[2021-07-18] MEDS ORDERED: SEVOFLURANE INHAL SOLN 250 ML BTL As Ordered ONE (11:53)
[2021-07-18] MEDS ORDERED: BUPIVACAINE HCL 0.25% 30ML VIAL As Ordered ONE (12:35)
[2021-07-18] MEDS ORDERED: PHENYLephrine 500MCG 5ML (100MCG/ML) SYRINGE As Ordered ONE (12:56)
[2021-07-18] MEDS ORDERED: ePHEDrine SULFATE 25 MG/5 ML(5MG/ML) SYRINGE As Ordered ONE (12:56)
[2021-07-18] MEDS ORDERED: METOCLOPRAMIDE INJ 10MG/2ML VIAL (J2765 PER 1) As Ordered ONE ×2 (13:43→18:33)
[2021-07-18] MEDS ORDERED: HYDROmorphone HCL 2 MG/ML 1ML VIAL As Ordered ONE (14:01)
[2021-07-18] MEDS ORDERED: ACETAMINOPHEN 1000MG 100ML IV BTL (OFIRMEV) (J0131 PER 10MG) As Ordered ONE (14:01)
[2021-07-18] MEDS ORDERED: ROXI1TAB2 PO (15:49)
[2021-07-18] MEDS ORDERED: HumaLOG INSULIN (NovoLOG) PER UNIT SC ONE ×2 (15:50→17:45)
[2021-07-18] MEDS ORDERED: ONDANSETRON 4MG/2ML VIAL IV PRN (15:50)
[2021-07-18] MEDS ORDERED: PERCOCET 5MG/325MG TAB PO PRN (15:50)
[2021-07-18] MEDS ORDERED: fentaNYL 100 MCG/2 ML INJECTION (J3010) IV PRN (15:50)
[2021-07-18] MEDS ORDERED: METOCLOPRAMIDE INJ 10MG/2ML VIAL (J2765 PER 1) IV PRN (15:50)
[2021-07-18] MEDS ORDERED: LR 1,000 ML IV SCH (15:50)
--- NOTE | 2021-07-18 17:28 | REP ---
INDICATION: LEFT BREAST CA. COMPARISON: None. TECHNIQUE: The procedure was performed under the direct supervision of Dr. Arenas. The images were reviewed with Dr. Arenas. The risks and benefits of the procedure were explained to the patient and informed consent was obtained. Using topical anesthetic and sterile technique 1.007 mCi of technetium 99 filtered sulfur colloid was injected subdermally in 8 fractionated periareolar injections. Images obtained 1 hour after injection show a dominant focus of uptake in the left axilla. FINDINGS: There is a dominant focus of uptake in the left axilla. IMPRESSION: Left breast lymphoscintigraphy. <Electronically signed by Zachery Guadarrama > 07/18/21 1542 <Electronically signed by Davian Arenas > 07/18/21 1038
[2021-07-18 19:10] VITALS: BP 132/60
--- NOTE | 2021-07-18 21:09 | ROOPDOC ---
[facility] Report Of Operation Report of Operation DATE OF PROCEDURE: 07/18/21 PREPROCEDURE DIAGNOSES: Left breast cancer POSTPROCEDURE DIAGNOSES: left breast cancer PROCEDURE PERFORMED: left lumpectomy with intraop wire placement and left sentinel lymph node biopsy SURGEON: Dr. Jaron Akers ANESTHESIA: general ESTIMATED BLOOD LOSS: Approximately 25 mL. PROCEDURE NOTE: INDICATIONS: Ms. Skinner is a 65-year-old woman who was found to have a suspicious left breast mass on screening mammogram. This was evaluated with Stereotactic biopsy since sonographic target was not identified. 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 Clip was displaced by radiology department and patient had to have another clip placement to locate cancer. She also underwent MRI of the breast and no additional suspicious lesions were identified beside know left breast cancer. Patients case was presented at tumor board and recommendation was to proceed with surgery first since the lesion is smaller that 1 cm. We have discussed surgical options. Patient opted for breast conservative surgery with sentinel lymph node biopsy on the left. She was medically cleared for surgery by her primary care doctor. Risks and possible complications of surgical procedure including bleeding, infection and injury to surrounding structures were explained to the patient and she wished to proceed. Consent was signed. My initials were placed on the operative site. Subcutaneous injection of 5000 units of heparin was done. The injection of radioactive tracer was done in radiology department preoperatively. Lymphoscintigraphy imaging was reviewed in preop. DETAILS: Patient was taken to the operating room and placed on the operating room table. A sign in was called stating patients name, date of and the procedure to be done. Preoperative antibiotics were infused. Smooth induction of general anesthesia was done. Patients hands were extended on arm rests. Care was taken not to over extend the arms. Pillow was placed under the knees and a foam was placed under the heels. Sequential compression devices were placed and assured to function correctly. Procedure was started with left breast intraop wire localization. Appropriate time out was done and patients name, date of , and the procedure to be done were confirmed. Left breast was cleaned by me. Intraoperative ultrasound was used to confirm location of the Hydromark clip. Location of the clip was marked on the skin as well. 21 G [employer] Breast Lesion Localization Needle was used to place 25 cm wire through the clip. The end of the wire was passed a centimeter deep. The images were captured confirming adequate placement of the localizing wire. Senior Business Manager assisted with the wire placement. Next, patients left breast and axilla were prepped and draped in the usual fashion. Care was taken not to displace the wire. Appropriate time out was done again prior second part of the procedure. Patients name, date of , and the procedure to be done were confirmed. Procedure was started with sentinel lymph node biopsy. Neoprobe was used to locate area of maximum intensity of the signal. Local anesthetic using 1% lidocaine and 0.25 % Marcaine 50/50 mix was injected. An incision was made with scalpel number 15 at the inferior aspect of axillary hair line in the left axilla where the maximum signal was identified in deep axilla. The sharp and bl unt dissection was continued through the subcutaneous adipose tissue. Clavipectoral fascia was opened. Neoprobe was used to guide the dissection. First sentinel lymph node was identified and excised. The ex-vivo 10 second count was 990. Second sentinel lymph node was identified by palpation and excised as well. This was moderate size node. There was no signal at this node. Third sentinel lymph node was identified and excised. The ex-vivo 10 second count was [id number]. Fourth sentinel lymph node was identified and excised. The ex- vivo 10 second count was 1243. The specimens were labeled with patients name and sent to pathology. No additional lymph nodes with high radioactive signal were identified. The 10 second count of the background was 22. Adequate hemost asis was assured. Additional local anesthetic was injected into surrounding tissues. Wound was irrigated. Clavipectoral fascia was closed with 2-0 Vicryl interrupted suture. Dermal layer was closed at the end of the case with 3-0 Monocryl and skin was closed with 4-0 Monocryl. Surgical glue was applied to the incision at the end of the procedure. Next, our attention was turned toward then left breast. Local anesthetic using 1% lidocaine and 0.25 % Marcaine 50/50 mix was injected at the site of planned incision about 1 cm from the inframammary fold. The incision was made with the scalpel. Subcutaneous skin flaps were raised and the guide wire was carefully pulled into the wound. Dissection was carries along the wire until the previously marked on the skin area of target lesion location was encountered. At this point, wider excision of the tissue surrounding the wire was done. The H ydromark clip was identified in the tissue with intraoperative hockey stick ultrasound probe. The end of the wire was identified with palpation. The lumpectomy specimen was carefully removed from the breast keeping its proper orientation and moved to the back table where margins were marked with the surgical inking kit following the standard colors recommendations. Specimen was then placed on the grid and placed in [facility]. The image revealed the mass, the wire and the Hydromark in the specimen. The specimen was labeled with patients name and left lumpectomy and sent to pathology. The specimen measured 5.5 x 5 cm. I evaluated intraop specimen radiography to assess the margins of the specimen. It was noted that the cancer is very close to anterior margin. Since the skin was very thin already at the inferior margin, a decision was made to excise the overlying skin as the anterior margin. This was sent to pathology as a separate specimen labeled anterior margin. Next, wound was thoroughly irrigated. Adequate hemostasis was assured. Additional local anesthetic was injected into surrounding tissues. Five clips were placed to dank the cavity. space was approximated with 2-0 Vicryl. The dermis was closed with 3-0 Vicryl and skin was closed with 4-0 Monocryl. Surgical glue was placed over the incision. Patient emerged from the anesthesia without any problems. Fluffs were placed over the operative site and patients chest was wrapped snuggly in the JENNA wrap. Sponge and instrument counts were done and were correct. Patient tolerated procedure well and was taken to recovery unit in stable condition. RADHA AKERS DO Jul 18, 2021 21:09
[2021-08-04] MEDS ORDERED: WARF-58 PO (10:46)
[2021-08-04] MEDS ORDERED: D31000TA2 PO (10:46)
[2021-08-04] MEDS ORDERED: LETR2.5T2 PO (11:39)
== END 2021-07-18 19:10 | disposition home or self-care (01) ==
LOC: M OPP 07:01 → M SDC 19:10
PROVIDERS: ATTEND Surgery
DX: C50.912 Malignant neoplasm of unspecified site of left female breast (principal); E11.9 Type 2 diabetes mellitus without complications; I10 Essential (primary) hypertension; E78.5 Hyperlipidemia, unspecified; Z86.711 Personal history of pulmonary embolism; K21.9 Gastro-esophageal reflux disease without esophagitis; G47.33 Obstructive sleep apnea (adult) (pediatric); Z79.01 Long term (current) use of anticoagulants; Z79.899 Other long term (current) drug therapy; J45.909 Unspecified asthma, uncomplicated
CPT/HCPCS: 19125; 36415; 38525; 76942; 78195; 82330; 82947; 84132; 84295; 85014; 85610; 86850; 86900; 86901; 88305; 88307; A9541; J0131; J0690; J1170; J1644; J2250; J2370; J2405; J2765; J3010

== ENCOUNTER → 2021-08-04 | Outpatient (CLI) | payer MEDICARE ==
[~2021-08-04] MED LIST changes: +D31000TA2 PO; -HEPARIN SOD (PORCINE) 5000UNITS/ML 1ML VIAL/SYRINGE SQ ONE; +LETR2.5T2 PO; -LEVO500T3 PO; +LEVO500T4 PO; -LR 1,000 ML IV ONE; -NS 1,000 ML IV SCH; +ROXI1TAB2 PO; +WARF-58 PO; -ceFAZolin SOD 2 GM in IV 1 EA IV ONE
== END ==
LOC: M ONCR 07:56
PROVIDERS: ATTEND General Practice
DX: C50.312 Malignant neoplasm of lower-inner quadrant of left female breast (principal); E11.9 Type 2 diabetes mellitus without complications; Z86.711 Personal history of pulmonary embolism; Z79.01 Long term (current) use of anticoagulants; Z79.899 Other long term (current) drug therapy

== ENCOUNTER → 2021-08-16 | Outpatient (CLI) | payer MEDICARE ==
[~2021-08-16] MED LIST changes: +LEVO500T3 PO; -LEVO500T4 PO
--- NOTE | 2021-08-16 11:37 | DEXAMM ---
INDICATION: OSTEOPENIA. COMPARISON: 07/23/2011, 07/21/2009. TECHNIQUE: Bone density was measured using dual-energy x-ray absorptiometry (DEXA). FINDINGS: AP SPINE L1-L4 BMD 1.214 g/cm2 Young Adult T-Score 0.2 Age Matched Z-Score 1.8. LT FEMUR, TOTAL BMD 0.998 g/cm2 Young Adult T-Score -0.1 Age Matched Z-Score 1.2. LT NECK BMD 0.851 g/cm2 Young Adult T-Score -1.3 Age Matched Z-Score 0.2. RT FEMUR, TOTAL BMD 0.890 g/cm2 Young Adult T-Score -0.9 Age Matched Z-Score 0.3. RT NECK BMD 0.799 g/cm2 Young Adult T-Score -1.7 Age Matched Z-Score -0.2. IMPRESSION: There is normal bone density of the spine. There is low bone density of the left hip. There is low bone density of the right hip. The density of the spine has decreased 5.1% since the initial exam on 07/21/2009. The density of the spine decreased 3.2% since most recent exam on 07/23/2011. The density of the left hip has decreased 10.4% since initial exam on 07/21/2009. The density of the left hip has decreased 11.1% since most recent exam on 07/23/2011. The density of the right hip has decreased 17.4% since the initial exam on 07/21/2009. The density of the right hip has decreased 15.0% since the most recent exam on 07/23/2011. FOLLOW-UP: Recommendation for the next bone density exam: 2 years. <Electronically signed by Davian Arenas > 08/16/21 0668
== END ==
LOC: M WHC 08:09
PROVIDERS: ATTEND Internal Medicine Medical Oncology
DX: M85.851 Other specified disorders of bone density and structure, right thigh (principal); M85.852 Other specified disorders of bone density and structure, left thigh

== ENCOUNTER 2021-08-23 10:16 | Outpatient (RCR) | payer MEDICARE ==
[~2021-08-23 10:16] MED LIST changes: -LEVO500T3 PO; +LEVO500T4 PO
== END 2021-09-18 ==
LOC: M ONCR 10:16
PROVIDERS: ATTEND General Practice
DX: C50.312 Malignant neoplasm of lower-inner quadrant of left female breast (principal)

== ENCOUNTER 2021-10-03 07:51 | Outpatient (RCR) | payer MEDICARE ==
[~2021-10-03 07:51] MED LIST changes: -D31000TA2 PO; +VITA100093 PO
== END 2021-10-16 ==
LOC: M ONCR 07:51
PROVIDERS: ATTEND General Practice
DX: C50.312 Malignant neoplasm of lower-inner quadrant of left female breast (principal)

== ENCOUNTER → 2021-10-24 | Outpatient (CLI) | payer MEDICARE ==
[2021-10-24 14:15] LABS: CHOLESTEROL RISK RATIO 4.156 (<5)
[2021-10-24 14:25] LABS: MAU/CREAT RATIO 14.8 MCG/MG (0.0-30.0)
[2021-10-24 14:51] LABS: HEMOGLOBIN A1c 10.3 %
== END ==
LOC: M PLALAB 09:10
PROVIDERS: ATTEND Internal Medicine
DX: E78.00 Pure hypercholesterolemia, unspecified (principal)

== ENCOUNTER → 2022-02-01 | Outpatient (CLI) | payer MEDICARE ==
[~2022-02-01] MED LIST changes: +GLIP5TAB8
[2022-02-01 17:20] LABS: HEMOGLOBIN A1c 8.6 %
[2022-02-01 17:31] LABS: ALBUMIN 3.6 GM/DL (3.2-5.2); ALT/SGPT 34 U/L (12-78); BILIRUBIN,TOTAL 0.3 MG/DL (0.2-1.0); BLOOD UREA NITROGEN 18 MG/DL (7-18); CALCIUM LEVEL 9.9 MG/DL (8.8-10.2); CARBON DIOXIDE LEVEL 26 MEQ/L (21-32); CHLORIDE LEVEL 107 MEQ/L (98-107); CHOLESTEROL LEVEL 177 MG/DL (<200); CHOLESTEROL RISK RATIO 4.116 (<5); CREATININE FOR GFR 0.72 MG/DL (0.55-1.30); GLOMERULAR FILTRATION RATE > 60.0 (>45); GLUCOSE, FASTING 205 MG/DL (70-100); HDL CHOLESTEROL 43 MG/DL (>40); LDL CHOLESTEROL 97 MG/DL (<100); NON-HDL-C 134 MG/DL; POTASSIUM SERUM 4.3 MEQ/L (3.5-5.1); SODIUM LEVEL 141 MEQ/L (136-145); TOTAL PROTEIN 6.7 GM/DL (6.4-8.2); TRIGLYCERIDES LEVEL 183 MG/DL (<150)
== END ==
LOC: M PLALAB 15:03
PROVIDERS: ATTEND Internal Medicine
DX: E11.9 Type 2 diabetes mellitus without complications (principal); I10 Essential (primary) hypertension; E78.00 Pure hypercholesterolemia, unspecified; Z79.01 Long term (current) use of anticoagulants

== ENCOUNTER 2022-02-13 07:34 | Outpatient (RCR) | payer MEDICARE | END 2022-02-15 | LOC: M PT 07:34 | PROVIDERS: ATTEND Nurse Practitioner Women's Health | DX: M79.602 Pain in left arm (principal) ==

== ENCOUNTER 2022-03-08 08:58 | Outpatient (RCR) | payer MEDICARE | END 2022-03-18 | LOC: M PT 08:58 | PROVIDERS: ATTEND Nurse Practitioner Women's Health | DX: M79.602 Pain in left arm (principal) ==

== ENCOUNTER → 2022-03-26 | Outpatient (CLI) | payer MEDICARE ==
[~2022-03-26] MED LIST changes: +LEVO1TAB39 PO; -LEVO500T4 PO
== END ==
LOC: M WHC 09:02
PROVIDERS: ATTEND Surgery
DX: C50.912 Malignant neoplasm of unspecified site of left female breast (principal)
CPT/HCPCS: 77066; G0279

== ENCOUNTER → 2022-04-04 | Outpatient (CLI) | payer MEDICARE | LOC: M ONCR 08:31 | PROVIDERS: ATTEND General Practice | DX: Z08 Encounter for follow-up examination after completed treatment for malignant neoplasm (principal); Z85.3 Personal history of malignant neoplasm of breast; Z79.811 Long term (current) use of aromatase inhibitors; Z92.3 Personal history of irradiation; Z79.84 Long term (current) use of oral hypoglycemic drugs; Z79.51 Long term (current) use of inhaled steroids; Z79.01 Long term (current) use of anticoagulants; Z79.899 Other long term (current) drug therapy ==

== ENCOUNTER → 2022-04-10 | Outpatient (CLI) | payer MEDICARE ==
[2022-04-10 15:49] LABS: HEMOGLOBIN A1c 8.4 %
== END ==
LOC: M PLALAB 12:20
PROVIDERS: ATTEND Nurse Practitioner Adult Health
DX: E11.9 Type 2 diabetes mellitus without complications (principal)

== ENCOUNTER → 2022-05-09 | Outpatient (CLI) | payer MEDICARE ==
[2022-05-09 13:32] LABS: HEMATOCRIT 46.2 % (36.0-47.0); HEMOGLOBIN 14.6 g/dl (12.0-15.5); MEAN CORPUSCULAR HEMOGLOBIN 28.8 pg (27.0-33.0); MEAN CORPUSCULAR HGB CONC 31.6 g/dl (32.0-36.5); MEAN CORPUSCULAR VOLUME 91.1 fl (80.0-96.0); PLATELET COUNT, AUTOMATED 350 10^3/uL (150-450); RED BLOOD COUNT 5.07 10^6/uL (4.00-5.40); WHITE BLOOD COUNT 5.1 10^3/uL (4.0-10.0)
[2022-05-09 13:46] LABS: ALBUMIN 3.9 GM/DL (3.2-5.2); ALT/SGPT 41 U/L (12-78); BILIRUBIN,TOTAL 0.4 MG/DL (0.2-1.0); BLOOD UREA NITROGEN 18 MG/DL (7-18); CALCIUM LEVEL 9.7 MG/DL (8.8-10.2); CARBON DIOXIDE LEVEL 29 MEQ/L (21-32); CHLORIDE LEVEL 105 MEQ/L (98-107); CHOLESTEROL LEVEL 189 MG/DL (<200); CHOLESTEROL RISK RATIO 3.705 (<5); CREATININE FOR GFR 0.85 MG/DL (0.55-1.30); GLOMERULAR FILTRATION RATE > 60.0 (>45); GLUCOSE, FASTING 211 MG/DL (70-100); HDL CHOLESTEROL 51 MG/DL (>40); LDL CHOLESTEROL 117 MG/DL (<100); MAGNESIUM LEVEL 2.2 MG/DL (1.8-2.4); NON-HDL-C 138 MG/DL; POTASSIUM SERUM 4.3 MEQ/L (3.5-5.1); SODIUM LEVEL 138 MEQ/L (136-145); TOTAL PROTEIN 7.1 GM/DL (6.4-8.2); TRIGLYCERIDES LEVEL 105 MG/DL (<150)
[2022-05-09 14:13] LABS: MALB URINE SIEMENS 41.4 MG/L; MAU/CREAT RATIO 20.9 MCG/MG (0.0-30.0)
[2022-05-09 14:31] LABS: TOTAL 25(OH) VITAMIN D 46.7 NG/ML (30.0-100.0)
[2022-05-09 14:58] LABS: HEMOGLOBIN A1c 7.9 %
== END ==
LOC: M PLALAB 10:37
PROVIDERS: ATTEND Nurse Practitioner Adult Health
DX: E11.9 Type 2 diabetes mellitus without complications (principal); I10 Essential (primary) hypertension; Z79.01 Long term (current) use of anticoagulants; E78.00 Pure hypercholesterolemia, unspecified; G47.33 Obstructive sleep apnea (adult) (pediatric); Z79.899 Other long term (current) drug therapy

== ENCOUNTER → 2022-06-01 | Outpatient (CLI) | payer MEDICARE | LOC: M RAD 10:58 | PROVIDERS: ATTEND Nurse Practitioner Women's Health | DX: N20.0 Calculus of kidney (principal) ==

== ENCOUNTER → 2022-06-06 | Outpatient (CLI) | payer MEDICARE | LOC: M LABSMTC 09:10 | PROVIDERS: ATTEND Anesthesiology | DX: Z01.818 Encounter for other preprocedural examination (principal); Z11.52 Encounter for screening for COVID-19 ==

== ENCOUNTER 2022-06-11 06:31 | Day surgery (SDC) | payer MEDICARE ==
[~2022-06-11] VITALS: Ht 157.5 cm; Wt 93.1 kg
[2022-06-11] MEDS ORDERED: LR 1,000 ML IV SCH (07:00)
[2022-06-11] MEDS ORDERED: LIDOCAINE 1% 1ML PF SYRINGE (OR EYE CASES) As Ordered ONE (07:17)
[2022-06-11] MEDS: TETRACAINE 0.5% OPHTH SOLN 4ML OD SCH ×3 (07:34→09:12)
[2022-06-11] MEDS: FLURBIPROFEN 0.03% OPHTH SOLN 2.5 ML OD SCH ×3 (07:34→07:51)
[2022-06-11] MEDS: PHENYLEPHRINE 2.5% OPHTH SOL 2ML OD SCH ×3 (07:34→07:51)
[2022-06-11] MEDS: CYCLOPENTOLATE 1% OPHTH SOLN 2 ML BTL OD SCH ×3 (07:34→07:51)
[2022-06-11] MEDS ORDERED: fentaNYL 100 MCG/2 ML INJECTION As Ordered ONE (08:13)
[2022-06-11] MEDS ORDERED: MIDAZOLAM INJ 2MG/2ML VIAL (J2250 PER 1MG) As Ordered ONE (08:13)
[2022-06-11 09:31] VITALS: BP 135/60
== END 2022-06-11 09:55 | disposition home or self-care (01) ==
LOC: M SDC 06:31
PROVIDERS: ATTEND Ophthalmology
DX: H25.11 Age-related nuclear cataract, right eye (principal); E78.5 Hyperlipidemia, unspecified; E11.9 Type 2 diabetes mellitus without complications; G47.33 Obstructive sleep apnea (adult) (pediatric); K21.9 Gastro-esophageal reflux disease without esophagitis; Z86.711 Personal history of pulmonary embolism; Z86.718 Personal history of other venous thrombosis and embolism; Z79.01 Long term (current) use of anticoagulants; F41.9 Anxiety disorder, unspecified; F32.9 Major depressive disorder, single episode, unspecified; Z79.899 Other long term (current) drug therapy; Z92.3 Personal history of irradiation; J45.909 Unspecified asthma, uncomplicated
CPT/HCPCS: 66984; J2250; J3010; V2632

== ENCOUNTER → 2022-07-26 | Outpatient (CLI) | payer MEDICARE ==
[2022-07-26 16:18] LABS: ALBUMIN 3.8 G/DL (3.2-5.2); ALKALINE PHOSPHATASE 116 U/L (46-116); ALT/SGPT 33 U/L (7.0-40); AST/SGOT 15 U/L (<34); BILIRUBIN,TOTAL 0.3 MG/DL (0.3-1.2); BLOOD UREA NITROGEN 23 MG/DL (9-23); CALCIUM LEVEL 9.3 MG/DL (8.3-10.6); CARBON DIOXIDE LEVEL 30 MMOL/L (20-31); CHLORIDE LEVEL 102 MMOL/L (98-107); CREATININE FOR GFR 0.75 MG/DL (0.55-1.30); GLOMERULAR FILTRATION RATE > 60.0 (>45); GLUCOSE, FASTING 186 MG/DL (74-106); POTASSIUM SERUM 4.4 MMOL/L (3.5-5.1); SODIUM LEVEL 139 MMOL/L (136-145)
[2022-07-26 17:36] LABS: HEMOGLOBIN A1c 8.5 % (4.0-6.0)
== END ==
LOC: M PLALAB 14:39
PROVIDERS: ATTEND Nurse Practitioner Adult Health
DX: E11.9 Type 2 diabetes mellitus without complications (principal)

== ENCOUNTER 2022-08-06 10:02 | Inpatient (IN) | payer MEDICARE ==
[~2022-08-06] VITALS: Ht 157.5 cm; Wt 92.1 kg
[2022-08-06] MEDS: NS 1,000 ML IV SCH ×2 (12:20→16:51)
[2022-08-06] MEDS ORDERED: NS 500 ML IV ONE (12:20)
[2022-08-06 13:06] LABS: BASO # 0.1 10^3/uL (0.0-0.2); BASO % 0.9 % (0.0-1.0); EOS # 0.1 10^3/uL (0.0-0.5); EOS % 1.2 % (0.0-3.0); HEMATOCRIT 43.8 % (36.0-47.0); HEMOGLOBIN 14.2 g/dl (12.0-15.5); LYMPH # 1.6 10^3/uL (1.5-5.0); LYMPH % 27.6 % (24.0-44.0); MEAN CORPUSCULAR HGB CONC 32.4 g/dl (32.0-36.5); MEAN CORPUSCULAR VOLUME 89.4 fl (80.0-96.0); MONO # 0.4 10^3/uL (0.0-0.8); NEUTROPHILS # 3.6 10^3/uL (1.5-8.5); PLATELET COUNT, AUTOMATED 307 10^3/uL (150-450); WHITE BLOOD COUNT 5.7 10^3/uL (4.0-10.0)
[2022-08-06] MEDS ORDERED: ISOVUE-370 76% 100ML VIAL As Ordered ONE (13:06)
[2022-08-06 13:43] LABS: BILIRUBIN,DIRECT < 0.1 MG/DL (<0.4)
[2022-08-06 13:46] LABS: THYROID STIMULATING HORMONE 2.114 uIU/ML (0.55-4.78)
[2022-08-06] MEDS ORDERED: ASPIRIN 81MG CHEW TABLET PO ONE (13:50)
[2022-08-06 13:52] LABS: ALKALINE PHOSPHATASE 103 U/L (46-116); ALT/SGPT 43 U/L (7.0-40); AST/SGOT 64 U/L (<34); BILIRUBIN,TOTAL 0.3 MG/DL (0.3-1.2); CK-MB VALUE MASS < 1.0 NG/ML (<3.6); CPK CREATINE PHOSPHOKINASE 159 U/L (34-145); FREE T4 0.93 NG/DL (0.89-1.76); LIPASE 53 U/L (12-53); MB/CK RELATIVE INDEX 0.62 (< OR =4); TOTAL PROTEIN 7.1 G/DL (5.7-8.2)
[2022-08-06] MEDS ORDERED: ACETAMINOPHEN 325 MG TAB PO ONE (13:55)
[2022-08-06 14:37] LABS: RSV AMPLIFICATION NEGATIVE (NEGATIVE)
[2022-08-06 15:35] VITALS: BP 160/72
[2022-08-06 16:07] LABS: MAGNESIUM LEVEL 1.8 MG/DL (1.8-2.4)
[2022-08-06 16:10] LABS: CHOLESTEROL LEVEL 196 MG/DL (<200); CHOLESTEROL RISK RATIO 3.84 (<5); LDL CHOLESTEROL 120.2 MG/DL (<100); NON-HDL-C 145 MG/DL; TRIGLYCERIDES LEVEL 124 MG/DL (<150)
[2022-08-06 16:12] LABS: HEMOGLOBIN A1c 8.6 % (4.0-6.0)
[2022-08-06] MEDS ORDERED: DEXTROSE 50% 50ML SYRINGE IV PRN (16:30)
[2022-08-06] MEDS ORDERED: GLUCOSE 4GM CHEW TABLET PO PRN (16:30)
[2022-08-06] MEDS ORDERED: GLUCAGON INJ 1MG VIAL SC PRN (16:30)
[2022-08-06] MEDS: ATORVASTATIN 20 MG TAB PO SCH (16:51)
[2022-08-06] MEDS: INSULIN LISPRO (NovoLOG) PER UNIT SC SCH (17:30)
[2022-08-06 20:00] VITALS: BP 131/61
[2022-08-06] MEDS ORDERED: INSULIN LISPRO (NovoLOG) PER UNIT SC SCH (21:00)
[2022-08-06] MEDS ORDERED: lisinopriL 5 MG TAB PO SCH (21:00)
[2022-08-06 21:01] VITALS: BP 138/72
[2022-08-06] MEDS ORDERED: FAMO40TA3 PO (22:53)
[2022-08-06] MEDS ORDERED: LIPI20TA PO (22:53)
[2022-08-06] MEDS ORDERED: GLIP5TAB20 PO (22:53)
[2022-08-06] MEDS ORDERED: POLYOPD OU (22:53)
[2022-08-06] MEDS ORDERED: WARF-58 PO (22:53)
[2022-08-06] MEDS ORDERED: LETR2.5T2 PO (22:53)
[2022-08-06] MEDS ORDERED: HOME MED LIST COMPLETE! XX SCH (22:55)
[2022-08-07] VITALS: BP 147/72
[2022-08-07 00:50] LABS: INR 2.28; PROTHROMBIN TIME 25.5 SECONDS (12.5-14.5)
[2022-08-07] MEDS: NS 1,000 ML IV SCH (02:51)
[2022-08-07 04:00] VITALS: BP 126/58
[2022-08-07 05:21] LABS: HEMATOCRIT 39.2 % (36.0-47.0); HEMOGLOBIN 12.7 g/dl (12.0-15.5); MEAN CORPUSCULAR HEMOGLOBIN 29.2 pg (27.0-33.0); MEAN CORPUSCULAR HGB CONC 32.4 g/dl (32.0-36.5); MEAN CORPUSCULAR VOLUME 90.1 fl (80.0-96.0); PLATELET COUNT, AUTOMATED 273 10^3/uL (150-450); RED BLOOD COUNT 4.35 10^6/uL (4.00-5.40); WHITE BLOOD COUNT 5.2 10^3/uL (4.0-10.0)
[2022-08-07 05:45] LABS: MAGNESIUM LEVEL 1.7 MG/DL (1.8-2.4)
[2022-08-07 06:07] LABS: BLOOD UREA NITROGEN 15 MG/DL (9-23); CALCIUM LEVEL 8.7 MG/DL (8.3-10.6); CARBON DIOXIDE LEVEL 24 MMOL/L (20-31); CHLORIDE LEVEL 106 MMOL/L (98-107); CREATININE FOR GFR 0.64 MG/DL (0.55-1.30); GLOMERULAR FILTRATION RATE > 60.0 (>45); GLUCOSE, FASTING 197 MG/DL (74-106); POTASSIUM SERUM 4.3 MMOL/L (3.5-5.1); SODIUM LEVEL 139 MMOL/L (136-145)
[2022-08-07 07:26] VITALS: BP 142/66
[2022-08-07] MEDS ORDERED: ELIQ5TAB PO (07:30)
[2022-08-07] MEDS ORDERED: MAG SULF 1GM/100ML (MAG RUN) 1 GM in IV 1 EA IV ONE (08:00)
[2022-08-07] MEDS: INSULIN LISPRO (NovoLOG) PER UNIT SC SCH ×2 (08:25→12:26)
[2022-08-07] MEDS: ATORVASTATIN 20 MG TAB PO SCH (08:25)
[2022-08-07] MEDS ORDERED: MAGNESIUM OXIDE 400MG TAB (MAG-OX) PO ONE (08:40)
[2022-08-07] MEDS ORDERED: ASPIRIN 81MG ENTERIC TABLET PO SCH (09:00)
[2022-08-07 12:00] VITALS: BP 130/61
[2022-08-07] MEDS ORDERED: ROSU20TA5 PO (15:23)
[2022-08-07 16:00] VITALS: BP 125/62
[2022-08-07] MEDS ORDERED: WARFARIN SOD 3MG TAB PO SCH (17:00)
[2022-08-08] MEDS ORDERED: LISI5TAB11 PO (06:14)
== END 2022-08-07 16:51 | disposition home or self-care (01) | DRG 305 ==
LOC: M ED 10:02 → M ED INP 14:12 → ENRESERV 14:58 → M PCU 15:39
PROVIDERS: ADMIT Internal Medicine; ATTEND Internal Medicine
DX: I10 Essential (primary) hypertension (principal); H33.22 Serous retinal detachment, left eye; C50.912 Malignant neoplasm of unspecified site of left female breast; K21.9 Gastro-esophageal reflux disease without esophagitis; E11.9 Type 2 diabetes mellitus without complications; Z92.3 Personal history of irradiation; E78.5 Hyperlipidemia, unspecified; H35.30 Unspecified macular degeneration; Z86.73 Personal history of transient ischemic attack (TIA), and cerebral infarction without residual deficits; Z79.899 Other long term (current) drug therapy; Z86.711 Personal history of pulmonary embolism; Z79.01 Long term (current) use of anticoagulants

== ENCOUNTER 2022-08-16 15:04 | Observation (INO) | payer MEDICARE ==
[~2022-08-16] VITALS: Ht 157.5 cm; Wt 93.5 kg
[~2022-08-16 15:04] MED LIST changes: +GLIP5TAB20 PO; +LISI5TAB11 PO; +POLYOPD OU; +ROSU20TA5 PO
[2022-08-16 17:36] LABS: BASO # 0.1 10^3/uL (0.0-0.2); BASO % 0.7 % (0.0-1.0); EOS # 0.1 10^3/uL (0.0-0.5); EOS % 1.7 % (0.0-3.0); HEMATOCRIT 45.9 % (36.0-47.0); HEMOGLOBIN 14.8 g/dl (12.0-15.5); LYMPH # 1.9 10^3/uL (1.5-5.0); LYMPH % 26.8 % (24.0-44.0); MEAN CORPUSCULAR HGB CONC 32.2 g/dl (32.0-36.5); MEAN CORPUSCULAR VOLUME 89.8 fl (80.0-96.0); MONO # 0.5 10^3/uL (0.0-0.8); MONO % 6.8 % (2.0-8.0); NEUTROPHILS # 4.6 10^3/uL (1.5-8.5); NEUTROPHILS % 63.9 % (36.0-66.0); PLATELET COUNT, AUTOMATED 314 10^3/uL (150-450); RED BLOOD COUNT 5.11 10^6/uL (4.00-5.40); WHITE BLOOD COUNT 7.3 10^3/uL (4.0-10.0)
[2022-08-16 17:48] LABS: BLOOD UREA NITROGEN 20 MG/DL (9-23); CALCIUM LEVEL 9.8 MG/DL (8.3-10.6); CARBON DIOXIDE LEVEL 26 MMOL/L (20-31); CHLORIDE LEVEL 104 MMOL/L (98-107); CK-MB VALUE MASS < 1.0 NG/ML (<3.6); CREATININE FOR GFR 0.66 MG/DL (0.55-1.30); GLOMERULAR FILTRATION RATE > 60.0 (>45); GLUCOSE, FASTING 133 MG/DL (74-106); POTASSIUM SERUM 4.4 MMOL/L (3.5-5.1); SODIUM LEVEL 139 MMOL/L (136-145)
[2022-08-16 17:51] LABS: CPK CREATINE PHOSPHOKINASE 113 U/L (34-145); MB/CK RELATIVE INDEX 0.88 (< OR =4)
[2022-08-16] MEDS ORDERED: ROSU20TA5 PO (19:36)
[2022-08-16] MEDS ORDERED: LISI5TAB11 PO (19:36)
[2022-08-16] MEDS ORDERED: ELIQ5TAB PO (19:36)
[2022-08-16] MEDS ORDERED: HOME MED LIST COMPLETE! XX SCH (19:40)
[2022-08-16 19:44] LABS: RSV AMPLIFICATION NEGATIVE (NEGATIVE)
[2022-08-16] MEDS ORDERED: ACETAMINOPHEN TAB 650MG DOSE (2X325MG) PO PRN (20:40)
[2022-08-16] MEDS ORDERED: GLUCOSE 4GM CHEW TABLET PO PRN (20:40)
[2022-08-16] MEDS ORDERED: DEXTROSE 50% 50ML SYRINGE IV PRN (20:40)
[2022-08-16] MEDS ORDERED: GLUCAGON INJ 1MG VIAL SC PRN (20:40)
[2022-08-16] MEDS ORDERED: ROSUVASTATIN 10 MG TAB (CRESTOR) PO SCH (21:00)
[2022-08-16] MEDS ORDERED: INSULIN LISPRO (NovoLOG) PER UNIT SC SCH (21:00)
[2022-08-16] MEDS ORDERED: ASPIRIN 81MG CHEW TABLET PO SCH (21:00)
[2022-08-16] MEDS ORDERED: FAMOTIDINE 20 MG TAB PO SCH (21:00)
[2022-08-16 22:28] VITALS: BP 131/88
[2022-08-16] MEDS ORDERED: POLYVINYL ALCOHOL OPHTH SOLN 15ML (LIQUITEARS) OU PRN (23:05)
[2022-08-16] MEDS ORDERED: ALBUTEROL 90 MCG/ACT 8GM HFA INHALER INH PRN (23:05)
[2022-08-16] MEDS: APIXABAN 5 MG TAB (ELIQUIS) PO SCH (23:27)
[2022-08-17 02:00] VITALS: BP 129/58
[2022-08-17 06:00] VITALS: BP 125/60
[2022-08-17 06:52] LABS: HEMOGLOBIN 13.6 g/dl (12.0-15.5); MEAN CORPUSCULAR HEMOGLOBIN 29.3 pg (27.0-33.0); MEAN CORPUSCULAR HGB CONC 32.4 g/dl (32.0-36.5); MEAN CORPUSCULAR VOLUME 90.5 fl (80.0-96.0); PLATELET COUNT, AUTOMATED 285 10^3/uL (150-450); RED BLOOD COUNT 4.64 10^6/uL (4.00-5.40)
[2022-08-17 07:14] LABS: URIC ACID 4.7 MG/DL (3.1-7.8)
[2022-08-17 07:15] LABS: MAGNESIUM LEVEL 1.8 MG/DL (1.8-2.4)
[2022-08-17 07:17] LABS: ALBUMIN 3.5 G/DL (3.2-5.2); ALKALINE PHOSPHATASE 99 U/L (46-116); ALT/SGPT 25 U/L (7.0-40); AST/SGOT 21 U/L (<34); BILIRUBIN,TOTAL 0.5 MG/DL (0.3-1.2); BLOOD UREA NITROGEN 18 MG/DL (9-23); CALCIUM LEVEL 9.7 MG/DL (8.3-10.6); CARBON DIOXIDE LEVEL 27 MMOL/L (20-31); CHLORIDE LEVEL 103 MMOL/L (98-107); CREATININE FOR GFR 0.72 MG/DL (0.55-1.30); GLOMERULAR FILTRATION RATE > 60.0 (>45); GLUCOSE, FASTING 187 MG/DL (74-106); POTASSIUM SERUM 4.4 MMOL/L (3.5-5.1); SODIUM LEVEL 139 MMOL/L (136-145); TOTAL PROTEIN 6.3 G/DL (5.7-8.2)
[2022-08-17] MEDS: INSULIN LISPRO (NovoLOG) PER UNIT SC SCH ×2 (08:32→12:15)
[2022-08-17 08:33] VITALS: BP 139/54
[2022-08-17] MEDS: APIXABAN 5 MG TAB (ELIQUIS) PO SCH (08:33)
[2022-08-17] MEDS ORDERED: lisinopriL 5 MG TAB PO SCH (09:00)
[2022-08-17 10:00] VITALS: BP 119/66
[2022-08-17] MEDS ORDERED: LISI5TAB11 PO (12:23)
[2022-08-17] MEDS ORDERED: VITAMIN D 1,000 INTERNATIONAL UNITS TABLET PO SCH (13:00)
== END 2022-08-17 12:53 | disposition home or self-care (01) ==
LOC: M ED 15:04 → M ED INP 15:05 → M MSPAV 22:27
PROVIDERS: ADMIT Internal Medicine; ATTEND Internal Medicine Nephrology
DX: R42 Dizziness and giddiness (principal); Z86.73 Personal history of transient ischemic attack (TIA), and cerebral infarction without residual deficits; Z86.718 Personal history of other venous thrombosis and embolism; I10 Essential (primary) hypertension; E11.9 Type 2 diabetes mellitus without complications; Z79.84 Long term (current) use of oral hypoglycemic drugs; Z79.01 Long term (current) use of anticoagulants; Z79.51 Long term (current) use of inhaled steroids; E66.9 Obesity, unspecified; E78.5 Hyperlipidemia, unspecified; H54.62 Unqualified visual loss, left eye, normal vision right eye
CPT/HCPCS: 36415; 70450; 71045; 80048; 80053; 82550; 82553; 83735; 84484; 84550; 85025; 85027; 85730; 86850; 86900; 86901; 87631; 93005; 93041; 94760; 97112; 97116; 97162; 99285; G0378; J1815

== ENCOUNTER → 2022-10-05 | Outpatient (CLI) | payer MEDICARE ==
[~2022-10-05] MED LIST changes: +LETR2.5T2
== END ==
LOC: M RAD 09:51
PROVIDERS: ATTEND Internal Medicine Medical Oncology
DX: M54.50 Low back pain, unspecified (principal); C50.912 Malignant neoplasm of unspecified site of left female breast

== ENCOUNTER → 2022-10-05 | Outpatient (CLI) | payer MEDICARE | LOC: M ONCR 09:06 | PROVIDERS: ATTEND General Practice | DX: C50.312 Malignant neoplasm of lower-inner quadrant of left female breast (principal); M54.9 Dorsalgia, unspecified; Z79.01 Long term (current) use of anticoagulants; Z79.84 Long term (current) use of oral hypoglycemic drugs; Z79.899 Other long term (current) drug therapy; Z86.73 Personal history of transient ischemic attack (TIA), and cerebral infarction without residual deficits; Z92.3 Personal history of irradiation ==

== ENCOUNTER → 2022-10-17 | Outpatient (CLI) | payer MEDICARE ==
[~2022-10-17] MED LIST changes: +INSU100I6 SC; -LEVE1INJ5 SC
== END ==
LOC: M WHC 13:10
PROVIDERS: ATTEND Internal Medicine Medical Oncology
DX: M85.851 Other specified disorders of bone density and structure, right thigh (principal); C50.912 Malignant neoplasm of unspecified site of left female breast

== ENCOUNTER → 2022-11-08 | Outpatient (CLI) | payer MEDICARE ==
[2022-11-08 11:21] LABS: ALBUMIN 3.9 G/DL (3.2-5.2); ALKALINE PHOSPHATASE 106 U/L (46-116); ALT/SGPT 29 U/L (7.0-40); AST/SGOT 17 U/L (<34); BILIRUBIN,TOTAL 0.4 MG/DL (0.3-1.2); BLOOD UREA NITROGEN 16 MG/DL (9-23); CALCIUM LEVEL 9.3 MG/DL (8.3-10.6); CARBON DIOXIDE LEVEL 29 MMOL/L (20-31); CHLORIDE LEVEL 107 MMOL/L (98-107); CHOLESTEROL LEVEL 128 MG/DL (<200); CHOLESTEROL RISK RATIO 2.78 (<5); CREATININE FOR GFR 0.65 MG/DL (0.55-1.30); GLOMERULAR FILTRATION RATE > 60.0 (>45); GLUCOSE, FASTING 193 MG/DL (74-106); HDL CHOLESTEROL 45.9 MG/DL (>40); LDL CHOLESTEROL 63.7 MG/DL (<100); NON-HDL-C 82.1 MG/DL; POTASSIUM SERUM 4.5 MMOL/L (3.5-5.1); SODIUM LEVEL 142 MMOL/L (136-145); TOTAL PROTEIN 6.6 G/DL (5.7-8.2); TRIGLYCERIDES LEVEL 92 MG/DL (<150)
== END ==
LOC: M PLALAB 07:34
PROVIDERS: ATTEND Internal Medicine Cardiovascular Disease
DX: E78.5 Hyperlipidemia, unspecified (principal); I10 Essential (primary) hypertension

== ENCOUNTER → 2023-01-31 | Outpatient (CLI) | payer MEDICARE ==
[~2023-01-31] MED LIST changes: +ARTIDRO4 OU; +CYAN-1 PO; -CYAN100050 PO; -POLYOPD OU; -ROSU20TA5 PO; +ROSU20TA61 PO
[2023-01-31 15:56] LABS: ALBUMIN 3.9 G/DL (3.2-5.2); ALKALINE PHOSPHATASE 100 U/L (46-116); ALT/SGPT 24 U/L (7.0-40); AST/SGOT 12 U/L (<34); BILIRUBIN,TOTAL 0.4 MG/DL (0.3-1.2); BLOOD UREA NITROGEN 14 MG/DL (9-23); CALCIUM LEVEL 9.1 MG/DL (8.3-10.6); CARBON DIOXIDE LEVEL 29 MMOL/L (20-31); CHLORIDE LEVEL 106 MMOL/L (98-107); CHOLESTEROL LEVEL 137 MG/DL (<200); CHOLESTEROL RISK RATIO 3.23 (<5); GLOMERULAR FILTRATION RATE > 60.0 (>45); GLUCOSE, FASTING 139 MG/DL (74-106); HDL CHOLESTEROL 42.3 MG/DL (>40); LDL CHOLESTEROL 68.7 MG/DL (<100); MAGNESIUM LEVEL 1.7 MG/DL (1.8-2.4); NON-HDL-C 94.7 MG/DL; POTASSIUM SERUM 4.1 MMOL/L (3.5-5.1); SODIUM LEVEL 139 MMOL/L (136-145); TOTAL PROTEIN 6.5 G/DL (5.7-8.2); TRIGLYCERIDES LEVEL 130 MG/DL (<150)
[2023-01-31 17:01] LABS: HEMOGLOBIN A1c 8.2 % (4.0-6.0)
== END ==
LOC: M PLALAB 13:07
PROVIDERS: ATTEND Nurse Practitioner Adult Health
DX: E11.9 Type 2 diabetes mellitus without complications (principal); I10 Essential (primary) hypertension; E78.00 Pure hypercholesterolemia, unspecified

== ENCOUNTER → 2023-03-28 | Outpatient (CLI) | payer MEDICARE | LOC: M WHC 09:52 | PROVIDERS: ATTEND Nurse Practitioner Women's Health | DX: C50.912 Malignant neoplasm of unspecified site of left female breast (principal) | CPT/HCPCS: 77066; G0279 ==

== ENCOUNTER → 2023-05-10 | Outpatient (CLI) | payer MEDICARE ==
[2023-05-10 18:02] LABS: INR 1.15; PROTHROMBIN TIME 14.4 SECONDS (12.5-14.5)
[2023-05-10 18:03] LABS: PARTIAL THROMBOPLASTIN TIME 30.9 SECONDS (24.8-34.2)
[2023-05-10 19:19] LABS: HEMOGLOBIN A1c 7.8 % (4.0-6.0)
== END ==
LOC: M PLALAB 16:31
PROVIDERS: ATTEND Family Medicine
DX: Z01.818 Encounter for other preprocedural examination (principal); Z86.711 Personal history of pulmonary embolism

== ENCOUNTER → 2023-08-02 | Outpatient (CLI) | payer MEDICARE ==
[~2023-08-02] MED LIST changes: +GLIP5TAB17; +GLIP5TAB17 PO; -GLIP5TAB8; -GLIP5TAB8 PO
== END ==
LOC: M PLAIMG 09:27
PROVIDERS: ATTEND Nurse Practitioner Women's Health
DX: N20.0 Calculus of kidney (principal)

== ENCOUNTER → 2023-08-02 | Outpatient (CLI) | payer MEDICARE ==
[2023-08-02 14:34] LABS: HEMOGLOBIN 13.7 g/dl (12.0-15.5); MEAN CORPUSCULAR HEMOGLOBIN 28.8 pg (27.0-33.0); MEAN CORPUSCULAR HGB CONC 31.9 g/dl (32.0-36.5); MEAN CORPUSCULAR VOLUME 90.5 fl (80.0-96.0); PLATELET COUNT, AUTOMATED 334 10^3/uL (150-450); RED BLOOD COUNT 4.75 10^6/uL (4.00-5.40); WHITE BLOOD COUNT 4.9 10^3/uL (4.0-10.0)
[2023-08-02 14:36] LABS: ALBUMIN 3.9 G/DL (3.2-5.2); ALKALINE PHOSPHATASE 85 U/L (46-116); ALT/SGPT 19 U/L (7.0-40); AST/SGOT 13 U/L (<34); BILIRUBIN,TOTAL 0.2 MG/DL (0.3-1.2); BLOOD UREA NITROGEN 14 MG/DL (9-23); CALCIUM LEVEL 9.7 MG/DL (8.3-10.6); CARBON DIOXIDE LEVEL 27 MMOL/L (20-31); CHLORIDE LEVEL 107 MMOL/L (98-107); CHOLESTEROL LEVEL 119 MG/DL (<200); CHOLESTEROL RISK RATIO 2.59 (<5); GLOMERULAR FILTRATION RATE > 60.0 (>45); GLUCOSE, FASTING 124 MG/DL (74-106); HDL CHOLESTEROL 45.8 MG/DL (>40); NON-HDL-C 73.2 MG/DL; POTASSIUM SERUM 4.3 MMOL/L (3.5-5.1); SODIUM LEVEL 142 MMOL/L (136-145); TOTAL PROTEIN 6.5 G/DL (5.7-8.2); TRIGLYCERIDES LEVEL 86 MG/DL (<150)
[2023-08-02 15:20] LABS: HEMOGLOBIN A1c 6.9 % (4.0-6.0)
== END ==
LOC: M PLALAB 09:23
PROVIDERS: ATTEND Nurse Practitioner Adult Health
DX: E11.9 Type 2 diabetes mellitus without complications (principal); E78.00 Pure hypercholesterolemia, unspecified; G47.33 Obstructive sleep apnea (adult) (pediatric)

== ENCOUNTER → 2024-02-03 | Outpatient (REF) | payer MEDICARE ==
[~2024-02-03] MED LIST changes: +LOSA25TA13; +METF-838
[2024-02-03 18:47] LABS: CREATININE, URINE 17.6 MG/DL; MAU/CREAT RATIO 22.7 MCG/MG (0.0-30.0)
== END ==
LOC: M LABWUC 16:10
PROVIDERS: ATTEND Nurse Practitioner Family
DX: E11.65 Type 2 diabetes mellitus with hyperglycemia (principal)

== ENCOUNTER → 2024-03-30 | Outpatient (CLI) | payer MEDICARE | LOC: M WHC 13:46 | PROVIDERS: ATTEND Nurse Practitioner Women's Health | DX: Z85.3 Personal history of malignant neoplasm of breast (principal) | CPT/HCPCS: 77066; G0279 ==

== ENCOUNTER → 2024-04-30 | Outpatient (CLI) | payer MEDICARE ==
[2024-04-30 10:38] LABS: HEMOGLOBIN A1c 6.3 % (4.0-6.0)
[2024-04-30 10:57] LABS: CREATININE, URINE 83.9 MG/DL; MAU/CREAT RATIO 14.3 MCG/MG (0.0-30.0)
[2024-04-30 11:02] LABS: ALBUMIN 3.8 G/DL (3.2-5.2); ALKALINE PHOSPHATASE 90 U/L (46-116); ALT/SGPT 23 U/L (7.0-40); AST/SGOT < 8 U/L (<34); BILIRUBIN,TOTAL 0.4 MG/DL (0.3-1.2); BLOOD UREA NITROGEN 19 MG/DL (9-23); CALCIUM LEVEL 9.7 MG/DL (8.3-10.6); CARBON DIOXIDE LEVEL 28 MMOL/L (20-31); CHLORIDE LEVEL 106 MMOL/L (98-107); CHOLESTEROL LEVEL 245 MG/DL (<200); CREATININE FOR GFR 0.72 MG/DL (0.55-1.30); GLOMERULAR FILTRATION RATE > 60.0 (>45); GLUCOSE, FASTING 127 MG/DL (74-106); LDL CHOLESTEROL 169.8 MG/DL (<100); SODIUM LEVEL 139 MMOL/L (136-145); TOTAL PROTEIN 7.1 G/DL (5.7-8.2); TRIGLYCERIDES LEVEL 131 MG/DL (<150)
== END ==
LOC: M PLALAB 07:46
PROVIDERS: ATTEND Nurse Practitioner Adult Health
DX: E11.9 Type 2 diabetes mellitus without complications (principal); E78.00 Pure hypercholesterolemia, unspecified

== ENCOUNTER → 2024-05-12 | Outpatient (CLI) | payer MEDICARE ==
[2024-05-12 10:45] LABS: BLOOD UREA NITROGEN 17 MG/DL (9-23); GLOMERULAR FILTRATION RATE > 60.0 (>45)
== END ==
LOC: M PLALAB 08:31
PROVIDERS: ATTEND Physician Assistant
DX: Z01.818 Encounter for other preprocedural examination (principal)

== ENCOUNTER → 2024-05-20 | Outpatient (CLI) | payer MEDICARE ==
[~2024-05-20] MED LIST changes: +ISOVUE-370 76% 100ML VIAL As Ordered ONE; -ROSU20TA61 PO; +ROSU20TA86 PO
== END ==
LOC: M RAD 09:51
PROVIDERS: ATTEND Surgery Vascular Surgery
DX: Z95.828 Presence of other vascular implants and grafts (principal); K57.90 Diverticulosis of intestine, part unspecified, without perforation or abscess without bleeding
CPT/HCPCS: 74175; Q9967

== ENCOUNTER → 2025-04-22 | Outpatient (CLI) | payer MEDICARE ==
[~2025-04-22] MED LIST changes: +GLIP-318 PO; -GLIP5TAB20 PO; -ISOVUE-370 76% 100ML VIAL As Ordered ONE
== END ==
LOC: M RAD 14:39
PROVIDERS: ATTEND Physician Assistant
DX: Z95.828 Presence of other vascular implants and grafts (principal)

== ENCOUNTER → 2025-04-28 | Outpatient (CLI) | payer MEDICARE | LOC: M WHC 09:46 | DX: Z08 Encounter for follow-up examination after completed treatment for malignant neoplasm (principal); Z85.3 Personal history of malignant neoplasm of breast; R92.313 Mammographic fatty tissue density, bilateral breasts; Z98.890 Other specified postprocedural states | CPT/HCPCS: 77066; G0279 ==

== ENCOUNTER → 2025-08-04 | Outpatient (CLI) | payer MEDICARE ==
[2025-08-04 14:21] LABS: PLATELET COUNT, AUTOMATED 347 10^3/uL (150-450)
[2025-08-04 14:47] LABS: ALT/SGPT 20 U/L (7.0-40); AST/SGOT 15 U/L (<34); CALCIUM LEVEL 9.0 MG/DL (8.3-10.6); CARBON DIOXIDE LEVEL 28 MMOL/L (20-31); CHLORIDE LEVEL 105 MMOL/L (98-107); CHOLESTEROL LEVEL 274 MG/DL (<200); CHOLESTEROL RISK RATIO 5.00 (<5); CREATININE FOR GFR 0.68 MG/DL (0.55-1.30); GLOMERULAR FILTRATION RATE > 90.0 (>39); LDL CHOLESTEROL 198.7 MG/DL (<100); MAGNESIUM LEVEL 1.8 MG/DL (1.8-2.4); NON-HDL-C 219.3 MG/DL; POTASSIUM SERUM 4.6 MMOL/L (3.5-5.1); SODIUM LEVEL 140 MMOL/L (136-145); TRIGLYCERIDES LEVEL 103 MG/DL (<150)
[2025-08-04 15:16] LABS: ESTIMATED AVERAGE GLUCOSE 134.0 MG/DL (60-110)
== END ==
LOC: M PLALAB 11:47
PROVIDERS: ATTEND Nurse Practitioner Adult Health
DX: E78.00 Pure hypercholesterolemia, unspecified (principal); E11.9 Type 2 diabetes mellitus without complications; I10 Essential (primary) hypertension; Z79.01 Long term (current) use of anticoagulants